=== PATIENT | female | born 1965 | race Caucasian/White ===

== ENCOUNTER 2024-08-22 07:39 | Outpatient (CLI) | payer MEDICAID, SELFPAY ==
--- OUTSIDE RECORDS SUMMARY | 2024-08-01 03:29 | XMS_ITS | Continuity of Care Document ---
Author Organization [facility] Phone Care Team Providers Care Smooth Stucco Resurfacer Name Role Phone JENNIFER SANDERSON Primary Attending JENNIFER SANDERSON Primary Care [phone] JENNIFER SANDERSON Admitting [phone] JENNIFER SANDERSON Unavailable [phone] ALLERGIES AND ADVERSE REACTIONS ALLERGIES AND ADVERSE REACTIONS Code System Allergy Substance Adverse Reaction Date Reaction (Severity) Comment Status Reported By Updated By TRAMADOL Rash (Moderate) active [id number] on November 14, 2023 2:10:33 PM UTC [address] RXNorm Gabapentin Adverse reaction to substance Not Specified active [id number] on November 14, 2023 2:10:34 PM UTC IODINE; IODINE CONTAINING (Free Text Allergy) Adverse reaction to substance Not Specified active [id number] on November 14, 2023 2:10:34 PM UTC FAMILY HISTORY RELATION: Father Status: LIVING SNOMED-CT Diagnosis Age At Onset Information not available RELATION: Mother Status: LIVING SNOMED-CT Diagnosis Age At Onset Information not available RESULTS Patient: TAURUS VAZQUEZ Date of : 1965 LABORATORY RESULTS Information is not available LABORATORY NARRATIVE RESULTS Information is not available RADIOLOGY RESULTS ORDER 100: OSMAR DIAG BILAT 2D AND 3D (LOINC: 73442-2) ORDER DATE: July 30, 2024 5:47:00 PM [place] PERFORMING LAB: [address] [id number] Final Result Date: July 30 10:40:[address] [address] Name: TAYLOR CONDON Exam Date: 07/30/2024 : 1965 Age 58 years Gender: F Physician: JENNIFER SANDERSON Facility: [facility] HSV: Outpatient Exam: OSMAR APONTE BILAT 2D & 3D EXAM DESCRIPTION: [facility] DIAG BILAT 2D & 3D (accession [id number]), US BREAST LIMITED RT (accession [id number]) CLINICAL HISTORY: 58 years Female. Patient's clinician felt a palpable abnormality in the right breast inferiorly near the inframammary fold. COMPARISON: Screening mammogram from June 15, 2017. Technique: Low dose full field digital breast mammogram with tomosynthesis was performed with 2D/3D tomosynthesis acquisitions in the CC and MLO projections. 90 degree ML view for the right side and spot compression views were obtained. Computer-aided detection was utilized for final interpretation of images. Targeted sonographic evaluation of the right breast was performed utilizing a linear high-frequency transducer. MAMMOGRAM FINDINGS: BREAST DENSITY: There are scattered areas of fibroglandular density. Evaluation is difficult as the patient was unable to tolerate optimal positioning due to physical limitations. No discrete finding on either side by mammography. BREAST ULTRASOUND FINDINGS: 7:00, 8 cm from the nipple, in the area of palpable concern, there is a partially marginated lesion measuring 4 x 1.8 x 2.6 cm. No definite mammographic correlate for this finding. However, despite multiple attempts to obtain imaging of the inferior right breast were unsuccessful due to limitations. This is an indeterminate finding and ultrasound-guided core biopsy is recommended. The results of this report will be communicated to the patient in layman's terms. IMPRESSION: 1. Indeterminate finding in the area of palpable concern. 2. Ultrasound-guided right breast core biopsy is recommended. BI-RADS CATEGORY: CATEGORY 4, SUSPICIOUS ABNORMALITY RECOMMENDATION: BIOPSY FOLLOW-UP SUGG Electronically signed by: Eden Anderson MD 07/30/2024 06:46 PM EDT [facility] FOLLOW-UP CODE Legally authenticated by MONICA Fuchs 2024-07-30 18:40:38 Dictated By: EDEN ANDERSON Transcribed By: Transcribed On: 07/30/2024 6:40 PM Electronically signed by: EDEN ANDERSON 07/30/2024 Thank you for referring TAYLOR CONDON to [facility]. Legally authenticated by MONICA Fuchs 2024-07-30 18:40:38 ORDER 200: US BREAST LIMITED RT (LOINC: 81541-6) ORDER DATE: July 30, 2024 6:36:00 PM [facility] PERFORMING LAB: [address] [place] [id number] Final Result Date: July 30 10:40:[address] [place] [address] Name: TAYLOR CONDON Exam Date: 07/30/2024 : 1965 Age 58 years Gender: F Physician: JENNIFER SANDERSON Facility: [facility] HSV: Outpatient Exam: US BREAST LIMITED RT EXAM DESCRIPTION: OSMAR DIAG BILAT 2D & 3D (accession [id number]), US BREAST LIMITED RT (accession [id number]) CLINICAL HISTORY: 58 years Female. Patient's clinician felt a palpable abnormality in the right breast inferiorly near the inframammary fold. COMPARISON: Screening mammogram from June 15, 2017. Technique: Low dose full field digital breast mammogram with tomosynthesis was performed with 2D/3D tomosynthesis acquisitions in the CC and MLO projections. 90 degree ML view for the right side and spot compression views were obtained. Computer-aided detection was utilized for final interpretation of images. Targeted sonographic evaluation of the right breast was performed utilizing a linear high-frequency transducer. MAMMOGRAM FINDINGS: BREAST DENSITY: There are scattered areas of fibroglandular density. Evaluation is difficult as the patient was unable to tolerate optimal positioning due to physical limitations. No discrete finding on either side by mammography. BREAST ULTRASOUND FINDINGS: 7:00, 8 cm from the nipple, in the area of palpable concern, there is a partially marginated lesion measuring 4 x 1.8 x 2.6 cm. No definite mammographic correlate for this finding. However, despite multiple attempts to obtain imaging of the inferior right breast were unsuccessful due to limitations. This is an indeterminate finding and ultrasound-guided core biopsy is recommended. The results of this report will be communicated to the patient in layman's terms. IMPRESSION: 1. Indeterminate finding in the area of palpable concern. 2. Ultrasound-guided right breast core biopsy is recommended. BI-RADS CATEGORY: CATEGORY 4, SUSPICIOUS ABNORMALITY RECOMMENDATION: BIOPSY FOLLOW-UP SUGG Electronically signed by: Eden Anderson MD 07/30/2024 06:46 PM EDT RP [facility] FOLLOW-UP CODE Legally authenticated by MONICA Fuchs 2024-07-30 18:40:38 Dictated By: EDEN ANDERSON Transcribed By: Transcribed On: 07/30/2024 6:40 PM Electronically signed by: EDEN ANDERSON 07/30/2024 Thank you for referring TAYLOR CONDON to [facility]. Legally authenticated by MONICA Fuchs 2024-07-30 18:40:38 PATHOLOGY NARRATIVE RESULTS Information is not available MICROBIOLOGY RESULTS No Micro Labs/Results Exist for Patient BLOOD ADMIN RESULTS Information is not available MEDICATIONS HOME MEDICATIONS Status RXNORM NDC Medication Dose Route Frequency Dates Comments Reported By Updated By Drug Treatment Unknown DISCHARGE MEDICATIONS Status RXNORM NDC Medication Dose Route Frequency Dates Comments Physician Updated By No Discharge Medication Info rmation Available INPATIENT MEDICATIONS Status RXNORM NDC Medication Dose Route Frequency Rat e Quantity Dates Comments Physician Updated By No Inpatient Medication Info rmation Available SOCIAL HISTORY SOCIAL HISTORY SNOMED-CT Social History Element Description Effective Dates Offered Cessation Comment UpdatedBy [id number] Historical Tobacco smoking status Current Every Day Smoker [id number] on July 04, 2018 7:59:30 PM [facility] SOCIAL HISTORY - Gender Sex: Female SOCIAL HISTORY - Status : status i nformation is not available Intention in Next Year: intention information is not available SOCIAL HISTORY - Sexual Behavior Sexual Orientation Gender Identity SNOMED-CT Description SNO MED -CT Description Activity Level No of Partners Partner Type UpdatedBy Information is not available HEALTH CONCERNS Problems Concern Status Health Concern problem infor mation not available. Smoking Status Status Years Used Consumed packs p er day Health Concern smoking histo ry information not available. Family History Concern Status Health Concern family histor y information not available. ENCOUNTERS ENCOUNTER INFORMATION Reason for Visit LUMP IN LOWER OUTER QUAD Admission July 30, 2024 5:34:[address] [address] Discharge July 30, 2024 5:34:00 PM UTC DISC HARGED TO HOME OR SELF CARE ENCOUNTER DIAGNOSES Notes information is not jet ilable. Code System Diagnosis Onset Date Diagnosis information is not available. ABSTRACT DIAGNOSES Code System Diagnosis Updated By N63.13 ICD10 UNSPECIFIED LUMP IN THE RIGHT BREAST, LOWER OUTER QUADRANT [id number] on July 26, 2024 1:49:04 PM [place] N63.13 ICD10 UNSPECIFIED LUMP IN THE RIGHT BREAST, LOWER OUTER QUADRANT [id number] on August 01, 2024 7:28:23 AM [place] CARE TEAM Care Smooth Stucco Resurfacer Role JENNIFER SANDERSON Primary Attending JENNIFER SANDERSON Primary Care JENNIFER SANDERSON Admitting JENNIFER SANDERSON Referring CARE TEAM CARE mental health practitioner Role on Team Status Start Date End Date Update d By MARIA E Fuchs PCP normal July 26 1:49:05 PM [place] July 30, 2024 5:34:00 PM UTC [id number] on July 26, 2024 1:49:05 PM [place] MARIA E Fuchs Referring normal July 26 1:49:05 PM [place] July 30, 2024 5:34:00 PM UTC [id number] on July 26, 2024 1:49:05 PM [place] MARIA E Fuchs Attending normal July 26 1:49:05 PM [place] July 30, 2024 5:34:00 PM UTC [id number] on July 26, 2024 1:49:05 PM [place] MARIA E Fuchs Admitting normal July 26 1:49:05 PM [place] July 30, 2024 5:34:00 PM UTC [id number] on July 26, 2024 1:49:05 PM UTC
--- NOTE | 2024-08-22 | US_ITS ---
FINAL REPORT CLINICAL HISTORY: LUMP RT BREAST-INNER QUADRANT // bx not performed FINDINGS: ULTRASOUND RIGHT BREAST CLINICAL INDICATION: Right breast abnormality. Planned biopsy. TECHNIQUE: Directed sonographic evaluation right breast COMPARISON: Outside exam 07/30/2024 FINDINGS: The lesion described and shown on outside imaging could not be reproduced on current exam. The abnormality is favored to be related to fat lobule. No definite cystic or soft tissue mass is seen. IMPRESSION: Abnormality described on outside ultrasound not reproducible on current exam. Therefore biopsy cannot be performed. BI-RADS CATEGORY: 3 , PROBABLY BENIGN FINDING(S). RECOMMENDED FOLLOW-UP: Short-term sonographic follow-up right breast in 6 months Authenticated and ERN
== END 2024-08-22 23:59 | disposition home or self-care (01) ==
LOC: RAD 07:40
PROVIDERS: PCP Nurse Practitioner Family; Visit Provider Nurse Practitioner Family
DX: R92.331 Mammographic heterogeneous density, right breast (principal); N63.10 Unspecified lump in the right breast, unspecified quadrant
CPT/HCPCS: 76642

== ENCOUNTER 2024-10-15 15:18 | Emergency (ER) | payer MEDICAID, SELFPAY ==
--- OUTSIDE RECORDS SUMMARY | 2024-08-23 14:00 | XMS_ITS | Encounter Summary ---
Author Organization Healthcare Address [address] [place] [address] Care Team Providers Care Landscape Specialist Name Role Phone Deya Reed APRN Primary Care Provider + Encounter Details Date Type Department Care Team ([facility] Contact Info) Description 08/23/2024 2:00 PM EDT Pre-Admission Testing [facility]est[facility] [address] [place] [address] Anesthesia Record Procedure Summary Procedure Name Responsible Anesthesiologist Anesthesia Start Time Anesthesia Stop Time left carpal tunnel release; left index finger trigger release (Left: Wrist) Dima Carty, 08/27/24 1006 08/27/24 1107 Events Date Time Event Comment 08/27/2024 0851 1006 An Start The patient was reevaluated immediately before sedation and remains eligible for anesthesia plan. 1011 In Room 1011 An Start Data 1013 An Induction The patient was reevaluated immediately before moderate or deep sedation use and before anesthesia induction. 1015 Anesthesia Ready 1019 An Intubation Patient obstru cting with desaturation into 80s, decision made to place LMA 1025 Proc Start 1059 Proc Fin 1101 An Extubation 1102 an stop data 1103 Out of Room 1107 Handoff to Receiving I compl eted my handoff to the receiving clinician during which we: 1. Identified the patient 2. Identified the responsible provider 3. Reviewed the pertinent medical history 4. Discussed the surgical course 5. Reviewed intra-op anesthesia management and issues during anesthesia 6. Set expectations for post-procedure period 7. Allowed opportunity for questions and acknowledgement of understanding. 1107 An Stop Meds * Agents No agents on file. * Blood No blood administrations on file. Lines, Drains, and Airways Type Details Placement Removal Wound 08/27/24; 1022; Yes; Surgical; Closed Surgi; Wrist; Anterior, Left 08/27/24 1022 by Beatrice Walker RN Wound 08/27/24; 1022; Othe r (injection); Finger (Comment which one); Anterior, Right (ring finger) 08/27/24 1022 by Beatrice Walker RN Peripheral IV Placement Date: 12/13; Placement Time: 901; Catheter Size: 18 G; Orientation: Anterior, Right; Location: Forearm; Site Prep: Chlorhexidine ; Technique: Ultrasound guidance; Inserted by: Dr. Fam; Insertion Attempts: 2; Patient Tolerance: Tolerated well; Removal Date: 08/27/24; Removal Time: 1205 08/27/24 0902 by Liliana Callejas RN 08/27/24 1205 by Magda Ojeda RN Supraglottic Airway Placement Date: 12/13; Placement Time: 101 (created via procedure documentation); Mask Ventilation: 0; Removal Date: 08/27/24; Removal Time: 1101 08/27/24 1019 by Saige Damon CRNA 08/27/24 1101 by Saige Damon CRNA documented in this encounter Social History Tobacco Use Types Packs/Day Years Used Date Smoking Tobacco: Every Day Cigarettes 0.3 10 Passive Smoke Exposure: Current Smokeless Tobacco: Never Tobacco Cessation:Ready to Q uit: Not Asked; Counseling Given: Not Answered Alcohol Use Standard Drinks/Week Comments No 0 (1 standard drink = 0.6 oz pur e alcohol) PHQ-2 Answer Date Recorded Patient Health Questionnaire-2 Score 0 05/15/2024 PHQ-9 Answer Date Recorded Patient Health Questionnaire-9 Score 0 05/15/2024 PHQ-2A Answer Date Recorded Depression Risk 0 04/26/2022 Comments No Sex and Gender Information Value Date Recorded Sex Assigned at Not on file Legal Sex Female 7:01 PM EDT Gender Identity Not on file Sexual Orientation Not on file documented as of this encounter Last Filed Vital Signs Vital Sign Reading Time Taken Comments Blood Pressure - - Pulse - - Temperature - - Respiratory Rate - - Oxygen Saturation - - Inhaled Oxygen Concentration - - Weight 120 kg (265 lb) 08/23/2024 1:51 PM EDT Height - - Body Mass Index 51.75 06/07/2024 1:25 PM EDT documented in this encounter Miscellaneous Notes * PAT Evaluation Note - Roselia Barnett PA - 08/23/2024 2:00 PM EDT Images from the original note were not included. HPI Kami Khan is a 58 y.o. female who presents with Pre-op Diagnosis of Carpal tunnel syndrome, left now scheduled for left carpal tunnel release; left index finger trigger release (Left), RELEASE, Index finger TRIGGER FINGER (Left)with Shaniqua Tinajero MD on 08/27/2024 at [facility] OR Past Medical History[1] Family History[2] Social History[3] SURGICAL HISTORY: Surgical History[4] Allergies[5] MEDICATIONS: Current Medications[6] ROS Anesthesia: Date of last anesthetic: Most recent anesthesia ~ 07/21/2023 [facility] EGD/Colonoscopy Difficult Airway: No Final Airway Type: endotracheal airway Mask Difficulty Assessment: 3 - difficult mask (inadequate, unstable or two providers) +/- NMBA Final Endotracheal Airway: ETT Cuffed: Yes Cormack-Lehane Classification: grade IIa - partial view of glottis Technique Used For Successful Placement: video laryngoscopy Devices/Methods Used in Placement: intubating stylet, cricoid pressure Insertion Site: oral Blade Type: Brenda Blade Size: 4 ETT Size (mm): 7.0 Number of Attempts at Approach: 1 history of previous anesthesia and obstructive sleep apnea. Does not have a history of anesthetic complications, a history awareness of surgery under anesthesia, a history of delayed emergence, malignant hyperthermia, PONV and a history of prolonged emergence. Cardiovascular: atrial fibrillation (not on blood thinners). Does not have angina, CAD, CHF (NYHA class III), dysrhythmias, peripheral edema, hyperlipidemia, peripheral edema, pacemaker or past VA. hypertension: is well controlled. Does not have chest pain. Cardio additional comments: Denies any active current cardiac complaints. + pt in wheelchair most of the time; poor balance because of back issues + sleeps in a recliner because of back and neck issues + saw Dr Sánchez at [facility] in 2020. She was told she had some mild CAD and is on ASA and plavix for this and CVA history. Hasn't seen cardiology since 2020.. Respiratory: home oxygen (Has oxygen to use with cpap if needed). asthma: well controlled.COPD: breathing at baseline.Has not had an upper respiratory infection in last 30 days. Has not had bronchitis in the last30 days, pneumonia in the last 30 days or COVID in the last 30 days. Respiratory ROS additional comments: + Pulmonary nodules HEENT: Does not have difficulty swallowing, chipped teeth or loose teeth.Does not have temporomandibular joint syndrome. hearing loss. HEENT additional comments: + occasionally she gets choked up + pt reports she has a small mouth. Neurological: headaches (migraine). no seizures: a cerebrovascular accident (2019; right hemiparesis) with residual symptoms.Does not have TIA. Neuro additional comments: + ADHD Musculoskeletal: arthritis. cervical spine limited mobility. Musc/Skel/Integ additional comments: + Chronic low back pain and chronic weakness- unable to walk; uses wheelchair + neck issues and needs a roll under neck Gastrointestinal: GERD: well controlled.PUD. Does not have cirrhosis or hepatitis. morbid obesity. GI/ additional comments: + IBS- C and D + YUEN + kidney nodules Genitourinary: Does not have chronic renal disease.Does not have recurrent UTIs, renal calculi or renal disease. Hematological/Lymphatic: History of no DVT. History of no pulmonary embolism. Not in a hypercoagulable state. no history of chemotherapy no history of radiation Does not have MRSA or tuberculosis. Endocrine/Metabolic: diabetes mellitus type 2.well controlled. 06/07/2024 8.9% Does not have thyroid disorder. 02/23/2021 02/23/2021 ZIO PATCH MONITOR 11/06/2019 Cardiac Cath: 10/15/2019 CT Coronaries: IMPRESSION: 1. Mode rate coronary calcification with an Agatston score = 172 using the AJ-130 method, which represents 98 percentile when matched for age, gender and ethnicity. Vascular age is 77 years. 2. There is moderate atherosclerotic coronary artery disease . There is a plaque in the proximal and mid LAD causing moderate stenosis. There is a plaque at the LCx ostium causing mild stenosis. There is a plaque at the mid RCA causing mild stenosis. Study images will be sent for further analysis using CT FFR. 3. CAD-RADS 3: Management recommendations: Consider cardiology consultation, functional testing and/or invasive coronary angiography for evaluation and management. Recommendation for anti-ischemic and preventative management should be considered as well as risk factor modification. 4. 5 mm pulmonary nodule in the right lower lobe. If there is any prior history of smoking, recommend further evaluation with a noncontrast chest CT in 12 months. 05/18/2024 Lab Results Component Value Date WBC 11.19 (H) 09/16/2021 HGB 17.7 (H) 09/16/2021 HCT 56.6 (H) 09/16/2021 MCV 93 09/16/2021 PLT 223 09/16/2021 Lab Results Component Value Date GLUCOSE 108 (H) 10/18/2022 BUN 15 10/18/2022 CREATININE 1.05 10/18/2022 BCR 14 10/18/2022 NA 140 10/18/2022 K 3.8 10/18/2022 CL 97 10/18/2022 CO2 31 (H) 10/18/2022 CA 9.6 12/18/2018 ALBUMIN 4.3 10/18/2022 ALKPHOS 79 10/18/2022 BILITOT 0.5 10/18/2022 Lab Results Component Value Date HGBA1C 8.6 (H) 06/07/2024 Lab Results Component Value Date INR 1.0 10/18/2022 INR 0.9 12/18/2018 INR 1.0 07/21/2018 Visit Vitals Wt 120 kg (265 lb) BMI 51.75 kg/m?? OB Status Hysterectomy Smoking Status Every Day BSA 2.25 m?? Physical Exam Airway Cardiovascular (-) peripheral edema Dental Pulmonary Neurological Skin Musculoskeletal Extremities Anesthesia Plan ASA 3 Anesthesia technique(s) discussed with the patient/family: general and MAC Comment: PING phone screen. Discussed with Dr. Rivas who called Dr Tinajero, Shaniqua Velazquez MD. OK to continue plavix per surgeon. ROSE Gastelum [1] Past Medical History: Diagnosis Date A-fib ([facility]) ADHD (attention deficit hyperactivity disorder) Adverse effect of anesthesia Pateint has been told that she is hard to wake up and her trachea is small and her oxygen drops easily. Allergic Arthritis Asthma Back pain Carpal tunnel syndrome, bilateral CHF (congestive heart failure) (CMS/HCC) Cirrhosis (CMS/HCC) Colitis Complaints of total body pain Decreased mobility in hands Diverticulosis DM2 (diabetes mellitus, type 2) (CMS/HCC) Eczema Enlarged liver GERD (gastroesophageal reflux disease) HL (hearing loss) HTN (hypertension) IBS (irritable bowel syndrome) Mastoiditis Meniere disease Migraines Neuropathy Numbness and tingling of both legs Obesity Otitis media Peptic ulceration Personal history of transient ischemic attack (TIA), and cerebral infarction without residual deficits History of cerebrovascular accident Polycythemia Psoriasis Spleen enlarged Stroke (CMS/HCC) 2019; R side weakness arm/leg Urinary tract infection Weakness [2] Family History Problem Relation Name Age of Onset Hypertension Mother davi rich Asthma Mother davi rich Arthritis Mother davi rich Hypertension Father rosemarie rich Diabetes Father rosemarie rich Arthritis Father rosemarie rich Anesthesia problems Neg Hx Malig Hyperthermia Neg Hx [3] Social History Tobacco Use Smoking status: Every Day Current packs/day: 0.25 Average packs/day: 0.3 packs/day for 10.0 years (2.5 ttl pk-yrs) Types: Cigarettes Passive exposure: Current Smokeless tobacco: Never Vaping Use Vaping status: Former Substances: Flavoring Substance Use Topics Alcohol use: No Drug use: Never [4] Past Surgical History: Procedure Laterality Date CHOLECYSTECTOMY N/A Cholecystectomy from [facility] COLONOSCOPY EAR SURGERY ESOPHAGOGASTRODUODENOSCOPY HAND SURGERY Right HYSTERECTOMY N/A Hysterectomy from [facility] NOSE SURGERY cartilage surgery TONSILLECTOMY N/A Tonsillectomy from [facility] TUBAL LIGATION N/A Tubal Ligation from [facility] [5] Allergies Allergen Reactions Gabapentin Other - please document in the comment field and Dizziness Nausea and vomiting Iodine Itching and Unknown - Patient states they do not know rxn details Per patient she has itching to Iodine and Iodinated Contrast. Denies pre- medictions previously. Tramadol Itching, Other - please document in the comment field, Rash and Unknown - Patient states they do not know rxn details Iv Contrast Itching Patient states she has itching to Iodinated Contrast. Molds & Smuts Other - please document in the comment field and Unknown - Patient states they donot know rxn details Atorvastatin Other - please document in the comment field Dulaglutide Other - please document in the comment field Metformin Other - please document in the comment field [6] Current Outpatient Medications: acetaminophen, Take 2 tablets by mouth every 6 hours as needed. clobetasol, Apply a thin film using a Qtip to bilateral ear canals twice daily prn itching clopidogrel, Take 1 tablet by mouth daily. diclofenac, Apply 2 g topically 4 times a day. divalproex, TAKE (1) TABLET BY MOUTH TWICE A DAY. DULoxetine, TAKE ONE CAPSULE BY MOUTH DAILY and TAKE ONE TABLET BY MOUTH EVERY EVENING escitalopram, Take 2 tablets by mouth daily. furosemide, Take 1 tablet by mouth daily. HumaLOG KWIKPEN, Inject up to 10 units three times daily before meals, MDD 30 units Jardiance, Take 1 tablet (25 mg) by mouth daily. lidocaine, APPLY 1 PATCH BY TOPICAL ROUTE ONCE DAILY (MAY WEAR UP TO 12 HOURS.) Linzess, TAKE (1) CAPSULE BY MOUTH ONCE A DAY. lisinopril, TAKE ONE TABLET BY MOUTH DAILY and TAKE ONE TABLET BY MOUTH EVERY EVENING loratadine, Take 1 tablet by mouth nightly. meclizine, TAKE (1) TABLET BY MOUTH TWICE A DAY NEEDED. nystatin, APPLY TO THE AFFECTED AREA(S) BY TOPICAL ROUTE 2 TIMES PER DAY ondansetron ODT, DISSOLVE 1 TABLET BY MOUTH TWICE DAILY NEEDED pantoprazole, TAKE 1 TABLET BY MOUTH ONCE A DAY BEFORE BREAKFAST DO NOT CRUSH,CHEW OR SPLIT pregabalin, Take 1 capsule by mouth 3 times a day. propranolol, 1 tablet 2 times a day. rOPINIRole, Take 1 tablet by mouth nightly. rosuvastatin, Take 1 tablet by mouth daily. Trelegy Ellipta, INHALE 1 PUFF ONCE DAILY triamterene-hydroCHLOROthiazide, Take 1 capsule by mouth daily. Ventolin HFA, Inhale 2 puffs every 4 hours as needed. acetic acid-hydrocortisone, bisacodyl, TAKE ALL 4 TABLETS BY MOUTH AT 9 AM 2 DAYS BEFORE COLONOSCOPY. Calcipotriene, APPLY TO THE SCALP DAILY. (Patient not taking: Reported on 08/23/2024) ciprofloxacin-dexamethasone, Dexcom G7 Sensor, CHANGE EVERY 10 DAYS DIRECTED. dicyclomine, 2 (two) times a day if needed. (Patient not taking: Reported on 08/23/2024) Trulicity, INJECT 0.75 MG UNDER THE SKIN ONCE WEEKLY. (Patient taking differently: Takes on tuesday) ergocalciferol, Take 1 capsule by mouth 1 time per week. Takes on Mondays GNP PAIN RELIEF EX-STRENGTH, TAKE (2) TABLETS EVERY SIX HOURS NEEDED. (Patient not taking: Reported on 08/23/2024) Depend Undergarments, Use as needed for incontinence of stool Moist Wipes Flushable, Use as directed after each bowel movement ketoconazole, LATHER AND MASSAGE INTO SCALP 2-3 TIMES WEEKLY WHEN FLARED,LET SIT 3-5 MINUTES BEFORERINSING. (Patient not taking: Reported on 08/23/2024) naproxen, Take 1 tablet twice a day by oral route as directed for 7 days. (Patient not taking: Reported on 08/23/2024) gzbziuwb-yjyppqrlx-oqsyfdutipuhai, instill FOUR drops into affected ear(s) THREE TIMES DAILY (Patient not taking: Reported on 08/23/2024) B-D UF III MINI PEN NEEDLES, Inject 1-4x daily predniSONE, Take 1 tablet (5 mg) by mouth daily. (Patient not taking: Reported on 06/07/2024) scopolamine, APPLY ONE PATCH TO SKIN EVERY 72 HOURS FOR 10 DAYS. (Patient not taking: Reported on 08/23/2024) Symbicort, Inhale 2 puffs 2 (two) times a day. (Patient not taking: Reported on 08/23/2024) triamcinolone, Apply a thin film on a qtip to the opening of both ear canals twice daily for 3-5 days at a time prn itching. urea, APPLY TO AFFECTED AREA EVERY 12 HOURS. (Patient not taking: Reported on 08/23/2024) * Preprocedure Instructions - Roselia Barnett PA - 08/23/2024 2:00 PM EDT Home Medication Instructions Current Medications Medication Instructions acetaminophen (Tylenol) 500 MG tablet Take as needed clobetasol (Temovate) 0.05 % ointment Take as needed clopidogrel (Plavix) 75 MG tablet Take morning of surgery- per surgeon diclofenac (Voltaren) 1 % topical gel Take as needed divalproex (Depakote) [address] tablet Take morning of surgery DULoxetine (Cymbalta) [address] capsule Take night before surgery escitalopram (Lexapro) 5 MG tablet Hold day of surgery furosemide (Lasix) 40 MG tablet Hold day of surgery HumaLOG KWIKPEN 100 UNIT/ML injection pen Hold day of surgery Jardiance 25 MG Hold 3 days before surgery lidocaine (Lidoderm) 5 % patch Take as needed Linzess 145 MCG capsule Take as needed lisinopril 20 MG tablet Hold day of surgery loratadine (Claritin) 10 MG tablet Take as needed meclizine (Antivert) 12.5 MG tablet Take as needed nystatin (Nystop) 303775 UNIT/GM powder Take as needed ondansetron ODT (Zofran-ODT) 8 MG disintegrating tablet Take as needed pantoprazole (Protonix) 40 MG EC tablet Take night before surgery pregabalin (Lyrica) 25 MG capsule Take as needed propranolol (Inderal) 40 MG tablet Take morning of surgery rOPINIRole (Requip) 0.5 MG tablet Take night before surgery rosuvastatin (Crestor) 5 MG tablet Take night before surgery Trelegy Ellipta 200-62.5-25 MCG/ACT aerosol powder Take as needed triamterene-hydroCHLOROthiazide (Dyazide) 37.5-25 MG capsule Hold day of surgery Ventolin HFA 108 (90 Base) MCG/ACT inhaler Take as needed General Preoperative Instructions You will be called the business day before surgery with your arrival time No food after midnight the night before surgery. You can drink clear liquids up to 2 hours prior to arrival unless instructed by your surgeon otherwise. Please do not try to get all your hydration in 2 hours prior to arrival. Start the day before surgery drinking more than you usually would. After midnight, you can have clear liquids only (water,apple juice, Gatorade) up to 2 hours prior to arrival. No coffee or tea. No alcohol or smoking prior to surgery Arrive on time to avoid delays Parking/Registration procedure explained You MUST have a responsible adult available for transport to and from hospital Visitation policy for the day of surgery reviewed Bring insurance card, photo ID, along with power of special effects person, guardianship or advanced directives if applicable Do not bring money, jewelry or other valuables Hibiclens bathing instructions reviewed if applicable Notify surgeon of fever, illness, any changes or if you decide not to have surgery Diabetes Instructions (If applicable) Take diabetes medication as instructed You may have up to 4 ounces of apple juice 2 hours prior to arrival for surgery for low glucose documented in this encounter Plan of Treatment Upcoming Encounters Date Type Department Care Team (Late st Contact Info) Description 10/26/2024 10:10 AM EDT Office Visit [facility] [address] [place] [address] Kathia Torres PA [address] [place] [address] 10/30/2024 11:40 AM EDT Office Visit [facility] [address] [place] [address] Reji Vera MD [address] [place] [address] 10/30/2024 1:15 PM EDT Office Visit [facility] [address] [place] [address] Lauren Montalvo APRN, DNP [address] [facility] [address] [place] [address] 12/14/2024 10:45 AM EDT Appointment [facility] [address] [place] [address] 12/17/2024 12:20 PM EDT Office Visit [facility] [address] [place] [address] Iram Mckay PA [address] [place] [address] documented as of this encounter Visit Diagnoses Not on filedocumented in this encounter Additional Health Concerns Assessment Noted Time PHQ-9 Depression Total Score: 0 05/15/19 8:16 AM EST A fall risk assessment has been complete d for the patient 05/15/2024 8:16 AM EST A Body Mass Index follow-up plan has been documented for the patient 06/07/2024 3:12 PM EDT documented as of this encounter Care Teams Landscape Specialist Relationship Specialty Start Date End Date Deya Reed APRN [address] [place] [address] PCP - General 06/15/22 documented as of this encounter
--- OUTSIDE RECORDS SUMMARY | 2024-08-27 07:37 | XMS_ITS | Encounter Summary ---
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 Service Worker Name Role Phone Deya Reed KERLINE Primary Care Provider + Encounter Details Date Type Department Care Team (Late st Contact Info) Description 08/27/2024 7:37 AM EDT - 08/27/2024 7:44 AM EDT Emergency [facility] [address] [place] [address] Discharge Disposition: ED Reg Error Social History Tobacco Use Types Packs/Day Years Used Date Smoking Tobacco: Every Day Cigarettes 0.3 10 Passive Smoke Exposure: Current Smokeless Tobacco: Never Alcohol Use Standard Drinks/Week Comments No 0 [...] on file documented as of this encounter Medications at Time of Discharge acetaminophen (Tylenol) 500 MG tablet Take 2 tablets by mouth every 6 hours as needed. acetic acid-hydrocortisone (Vosol-HC) otic solution bisacodyl (Dulcolax) 5 MG EC tablet TAKE ALL 4 TABLETS BY MOUTH AT 9 AM 2 DAYS BEFORE COLONOSCOPY. Calcipotriene 0.005 % ointment APPLY TO THE SCALP DAILY. ciprofloxacin-dexam ethasone (CiproDEX) otic suspension 4 clobetasol (Temovate) 0.05 % ointment Apply a thin film using a Qtip to bilateral ear canals twice daily prn itching 15 g 3 4 clopidogrel (Plavix) 75 MG tablet Take 1 tablet by mouth daily. 2 diclofenac (Voltaren) 1 % topical gel Apply 2 g topically 4 times a day. 5 dicyclomine (Bentyl) 20 MG tablet 2 (two) times a day if needed. 3 divalproex (Depakote) [address] tablet TAKE (1) TABLET BY MOUTH TWICE A DAY. 4 DULoxetine (Cymbalta) [address] capsule TAKE ONE CAPSULE BY MOUTH DAILY and TAKE ONE TABLET BY MOUTH EVERY EVENING 2 ergocalciferol 1.25 MG (13753 UT) capsule Take 1 capsule by mouth 1 time per week. Takes on Mondays 3 escitalopram (Lexapro) 5 MG tablet Take 2 tablets by mouth daily. 3 furosemide (Lasix) 40 MG tablet Take 1 tablet by mouth daily. 3 GNP PAIN RELIEF EX-STRENGTH 500 MG tablet TAKE (2) TABLETS EVERY SIX HOURS NEEDED. 4 HYDROcodone-acetami nophen ([place]) 5-325 MG tablet Take 1 tablet by mouth every 8 hours as needed for severe pain. 10 tablet 5 Incontinence Supply Disposable (Depend Undergarments) misc Use as needed for incontinence of stool 30 each 3 Incontinence Supply Disposable (Moist Wipes Flushable) misc Use as directed after each bowel movement 42 each 3 Jardiance 25 MGIndications:Type 2 diabetes mellitus with hyperglycemia, without long-term current use of insulin ([facility]) Take 1 tablet (25 mg) by mouth daily. 30 tablet 5 5 12/05/19 25 ketoconazole (NIZOral) 2 % shampoo LATHER AND MASSAGE INTO SCALP 2-3 TIMES WEEKLY WHEN FLARED,LET SIT 3-5 MINUTES BEFORE RINSING. 4 lidocaine (Lidoderm) 5 % patch APPLY 1 PATCH BY TOPICAL ROUTE ONCE DAILY (MAY WEAR UP TO 12 HOURS.) Linzess 145 MCG capsule TAKE (1) CAPSULE BY MOUTH ONCE A DAY. 4 lisinopril 20 MG tablet TAKE ONE TABLET BY MOUTH DAILY and TAKE ONE TABLET BY MOUTH EVERY EVENING 2 loratadine (Claritin) 10 MG tablet Take 1 tablet by mouth nightly. 4 meclizine (Antivert) 12.5 MG tablet TAKE (1) TABLET BY MOUTH TWICE A DAY NEEDED. naproxen (Naprosyn) 500 MG tablet Take 1 tablet twice a day by oral route as directed for 7 days. neomycin-polymyxin- hydrocortisone (Cortisporin) 3.5-51016-4 otic suspension instill FOUR drops into affected ear(s) THREE TIMES DAILY nystatin (Nystop) 982243 UNIT/GM powder APPLY TO THE AFFECTED AREA(S) BY TOPICAL ROUTE 2 TIMES PER DAY ondansetron ODT (Zofran-ODT) 8 MG disintegrating tablet DISSOLVE 1 TABLET BY MOUTH TWICE DAILY NEEDED 5 pantoprazole (Protonix) 40 MG EC tablet TAKE 1 TABLET BY MOUTH ONCE A DAY BEFORE BREAKFAST DO NOT CRUSH,CHEW OR SPLIT 90 tablet 5 predniSONE (Deltasone) 5 MG tablet Take 1 tablet (5 mg) by mouth daily. 5 pregabalin (Lyrica) 25 MG capsule Take 1 capsule by mouth 3 times a day. 5 propranolol (Inderal) 40 MG tablet 1 tablet 2 times a day. 2 rOPINIRole (Requip) 0.5 MG tablet Take 1 tablet by mouth nightly. 5 rosuvastatin (Crestor) 5 MG tablet Take 1 tablet by mouth daily. 3 scopolamine (Transderm-Scop) 1 MG/3DAYS patch 72 hour APPLY ONE PATCH TO SKIN EVERY 72 HOURS FOR 10 DAYS. Symbicort 160-4.5 MCG/ACT inhaler Inhale 2 puffs 2 (two) times a day. 4 Trelegy Ellipta 200-62.5-25 MCG/ACT aerosol powder INHALE 1 PUFF ONCE DAILY 5 triamcinolone (Kenalog) 0.1 % ointment Apply a thin film on a qtip to the opening of both ear canals twice daily for 3-5 days at a time prn itching. 1.5 g 3 4 triamterene-hydroCH LOROthiazide (Dyazide) 37.5-25 MG capsule Take 1 capsule by mouth daily. 2 urea (Carmol) 40 % cream APPLY TO AFFECTED AREA EVERY 12 HOURS. Ventolin HFA 108 (90 Base) MCG/ACT inhaler Inhale 2 puffs every 4 hours as needed. 4 Continuous Glucose Sensor (Dexcom G7 Sensor) misc CHANGE EVERY 10 DAYS DIRECTED. 4 09/08/19 25 dulaglutide (Trulicity) 0.75 MG/0.5ML solution auto-injector INJECT 0.75 MG UNDER THE SKIN ONCE WEEKLY. 2 mL 5 09/08/19 25 HumaLOG KWIKPEN 100 UNIT/ML injection penIndications:Type 2 diabetes mellitus with hyperglycemia, without long-term current use of insulin (CMS/HCC) Inject up to 10 units three times daily before meals, MDD 30 units 15 mL 5 5 09/08/19 25 pen needle, diabetic (B-D UF III MINI PEN NEEDLES) 31G X 5 MM miscIndications:Typ e 2 diabetes mellitus with hyperglycemia, without long-term current use of insulin (CMS/HCC) Inject 1-4x daily 200 each 11 5 09/08/19 25 documented as of this encounter Plan of Treatment Upcoming Encounters Date Type Department Care Team (Late st Contact Info) Description 10/26/2024 10:10 AM EDT Office Visit Nery Lambert [address] [place] [phone] Kathia Torres PA [address] [place] [phone] 10/30/2024 11:40 AM EDT [facility] [address] [place] [address] Reji Vera MD [address] [place] [phone] 10/30/2024 1:15 PM EDT Office Visit [facility] [address] [place] [address] Lauren Montalvo APRN, VINNY [address] [facility] [address] [place] [address] 12/14/2024 10:45 AM EDT Appointment [facility] Rad[facility] [address] [place] [address] 12/17/2024 12:20 PM EDT Office Visit Nery Simmons [facility] Endocrinology [address] [place] [phone] Iram Mckay PA [address] [facility] [address] [place] [phone] documented as of this encounter Visit Diagnoses [...] documented as of this encounter Care Teams Lawn Service Worker Relationship Specialty Start Date End Date Deya Reed APRN [address] [place] [address] PCP - General 06/15/22 documented as of this encounter
--- OUTSIDE RECORDS SUMMARY | 2024-08-27 07:52 | XMS_ITS | Encounter Summary ---
Author Organization Healthcare Address [address] [place] [address] Care Team Providers Care Harness Maker Name Role Phone Deya Reed APRN Primary Care Provider + Reason for Visit * Auth/Cert (Routine) Specialty Diagnoses / Procedures Referred By Christophe t Referred To Contact Diagnoses Carpal tunnel syndrome, left Carpal tunnel syndrome, left [G56.02] Procedures OK REVISE MEDIAN N/CARPAL TUNNEL SURG OK INCISE FINGER TENDON SHEATH OK INCISE FINGER TENDON SHEATH left carpal tunnel release; left index finger trigger release left carpal tunnel release; left index finger trigger release RELEASE, Index finger TRIGGER FINGER Shaniqua Tinajero MD [address] [place] [id number] Phone: tel: fax: [facility] S Operating Room [address] [place] [address] Phone: tel: Referral ID Status Reason Start Date Expiration Date Visits Re quested Visits Authorized [id number] 1 1 Encounter Details Date Type Department Care Team (Late st Contact Info) Description 08/27/2024 7:52 AM EDT - 08/27/2024 12:14 PM EDT Hospital Encounter [facility] Operating [address] [place] [address] Shaniqua Tinajero MD [address] [place] [address] Discharge Disposition: Home or Self Care Social History Tobacco Use Types Packs/Day Years [...] Sign Reading Time Taken Comments Blood Pressure 143/96 08/27/2024 11:45 AM EDT Pulse 77 08/27/2024 11:45 AM EDT Temperature 36.3 C (97.3 F) 08/27/2024 11:05 AM EDT Respiratory Rate 13 08/27/2024 11:45 AM EDT Oxygen Saturation 92% 08/27/2024 11:45 AM EDT Inhaled Oxygen Concentration - - Weight 124 kg (273 lb 2.4 oz) 08/27/2024 8:36 AM EDT Height 152.4 cm (5') 08/27/2024 8:36 AM EDT Body Mass Index 53.35 08/27/2024 8:36 AM EDT documented in this encounter Functional Status * Calculated C-SSRS Risk Score (Lifetime/Recent) Answer Date of Assessment Author No Risk Indicated 08/27/2024 8:20 AM EDT Liliana Callejas RN * Question Answer Date of Assessment Author 1. Wish to be (Past 1 Month) No 025 8:20 AM EDT Liliana Callejas RN 2. Non-Specific Active Suici angus Thoughts (Past 1 Month) No 08/27/2024 8:20 AM EDT Liliana Callejas RN 6. Suicidal Behavior (Lifetime) No 8:20 AM EDT Liliana Callejas RN documented as of this encounter Discharge Instructions * Discharge Instructions* Xavier Samaniego MD - 08/27/2024 8:08 AM EDT Post-Operative Instructions: You will maintain operative dressing in place for 5 days. On day 6, you may remove these and begin showering and washing hands for hygiene, but otherwise should keep wounds clean dry and covered at all times. Should be 2 lb weight lifting restriction for 2 weeks. We will see back in clinic for wound check and likely suture removal in 2 weeks. At that time can discuss hand therapy referral vs release to activity as tolerates. We have provided [place] for pain control. Do not drive while on opioids medications. Regarding work/school, you may return next week with the following restrictions: no lifting or use of operative extremity apart from desk work. If there are any issues, please call our office. Reasons to call: Feels warm or hot to the touch Is red or dark pink Is tight or swollen and looks shiny Becomes more tender or sore to the touch Wound smells bad Wound is draining pus, bleeding or coming open Temperature is above 101.5 F Pain is not relieved by medications documented in this encounter Medications at Time of Discharge [...] MOUTH EVERY EVENING 2 ergocalciferol 1.25 MG (93113 UT) capsule Take 1 capsule by mouth 1 time per week. Takes on Mondays 3 escitalopram (Lexapro) 5 MG tablet Take 2 tablets by mouth daily. 3 furosemide (Lasix) 40 MG tablet Take 1 tablet by mouth daily. 3 GNP PAIN RELIEF EX-STRENGTH 500 MG tablet TAKE (2) TABLETS EVERY SIX HOURS NEEDED. 4 HYDROcodone-acetami nophen ([place]) 5-325 MG tablet Take 1 tablet by [...] hyperglycemia, without long-term current use of insulin ([facility]) Take 1 tablet (25 mg) by mouth [...] directed for 7 days. neomycin-polymyxin- hydrocortisone (Cortisporin) 3.5-44511-9 otic suspension instill FOUR drops into affected ear(s) THREE TIMES DAILY nystatin (Nystop) 211298 UNIT/GM powder APPLY TO THE AFFECTED AREA(S) [...] hours as needed. 4 Continuous Glucose Sensor (Assured Labor G7 Sensor) misc CHANGE EVERY 10 DAYS DIRECTED. 09/08/19 dulaglutide (Trulicity) 0.75 MG/0.5ML solution auto-injector INJECT 0.75 MG UNDER THE SKIN ONCE WEEKLY. 2 mL 09/08/19 HumaLOG KWIKPEN 100 UNIT/ML injection penIndications:Type 2 diabetes mellitus with hyperglycemia, without long-term current use of insulin (CMS/HCC) Inject up to 10 units three times daily before meals, MDD 30 units 15 mL 09/08/19 pen needle, diabetic (B-D UF III MINI PEN NEEDLES) 31G X 5 MM miscIndications:Typ e 2 diabetes mellitus with hyperglycemia, without long-term current use of insulin (CMS/HCC) Inject 1-4x daily 200 each 09/08/19 documented as of this encounter Miscellaneous Notes * Anesthesia PACU Signout - Denys Fam MD - 08/27/2024 11:38 AM EDT Patient: Kami Khan Anesthesia Type: general Vitals Value Taken Time BP 155/64 08/27/24 11:31 Temp 36.3 ??C (97.3 ??F) 08/27/24 11:05 Pulse 79 08/27/24 11:37 Resp 15 08/27/24 11:37 SpO2 86 % 08/27/24 11:37 Vitals shown include unfiled device data. Anesthesia PACU Signout Patient location during evaluation: PACU Patient participation: complete - patient participated Level of consciousness: baseline and awake Pain management: adequate (pain score 0-3) Airway patency: natural airway Hydration status: acceptable PONV: none Cardiovascular status: acceptable and hemodynamically stable Respiratory status: acceptable, spontaneous ventilation, unassisted, nonlabored ventilation and room air Discharge Disposition: home Cosigned by Damien Bro MD at 08/27/2024 11:55 AM EDT Associated attestation - Damien Bro MD - 08/27/2024 11:55 AM EDT I saw and evaluated the patient with the resident/fellow. I discussed the case with the resident/fellow and agree with the findings and plan as documented. * Austen Hayes - Anton, Magda Melissa RN - 08/27/2024 11:24 AM EDT Images from the original note were not included. [address]39 Preventing a Surgical Site Infection A risk of any surgery is an infection at the surgical site. The surgical site is a cut the surgeon makes in the skin to do the surgery. Surgical site infections can range in type. It may be a minor skin infection. Or it may be severe and include tissue under the skin or other organs. In some cases,a severe infection can cause . The information below tells you: ? About surgical site infections. ? What hospitals do to prevent them. ? How they?re treated if they do occur. ? What you can do to prevent an infection. Hand washing reduces the risk of infection. What causes a surgical site infection? Germs are everywhere. They?re on your skin, in the air, and on things you touch. Many germs are good. Some are harmful. Surgical site infections occur when harmful germs enter your body through the incision in your skin. Some infections are caused by germs that are in the air or on objects. But most are caused by germs found on and in your own body. Who is at risk for a surgical site infection? Anyone can have a surgical site infection. Your risk is higher if you: ? Are an older adult. ? Have a weak immune system. ? Have other health conditions such as diabetes. ? Take certain medicines, such as steroids. ? Are a smoker. ? Have certain types of surgery, such as abdominal surgery. ? Have poor nutrition. ? Are very overweight. ? Have a surgery that lasts longer than 2 hours. What are the symptoms of a surgical site infection? An infection often shows up as skin redness, pain, and swelling around the incision that gets worse. Later, a cloudy or greenish-yellow fluid may come from the incision. The fluid may smell bad. The incision may pull apart or open up. You are likely to have a fever and may feel very ill. Symptoms can appear at any time. They may happen from hours to weeks after surgery. Implants such as an artificial knee or hip can become infected at any time after the surgery. How is a surgical site infection treated? ? A surgical site infection is treated with antibiotics. The type of medicine you get will depend on what may be causing the infection. Most serious wound infections need wound care. In some cases, surgery may be needed on the infected wound. ? An infected skin wound may be reopened and cleaned. A deep wound may need to be packed with gauze. The gauze is changed often until the wound starts to heal from the inside out. Your health care provider will decide the best way to treat your infection. ? If an infection occurs where an implant is placed, the implant may be removed. ? If you have an infection deeper in your body, you may need surgery to treat it. What hospitals do to prevent surgical site infections Many hospitals take these steps to help prevent surgical site infections: ? Handwashing. Before the surgery, your surgeon and all surgery staff scrub their hands and arms with an antiseptic soap. ? Clean skin. The site where your incision is made is carefully cleaned with an antiseptic solution. ? Sterile clothing and drapes. The surgical team wears medical uniforms. These are known as scrub suits. They wear long-sleeved surgical gowns, masks, caps, shoe covers, and sterile gloves. Your bodyis fully covered with a large sterile sheet (sterile drape). There is an opening in the sheet wherethe incision is made. ? Clean air. Operating rooms have special air filters. They use positive pressure airflow to prevent unfiltered air from entering the room. ? Careful use of antibiotics. Antibiotics are given no more than 60 minutes before the incision is made. They are generally stopped within 24 hours after surgery. This depends on the type of surgery.This helps kill germs but prevents problems that can occur when antibiotics are taken longer. ? Controlled blood sugar levels. Your blood sugar level may rise. This can be because of the stressof the surgery. Your blood sugar level is watched closely to make sure it stays within a normal range. High blood sugar delays wound healing. This increases the risk of infection. ? Controlled body temperature. A lkxdl-lpmx-wfdoty temperature during or after surgery prevents oxygen from reaching the wound. This makes it harder for your body to fight infection. Hospitals may warm I.V. fluids, and provide warm-air blankets. Your temperature is watched throughout the surgery. ? Safe hair removal. Any hair that must be removed is clipped right before the incision, not shavedwith a razor. This prevents tiny nicks and cuts where germs can enter. ? Wound care. After surgery, a closed wound is covered with a sterile dressing for 1 to 2 days. Open wounds are packed with sterile gauze and covered with a sterile dressing. What you can do to prevent a surgical site infection ? Ask questions. Learn what your hospital is doing to prevent infection. ? If instructed, shower or bathe with plain soap the night before and the day of your surgery. Follow all instructions you're given. You may be asked to use a special cleanser that you don?t rinse off. ? If you smoke, stop as long as possible before and after the surgery. Ask your provider about waysto quit. ? Take antibiotics only when your provider tells you to. Using antibiotics when they?re not needed can create germs that are harder to kill. Finish the entire prescription of your antibiotics even ifyou feel better. ? Ask health care workers to clean their hands with plain soap and water or with an alcohol-based hand airfield defence guard before and after caring for you. Don?t be afraid to remind them. ? After surgery, eat healthy foods. Care for your incision as directed by your health care team. When to contact your doctor Contact your provider or seek medical care right away if: ? The pain at the surgical site gets worse. ? A red streak, worse redness, or puffiness appears near the incision. ? Yellowish, cloudy, or bad-smelling fluid leaks from the incision. ? Your stitches dissolve before the wound heals. ? You have a fever of 100.4?? F ( 38??C ) or higher, or as advised by your provider. ? You have a tired feeling that doesn?t go away. Last Reviewed Date: 2024 00:00:00 ?? 5637-2456 [employer]. All rights reserved. This information is not intended as a substitute for professional medical care. Always follow your healthcare professional's instructions. * Austen OnFHIR - Anton, Magda Melissa RN - 08/27/2024 11:24 AM EDT Images from the original note were not included. 113 Post-Anesthesia and Postoperative Instructions () In order to have a fast and comfortable recovery at home, please follow these instructions. ? A responsible adult must be present for you to be discharged. ? Do not drive, drink alcohol or make important decisions for 24 hours after surgery. ? You may feel like resting more than normal after surgery. Start slowly and be more active each day. ? Start slowly with liquids like 7-up, tea, apple juice or broth. Eat more as your stomach allows. If you feel sick to your stomach, go back to drinking liquids. ? You may feel some discomfort after surgery. Take the medicine as directed by your caregiver. If your medicine makes you drowsy, do not drink alcohol, drive or operate heavy equipment for at least 24 hours after use. ? If you are taking antibiotics, take them until they are all gone even if you feel well. ? Cover your wound or bandage when showering, unless your doctor tells you differently. ? A small amount of drainage on your bandage is normal. Do not remove your bandage unless your doctor tells you to. Please keep track of information about the medicines you take. Follow these tips to manage your medicines. ? Keep a list of all your medicines. Update the list when you start or stop taking a medicine. Write down changes in how you should take them. ? Carry your medicine list with you at all times. It will be needed if you have a health emergency . ? Give the list to your family doctor. Take the list to all your doctor visits. Call your doctor if you have any of the following ? Temperature higher than 101.5??F ? Chest pain or difficulty breathing ? Stomach sickness or throwing up that does not go away ? You cannot urinate by bedtime ? Pain is not helped by your medicine. ? Bandage becomes soaked with blood - Don't remove the bandage, reinforce only ? Swelling, redness, pain or pus from incision ? Questions or concerns about your surgery. In the event of an emergency, please go to the closest Emergency Room or call the Emergency Department at [phone]. Smoking and its health risks ? Smoking is the most preventable cause of illness and in the [place]. Cigarettes are filled with poison that goes into the lungs as you inhale. About 440,000 people every year from illnesses caused by smoking. People who smoke earlier than those who do not smoke. ? Heart and blood vessel disease, lung disease and ulcers are just some of the health problems thatmay be caused by smoking. Smoking also slows bone and wound healing and may slow your recovery fromsurgery. ? For help quitting smoking, call the [employer] [facility]'s Quitline toll free at or ask your doctor for help. Weight Management ? Weighing too much is not good for your health. Being overweight increases your risk of health conditions such as heart problems, high blood pressure, type 2 diabetes, and certain types of cancer. Being overweight can also increase your risk for osteoarthritis (xq-mzt-jn-asc-LAZW-hap) (joint disease), sleep apnea (abnormal breathing at night) or other respiratory (breathing) problems. Being overweight may also cause a person to feel sad or be treated differently by others. ? The best way to lose weight is to eat fewer calories and get regular exercise. Eating more calories than you need will cause you to gain weight. Try to cut down your calories by 500 calories per day. For example, cut down on one soda (about 150 calories), a small bag of regular potato chips (about 150 calories) and one chocolate bar (about 250 calories). For most people, this change will resultin a slow weight loss of about one pound a week. Exercise (for example, walk, swim, or bicycle) forat least 30 minutes on most days of the week. You will be more likely to keep weight off if you make lifelong lifestyle changes. ? Aim for a slow, steady weight loss. Losing even a small amount of weight can lower your risk of health problems. Ask your dietitian, group art supervisor or doctor about a weight loss goal that is right for you. 03/01 * Op Note - Lorie De Guzman MD - 08/27/2024 10:25 AM EDT Operative Note Date: 08/27/24 Location: [facility] OR Name: Kami Khan, : 1965, Diagnoses: Pre-op Diagnosis Carpal tunnel syndrome, left Left index finger trigger finger Right ring finger trigger finger Post-op Diagnosis Carpal tunnel syndrome, left Same Procedure(s): Left open carpal tunnel release Left index finger trigger release Right ring finger A1 caterina corticosteroid injection Attending Surgeon(s): * Shaniqua Tinajero - Primary Saw Setter(s): * Xavier Samaniego MD - Resident - Assisting * Lorie De Guzman MD - Fellow Anesthesia: Choice ASA: III Blood Administration: Blood Product Administration History None Estimated Blood Loss: Minimal Drains: * None in log * Indications: Kami Khan is an 58 y.o. female who is having surgery for Carpal tunnel syndrome, left and index finger trigger finger. She also noted to have right ring finger triggering in preop. After discussion of risks benefits and alternatives decision was made to proceed to the operating room for left carpal tunnel release, index trigger finger release and right ring trigger finger injection. Narrative: The patient was met in the pre-operative holding area where appropriate site and patient were againconfirmed. Consent was obtained. Patient was then brought back to the operating room and placed supine. Monitored anesthesia was then induced. A tourniquet was then applied to the left extremity. Thepatient was then prepped and draped in the usual sterile fashion. A brief time out was performed again confirming correct patient and operative site. The tourniquet was then inflated. We 1st began with the trigger finger release. A oblique incision was designed over the A1 caterina of the index finger with a marking pen. Incisionwas then made with a 15 blade scalpel and then dissection was done with tenotomy scissors over the A1 caterina and then Ragnell is were used to dissect perpendicular to the neurovascular bundles and the caterina until the A1 caterina was exposed. A Wood blade was then used to incise longitudinally in the middle and then this was extended distally for complete release. Retractors were used to visualize the proximal aspect of the caterina and the release was completed. The finger was then ranged and there was no further triggering noted. We then proceeded with separate incision for separate surgery, carpal tunnel release. A longitudinal incision was made over the carpal tunnel just distal to the wrist crease along the fourth ray using a 15 blade. The incision was carried down to the transverse retinaculum. Upon visualization of thetransverse retinaculum we transitioned to push cut technique with a turtle mountain blade. The median nerve was identified and protected throughout our dissection of the transverse retinaculum. We confirmed our release upon visualization of fat in the palm. We then turned our attention to the proximal aspect of the transverse retinaculum. Tenotomy scissors were used to complete our release. An elevator was used to palpate proximally to confirm our release of all remaining bands. Both incisions were copiously irrigated. They were then closed using a 4-0 Nylon in an interrupted fashion. The sites was then dressed with Xeroform and a soft bulky dressing. The tourniquet was deflated andthe hand was pink and well perfused. The the right hand ring finger A1 caterina was injected with: 1.5 cc dexamethasone 40 mg/5 ml under sterile conditions. A dressing was applied. Patient tolerated this well without apparent complication. The patient was then awoken from anesthesia uneventfully and transported to PACU in stable condition. At the conclusion of the case all counts were correct. The attending was present for all criticalportions of the case. Postoperatively: The operative dressing will remain in place for 5 days.We will see back in clinic for wound check and likely suture removal in 2 weeks. At that time can discuss hand therapy referral vs release to activity as tolerates. There were NO signs of surgical site infection (SSI) present at the time of surgery (PATOS). Complications: None; patient tolerated the procedure well. Submitted by: Lorie De Guzman MD - 08/27/2024 Cosigned by Shaniqua Tinajero MD at 08/27/2024 5:20 PM EDT Associated attestation - Shaniqua Tinajero MD - 08/27/2024 5:20 PM EDT I was present for the entirety of the procedure(s). * H&P - Xavier Samaniego MD - 08/27/2024 6:15 AM EDT Chief Complaint: left carpal tunnel syndrome, recurrent triggering of left index finger, triggeringright ring finger History of Present Illness: Kami Khan is a 58 y.o. female presenting with above complaint and was evaluated and deemed a candidate for surgery based on history and physical exam previously. Past Medical History: has a past medical history of A-fib (CMS/HCC), ADHD (attention deficit hyperactivity disorder), Adverse effect of anesthesia, Allergic, Arthritis, Asthma, Back pain, Carpal tunnel syndrome, bilateral, CHF (congestive heart failure) (CMS/HCC), Cirrhosis (CMS/HCC), Colitis, Complaints of total body pain, Decreased mobility, Diverticulosis, DM2 (diabetes mellitus, type 2) (CMS/HCC), Eczema, Enlargedliver, GERD (gastroesophageal reflux disease), HL (hearing loss), HTN (hypertension), IBS (irritable bowel syndrome), Mastoiditis, Meniere disease, Migraines, Neuropathy, Numbness and tingling of both legs, Obesity, Otitis media, Peptic ulceration, Personal history of transient ischemic attack (TIA), and cerebral infarction without residual deficits, Polycythemia, Psoriasis, Spleen enlarged, Stroke (CMS/HCC), Urinary tract infection, and Weakness. She has no past medical history of Awareness under anesthesia, Delayed emergence from general anesthesia, Hard to intubate, Malignant hyperthermia, PONV (postoperative nausea and vomiting), or Pseudocholinesterase deficiency. Surgical History: has a past surgical history that includes Tonsillectomy (N/A); Cholecystectomy (N/A); Tubal ligation (N/A); Hysterectomy (N/A); Ear Surgery; Colonoscopy; Esophagogastroduodenoscopy; Nose surgery; andHand surgery (Right). Family History: Family History[1] Social History: reports that she has been smoking cigarettes. She has a 2.5 pack-year smoking history. She has beenexposed to tobacco smoke. She has never used smokeless tobacco. She reports that she does not drinkalcohol and does not use drugs. Allergies: Gabapentin, Iodine, Tramadol, Iv contrast, Molds & smuts, Atorvastatin, Dulaglutide, and Metformin Medications: Current Medications[2] Review of systems: negative other than above Physical exam: Last recorded vitals: There were no vitals taken for this visit. refer to nursing notes General: no apparent distress HEENT: speaks clearly, eyes open CV: perfused Respiratory: moves air well Ext: paraesthesias in left radial three digits without thenar wasting. Motor intact. Capillary refill less than 2 seconds. Tenderness at right ring finger and left index finger MC head regions. Skin: intact Refer to anesthesiology H and P for other pertinent physical findings related to surgical preparedness. Assessment/Plan: Procedure(s) (LRB): left carpal tunnel release; left index finger trigger release (Left) RELEASE, Index finger TRIGGER FINGER (Left) To OR today for left carpal tunnel release and left index finger trigger finger release and right ring finger corticosteroid injection NPO since midnight SANA NIETO marked and informed consent obtained Javon Samaniego MD PGY-2, Orthopaedic Surgery [facility] Orthopaedic Trauma Service Pager: [phone] Orthopaedic Recon/Spine/Foot and Ankle Service Pager: [phone] [1] Family History Problem Relation Name Age of Onset Hypertension Mother davi rich Asthma Mother davi rich Arthritis Mother davi rich Hypertension Father rosemarie rich Diabetes Father rosemarie rich Arthritis Father rosemarie rich Anesthesia problems Neg Hx Malig Hyperthermia Neg Hx [2] No current facility-administered medications for this encounter. Current Outpatient Medications Medication Sig Dispense Refill acetaminophen (Tylenol) 500 MG tablet Take 2 tablets by mouth every 6 hours as needed. acetic acid-hydrocortisone (Vosol-HC) otic solution (Patient not taking: Reported on 08/23/2024) bisacodyl (Dulcolax) 5 MG EC tablet TAKE ALL 4 TABLETS BY MOUTH AT 9 AM 2 DAYS BEFORE COLONOSCOPY. Calcipotriene 0.005 % ointment APPLY TO THE SCALP DAILY. (Patient not taking: Reported on 08/23/2024) ciprofloxacin-dexamethasone (CiproDEX) otic suspension (Patient not taking: Reported on 08/23/2024) clobetasol (Temovate) 0.05 % ointment Apply a thin film using a Qtip to bilateral ear canals twice daily prn itching 15 g 3 clopidogrel (Plavix) 75 MG tablet Take 1 tablet by mouth daily. Continuous Glucose Sensor (Syndevrxcom G7 Sensor) misc CHANGE EVERY 10 DAYS DIRECTED. diclofenac (Voltaren) 1 % topical gel Apply 2 g topically 4 times a day. dicyclomine (Bentyl) 20 MG tablet 2 (two) times a day if needed. (Patient not taking: Reported on 08/23/2024) divalproex (Depakote) [address] tablet TAKE (1) TABLET BY MOUTH TWICE A DAY. dulaglutide (Trulicity) 0.75 MG/0.5ML solution auto-injector INJECT 0.75 MG UNDER THE SKIN ONCE WEEKLY. (Patient taking differently: Takes on tuesday) 2 mL 0 DULoxetine (Cymbalta) [address] capsule TAKE ONE CAPSULE BY MOUTH DAILY and TAKE ONE TABLET BY MOUTHEVERY EVENING ergocalciferol 1.25 MG (75500 UT) capsule Take 1 capsule by mouth 1 time per week. Takes on Mondays escitalopram (Lexapro) 5 MG tablet Take 2 tablets by mouth daily. furosemide (Lasix) 40 MG tablet Take 1 tablet by mouth daily. GNP PAIN RELIEF EX-STRENGTH 500 MG tablet TAKE (2) TABLETS EVERY SIX HOURS NEEDED. (Patient not taking: Reported on 08/23/2024) HumaLOG KWIKPEN 100 UNIT/ML injection pen Inject up to 10 units three times daily before meals, MDD30 units 15 mL 5 Incontinence Supply Disposable (Depend Undergarments) misc Use as needed for incontinence of stool 30 each 11 Incontinence Supply Disposable (Moist Wipes Flushable) misc Use as directed after each bowel movement 42 each 11 Jardiance 25 MG Take 1 tablet (25 mg) by mouth daily. 30 tablet 5 ketoconazole (NIZOral) 2 % shampoo LATHER AND MASSAGE INTO SCALP 2-3 TIMES WEEKLY WHEN FLARED,LET SIT 3-5 MINUTES BEFORE RINSING. (Patient not taking: Reported on 08/23/2024) lidocaine (Lidoderm) 5 % patch APPLY 1 PATCH BY TOPICAL ROUTE ONCE DAILY (MAY WEAR UP TO 12 HOURS.) Linzess 145 MCG capsule TAKE (1) CAPSULE BY MOUTH ONCE A DAY. lisinopril 20 MG tablet TAKE ONE TABLET BY MOUTH DAILY and TAKE ONE TABLET BY MOUTH EVERY EVENING loratadine (Claritin) 10 MG tablet Take 1 tablet by mouth nightly. meclizine (Antivert) 12.5 MG tablet TAKE (1) TABLET BY MOUTH TWICE A DAY NEEDED. naproxen (Naprosyn) 500 MG tablet Take 1 tablet twice a day by oral route as directed for 7 days. (Patient not taking: Reported on 08/23/2024) mjsgetdu-tbdkhlzuy-vledrzprprepvp (Cortisporin) 3.5-94770-3 otic suspension instill FOUR drops intoaffected ear(s) THREE TIMES DAILY (Patient not taking: Reported on 08/23/2024) nystatin (Nystop) 433401 UNIT/GM powder APPLY TO THE AFFECTED AREA(S) BY TOPICAL ROUTE 2 TIMES PER DAY ondansetron ODT (Zofran-ODT) 8 MG disintegrating tablet DISSOLVE 1 TABLET BY MOUTH TWICE DAILY NEEDED pantoprazole (Protonix) 40 MG EC tablet TAKE 1 TABLET BY MOUTH ONCE A DAY BEFORE BREAKFAST DO NOTCRUSH,CHEW OR SPLIT 90 tablet 0 pen needle, diabetic (B-D UF III MINI PEN NEEDLES) 31G X 5 MM misc Inject 1-4x daily 200 each 11 predniSONE (Deltasone) 5 MG tablet Take 1 tablet (5 mg) by mouth daily. (Patient not taking: Reported on 06/07/2024) pregabalin (Lyrica) 25 MG capsule Take 1 capsule by mouth 3 times a day. propranolol (Inderal) 40 MG tablet 1 tablet 2 times a day. rOPINIRole (Requip) 0.5 MG tablet Take 1 tablet by mouth nightly. rosuvastatin (Crestor) 5 MG tablet Take 1 tablet by mouth daily. scopolamine (Transderm-Scop) 1 MG/3DAYS patch 72 hour APPLY ONE PATCH TO SKIN EVERY 72 HOURS FOR 10DAYS. (Patient not taking: Reported on 08/23/2024) Symbicort 160-4.5 MCG/ACT inhaler Inhale 2 puffs 2 (two) times a day. (Patient not taking: Reportedon 08/23/2024) Trelegy Ellipta 200-62.5-25 MCG/ACT aerosol powder INHALE 1 PUFF ONCE DAILY triamcinolone (Kenalog) 0.1 % ointment Apply a thin film on a qtip to the opening of both ear canals twice daily for 3-5 days at a time prn itching. 1.5 g 3 triamterene-hydroCHLOROthiazide (Dyazide) 37.5-25 MG capsule Take 1 capsule by mouth daily. urea (Carmol) 40 % cream APPLY TO AFFECTED AREA EVERY 12 HOURS. (Patient not taking: Reported on 08/23/2024) Ventolin HFA 108 (90 Base) MCG/ACT inhaler Inhale 2 puffs every 4 hours as needed. Cosigned by Shaniqua Tinajero MD at 08/27/2024 5:37 PM EDT documented in this encounter Plan of Treatment Upcoming Encounters Date Type Department Care Team (Late st Contact Info) Description 10/26/2024 10:10 AM EDT Office Visit Nery Lambert [address] [place] [address] Kathia Torres PA [address] [address] 10/30/2024 11:40 AM EDT Office Visit [facility] Medicine Specialties [address] [place] [address] Reji Vera MD [address] [place] [address] 10/30/2024 1:15 PM EDT Office Visit [facility] Medicine Specialties [address], [address] [place] [address] Lauren Montalvo APRN, VINNY [address] [facility] [address] [place] [address] 12/14/2024 10:45 AM EDT Appointment [facility] Radiology [address] [place] [address] 12/17/2024 12:20 PM EDT Office Visit Nery Simmons [facility] Endocrinology [address] [place] [address] Iram Mckay PA [address] [place] [address] documented as of this encounter Procedures Procedure Name Priority Date/Time Associated Diagnosis Comments POCT GLUCOSE METER UNSOLICITED RESULTS Routine 08/27/2024 11:07 AM EDT OK INCISE FINGER TENDON SHEATH 08/27/2024 9:56 AM EDT Carpal tunnel syndrome, left OK INCISE FINGER TENDON SHEATH 08/27/2024 9:56 AM EDT Carpal tunnel syndrome, left OK REVISE MEDIAN N/CARPAL TUNNEL SURG 08/27/2024 9:56 AM EDT Carpal tunnel syndrome, left POCT GLUCOSE METER UNSOLICITED RESULTS Routine 08/27/2024 8:26 AM EDT documented in this encounter Results * (ABNORMAL) POCT glucose meter (08/27/2024 11:07 AM EDT) POCT Glucose 141(H) 74 - 99 mg/dL 08/27/2024 11:09 AM EDT [facility] Comment:Accuracy of a glucos e result obtained from a capillary whole blood specimen relies upon adequate, non-compromised capillary blood flow. If the capillary glucose result is not consistent with the patient's clinical signs and symptoms, glucose testing should be repeated with either an arterial or venous sample on the glucometer or sent to the main labortory for testing. Comment 08/27/2024 11:09 AM EDT [facility] Manager Treasury ID Magda Ojeda [id number] 11:09 AM EDT HEALTHCARE [facility] Device ID [id number] 08/27/2024 11:09 AM EDT [facility] Specimen Type POC Capillary 08/27/2024 11:09 AM EDT [facility] Blood Capillary blood specimen / Unknown 08/27/2024 11:07 AM EDT 08/27/2024 11:09 AM EDT Shaniqua Tinajero MD LAB POINT OF CARE TEST DOCKED DEVICE UNSOLICITED RESULTS Final Result Performing Organization Address [facility] de Phone Number HEALTHCARE LAB [address] [place] [address] * (ABNORMAL) POCT glucose meter (08/27/2024 8:26 AM EDT) POCT Glucose 152(H) 74 - 99 mg/dL 08/27/2024 8:28 AM EDT [facility] Comment:Accuracy of a glucos e result obtained from a capillary whole blood specimen relies upon adequate, non-compromised capillary blood flow. If the capillary glucose result is not consistent with the patient's clinical signs and symptoms, glucose testing should be repeated with either an arterial or venous sample on the glucometer or sent to the main labortory for testing. Comment 08/27/2024 8:28 AM EDT HEALTHCARE LAB Manager Treasury ID Ruth Kee 8:28 AM EDT [facility] [facility] Device ID [id number] 08/27/2024 8:28 AM EDT [facility] Specimen Type POC Capillary 08/27/2024 8:28 AM EDT [facility] Blood Capillary blood specimen / Unknown 08/27/2024 8:26 AM EDT 08/27/2024 8:28 AM EDT us Shaniqua Tinajero MD LAB POINT OF CARE TEST DOCKED DEVICE UNSOLICITED RESULTS Final Result Performing Organization Address [facility] de Phone Number [facility] [address] [place] [address] documented in this encounter Visit Diagnoses Not on filedocumented in this encounter Administered Medications Inactive Administered Medications - up to 3 most recent administrations Medication Order MAR Action Action Date Dose Rate Site acetaminophen (Tylenol) tablet 1,000 mg 1,000 mg, Oral, Once, 1 dose, On Tue08/27/24 at 0900, Routine, Holding - Preprocedure Given 08/27/2024 8:50 AM EDT 1,000 mg acetaminophen (Tylenol) tablet 1,000 mg 1,000 mg, Oral, Once as needed, 1 dose, Starting on Tue08/27/24 at 1059, Until Tue08/27/24 at 1414, Routine, Recovery (Phase I only), pain score of >1 out of 10 fentaNYL (Sublimaze) injection 25 mcg 25 mcg, Intravenous, Every 5 min PRN, 2 doses, Starting on Tue08/27/24 at 1059, Until Tue08/27/24 at 1414, Routine, Recovery (Phase I only), pain score of 3-4 out of 10 HYDROmorphone (Dilaudid) injection 0.5 mg 0.5 mg, Intravenous, Every 10 min PRN, 2 doses, Starting on Tue08/27/24 at 1059, Until Tue08/27/24 at 1414, Routine, Recovery (Phase I only), pain score of 9-10 out of 10 ipratropium-albuterol (Duo-Neb) 0.5-2.5 mg/3 mL nebulizer solution 3 mL 3 mL, Nebulization, Once as needed, 1 dose, Starting on Tue08/27/24 at 1059, Until Tue08/27/24 at 1414, Routine, Recovery (Phase I only), shortness of breath lactated Ringer's infusion 75 mL/hr, Intravenous, Once, 1 dose, On Tue08/27/24 at 0900, Routine New Bag 08/27/2024 9:03 AM EDT 75 mL/hr 75 mL/hr ondansetron (Zofran) injection 4 mg 4 mg, Intravenous, Once as needed, 1 dose, Starting on Tue08/27/24 at 1059, Until Tue08/27/24 at 1414, Routine, Recovery (Phase I only), nausea, vomiting oxyCODONE (Roxicodone) immediate release tablet 10 mg 10 mg, Oral, Once as needed, 2 doses, Starting on Tue08/27/24 at 1059, Until Tue08/27/24 at 1414, Routine, Recovery (Phase I only), pain score of 6-8 out of 10 oxyCODONE (Roxicodone) immediate release tablet 5 mg 5 mg, Oral, Once as needed, 2 doses, Starting on Tue08/27/24 at 1059, Until Tue08/27/24 at 1414, Routine, Recovery (Phase I only), pain score of 3-5 out of 10 Given 08/27/2024 11:36 AM EDT 5 mg sodium chloride 0.9 % flush 10 mL 10 mL, Intravenous, Every 12 hours, First dose on Tue08/27/24 at 0900, Until Discontinued, Routine, Holding - Preprocedure sodium chloride 0.9 % flush 10 mL 10 mL, Intravenous, As needed, Starting on Tue08/27/24 at 0809, Until Tue08/27/24 at 1414, Routine, Holding - Preprocedure, line care documented in this encounter Active and Recently Administered Medications Times are shown in EDT. Scheduled Medication Order 08/25/2024 08/26/2024 08/27/2024 acetaminophen (Tylenol) tablet 1,000 mg (COMPLETED) 1,000 mg, Oral, Once, 1 dose, On Tue08/27/24 at 0900, Routine, Holding - Preprocedure 0850 (Given - Provid er: Liliana Callejas RN) dexamethasone (Decadron) injection 4 mg (COMPLETED) 4 mg, Intravenous, Once, 1 dose, On Tue08/27/24 at 1130, Routine, Holding - Preprocedure 1036 (Given - Provid er: Lorie De Guzman MD - Comment: mixed with 1ml of 1% lidocaine for steroid injection of right ring finger3; *NOT GIVEN INTRAVENOUS*)1130 (Due) lactated Ringer's infusion (COMPLETED) 75 mL/hr, Intravenous, Once, 1 dose, On Tue08/27/24 at 0900, Routine 0903 (New Bag - Prov ider: Liliana Callejas RN) sodium chloride 0.9 % flush 10 mL(Linked Group 1) 10 mL, Intravenous, Every 12 hours, First dose on Tue08/27/24 at 0900, Until Discontinued, Routine, Holding - Preprocedure 0900 (Canceled Entry - Provider: Automatic Discharge Provider - Comment: Automatically canceled at discontinue of medication order) PRN Medication Order 08/25/2024 08/26/2024 08/27/2024 acetaminophen (Tylenol) tablet 1,000 mg 1,000 mg, Oral, Once as needed, 1 dose, Starting on Tue08/27/24 at 1059, Until Tue08/27/24 at 1414, Routine, Recovery (Phase I only), pain score of >1 out of 10 bupivacaine PF (Marcaine) 0.25 % injection (CANCELED) As needed, Starting on Tue08/27/24 at 1032, Until Tue08/27/24 at 1103, Routine, Intraprocedure 1032 (Given - Provid er: Lorie De Guzman MD) fentaNYL (Sublimaze) injection 25 mcg 25 mcg, Intravenous, Every 5 min PRN, 2 doses, Starting on Tue08/27/24 at 1059, Until Tue08/27/24 at 1414, Routine, Recovery (Phase I only), pain score of 3-4 out of 10 HYDROmorphone (Dilaudid) injection 0.5 mg 0.5 mg, Intravenous, Every 10 min PRN, 2 doses, Starting on Tue08/27/24 at 1059, Until Tue08/27/24 at 1414, Routine, Recovery (Phase I only), pain score of 9-10 out of 10 ipratropium-albuterol (Duo-Neb) 0.5-2.5 mg/3 mL nebulizer solution 3 mL 3 mL, Nebulization, Once as needed, 1 dose, Starting on Tue08/27/24 at 1059, Until Tue08/27/24 at 1414, Routine, Recovery (Phase I only), shortness of breath lidocaine (Xylocaine) 1 % injection (CANCELED) As needed, Starting on Tue08/27/24 at 1032, Until 08/27/24 at 1103, Routine, Intraprocedure 1032 (Given - Provid er: Lorie De Guzman MD)1033 (Given - Provider: Lorie De Guzman MD - Comment: mixed with 1ml of dexamethasone for steroid injection) ondansetron (Zofran) injection 4 mg 4 mg, Intravenous, Once as needed, 1 dose, Starting on Tue08/27/24 at 1059, Until Tue08/27/24 at 1414, Routine, Recovery (Phase I only), nausea, vomiting oxyCODONE (Roxicodone) immediate release tablet 10 mg(Linked Group 2) 10 mg, Oral, Once as needed, 2 doses, Starting on Tue08/27/24 at 1059, Until Tue08/27/24 at 1414, Routine, Recovery (Phase I only), pain score of 6-8 out of 10 1136 (See Alternativ e - Provider: Magda Ojeda RN) oxyCODONE (Roxicodone) immediate release tablet 5 mg(Linked Group 2) 5 mg, Oral, Once as needed, 2 doses, Starting on Tue08/27/24 at 1059, Until Tue08/27/24 at 1414, Routine, Recovery (Phase I only), pain score of 3-5 out of 10 1136 (Given - Provid er: Magda Ojeda RN) sodium chloride 0.9 % flush 10 mL(Linked Group 1) 10 mL, Intravenous, As needed, Starting on Tue08/27/24 at 0809, Until Tue08/27/24 at 1414, Routine, Holding - Preprocedure, line care Linked Groups Order Group 1: Insert peripheral IV (CANCELED) Once, On Tue08/27/24 at 0810, For 1 occurrence, Holding - Preprocedure And Saline lock IV (CANCELED) Once, On Tue08/27/24 at 0810, For 1 occurrence, Holding - Preprocedure And sodium chloride 0.9 % flush 10 mLJump to med 10 mL, Intravenous, Every 12 hours, First dose on Tue08/27/24 at 0900, Until Discontinued, Routine, Holding - Preprocedure And sodium chloride 0.9 % flush 10 mLJump to med 10 mL, Intravenous, As needed, Starting on Tue08/27/24 at 0809, Until Tue08/27/24 at 1414, Routine, Holding - Preprocedure, line care Group 2: oxyCODONE (Roxicodone) immediate release tablet 5 mgJump to med 5 mg, Oral, Once as needed, 2 doses, Starting on Tue08/27/24 at 1059, Until Tue08/27/24 at 1414, Routine, Recovery (Phase I only), pain score of 3-5 out of 10 Or oxyCODONE (Roxicodone) immediate release tablet 10 mgJump to med 10 mg, Oral, Once as needed, 2 doses, Starting on Tue08/27/24 at 1059, Until Tue08/27/24 at 1414, Routine, Recovery (Phase I only), pain score of 6-8 out of 10 documented in this encounter Additional Health Concerns Assessment Noted Time PHQ-9 Depression Total Score: 0 05/15/19 8:16 AM EST A fall risk assessment has been complete d for the patient 05/15/2024 8:16 AM EST A Body Mass Index follow-up plan has been documented for the patient 06/07/2024 3:12 PM EDT documented as of this encounter Care Teams Harness Maker Relationship Specialty Start Date End Date Deya Reed, KERLINE [address] [place] [address] PCP - General 06/15/22 documented as of this encounter
--- OUTSIDE RECORDS SUMMARY | 2024-08-27 10:06 | XMS_ITS | Encounter Summary ---
Author Organization Healthcare Address [address] [place] [address] Care Team Providers Care Yarn Skeins Examiner Name Role Phone Deya Reed APRN Primary Care Provider + Reason for Visit * Auth/Cert (Routine) Specialty Diagnoses / Procedures Referred By Christophe t Referred To Contact Diagnoses Carpal tunnel syndrome, left Carpal tunnel syndrome, left [G56.02] Procedures RI REVISE MEDIAN N/CARPAL TUNNEL SURG RI INCISE FINGER TENDON SHEATH RI INCISE FINGER TENDON SHEATH left carpal tunnel release; left index finger trigger release left carpal tunnel release; left index finger trigger release RELEASE, Index finger TRIGGER FINGER Shaniqua Tinajero MD [address] [facility] [address] [place] [address] Phone: tel: fax: [facility] [address] [place] [address] Phone: tel: Referral ID Status Reason Start Date Expiration Date Visits Re quested Visits Authorized [id number] 1 1 Encounter Details Date Type Department Care Team (Late st Contact Info) Description 08/27/2024 10:06 AM EDT Anesthesia Event [facility] [address] [place] [address] Dima Carty DO [address] [place] [address] Anesthesia Record Procedure Summary Procedure Name Responsible Anesthesiologist Anesthesia Start Time Anesthesia Stop Time left carpal tunnel release; left index finger trigger release (Left: Wrist) Dima Carty DO 08/27/24 1006 08/27/24 1107 Events Date Time [...] acknowledgement of understanding. 1107 An Stop Meds Name Total midazolam (Versed) injection 1 mg/mL 2 m g fentaNYL (Sublimaze) injection 50 mcg/mL 100 mcg propofol (Diprivan) injection 10 mg/mL 1 50 mg dexamethasone (Decadron) injection 4 mg/ mL 4 mg ondansetron (Zofran) injection 2 mg/mL 4 mg propofol (Diprivan) infusion 10 mg/mL 14 8.68 mg ceFAZolin (Ancef) vial 1 g 3 g ketorolac (Toradol) injection 30 mg/mL 3 0 mg lactated Ringer's infusion 500 mL * Agents Name O2 Sevoflurane Inspired Sevoflurane * Blood No blood administrations on file. Lines, Drains, and Airways Type Details Placement Removal Wound 08/27/24; 1022; Yes; Surgical; Closed Surgi; Wrist; Anterior, Left 08/27/24 1022 by Beatrice Walker RN Wound 08/27/24; 1022; Othe r (injection); Finger (Comment which one); Anterior, Right (ring finger) 08/27/24 102 by Beatrice Walker RN Peripheral IV Placement [...] Supraglottic Airway Placement Date: 12/13; Placement Time: 1019 (created via procedure documentation); Mask Ventilation: 0; Removal Date: 08/27/24; Removal Time: 11008/27/24 1019 by Saige Damon CRNA 08/27/24 1101 [...] on file documented as of this encounter Functional Status * Calculated C-SSRS [...] Callejas RN documented as of this encounter Miscellaneous Notes * Anesthesia Postprocedure Evaluation - Saige Damon CRNA - 08/27/2024 11:07 AM EDT Patient: Kami Khan Anesthesia Type: general Vitals Value Taken Time BP 149/88 08/27/24 11:07 Temp 97.7 08/27/24 11:07 Pulse 80 08/27/24 11:06 Resp 24 08/27/24 11:06 SpO2 94 % 08/27/24 11:06 Vitals shown include unfiled device data. Anesthesia Post Evaluation Patient location during evaluation: PACU Patient participation: complete - patient participated Level of consciousness: awake Pain management: adequate (pain score 0-3) Airway patency: natural airway Cardiovascular status: acceptable and hemodynamically stable Respiratory status: acceptable, blow-by oxygen, face mask and oral airway Hydration status: acceptable Nausea/Vomiting: No No notable events documented. * Anesthesia Procedure Notes - Saige Damon CRNA - 08/27/2024 10:20 AM EDTAssociated Order(s): Airway Airway Date/Time: 08/27/2024 10:19 AM Reason: elective Airway not difficult General Information and Staff Patient location during procedure: OR RESIDENTIAL CONCIERGE: Saige Damon CRNA Performed: MORA Patient Condition Indications for airway management: anesthesia Patient position: sniffing Planned trial extubation Final Airway Details Final airway type: LMALMA Size: 4 LMA Type: normal * Anesthesia Preprocedure Evaluation - Denys Fam MD - 08/27/2024 8:23 AM EDT Images from the original note were not included. Patient: Kami Khan Procedure Information Date/Time: 08/27/24 1030 Procedures: left carpal tunnel release; left index finger trigger release (Left: Wrist) - carpal tunnel RELEASE, Index finger TRIGGER FINGER (Left: Index Finger) Location: 2SOR 03 / [facility] OR Surgeons: Shaniqua Tinajero MD Anesthesiologist: Dima Carty DO RESIDENTIAL CONCIERGE: Saige Damon CRNA HPI Kami Khan is a 58 year old female who presents for left carpal tunnel release; left index finger trigger release (Left: Wrist) - carpal tunnel RELEASE, Index finger TRIGGER FINGER (Left: Index Finger). PMH otherwise significant for h/o CVA in 2019, anxiety/depression, HTN, HLD, h/o CHF, afib/SVT , MONIKA, GERD, T2DM (A1c-8.6) on GLP-1, and morbid obesity (BMI 53). Prior anesthesia records reviewed-no apparent complications. Airway note-grade 2a w/ VL. ALLERGIES Allergies[1] NPO STATUS Date of Last Liquid: 08/27/24 Time of Last Liquid: 0500 (water) Date of Last Solid: 08/26/24 Time of Last Solid: 1900 Time of Last Void: 817 AIRWAY HISTORY Past Medical History[2] MEDICATIONS Outpatient Prescriptions Prior to Admission[3] Current Outpatient Medications Medication Instructions acetaminophen (TYLENOL) 1,000 mg, Every 6 hours PRN acetic acid-hydrocortisone (Vosol-HC) otic solution bisacodyl (Dulcolax) 5 MG EC tablet TAKE ALL 4 TABLETS BY MOUTH AT 9 AM 2 DAYS BEFORE COLONOSCOPY. Calcipotriene 0.005 % ointment APPLY TO THE SCALP DAILY. ciprofloxacin-dexamethasone (CiproDEX) otic suspension clobetasol (Temovate) 0.05 % ointment Apply a thin film using a Qtip to bilateral ear canals twice daily prn itching clopidogrel (PLAVIX) 75 mg, Daily Continuous Glucose Sensor (Dexcom G7 Sensor) misc CHANGE EVERY 10 DAYS DIRECTED. diclofenac (VOLTAREN) 2 g, 4 times daily dicyclomine (Bentyl) 20 MG tablet 2 times daily PRN divalproex (Depakote) [address] tablet TAKE (1) TABLET BY MOUTH TWICE A DAY. dulaglutide (Trulicity) 0.75 MG/0.5ML solution auto-injector INJECT 0.75 MG UNDER THE SKIN ONCE WEEKLY. DULoxetine (Cymbalta) [address] capsule TAKE ONE CAPSULE BY MOUTH DAILY and TAKE ONE TABLET BY MOUTHEVERY EVENING ergocalciferol 1.25 MG (33559 UT) capsule 1 capsule, Oral, Weekly, Takes on Mondays escitalopram (LEXAPRO) 10 mg, Daily furosemide (LASIX) 40 mg, Daily GNP PAIN RELIEF EX-STRENGTH 500 MG tablet TAKE (2) TABLETS EVERY SIX HOURS NEEDED. HumaLOG KWIKPEN 100 UNIT/ML injection pen Inject up to 10 units three times daily before meals, MDD30 units Incontinence Supply Disposable (Depend Undergarments) misc Use as needed for incontinence of stool Incontinence Supply Disposable (Moist Wipes Flushable) misc Use as directed after each bowel movement Jardiance 25 mg, Oral, Daily ketoconazole (NIZOral) 2 % shampoo LATHER AND MASSAGE INTO SCALP 2-3 TIMES WEEKLY WHEN FLARED,LET SIT 3-5 MINUTES BEFORE RINSING. lidocaine (Lidoderm) 5 % patch APPLY 1 PATCH BY TOPICAL ROUTE ONCE DAILY (MAY WEAR UP TO 12 HOURS.) Linzess 145 MCG capsule TAKE (1) CAPSULE BY MOUTH ONCE A DAY. lisinopril 20 MG tablet TAKE ONE TABLET BY MOUTH DAILY and TAKE ONE TABLET BY MOUTH EVERY EVENING loratadine (CLARITIN) 10 mg, Nightly meclizine (Antivert) 12.5 MG tablet TAKE (1) TABLET BY MOUTH TWICE A DAY NEEDED. naproxen (Naprosyn) 500 MG tablet Take 1 tablet twice a day by oral route as directed for 7 days. yamikuyb-wroyilwsg-haherkgkikbvrh (Cortisporin) 3.5-95555-2 otic suspension instill FOUR drops intoaffected ear(s) THREE TIMES DAILY nystatin (Nystop) 700849 UNIT/GM powder APPLY TO THE AFFECTED AREA(S) BY TOPICAL ROUTE 2 TIMES PER DAY ondansetron ODT (Zofran-ODT) 8 MG disintegrating tablet DISSOLVE 1 TABLET BY MOUTH TWICE DAILY NEEDED pantoprazole (Protonix) 40 MG EC tablet TAKE 1 TABLET BY MOUTH ONCE A DAY BEFORE BREAKFAST DO NOTCRUSH,CHEW OR SPLIT pen needle, diabetic (B-D UF III MINI PEN NEEDLES) 31G X 5 MM misc Inject 1-4x daily predniSONE (DELTASONE) 5 mg, Daily pregabalin (LYRICA) 25 mg, 3 times daily propranolol (Inderal) 40 MG tablet 1 tablet 2 times a day. rOPINIRole (REQUIP) 0.5 mg, Nightly rosuvastatin (CRESTOR) 5 mg, Daily scopolamine (Transderm-Scop) 1 MG/3DAYS patch 72 hour APPLY ONE PATCH TO SKIN EVERY 72 HOURS FOR 10DAYS. Symbicort 160-4.5 MCG/ACT inhaler 2 puffs, 2 times daily Trelegy Ellipta 200-62.5-25 MCG/ACT aerosol powder INHALE 1 PUFF ONCE DAILY triamcinolone (Kenalog) 0.1 % ointment Apply a thin film on a qtip to the opening of both ear canals twice daily for 3-5 days at a time prn itching. triamterene-hydroCHLOROthiazide (Dyazide) 37.5-25 MG capsule 1 capsule, Daily urea (Carmol) 40 % cream APPLY TO AFFECTED AREA EVERY 12 HOURS. Ventolin HFA 108 (90 Base) MCG/ACT inhaler 2 puffs, Every 4 hours PRN Scheduled Current Scheduled Medications[4] PRNs Current PRN Medications[5] SURGICAL HX: Surgical History[6] FUNCTIONAL CAPACITY SOCIAL HX: Social History[7] OBJECTIVE DATA LABS Type and Screen No results found for: ABO COVID No results found for: SARSCOV2 Lab Results Component Value Date WBC 11.19 (H) 09/16/2021 HGB 17.7 (H) 09/16/2021 HCT 56.6 (H) 09/16/2021 MCV 93 09/16/2021 PLT 223 09/16/2021 Lab Results Component Value Date GLUCOSE 108 (H) 10/18/2022 CALCIUM 9.6 10/18/2022 NA 140 10/18/2022 K 3.8 10/18/2022 CO2 31 (H) 10/18/2022 CL 97 10/18/2022 BUN 15 10/18/2022 CREATININE 1.05 10/18/2022 Diabetic Labs Lab Results Component Value Date HGBA1C 8.6 (H) 06/07/2024 Lab Results Component Value Date HGBA1C 8.6 (H) 06/07/2024 PGLU 109 (H) 07/21/2023 ABG No results found for: PHART , YSJ8FYC , PO2ART , SO2ART , BEART , BZN8YWB , HCTART , SODIUMART , POTASSIUMART , POCTCL , POCGLU , IONCALART , LACTATE Lab Results Component Value Date NA 140 10/18/2022 EKG No results found for this or any previous visit (from the past 4464 hours). ECHO No echocardiogram results found for the past 12 months PFTs No results found for: PVT5DLI , TWB5ASVK , BNV5KBK , FVCPRED ROS Anesthesia: history of anesthetic complications. Cardiovascular: CHF. hypertension: Respiratory: asthma: COPD: Neurological: headaches. a cerebrovascular accident. Gastrointestinal: GERD:PUD. Genitourinary: chronic renal disease: Endocrine/Metabolic: diabetes mellitus. Physical Exam Airway Mallampati: III Mouth opening: normal TM distance: >3 FB Neck ROM: full Cardiovascular Rhythm: irregular Rate: normal Dental Pulmonary Breath sounds clear to auscultation (-) wheezes Neurological Oriented: normal to time, normal to place and normal to person Skin Musculoskeletal Extremities Anesthesia Plan ASA 3 Plan was reviewed with: attending Anesthesia technique(s) discussed with the patient/family: general and MAC Anesthesia plan agreed upon was: general Anesthetic plan and risks discussed with patient. Use of blood products discussed with patient who consented to blood products. Additional Equipment Requests [1] Allergies Allergen Reactions Gabapentin Other - please [...] - please document in the comment field [2] Past Medical History: Diagnosis Date A-fib ([facility]/HCC) ADHD (attention deficit hyperactivity disorder) Adverse effect [...] side weakness arm/leg Urinary tract infection Weakness [3] Medications Prior to Admission Medication Sig Dispense Refill Last Dose/Taking acetaminophen (Tylenol) 500 MG tablet Take 2 [...] tablet by mouth daily. Continuous Glucose Sensor ([employer] G7 Sensor) misc CHANGE EVERY 10 DAYS [...] TABLET BY MOUTHEVERY EVENING ergocalciferol 1.25 MG (71059 UT) capsule Take 1 capsule by mouth [...] days. (Patient not taking: Reported on 08/23/2024) dzrrtdra-sqpztvdxb-pxnbjpjxkldbin (Cortisporin) 3.5-93551-0 otic suspension instill FOUR drops intoaffected ear(s) THREE TIMES DAILY (Patient not taking: Reported on 08/23/2024) nystatin (Nystop) 470580 UNIT/GM powder APPLY TO THE AFFECTED AREA(S) [...] 2 puffs every 4 hours as needed. [4] acetaminophen, 1,000 mg, Oral, Once lactated Ringer's, 75 mL/hr, Intravenous, Once Insert peripheral IV, , , Once AND Saline lock IV, , , Once AND sodium chloride, 10 mL, Intravenous, q12h AND sodium chloride, 10 mL, Intravenous, PRN [5] PRN medications: lidocaine, Insert peripheral IV AND Saline lock IV AND sodium chlorideAND sodium chloride [6] Past Surgical History: Procedure Laterality Date CHOLECYSTECTOMY N/A Cholecystectomy from [facility] COLONOSCOPY EAR SURGERY ESOPHAGOGASTRODUODENOSCOPY HAND SURGERY Right HYSTERECTOMY N/A Hysterectomy from [facility] NOSE SURGERY cartilage surgery TONSILLECTOMY N/A Tonsillectomy from [facility] TUBAL LIGATION N/A Tubal Ligation from [facility] [7] Social History Tobacco Use Smoking status: Every Day Current packs/day: 0.25 Average packs/day: 0.3 packs/day for 10.0 years (2.5 ttl pk-yrs) Types: Cigarettes Passive exposure: Current Smokeless tobacco: Never Vaping Use Vaping status: Former Substances: Flavoring Substance Use Topics Alcohol use: No Drug use: Never Cosigned by Dima Carty DO at 08/27/2024 9:14 AM EDT Associated attestation - Dima Carty DO - 08/27/2024 9:14 AM EDT I agree with the findings and care plan documented in the preprocedure evaluation note. documented in this encounter Plan of Treatment Upcoming Encounters Date Type Department Care Team (Late st Contact Info) Description 10/26/2024 10:10 AM EDT Office Visit Nery Lambert [address] [place] [address] Kathia Torres PA [address] [facility] [address] [place] [address] 10/30/2024 11:40 AM EDT Office Visit [facility] [address] [place] [address] Reji Vera MD [address] [place] [address] 10/30/2024 1:15 PM EDT Office Visit [facility] [address] [place] [address] Lauren Montalvo, KERLINE, DNP [address] [place] [address] 12/14/2024 10:45 AM EDT Appointment [facility] [address] [place] [address] 12/17/2024 12:20 PM EDT Office Visit [facility] [address] [place] [address] Iram Mckay PA [address] [place] [address] documented as of this encounter Procedures Procedure Name Priority Date/Time Associated Diagnosis Comments PB ANESTHESIA PLACEHOLDER Routine 08/27/2024 10:19 AM EDT RI AN ELECTIVE SUPRAGLOTTIC AIRWAY Routine 08/27/2024 10:19 AM EDT documented in this encounter Results * RI AN ELECTIVE SUPRAGLOTTIC AIRWAY, PB ANESTHESIA PLACEHOLDER (08/27/2024 10:19 AM EDT) Narrative Saige Damon CRNA - 08/27/2024 10:19 AM EDT Saige Damon CRNA 08/27/2024 10:20 AM Airway Date/Time: 08/27/2024 10:19 AM Reason: elective Airway not difficult General Information and Staff Patient location during procedure: OR RESIDENTIAL CONCIERGE: Saige Damon CRNA Performed: RESIDENTIAL CONCIERGE Patient Condition Indications for airway management: anesthesia Patient position: sniffing Planned trial extubation Final Airway Details Final airway type: LMALMA Size: 4 LMA Type: normal Dima Carty DO ANESTHESIA ORDERABLES Final Result documented in this encounter Visit Diagnoses Not on filedocumented in this encounter Administered Medications Inactive Administered Medications - up to 3 most recent administrations Medication Order MAR Action Action Date Dose Rate Site ceFAZolin (Ancef) injection Intravenous, As needed, Starting on Tue08/27/24 at 1016, Until Tue08/27/24 at 1107, Routine, Anesthesia Intraprocedure Given 08/27/2024 10:16 AM EDT 3 g dexamethasone (Decadron) injection Intravenous, As needed, Starting on Tue08/27/24 at 1023, Until Tue08/27/24 at 1107, Routine, Anesthesia Intraprocedure Given 08/27/2024 10:23 AM EDT 4 mg fentaNYL (Sublimaze) injection Intravenous, As needed, Starting on Tue08/27/24 at 1023, Until Tue08/27/24 at 1107, Routine, Anesthesia Intraprocedure Given 08/27/2024 10:31 AM EDT 50 mcg Given 08/27/2024 10:23 AM EDT 50 mcg ketorolac (Toradol) injection Intravenous, As needed, Starting on Tue08/27/24 at 1023, Until Tue08/27/24 at 1107, Routine, Anesthesia Intraprocedure Given 08/27/2024 10:23 AM EDT 30 mg lactated Ringer's infusion Intravenous, Continuous PRN, Starting on Tue08/27/24 at 1008, Until Tue08/27/24 at 1107, Routine New Bag 08/27/2024 10:08 AM EDT midazolam (Versed) injection Intravenous, As needed, Starting on Tue08/27/24 at 1011, Until Tue08/27/24 at 1107, Routine, Anesthesia Intraprocedure Given 08/27/2024 10:11 AM EDT 2 mg ondansetron (Zofran) injection Intravenous, As needed, Starting on Tue08/27/24 at 1023, Until Tue08/27/24 at 1107, Routine, Anesthesia Intraprocedure Given 08/27/2024 10:23 AM EDT 4 mg propofol (Diprivan) infusion 10 mg/mL Intravenous, Continuous PRN, Starting on Tue08/27/24 at 1013, Until Tue08/27/24 at 1025, Routine New Bag 08/27/2024 10:13 AM EDT 150 mcg/kg/min 111.51 mL/hr propofol (Diprivan) injection Intravenous, As needed, Starting on Tue08/27/24 at 1013, Until Tue08/27/24 at 1107, Routine, Anesthesia Intraprocedure Given 08/27/2024 10:18 AM EDT 100 mg Given 08/27/2024 10:13 AM EDT 50 mg documented in this encounter Additional Health Concerns Assessment Noted Time PHQ-9 Depression Total Score: 0 05/15/19 8:16 AM EST A fall risk assessment has been complete d for the patient 05/15/2024 8:16 AM EST A Body Mass Index follow-up plan has been documented for the patient 06/07/2024 3:12 PM EDT documented as of this encounter Care Teams Yarn Skeins Examiner Relationship Specialty Start Date End Date Deya Reed APRN [address] [place] [address] PCP - General 06/15/22 documented as of this encounter
--- OUTSIDE RECORDS SUMMARY | 2024-08-27 10:30 | XMS_ITS | Encounter Summary ---
Author Organization Healthcare Address [address] [place] [address] Care Team Providers Care Oil Seal Assembler Name Role Phone OrlinAida cedeñoerwin Fuchs KERLINE Primary Care Provider + Reason for Visit * Auth/Cert (Routine) Specialty Diagnoses / Procedures Referred By Christophe t Referred To Contact Diagnoses Carpal tunnel syndrome, left Carpal tunnel syndrome, left [G56.02] Procedures NE REVISE MEDIAN N/CARPAL TUNNEL SURG NE INCISE FINGER TENDON SHEATH NE INCISE FINGER TENDON SHEATH left carpal tunnel release; left index finger trigger release left carpal tunnel release; left index finger trigger release RELEASE, Index finger TRIGGER FINGER Shaniqua Tinajero MD [address] [place] [address] Phone: tel: fax: [facility] S Operating Room [address] [place] [address] Phone: tel: Referral ID Status Reason Start Date Expiration Date Visits Re quested Visits Authorized [id number] 1 1 Encounter Details Date Type Department Care Team (Late st Contact Info) Description 08/27/2024 10:30 AM EDT - 08/27/2024 12:00 PM EDT Surgery [facility] S Operating Room [address] [place] [address] Shaniqua Tinajero MD [address] [place] [address] left carpal tunnel release; left index finger trigger release [42929 (CPT ) +1 more] Surgery Details Date/Time Status Location OR Service Patient Class Case Class Case Type Trauma Case? 08/27/2024 10:30 AM Posted TIFFANIE STEWART OR 2SOR 03 Orthopedic Surgery [facility] Outpatient Surgery E-Electi ve Panel 1 Procedure LRB Anes Op Region Wound Class Comments left carpal tunnel release; left index finger trigger release Left Choice Wrist Class I/ Clean carpal tunnel steroid injection of right ring finger Right Choice Ring Finger Class I/ Clean Surgeon Surgeon Role Service Panel Shaniqua Tinajero MD Primary Orthopedic S urgery 1 Lorie De Guzman MD Fellow Plastic Surgery 1 Xavier Samaniego MD Resident - Assisting 1 documented in this encounter Social History Tobacco [...] Month) No 025 8:20 AM EDT Liliana Callejas, TANI 2. Non-Specific Active Suici angus Thoughts (Past 1 Month) No 08/27/2024 8:20 AM EDT Liliana Callejas, TANI 6. Suicidal Behavior (Lifetime) No 8:20 AM [...] to activity as tolerates. We have provided [place] for pain control. Do not drive while [...] MOUTH EVERY EVENING 2 ergocalciferol 1.25 MG (71833 UT) capsule Take 1 capsule by mouth 1 time per week. Takes on Mondays 3 escitalopram (Lexapro) 5 MG tablet Take 2 tablets by mouth daily. 3 furosemide (Lasix) 40 MG tablet Take 1 tablet by mouth daily. 3 GNP PAIN RELIEF EX-STRENGTH 500 MG tablet TAKE (2) TABLETS EVERY SIX HOURS NEEDED. 4 HYDROcodone-acetami nophen ([place]) 5-325 MG tablet Take 1 tablet by [...] hyperglycemia, without long-term current use of insulin ([facility]) Take 1 tablet (25 mg) by [...] directed for 7 days. neomycin-polymyxin- hydrocortisone (Cortisporin) 3.5-94779-3 otic suspension instill FOUR drops into affected ear(s) THREE TIMES DAILY nystatin (Nystop) 316490 UNIT/GM powder APPLY TO THE AFFECTED AREA(S) [...] hours as needed. 4 Continuous Glucose Sensor ([employer] G7 Sensor) misc CHANGE EVERY 10 DAYS [...] 09/08/19 25 documented as of this encounter Miscellaneous Notes [...] plan as documented. * Austen Hayes - Magda Ojeda RN - 08/27/2024 11:24 AM EDT Images from the original note were not included. [id number] Preventing a Surgical Site Infection A risk [...] of infection. ? Controlled body temperature. A ikqmx-mitz-xwoljv temperature during or after surgery prevents oxygen [...] and water or with an alcohol-based hand automatic stacker before and after caring for you. Don?t [...] away. Last Reviewed Date: 2024 00:00:00 ?? [id number] [employer]. All rights reserved. This information is not intended as a substitute for professional medical care. Always follow your healthcare professional's instructions. * Austen Hayes - Magda Ojeda RN - 08/27/2024 11:24 AM EDT Images from the original note were not included. 113 Post-Anesthesia and Postoperative Instructions ([place]) In order to have a fast and [...] Room or call the Emergency Department at [phone]. Smoking and its health risks ? Smoking [...] help quitting smoking, call the National [employer] [place]'s Quitline toll free at or ask your doctor for help. Weight Management ? Weighing too much is not good for your health. Being overweight increases your risk of health conditions such as heart problems, high blood pressure, type 2 diabetes, and certain types of cancer. Being overweight can also increase your risk for osteoarthritis (fb-tkh-pm-ool-TMTO-rqx) (joint disease), sleep apnea (abnormal breathing at [...] risk of health problems. Ask your dietitian, crystal flat grinder or doctor about a weight loss goal that is right for you. 03/01 * Op Note - Lorie De Guzman MD - 08/27/2024 10:25 AM EDT Operative Note Date: 08/27/24 Location: [facility] OR Name: Kami Khan, : 1965, Diagnoses: Pre-op Diagnosis Carpal tunnel syndrome, left Left index finger trigger finger Right ring finger trigger finger Post-op Diagnosis Carpal tunnel syndrome, left Same Procedure(s): Left open carpal tunnel release Left index finger trigger release Right ring finger A1 caterina corticosteroid injection Attending Surgeon(s): * Shaniqua Tinajero - Primary Derrick Hand(s): * Xavier Samaniego MD - Resident - [...] until the A1 caterina was exposed. A Pickett blade was then used to incise longitudinally [...] transitioned to push cut technique with a big sandy blade. The median nerve was identified and [...] obtained Javon Samaniego MD PGY-2, Orthopaedic Surgery [facility] Orthopaedic Trauma Service Pager: [phone] Orthopaedic Recon/Spine/Foot and Ankle Service Pager: [phone] [1] Family History Problem Relation Name Age [...] tablet by mouth daily. Continuous Glucose Sensor ([employer] G7 Sensor) misc CHANGE EVERY 10 DAYS [...] TABLET BY MOUTHEVERY EVENING ergocalciferol 1.25 MG (79588 UT) capsule Take 1 capsule by mouth [...] days. (Patient not taking: Reported on 08/23/2024) yzqyftwn-koyyfdjia-snyywdehspzpxp (Cortisporin) 3.5-29421-7 otic suspension instill FOUR drops intoaffected ear(s) THREE TIMES DAILY (Patient not taking: Reported on 08/23/2024) nystatin (Nystop) 647073 UNIT/GM powder APPLY TO THE AFFECTED AREA(S) [...] Office Visit Nery Lambert [address] [place] [address] Kathia Torres PA [address] [phone] 10/30/2024 11:40 AM EDT Office Visit [facility] Medicine Specialties [address] [place] [address] Reji Vera MD [address] [place] [address] 10/30/2024 1:15 PM EDT Office Visit [facility] [address] [place] [address] Lauren Montalvo APRN, DNP [address] [place] [address] 12/14/2024 10:45 AM EDT Appointment [facility] [address] [place] [address] 12/17/2024 12:20 PM EDT Office Visit [facility] [address] [place] [phone] Iram Mckay, PA [address] [facility] [address] [place] [address] documented as of this encounter Procedures Procedure Name Priority Date/Time Associated Diagnosis Comments POCT GLUCOSE METER UNSOLICITED RESULTS Routine 08/27/2024 11:07 AM EDT NE INCISE FINGER TENDON SHEATH 08/27/2024 9:56 AM EDT Carpal tunnel syndrome, left NE INCISE FINGER TENDON SHEATH 08/27/2024 9:56 AM EDT Carpal tunnel syndrome, left NE REVISE MEDIAN N/CARPAL TUNNEL SURG 08/27/2024 9:56 AM EDT Carpal tunnel syndrome, left POCT GLUCOSE METER UNSOLICITED RESULTS Routine 08/27/2024 8:26 AM EDT documented in this encounter Results * (ABNORMAL) POCT glucose meter (08/27/2024 11:07 AM EDT) POCT Glucose 141(H) 74 - 99 mg/dL 08/27/2024 11:09 AM EDT [facility] Comment:Accuracy of a glucos e result [...] for testing. Comment 08/27/2024 11:09 AM EDT [facility] Call Center Representative ID Magda Ojeda 025 11:09 AM EDT [facility]ARE [facility] Device ID [id number] 08/27/2024 11:09 AM EDT [facility] Specimen Type POC Capillary 08/27/2024 11:09 AM EDT [facility] Blood Capillary blood specimen / Unknown 08/27/2024 11:07 AM EDT 08/27/2024 11:09 AM EDT us Shaniqua Tinajero MD LAB POINT OF CARE TEST DOCKED DEVICE UNSOLICITED RESULTS Final Result Performing Organization Address City/State/[facility] Co de Phone Number [facility] [address] [place] [address] * (ABNORMAL) POCT glucose meter (08/27/2024 8:26 AM EDT) POCT Glucose 152(H) 74 - 99 mg/dL 08/27/2024 8:28 AM EDT [facility] Comment:Accuracy of a glucos e [...] Comment 08/27/2024 8:28 AM EDT [facility] Call Center Representative ID Ruth Kee 8:28 AM EDT [facility]ARE LAB Device ID [id number] 08/27/2024 8:28 AM EDT [facility] Specimen Type POC Capillary 08/27/2024 8:28 AM EDT [facility] Blood Capillary blood specimen / Unknown 08/27/2024 8:26 AM EDT 08/27/2024 8:28 AM EDT us Shaniqua Tinajero MD LAB POINT OF CARE TEST DOCKED DEVICE UNSOLICITED RESULTS Final Result [facility] [address] [place] [address] documented in this encounter Visit Diagnoses Diagnosis Carpal tunnel syndrome, left Carpal tunnel syndrome documented in this encounter Administered Medications Inactive Administered [...] 10 bupivacaine PF (Marcaine) 0.25 % injection As needed, Starting on Tue08/27/24 at 1032, Until Tue08/27/24 at 1103, Routine, Intraprocedure Given 08/27/2024 10:32 AM EDT 5 mL Left Hand dexamethasone (Decadron) injection 4 mg 4 mg, Intravenous, Once, 1 dose, On Tue08/27/24 at 1130, Routine, Holding - Preprocedure Given 08/27/2024 10:36 AM EDT 4 mg Right Hand fentaNYL (Sublimaze) injection 25 mcg 25 mcg, [...] 9:03 AM EDT 75 mL/hr 75 mL/hr lidocaine (Xylocaine) 1 % injection As needed, Starting on Tue08/27/24 at 1032, Until Tue08/27/24 at 1103, Routine, Intraprocedure Given 08/27/2024 10:33 AM EDT 1 mL Right Hand Given 08/27/2024 10:32 AM EDT 5 mL L eft Hand ondansetron (Zofran) injection 4 mg 4 mg, [...] documented as of this encounter Care Teams Oil Seal Assembler Relationship Specialty Start Date End Date Deya Reed APRN [address] [place] [address] PCP - General 06/15/22 documented as of this encounter
--- OUTSIDE RECORDS SUMMARY | 2024-09-12 11:10 | XMS_ITS | Encounter Summary ---
Author Organization Healthcare Address [address] [place] [address] Care Team Providers Care Livestock Exhibitor Name Role Phone Deya Reed Jef KERLINE Primary Care Provider + Reason for Referral * Consultation (Routine) - Authorized Specialty Diagnoses / Procedures Referred By Christophe esteban Referred To Contact Occupational Therapy Diagnoses Carpal tunnel syndrome, bilateral Trigger finger, left middle finger Ja Hastings PA [address] [facility] [address] [place] [address] Phone: tel: fax: Provider, External Referral ID Status Reason Start Date Expiration Date Visits Requested Visits Authorized [id number] Authorized Specialty Services Required 09/12/2024 03/14/2026 1 1 Reason for Visit * Reason Comments Follow-up Follow-up Encounter Details Date Type Department Care Team (Late st Contact Info) Description 09/12/2024 11:10 AM EDT Office Visit [facility] [address] [place] [phone] Ja Hastings PA [address] [place] [address] Carpal tunnel syndrome, bilateral (Primary [...] Ja Hastings PA Consent: Consent obtained: Verbal [place] protocol: Patient identity confirmed: Verbally with patient [...] her back in 1-2 weeks for a lndax-rc-uypsky and wound check. No x-rays needed at that time The patient had the opportunity to ask questions, all of which were answered to their satisfaction. Kind Regards, Ja Hastings PA-C, [facility] Department of Orthopedic Surgery [facility] documented in this encounter Plan of Treatment Upcoming Encounters Date Type Department Care Team (Late st Contact Info) Description 10/26/2024 10:10 AM EDT Office Visit [facility] [address] [place] [address] Kathia Torres PA [address] [place] [address] 10/30/2024 11:40 AM EDT Office Visit [facility] Medicine Specialties [address] [place] [address] Reji Vera MD [address] [place] [address] 10/30/2024 1:15 PM EDT Office Visit [facility] Medicine [facility]ties [address] [place] [address] Lauren Montalvo APRN, DNP [address] [place] [address] 12/14/2024 10:45 AM EDT Appointment [facility] [address] [place] [address] 12/17/2024 12:20 PM EDT Office Visit [facility] Endocrinology [address] [place] [address] Iram Mckay PA [address] [facility] [address] [place] [address] Scheduled Referrals Name Type Priority Associated Diagnoses [...] Ja Hastings PA Consent: Consent obtained: Verbal [place] protocol: Patient identity confirmed: Verbally with patient [...] documented as of this encounter Care Teams Livestock Exhibitor Relationship Specialty Start Date End Date Deya Reed APRN [address] [place] [address] PCP - General 06/15/22 documented as of this encounter
--- OUTSIDE RECORDS SUMMARY | 2024-09-27 11:20 | XMS_ITS | Encounter Summary ---
Author Organization Healthcare Address [address] [place] [address] Care Team Providers Care Administration Assistant Name Role Phone Deya Reed APRN Primary Care Provider + Reason for Visit * Reason Comments Follow-up Follow-up Encounter Details Date Type Department Care Team (Late st Contact Info) Description 09/27/2024 11:20 AM EDT Office Visit [facility] [address] [place] [phone] Shaniqua Tinajero MD [address] [phone] Carpal tunnel syndrome, bilateral (Primary Dx) Social History Tobacco Use Types Packs/Day Years [...] Sign Reading Time Taken Comments Blood Pressure 119/72 09/27/2024 10:56 AM EDT Pulse 76 09/27/2024 10:56 AM EDT Temperature - - Respiratory Rate - - Oxygen Saturation 92% 09/27/2024 10:56 AM EDT Inhaled Oxygen Concentration - - Weight 121 kg (267 lb) 09/27/2024 10:56 AM EDT Height 152.4 cm (5') 09/27/2024 10:56 AM EDT Body Mass Index 52.14 09/27/2024 10:56 AM EDT documented in this encounter Miscellaneous Notes * Progress Notes - Shaniqua Tinajero MD - 09/27/2024 11:20 AM EDT Procedure performed: Left carpal tunnel release Left index finger trigger release Right ring finger A1 caterina corticosteroid injection DOS: 08/27/2024 History of Present Illness: Kami Khan is a 58 y.o. female who is over status post the above procedures. At last visit, wound opened superficially after suture removal. Has been doing wound care. Today, carpal tunnel wound is fully healed. Has hypertrophic tissue. Index incision well healed. Hasn't done pt in [place] yet - full until October but reports she will call to get in H/[facility]/SH:I have reviewed the patient's medical history, surgical history, social history, and family history. This is located in the patient's note and/or in their intake form that has been scannedinto their medical record at today's visit. Physical Exam: Vitals: as documented in the chart for [...] incision over the index finger A1 caterina carpal tunnel release incision fully healed, hypertrophic granulation No erythema or drainage soft compartments, no pain with passive stretch, Tenderness to palpation over the A1 caterina release incision and carpal tunnel release incision Motor: 07/23 Bic, 07/23 Tri, 07/23 WF, 07/23 WE, 07/23 FF, 5/5 FE, 5/5 Fabd, 5/5 EPL, [...] Right ring finger A1 caterina corticosteroid injection DOS: 08/27/2024 Recommend aggressive hand therapy F/u in 4 weeks via telehealth to check doing well documented in this encounter Plan of Treatment Upcoming Encounters Date Type Department Care Team (Late st Contact Info) Description 10/26/2024 10:10 AM EDT Office Visit [facility] [address] [place] [address] Kathia Torres PA [address] [address] 10/30/2024 11:40 AM EDT Office Visit [facility] Medicine Specialties [address] [place] [address] Reji Vera MD [address] [place] [address] 10/30/2024 1:15 PM EDT Office Visit [facility]ties [address] [place] [address] Lauren Montalvo APRN, VINNY [address] [place] [address] 12/14/2024 10:45 AM EDT Appointment [facility] [address] [place] [address] 12/17/2024 12:20 PM EDT [facility] [address] [place] [phone] Iram Mckay PA [address] [place] [address] documented as of this encounter Visit Diagnoses Diagnosis Carpal tunnel syndrome, bilateral- Primary Carpal tunnel syndrome documented in this encounter Additional Health Concerns Assessment Noted Time PHQ-9 Depression Total Score: 0 05/15/19 25 8:16 AM EST A fall risk assessment has been complete d for the patient 09/27/2024 10:56 AM EDT A Body Mass Index follow-up plan has been documented for the patient 09/27/2024 12:07 PM EDT documented as of this encounter Care Teams Administration Assistant Relationship Specialty Start Date End Date Deya Reed APRN [address] [place] [address] PCP - General 06/15/22 documented as of this encounter
--- NOTE | 2024-10-15 15:27 | ED_ITS ---
Discharge Plan Disposition Patient Disposition: Home, Self-Care Condition: Good Referrals Follow up/Referrals: Provider,Referral, [Referring, Medical] - See instructions Activity Restrictions/Add. Instructions Additional Instructions/Restrictions: As we discussed please keep your appointment with Dr. Reddy next week. If your PCP can order an MRI before your visit would be helpful however not necessary. If you have any persistent new or worsening signs or symptoms follow-up with your PCP return to the ER as needed. Clinical Impressions Clinical Impression: Dizziness Print Language Print Language: Maltese Discharge ED Provider: Benedicto Brandon General Adult HPI <ROSE Leigh - Last Filed: 10/15/24 18:39> General Chief complaint: Dizziness Stated complaint: Dizziness sent from 's Office Time Seen by Provider: 10/15/24 15:25 History of Present Illness HPI narrative: Patient presents for dizziness. Patient has had dizziness since May of this year. She has been given meclizine and referred to neurology however appointments not until November. Patient reports the dizziness is every day its in every position. She denies any known provocation. Patient does have a history of previous stroke 6 years ago with no residual deficits and has multiple comorbidities including morbid obesity. She denies any chest pain shortness of breath fever chills focal neurologic deficit chest pain shortness of breath hemoptysis hematochezia melena she reports nausea but no vomiting or diarrhea. She has tried meclizine without relief. Related Data Allergies Allergy/AdvReac Type Severity Reaction Status Date / Time gabapentin AdvReac Nausea Verified 10/15/24 15:41 iodine AdvReac Rash Verified 10/15/24 15:41 tramadol AdvReac Nausea Verified 10/15/24 15:41 PFSH <ROSE Leigh - Last Filed: 10/15/24 18:39> [facility] Disclaimer: The information contained in this section may have been updated after the patient was seen, as this information can be updated by other users. Social History (Updated 10/15/24 @ 18:39 by ROSE Leigh) Smoking Status: Current every day smoker alcohol intake: never current occupational status: disabled Travel in the last 8 weeks?: None Have you lived/traveled outside US in past 30 days?: No Contact w/someone who lives/traveled outside US past 30 days?: No Exposure to someone with infectious disease in past 14 days?: No Do you have a fever (greater than 100.4 F or 38 C)?: No Have you tested positive for COVID-19?: No Exposed to someone with COVID-19 in past 14 days?: No Do you have a sore throat?: No Do you have a cough?: No Do you have any weakness?: No Do you have any diarrhea?: No Are you experiencing any unusual bleeding?: No Do you have any muscle aches/pain?: No Do you have any abdominal pain?: No Are you experiencing loss of taste or smell?: No <ROSE Leigh - Last Filed: 10/15/24 18:39> ROS Obtained: Yes Systems reviewed as appropriate & no additional complaints except as documented Physical Exam <ROSE Leigh - Last Filed: 10/15/24 18:39> General General appearance: alert and in no apparent distress Respiratory Respiratory exam: Present normal lung sounds bilaterally Cardiovascular Cardiovascular exam: Present regular rate Neurological Exam Neurological exam: Present alert and oriented X3 Medical Decision Making <ROSE Leigh - Last Filed: 10/15/24 18:39> Medical Records Medical records reviewed: Yes I reviewed the patient's medical records. Screening: Per USPSTF and CDC recommendations, given the prevalence of disease in our region, it is our hospital?s policy to screen for HIV and viral Hepatitis for all patients aged 18 and over and those with ongoing risk factors. Raphael Inquiry Pt receiving controlled substance: No Vital Signs: 10/15/24 15:34 10/15/24 15:35 10/15/24 17:30 Temperature 98.4 F Temperature Source Oral Pulse Rate 70 67 Pulse Rate [Left] 73 Respiratory Rate 16 Blood Pressure 104/76 L Blood Pressure [Right Arm] 104/76 L Blood Pressure Mean [Right Arm] 85 Blood Pressure Source Blood Pressure Source [Right Arm] Automatic Cuff Blood Pressure Position 02 Sat by Pulse Oximetry 92 L 91 L 88 L Oxygen Delivery Method Room Air 10/15/24 18:00 10/15/24 19:04 Temperature 98.4 F Temperature Source Oral Pulse Rate 67 70 Pulse Rate [Left] Respiratory Rate 20 Blood Pressure 104/76 L Blood Pressure [Right Arm] Blood Pressure Mean [Right Arm] Blood Pressure Source Automatic Cuff Blood Pressure Source [Right Arm] Blood Pressure Position Supine 02 Sat by Pulse Oximetry 92 L Oxygen Delivery Method Room Air Lab Data Lab results reviewed: Yes I reviewed the patient's lab results. Lab Results 10/15/24 16:06: WBC 10.8, RBC 5.75 H, Hgb 17.1 H, Hct 51.5 H, MCV 89.6, MCH 29.7, MCHC 33.2, RDW 15.2, Plt Count 164, MPV 10.3, Neut % (Auto) 65.3, Lymph % (Auto) 19.5, [place] % (Auto) 13.0 H, Eos % (Auto) 0.7, Baso % (Auto) 0.7, Neut # (Auto) 7.0, Lymph # (Auto) 2.1, [place] # (Auto) 1.4 H, Eos # (Auto) 0.1, Baso # (Auto) 0.1, ESR 5, PT 11.5, INR 1.04, Sodium 133 L, Potassium 3.8, Chloride 96 L , Carbon Dioxide 30, Anion Gap 10.8, BUN 15, Creatinine 1.00, Estimated Creat Clear 45, Estimated GFR 57 L, Est GFR ( Amer) 69, Glucose 131 H, Calcium 9.8, Magnesium 2.2, Total Bilirubin 1.0, AST 57 H, ALT 45, Alkaline Phosphatase 86, C-Reactive Protein 162.9 H, NT-Pro-B Natriuret Pep 138 H, Total Protein 7.7, Albumin 4.5, Globulin 3.2, Albumin/Globulin Ratio 1.4, Procalcitonin 0.144, Urine Color Yellow, Urine Appearance Clear, Urine pH 6.0, Ur Specific [place] <= 1.005, Urine Protein Negative, Urine Glucose (UA) 3+, Urine Ketones Trace, Urine Blood Trace-l, Urine Nitrate Negative, Urine Bilirubin Negative, Urine Urobilinogen 0.2, Ur Leukocyte Esterase Negative, Urine RBC Occasional, Urine WBC Occasional, Ur Squamous Epith Cells 3-5, Urine Bacteria Trace, Urine Yeast Occasional 10/15/24 16:06 10/15/24 16:06 Orders (Tests/Meds): ED MEDICATIONS Discontinued Medications Generic Name Dose Route Start Last Admin Trade Name Freq PRN Reason Stop Dose Admin Acetaminophen 1,000 mg 10/15/24 15:33 10/15/24 16:13 Acetaminophen 500mg Tab PO 10/15/24 15:34 1,000 mg ONCE ONE Administration Diazepam 2.5 mg 10/15/24 15:33 10/15/24 16:18 Diazepam 10mg/2ml Syringe IV 10/15/24 15:34 2.5 mg ONCE ONE Administration Sodium Chloride 1,000 mls @ 999 mls/hr 10/15/24 15:33 10/15/24 16:13 Sod Chlor 0.9% 1000ml Bag IV 10/15/24 16:33 999 mls/hr .Q1H1M ONE Administration Iopamidol 80 ml 10/15/24 17:02 10/15/24 17:03 Iopamidol-370 (76%);100ml Bottle IV 10/15/24 17:03 80 ml ONCE ONE Administration Sodium Chloride 10 ml 10/15/24 17:02 10/15/24 17:03 Sodium Chloride 0.9% 10ml Syr (Rad Only) IV 11/14/24 17:01 10 ml NEEDED PRN Administration Maintain IV Site Sodium Chloride 50 ml 10/15/24 17:02 10/15/24 17:03 0.9 % Sodium Chloride 50 Ml Vial IV 10/15/24 17:03 50 ml ONCE ONE Administration ORDERS Category Date Time Status CT angio head Stat Cat Scan 10/15/24 15:[address] angio neck Stat Cat Scan 10/15/24 15:[address] head/brain wo con Stat Cat Scan 10/15/24 15:35 Completed BNP [NT Pro Brain Natriuretic Pep.] Stat Lab 10/15/24 16:06 Completed CBC w/Auto Diff [Complete Blood Count Auto Diff] Stat Lab 10/15/24 16:06 Completed CMP [Comprehensive Metabolic Panel] Stat Lab 10/15/24 16:06 Completed CRP [C-Reactive Protein] Stat Lab 10/15/24 16:06 Completed ESR [Erythrocyte Sedimentation Rate] Stat Lab 10/15/24 16:06 Completed INR [Prothrombin Time INR] Stat Lab 10/15/24 16:06 Completed Magnesium Stat Lab 10/15/24 16:06 Completed Procalcitonin Stat Lab 10/15/24 16:06 Completed UA [Urinalysis and Microscopic] Stat Lab 10/15/24 16:06 Completed Medical Decision Narrative: In summary patient is a 58-year-old female who presents to the emergency department for evaluation of dizziness for 5 months. Patient is hemodynamically stable upon arrival, afebrile. Discal exam reveals a well-nourished well- developed morbidly obese much older than stated age appearing 58-year-old female who otherwise no acute distress. Cranial nerves II through XII intact grossly to exam pupils equal round reactive to light patient has no focal neurologic deficits and moves all 4 extremities. She is amatory in the ER.. Differential diagnosis includes vestibular disorder versus central stroke although given the timeframe less likely, versus electrolyte abnormality versus hypotension versus sequela of previous stroke etc. etc. Initial workup will be conducted with hematologic labs CT scan of the head without contrast CTA of the head and neck. Initial interventions include crystalloid bolus and Valium. Initial workup reviewed by me and her hematologic labs are nonactionable however she has markedly elevated inflammatory markers including a CRP of 162.9 and NT proBNP of 138. Urinalysis is bland and my informal interpretation of her CT imaging shows no acute intracranial process or stenosis prior to radiology read. Placed a final read form interpretation. Upon repeat evaluation patient reports that her dizziness is slightly better after initial intervention. Given this while there remains diagnostic uncertainty as the cause of her dizziness we have ruled out any serious or life-threatening condition today. Given that patient is appropriate for discharge with follow-up with with neurology as scheduled. I have recommended that she ask her PCP to obtain an outpatient MRI given the limitations of CAT scan imaging for soft tissue issues of the brain. Patient vies follow-up PCP for any persistent new or worsening signs or symptoms or return to the ER as needed. <Benedicto Brandon MD - Last Filed: 10/15/24 19:39> Vital Signs: 10/15/24 15:34 10/15/24 15:35 10/15/24 17:30 Temperature 98.4 F Temperature Source Oral Pulse Rate 70 67 Pulse Rate [Left] 73 Respiratory Rate 16 Blood Pressure 104/76 L Blood Pressure [Right Arm] 104/76 L Blood Pressure Mean [Right Arm] 85 Blood Pressure Source Blood Pressure Source [Right Arm] Automatic Cuff Blood Pressure Position 02 Sat by Pulse Oximetry 92 L 91 L 88 L Oxygen Delivery Method Room Air 10/15/24 18:00 10/15/24 19:04 Temperature 98.4 F Temperature Source Oral Pulse Rate 67 70 Pulse Rate [Left] Respiratory Rate 20 Blood Pressure 104/76 L Blood Pressure [Right Arm] Blood Pressure Mean [Right Arm] Blood Pressure Source Automatic Cuff Blood Pressure Source [Right Arm] Blood Pressure Position Supine 02 Sat by Pulse Oximetry 92 L Oxygen Delivery Method Room Air Lab Data Lab Results 10/15/24 16:06: WBC 10.8, RBC 5.75 H, Hgb 17.1 H, Hct 51.5 H, MCV 89.6, MCH 29.7, MCHC 33.2, RDW 15.2, Plt Count 164, MPV 10.3, Neut % (Auto) 65.3, Lymph % (Auto) 19.5, [place] % (Auto) 13.0 H, Eos % (Auto) 0.7, Baso % (Auto) 0.7, Neut # (Auto) 7.0, Lymph # (Auto) 2.1, [place] # (Auto) 1.4 H, Eos # (Auto) 0.1, Baso # (Auto) 0.1, ESR 5, PT 11.5, INR 1.04, Sodium 133 L, Potassium 3.8, Chloride 96 L , Carbon Dioxide 30, Anion Gap 10.8, BUN 15, Creatinine 1.00, Estimated Creat Clear 45, Estimated GFR 57 L, Est GFR ( Amer) 69, Glucose 131 H, Calcium 9.8, Magnesium 2.2, Total Bilirubin 1.0, AST 57 H, ALT 45, Alkaline Phosphatase 86, C-Reactive Protein 162.9 H, NT-Pro-B Natriuret Pep 138 H, Total Protein 7.7, Albumin 4.5, Globulin 3.2, Albumin/Globulin Ratio 1.4, Procalcitonin 0.144, Urine Color Yellow, Urine Appearance Clear, Urine pH 6.0, Ur Specific [place] <= 1.005, Urine Protein Negative, Urine Glucose (UA) 3+, Urine Ketones Trace, Urine Blood Trace-l, Urine Nitrate Negative, Urine Bilirubin Negative, Urine Urobilinogen 0.2, Ur Leukocyte Esterase Negative, Urine RBC Occasional, Urine WBC Occasional, Ur Squamous Epith Cells 3-5, Urine Bacteria Trace, Urine Yeast Occasional Orders (Tests/Meds): ED MEDICATIONS Discontinued Medications Generic Name Dose Route Start Last Admin Trade Name Freq PRN Reason Stop Dose Admin Acetaminophen 1,000 mg 10/15/24 15:33 10/15/24 16:13 Acetaminophen 500mg Tab PO 10/15/24 15:34 1,000 mg ONCE ONE Administration Diazepam 2.5 mg 10/15/24 15:33 10/15/24 16:18 Diazepam 10mg/2ml Syringe IV 10/15/24 15:34 2.5 mg ONCE ONE Administration Sodium Chloride 1,000 mls @ 999 mls/hr 10/15/24 15:33 10/15/24 16:13 Sod Chlor 0.9% 1000ml Bag IV 10/15/24 16:33 999 mls/hr .Q1H1M ONE Administration Iopamidol 80 ml 10/15/24 17:02 10/15/24 17:03 Iopamidol-370 (76%);100ml Bottle IV 10/15/24 17:03 80 ml ONCE ONE Administration Sodium Chloride 10 ml 10/15/24 17:02 10/15/24 17:03 Sodium Chloride 0.9% 10ml Syr (Rad Only) IV 11/14/24 17:01 10 ml NEEDED PRN Administration Maintain IV Site Sodium Chloride 50 ml 10/15/24 17:02 10/15/24 17:03 0.9 % Sodium Chloride 50 Ml Vial IV 10/15/24 17:03 50 ml ONCE ONE Administration ORDERS Category Date Time Status CT angio head Stat Cat Scan 10/15/24 15:[address] angio neck Stat Cat Scan 10/15/24 15:[address] head/brain wo con Stat Cat Scan 10/15/24 15:35 Completed BNP [NT Pro Brain Natriuretic Pep.] Stat Lab 10/15/24 16:06 Completed CBC w/Auto Diff [Complete Blood Count Auto Diff] Stat Lab 10/15/24 16:06 Completed CMP [Comprehensive Metabolic Panel] Stat Lab 10/15/24 16:06 Completed CRP [C-Reactive Protein] Stat Lab 10/15/24 16:06 Completed ESR [Erythrocyte Sedimentation Rate] Stat Lab 10/15/24 16:06 Completed INR [Prothrombin Time INR] Stat Lab 10/15/24 16:06 Completed Magnesium Stat Lab 10/15/24 16:06 Completed Procalcitonin Stat Lab 10/15/24 16:06 Completed UA [Urinalysis and Microscopic] Stat Lab 10/15/24 16:06 Completed Medical Decision Narrative: In summary patient is a 58-year-old female who presents to the emergency department for evaluation of dizziness for 5 months. Patient is hemodynamically stable upon arrival, afebrile. Discal exam reveals a well-nourished well- developed morbidly obese much older than stated age appearing 58-year-old female who otherwise no acute distress. Cranial nerves II through XII intact grossly to exam pupils equal round reactive to light patient has no focal neurologic deficits and moves all 4 extremities. She is amatory in the ER.. Differential diagnosis includes vestibular disorder versus central stroke although given the timeframe less likely, versus electrolyte abnormality versus hypotension versus sequela of previous stroke etc. etc. Initial workup will be conducted with hematologic labs CT scan of the head without contrast CTA of the head and neck. Initial interventions include crystalloid bolus and Valium. Initial workup reviewed by me and her hematologic labs are nonactionable however she has markedly elevated inflammatory markers including a CRP of 162.9 and NT proBNP of 138. Urinalysis is bland and my informal interpretation of her CT imaging shows no acute intracranial process or stenosis prior to radiology read. Placed a final read form interpretation. Upon repeat evaluation patient reports that her dizziness is slightly better after initial intervention. Given this while there remains diagnostic uncertainty as the cause of her dizziness we have ruled out any serious or life-threatening condition today. Given that patient is appropriate for discharge with follow-up with with neurology as scheduled. I have recommended that she ask her PCP to obtain an outpatient MRI given the limitations of CAT scan imaging for soft tissue issues of the brain. Patient vies follow-up PCP for any persistent new or worsening signs or symptoms or return to the ER as needed. I was consulted by the PING, and we discussed the complexity of the problems being addressed. I approved the treatment and management plan for this patient's care in the emergency department, thus performing a substantive portion of the medical decision making. Benedicto Brandon MD Critical Care <ROSE Leigh - Last Filed: 10/15/24 18:39> Critical Care Time Critical Care Time: No
--- OUTSIDE RECORDS SUMMARY | 2024-10-15 15:31 | XMS_ITS | Clinical Summary ---
Author Organization [employer] ([place], [place], [place], [place]) Address [address] [place] [address] Care Team Providers Care Site Acquisition Manager Name Role Phone Deya Reed RADIO DISPATCHER Primary Care Provider [phone] Social History Tobacco Use Types Packs/Day Years Used Date Smoking Tobacco: Never Assessed Comments Unknown Sex and Gender Information Value Date Recorded Sex Assigned at Not on file Legal Sex Female 8:39 AM CDT Gender Identity Not on file Sexual Orientation Not on file Plan of Treatment Upcoming Encounters Date Type Department Care Team (Late st Contact Info) Description 10/25/2024 11:00 AM EDT Evaluation [facility] Physical Therapy [address] [place] [address] Fiona Bass, PT Health Maintenance Due Date Last Done Comments CT Colonography 1966 Colonoscopy 1966 Colorectal Cancer Screening 1966 FOBT/FIT 1966 Fit-DNA (Cologuard) 1966 Sigmoidoscopy 1966 Depression Screening (12+) 1978 Tobacco Cessation Counseling and Screening (12+) 1978 HIV Screening 1981 Hepatitis C Screening 1984 DTAP/TDAP/TD VACCINES (1 - Tdap) 1985 Pap Smear 12/11/1987 Breast Cancer Screening 2006 Lipid Panel 12/11/2011 Pneumococcal 50+ years (1 of 1 - PCV) 2016 Shingles Vaccine (Zoster) (1 of 2) 2016 COVID-19 VACCINE ( season) 2023, 07/29/2020 Influenza Vaccine (#1) 2024 Care Teams Site Acquisition Manager Relationship Specialty Start Date End Date Deya Reed APRN [address] [place] [phone] PCP - General Nurse Practitioner 09/17/24
--- OUTSIDE RECORDS SUMMARY | 2024-10-15 15:32 | XMS_ITS | Encounter Summary ---
Author Organization Healthcare Address [address] [place] [address] Care Team Providers Care Drapery Counselor Name Role Phone Deya Reed APRN Primary Care Provider + Encounter Details Date Type Department Care Team (Late st Contact Info) Description 10/05/2024 [facility] [address] [place] [address] Iram Mckay PA [address] [address] Social History Tobacco Use Types Packs/Day Years [...] on file documented as of this encounter Miscellaneous Notes * Telephone Encounter - Gerri Mullins, FLIP, RD - 10/05/2024 3:02 PM EDT Called pt to discuss options for over patches. Inquired about over patch included inside the sensorbox. Pt admits gets those but was wanting the clear patches that completely cover the dexcom. Inquired if she was speaking over tegaderm patches, pt admits yes. Informed her I can send an rx in but I'm unsure if insurance will cover the cost of those. Patient voiced understanding, no other concerns. * Telephone Encounter - Catherine Callaway CPhT - 10/05/2024 1:26 PM EDT Good Afternoon, I am reaching out after speaking with this pt this afternoon regarding a few refills. While she is not due for a refill on her Dexcom sensors at this time, she was requesting a rx be sent over for the clear flim/patches that can be used with the sensors to help keep them in place. I am unsure which product is preferred but if appropriate, please send a new rx to [facility] so that we may get them outto the pt. Thank You! documented in this encounter Plan of Treatment Upcoming Encounters Date Type Department Care Team (Late st Contact Info) Description 10/26/2024 10:10 AM EDT Office Visit [facility] [address] [place] [address] Kathia Torres, PA [address] [place] [address] 10/30/2024 11:40 AM EDT Office Visit [facility] Medicine Specialties [address] [place] [phone] Reji Vera MD [address] [place] [address] 10/30/2024 1:15 PM EDT Office Visit [facility] Medicine [facility]ties [address] [place] [address] Lauren Montalvo APRN, DNP [address] [place] [phone] 12/14/2024 10:45 AM EDT Appointment [facility] [address] [place] [address] 12/17/2024 12:20 PM EDT Office Visit [facility] Endocrinology [address] [place] [address] Iram Mckay PA [address] [facility] [address] [place] [address] documented as of this encounter Visit Diagnoses Diagnosis Type 2 diabetes mellitus with hyperglycemia, without long-term current use of insulin ([facility])- Primary documented in this encounter Additional Health Concerns Assessment Noted Time PHQ-9 Depression Total Score: 0 05/15/19 25 8:16 AM EST A fall risk assessment has been complete d for the patient 09/27/2024 10:56 AM EDT A Body Mass Index follow-up plan has been documented for the patient 09/27/2024 12:07 PM EDT documented as of this encounter Care Teams Drapery Counselor Relationship Specialty Start Date End Date Deya Reed APRN [address] [place] [address] PCP - General 06/15/22 documented as of this encounter
--- OUTSIDE RECORDS SUMMARY | 2024-10-15 15:32 | XMS_ITS | Encounter Summary ---
Author Organization Healthcare Address [address] [place] [address] Care Team Providers Care Hat Marker Name Role Phone Sadi Glassia Nena CHURCHILL Primary Care Provider [phone] Chio Coombs APRN Primary Care Provider + Deya Reed POLE CUTTER Primary Care Provider + Encounter Details Date Type Department Care Team (Late Contact Info) Description 02/20/2021 Orders Only External Location [address] [place] [address] Provider, External Social History Tobacco Use Types Packs/Day Years Used Date Smoking Tobacco: Some Days Alcohol Use Standard Drinks/Week Comments No 0 (1 standard drink = 0.6 oz pur e alcohol) Comments Unknown Sex and Gender Information Value Date Recorded Sex Assigned at Not on file Legal Sex Female 7:01 PM EDT Gender Identity Not on file Sexual Orientation Not on file documented as of this encounter Plan of Treatment Upcoming Encounters Date Type Department Care Team (Late Contact Info) Description 10/26/2024 10:10 AM EDT Office Visit [facility] Hand [address] [place] [phone] Kathia Torres, ROSE [address] [phone] 10/30/2024 11:40 AM EDT Office Visit [facility] [address] [place] [phone] Reji Vera MD [address] [place] [address] 10/30/2024 1:15 PM EDT Office Visit [facility] [address] [place] [address] Lauren Montalvo APRN, DNP [address] [place] [address] 12/14/2024 10:45 AM EDT Appointment [facility] [address] [place] [address] 12/17/2024 12:20 PM EDT Office Visit [facility] Endocrinology [address] [place] [phone] Iram Mckay PA [address] [facility] [address] [place] [phone] documented as of this encounter Procedures Procedure Name Priority Date/Time Associated Diagnosis Comments MR OUTSIDE IMAGES 02/20/2021 2:34 PM EST documented in this encounter Results * MR transfer of outside films (02/20/2021 2:34 PM EST) Anatomical Region Laterality Modality Magnetic Resonan ce 02/20/2021 2:34 PM EST us External Provider IMG MRI PROCEDURES Final Resul t documented in this encounter Visit Diagnoses Not on filedocumented in this encounter Additional Health Concerns Infection Onset Date Last Indicated Resolved Time C. difficile Comment:This test from one year prior. No diarrhea issues at this time. 09/18/2021 09/18/2021 09/13/2022 12:49 PM EDT C. difficile Rule-Out 07/27/2023 07/27/20232023 4:05 PM EDT Gastrointestinal Rule-Out 07/27/2023 07/27/2023 4:05 PM EDT documented as of this encounter Care Teams Hat Marker Relationship Specialty Start Date End Date Dina Glass APRN [address] [place] [address] PCP - General 08/01/20 06/09/21 Chio Coombs APRN [address] [place] [address] [place] [address] PCP - General Family Medicine 06/10/21 06/14/22 Deya Reed APRN [address] [place] [address] PCP - General 06/15/22 documented as of this encounter
--- OUTSIDE RECORDS SUMMARY | 2024-10-15 15:32 | XMS_ITS | Data Portability ---
Author Organization [facility] [facility] Address [address] [place] [id number] Care Team Providers Care Hand Sander Name Role Phone JENNIFER SANDERSON Primary Care Provider JENNIFER SANDERSON Referring Provider [phone] Assessment No assessment recorded. Plan of Treatment Reminders Order Date Submit Date Provider Last Modified By Organization Details Last Modified Time Details Appointments None recorded. Lab CBC w/ auto diff 2023 024 [facility] (Registration ), [address], [place], [address], 4 17:47:51 CBC w/ auto diff 2023 024 [facility] (Registration ), [address], [place], [address], 4 11:29:58 CMP, serum or plasma 2023 024 [facility] (Registration ), [address], [place], [address], 4 11:35:33 jak2 (V617F) mutation, blood/tissu e 2023 024 [facility] (Registration ), [address], [place], [address], 4 15:08:45 carboxyhemo globin (co), blood 2023 024 [facility] (Registration ), [address] [facility] [address], [place], [address], 4 15:57:[address] referral 2023 024 [email or web address] 65 Not available 4 08:12:01 neurologist referral 2023 024 [email or web address] 1 Neurology Updated, [address] [facility], [address] [facility], [facility], [place], [address], 4 13:16:54 Procedures None recorded. Surgeries None recorded. Imaging tympanogram 2023 024 [email or web address] 440 [facility], [address], [place], [address], 4 18:06:34 MRI, brain, w/wo contrast 2023 024 [facility] (Centralized Scheduling), [address], [place], [address], 4 13:28:12 Medication Orders Ciprodex 0.3 %-0.1 % ear drops,suspe nsion 2023 024 [facility], [address] [place], [address], 4 14:10:42 Augmentin 875 mg-125 mg tablet 2023 024 [email or web address] 65 [facility], [address] [place], [address], 4 14:10:33 Patient TargetsNo targets recorded. Patient InstructionsNo instructions recorded. Reason for Referral Neurologist Referral for Shad cain Referring Physician: Samaria Pete, Otolaryngology, Encounter Date: 05/18/2023 Switching Operator Referral for O bstructive sleep apnea syndrome Referring Physician: Theresa Kelly, Hematology/Oncology, Encounter Date: 07/26/2023 Results Created Date Observation Date Name Description Value Unit Range Abnormal Flag Note LastModifiedBy Organization Detail LastModifiedTime 05/27/19 24 05/27/2023 CREAT ININE W/GFR note See Note Order ing Provi romie: Oliviafide namrata Willi ams LEAF [employer] PICKER Not Available [address] , [place], [address], 05/27/2023 09:43:55 05/27/1905/27/2023 CREAT ININE W/GFR creatinine 1.08 mg/dL 0.55-1 .02 high Not Available [address] , [place], [address], 05/27/2023 09:43:55 05/27/1905/27/2023 CREAT ININE W/GFR GFR (estimated) 60 mL/mi n >60 normal [IM VERONICA NT]: The 2020 CKD-E PI equat ion is now the recom alessandra d stand jose. This versi on does not inclu de race, as do the 2008 and 2011 CKD-E PI creat inine and creat inine -cyst atin C equat ions. Pleas e note that the eGFR now repor med is gener ated by the new 2020 CKD-E PI equat ion, which decre ases the eGFR for black s by up to 10% and incre ases the eGFR for non-b lacks by up to 10% in ayo rison to the old equat ion. To ayo re a legac y eGFR to a curre nt value , a 2008 CKD-E PI calcu lator is easil y searc hable on the inter net. Calcu lated GFR: This calcu lated GFR is advoc ated by the Natio nal Kidne y Found ation to be used as an indic ator of Chron ic Kidne y Disea se (CKD) . 5 Stage s of Chron ic Kidne y Disea se. Stage 1 90 mL/mi n or more Healt hy kidne ys or Kidne y damag e with jonn l or high GFR detai ls Stage 2 60 to 89 mL/mi n Kidne y damag e and mild decre ase in GFR detai ls Stage 3 30 to 59 mL/mi n Moder ate decre ase in GFR detai ls Stage 4 15 to 29 mL/mi n Sever e decre ase in GFR detai ls Stage 5 Less than 15 mL/mi n On dialy sis or Kidne y failu re Patie nt's clini radames statu s must be consi dered for the care of your patie nt. Not Available [address] , [place], [address], 05/27/2023 09:43:55 05/27/19 24 05/27/2023 CREAT ININE W/GFR performing lab see note ML - [facility] [address] [facility] [address] Not Available [address] [place], [address], 05/27/2023 09:43:55 07/12/19 24 07/12/2023 CBC WITH AUTO DIFF WBC 7.8 10 4.5-11 .5 Not Available [facility] (Lab) [address] [facility] [place], [address], 07/12/2023 11:29:58 07/12/19 24 07/12/2023 CBC WITH AUTO DIFF RBC 6.22 10 4.00-5 .40 high Not Available [facility] (Lab) [address] [facility] [place], [address], 07/12/2023 11:29:58 07/12/19 24 07/12/2023 CBC WITH AUTO DIFF hemoglobin 18.7 g/dL 12.0-1 5.0 high Not Available [facility] (Lab) [address] [facility] [place], [address], 07/12/2023 11:29:58 07/12/19 24 07/12/2023 CBC WITH AUTO DIFF hematocrit 56.7 % 35.0-4 9.0 high Not Available [facility] (Lab) [address] [facility] [place], [address], 07/12/2023 11:29:58 07/12/19 24 07/12/2023 CBC WITH AUTO DIFF MCV 91.2 fL 80-100 Not Available [facility] (Lab) [address] [facility] [place], [address], 07/12/2023 11:29:58 07/12/19 24 07/12/2023 CBC WITH AUTO DIFF MCH 30.1 pg 26-32 Not Available [facility] (Lab) [address] [facility] [place], [address], 07/12/2023 11:29:58 07/12/19 24 07/12/2023 CBC WITH AUTO DIFF MCHC 33.0 g/dL 32-36 Not Available [facility] (Lab) [address] [facility] [place], [address], 07/12/2023 11:29:58 07/12/19 24 07/12/2023 CBC WITH AUTO DIFF RDW 14.0 % 11.5-1 4.5 Not Available [facility] (Lab) [address] [facility] [place], [address], 07/12/2023 11:29:58 07/12/19 24 07/12/2023 CBC WITH AUTO DIFF platelet count 231 10 150-45 0 Not Available [facility] (Lab) [address] [facility] [place], [address], 07/12/2023 11:29:58 07/12/19 24 07/12/2023 CBC WITH AUTO DIFF mean platelet volume 9.7 fL 6.8-10 .2 Not Available [facility] (Lab) [address] [facility] [place], [address], 07/12/2023 11:29:58 07/12/19 24 07/12/2023 CBC WITH AUTO DIFF manual differential NOT INDICA MED Not Available [facility] (Lab) [address] [facility] [place], [address], 07/12/2023 11:29:58 07/12/19 24 07/12/2023 CBC WITH AUTO DIFF ne% 55.7 % 50-70 Not Available [facility] (Lab) [address] [facility] [place], [address], 07/12/2023 11:29:58 07/12/19 24 07/12/2023 CBC WITH AUTO DIFF lymphs 34.4 % 18-42 Not Available [facility] (Lab) [address] [facility] [place], [address], 07/12/2023 11:29:58 07/12/19 24 07/12/2023 CBC WITH AUTO DIFF MO% 6.7 % 2-11 Not Available [facility] (Lab) [address] [facility] [place], [address], 07/12/2023 11:29:58 07/12/19 24 07/12/2023 CBC WITH AUTO DIFF eo% 2.1 % 1-3 Not Available [facility] (Lab) [address] [facility] [place], [address], 07/12/2023 11:29:58 07/12/19 24 07/12/2023 CBC WITH AUTO DIFF ba% 0.6 % 0.0-2. 0 Not Available [facility] (Lab) [address] [facility] [place], [address], 07/12/2023 11:29:58 07/12/19 24 07/12/2023 CBC WITH AUTO DIFF neutrophils (absolute) 4.3 K/uL 2.0-6. 9 Not Available [facility] (Lab) [address] [facility] [place], [address], 07/12/2023 11:29:58 07/12/19 24 07/12/2023 CBC WITH AUTO DIFF lymphocytes (absolute) 2.7 K/uL 0.6-3. 4 Not Available [facility] (Lab) [address] [facility] [place], [address], 07/12/2023 11:29:58 07/12/19 24 07/12/2023 CBC WITH AUTO DIFF monocytes (absolute) 0.5 K/uL 0.0-0. 9 Not Available [facility] (Lab) [address] [facility] [place], [address], 07/12/2023 11:29:58 07/12/19 24 07/12/2023 CBC WITH AUTO DIFF eosinophils (absolute) 0.2 K/uL 0.0-0. 7 Not Available [facility] (Lab) [address] [facility] [place], [address], 07/12/2023 11:29:58 07/12/19 24 07/12/2023 CBC WITH AUTO DIFF basophils (absolute) 0.1 K/uL 0.0-0. 2 Not Available [facility] (Lab) [address] [facility] [place], [address], 07/12/2023 11:29:58 07/12/19 24 07/12/2023 COMPR EHENS STEF METAB OLIC PANEL sodium 137 mmol/ L 136-14 5 Not Available [facility] (Lab) [address] [place] [address] [place], [address], 07/12/2023 11:35:33 07/12/19 24 07/12/2023 COMPR EHENS STEF METAB OLIC PANEL potassium 4.2 mmol/ L 3.5-5. 1 Not Available [facility] (Lab) [address] [place] [address] [place], [address], 07/12/2023 11:35:33 07/12/19 24 07/12/2023 COMPR EHENS STEF METAB OLIC PANEL chloride 96 mmol/ L 98.0-1 07.0 low Not Available [facility] (Lab) [address] [facility] [place], [address], 07/12/2023 11:35:33 07/12/19 24 07/12/2023 COMPR EHENS STEF METAB OLIC PANEL total CO2 30 mmol/ L 21-32 Not Available [facility] (Lab) [address] [facility] [place], [address], 07/12/2023 11:35:33 07/12/19 24 07/12/2023 COMPR EHENS STEF METAB OLIC PANEL anion gap 15.2 mmol/ L 5.0-15 .0 high Not Available [facility] (Lab) [address] [facility] [place], [address], 07/12/2023 11:35:33 07/12/19 24 07/12/2023 COMPR EHENS STEF METAB OLIC PANEL glucose 224 mg/dL 70-120 high Not Available [facility] (Lab) [address] [facility] [place], [address], 07/12/2023 11:35:33 07/12/19 24 07/12/2023 COMPR EHENS STEF METAB OLIC PANEL BUN 19 mg/dL 7-18 high Not Available [facility] (Lab) [address] [facility] [place], [address], 07/12/2023 11:35:33 07/12/19 24 07/12/2023 COMPR EHENS STEF METAB OLIC PANEL creatinine 1.3 mg/dL 0.6-1. 0 high Not Available [facility] (Lab) [address] [facility] [place], [address], 07/12/2023 11:35:33 07/12/19 24 07/12/2023 COMPR EHENS STEF METAB OLIC PANEL BUN/creatini ne ratio 14.6 ratio 9-21 Not Available [facility] (Lab) [address] [facility] [place], [address], 07/12/2023 11:35:33 07/12/19 24 07/12/2023 COMPR EHENS STEF METAB OLIC PANEL estimated glom filtration rate 42 mL/mi n 60.0- low Not Available [facility] (Lab) [address] [facility] [place], [address], 07/12/2023 11:35:33 07/12/19 24 07/12/2023 COMPR EHENS STEF METAB OLIC PANEL calcium 10.0 mg/dL 8.6-9. 8 high Not Available [facility] (Lab) [address] [facility] [place], [address], 07/12/2023 11:35:33 07/12/19 24 07/12/2023 COMPR EHENS STEF METAB OLIC PANEL bilirubin, total 0.4 mg/dL 0.2-1. 0 USE OF THIS ASSAY IS NOT RECOM ALESSANDRA D FOR PATIE NTS UNDER GOING TREAT MENT WITH ELTRO MBOPA G DUE TO THE POTEN TIAL FOR FALSE LY ELEVA MED RESUL TS. Not Available [facility] (Lab) [address] [facility] [place], [address], 07/12/2023 11:35:33 07/12/19 24 07/12/2023 COMPR EHENS STEF METAB OLIC PANEL AST (SGOT) 27 IU/L 15-37 Not Available [facility] (Lab) [address] [facility] [place], [address], 07/12/2023 11:35:33 07/12/19 24 07/12/2023 COMPR EHENS STEF METAB OLIC PANEL ALT (SGPT) 48 IU/L 12-78 Not Available [facility] (Lab) [address] [facility] [place], [address], 07/12/2023 11:35:33 07/12/19 24 07/12/2023 COMPR EHENS STEF METAB OLIC PANEL alk phos 103 IU/L 54-369 Not Available [facility] (Lab) [address] [facility] [place], [address], 07/12/2023 11:35:33 07/12/19 24 07/12/2023 COMPR EHENS STEF METAB OLIC PANEL total protein 7.4 g/dL 6.4-8. 2 Not Available [facility] (Lab) [address] [facility] [place], [address], 07/12/2023 11:35:33 07/12/19 24 07/12/2023 COMPR EHENS STEF METAB OLIC PANEL albumin 3.7 g/dL 3.4-5. 0 Not Available [facility] (Lab) [address] [facility] [place], [address], 07/12/2023 11:35:33 07/12/19 24 07/12/2023 COMPR EHENS STEF METAB OLIC PANEL globulin 3.7 g/dL 1.3-3. 5 high Not Available [facility] (Lab) [address] [facility] [place], [address], 07/12/2023 11:35:33 07/12/19 24 07/12/2023 COMPR EHENS STEF METAB OLIC PANEL alb/glob ratio 1.0 ratio 1.0-3. 9 Not Available [facility] (Lab) [address] [facility] [place], [address], 07/12/2023 11:35:33 07/12/19 24 07/12/2023 COMPR EHENS STEF METAB OLIC PANEL osmolality, calculated 283 mOsm/ kg 272-29 5 Not Available [facility] (Lab) [address] [facility] [place], [address], 07/12/2023 11:35:33 07/12/19 24 07/12/2023 [facility] ORDER misc see ginna young report Not Available [facility] (Lab) [address] [facility] [place], [address], 07/19/2023 06:30:36 07/12/19 24 07/12/2023 MISC LAB ORDER misc see ginna young report Not Available [facility] (Lab) [address] [facility] [place], [address], 07/19/2023 06:30:37 12/05/1912/05/2023 CBC W/AUT O DIFFE RENTI AL note SEE NOTE Order ing Provi romie: Joseph namrata franklin APRN Not Available [address] , [place], [address], 12/05/2023 17:47:51 12/05/1912/05/2023 CBC W/AUT O DIFFE RENTI AL white blood cell 8.2 10e3/ uL 4.5-13 .0 normal Not Available [address] [place], [place], [address], 12/05/2023 17:47:51 12/05/19 24 12/05/2023 CBC W/AUT O DIFFE RENTI AL red blood cell 5.77 10e6/ uL 3.80-5 .10 high Not Available [address] [place], [place], [address], 12/05/2023 17:47:51 12/05/19 24 12/05/2023 CBC W/AUT O DIFFE RENTI AL hemoglobin 17.8 g/dL 11.5-1 5.3 high Not Available [facility] [place] [address] [place], [address], 12/05/2023 17:47:51 12/05/1912/05/2023 CBC W/AUT O DIFFE RENTI AL hematocrit 53.7 % 34.0-4 6.0 high Not Available [address] [place], [address], 12/05/2023 17:47:51 12/05/1912/05/2023 CBC W/AUT O DIFFE RENTI AL mean cell volume 93 fL 78.0-9 8.0 normal Not Available [address] [place], [address], 12/05/2023 17:47:51 12/05/19 24 12/05/2023 CBC W/AUT O DIFFE RENTI AL mean cell HGB 30.8 pg 25.0-3 5.0 normal Not Available [address] [place], [place], [address], 12/05/2023 17:47:51 12/05/19 24 12/05/2023 CBC W/AUT O DIFFE RENTI AL mean cell HGB concentratio n 33.1 g/dL 31.0-3 6.0 normal Not Available [address] [place], [place], [address], 12/05/2023 17:47:51 12/05/19 24 12/05/2023 CBC W/AUT O DIFFE RENTI AL red cell distribution width 14.7 % 11.0-1 5.0 normal Not Available [address] [place], [place], [address], 12/05/2023 17:47:51 12/05/19 24 12/05/2023 CBC W/AUT O DIFFE RENTI AL platelet count 214 10e3/ uL 150-40 0 normal Not Available [address] [place], [place], [address], 12/05/2023 17:47:51 12/05/19 24 12/05/2023 CBC W/AUT O DIFFE RENTI AL immature granulocyte % 1 0-1 normal Not Available [address] [place], [place], [address], 12/05/2023 17:47:51 12/05/19 24 12/05/2023 CBC W/AUT O DIFFE RENTI AL neutrophil % 55 % 35-75 normal Not Available [address] [place], [place], [address], 12/05/2023 17:47:51 12/05/19 24 12/05/2023 CBC W/AUT O DIFFE RENTI AL lymphocyte % 35 % 10-50 normal Not Available [address] , [place], [address], 12/05/2023 17:47:51 12/05/19 24 12/05/2023 CBC W/AUT O DIFFE RENTI AL monocyte % 7 % 0-15 normal Not Available [address] , [place], [address], 12/05/2023 17:47:51 12/05/19 24 12/05/2023 CBC W/AUT O DIFFE RENTI AL eosinophil % 2 % 0-5 normal Not Available [address] , [place], [address], 12/05/2023 17:47:51 12/05/19 24 12/05/2023 CBC W/AUT O DIFFE RENTI AL basophil % 1 % 0-5 normal Not Available [address] [place], [place], [address], 12/05/2023 17:47:51 12/05/19 24 12/05/2023 CBC W/AUT O DIFFE RENTI AL immature granulocyte # 0.07 x1000 /uL 0-0.05 high Not Available [address] [place], [place], [address], 12/05/2023 17:47:51 12/05/19 24 12/05/2023 CBC W/AUT O DIFFE RENTI AL neutrophil # 4.50 x1000 /uL 1.50-8 .00 normal Not Available [address] , [place], [address], 12/05/2023 17:47:51 12/05/19 24 12/05/2023 CBC W/AUT O DIFFE RENTI AL lymphocyte # 2.82 x1000 /uL 1.20-5 .20 normal Not Available [address] [place], [place], [address], 12/05/2023 17:47:51 12/05/19 24 12/05/2023 CBC W/AUT O DIFFE RENTI AL monocyte # 0.56 x1000 /uL 0.40-0 .90 normal Not Available [address] [place], [place], [address], 12/05/2023 17:47:51 12/05/19 24 12/05/2023 CBC W/AUT O DIFFE RENTI AL eosinophil # 0.19 x1000 /uL 0.00-0 .50 normal Not Available [address] [place], [place], [address], 12/05/2023 17:47:51 12/05/19 24 12/05/2023 CBC W/AUT O DIFFE RENTI AL basophil # 0.04 x1000 /uL 0.00-0 .30 normal Not Available [address] [place], [place], [address], 12/05/2023 17:47:51 12/05/19 24 12/05/2023 CBC W/AUT O DIFFE RENTI AL NRBC automated TEST NOT PERFOR MED /100_ WBC Not Available [address] [place], [place], [address], 12/05/2023 17:47:51 12/05/19 24 12/05/2023 CBC W/AUT O DIFFE RENTI AL performing lab SEE NOTE - [facility] R [address] [place] [address] DRIVE [facility] [address] Not Available [address] [place], [place], [address], 12/05/2023 17:47:51 05/09/19 24 05/09/2023 US, carot id arter y No observ ation record ed. zakia [facility] ([facility]) [address] [facility] , [place], [address], 05/16/2023 08:52:09 05/18/19 CT, angio gram, head, w/wo contr ast No observ ation record ed. [email or web address] Not Available 2023 10:05:25 05/18/19 24 tympa arsenio m No observ ation record ed. [email or web address] Not Available 2023 13:46:48 05/19/19 24 05/19/2023 tymfabrizio cesar m No observ ation record ed. LISSETTE Dee [address] [place], [place], [address], 05/19/2023 18:06:34 05/27/19 24 05/27/2023 MRI, brain , w/wo contr ast [facility] Name: KAMI CONDON [facility] [place] Phys: Debora ms LEAF SIZE PICKER,[place] [address] : 1965 Age: 57 Sex: F Acct: [id number] Loc: G.MRI PHONE #: [phone] Exam Date: 2023 Status : REG CLI FAX #: Rad# [id number] Unit# [id number] Admit Date: 2023 EXAMS: CPT CODE: [id number] MRI BRAIN W/[place] [address] CLINIC AL INFORM ATION: Severe fatigu e and heavin ess in the head for 6 weeks. No known trauma . COMPAR SALEEM: 03/25/19 21 TECHNI QUE: Sequen carlyle: Axial T2 and T1; axial diffus ion weight ed imagin g and ADC; sagitt al T1; sweeney l T2 FLAIR. Postga dolini um T1-quan ghted axial and sweeney l imagin g FINDIN GS: No eviden ce of restri cted diffus ion. Chroni c left pariet al infarc t as before . Scatte red high T2/IR signal foci in the cerebr al white matter , as before . No pathol ogic gadoli nium enhanc ement. No eviden ce of bleed, or infarc t. Interv al develo pment of dense right mastoi ditis and probab ly otitis as well. Left mastoi d air cells and parana alberto sinuse s are clear. Orbits unrema rkable . Pituit jim gland the tectal plate have a normal appear ance. 7th and 8th nerve comple xes within normal limits . IMPRES YESSICA: 1. No acute intrac ranial abnorm ality. 2. Small chroni c left pariet al cortic al infarc t. 3. Interv al develo pment dense right mastoi ditis and otitis . 4. Scatte red high T2/IR signal defect s of the cerebr al white matter most compat ible with microa ngiopa thic white matter degene ration . This report is genera med using voice recogn ition comput er softwa re. Inadve rtent errors may have occurr ed while dictat ing report . Common sense approa ch is apprec iated and do not hesita te to call for clarif icatio n when necess jim. PAGE 1 Signed Report (IRA NUED) [facility] Name: KAMI CONDON [facility] [place] Phys: Debora manzo [employer] PICKER,[facility] [place] [address] : 1965 Age: 57 Sex: F Acct: [id number] Loc: G.MRI PHONE #: Exam Date: 2023 Status : REG CLI FAX #: [phone] Rad# [id number] Unit# [id number] Admit Date: 2023 EXAMS: CPT CODE: [id number] MRI BRAIN W/WO [place] [address] Electr onical ly Signed by Lam Collazo on 2023 at 1320 Report ed and signed by: ANDREA Collazo M.D. CC: Jennifer Truesd ell (Allis on)APR N; Betpatti y Debora ms LEAF [employer] PICKER Dictat ed Date/T ness: 2023 (1320) Techno logist : TONY POLANCO Transc ribed Date/T ness: 2023 (1320) Transc riptio nist: DR.HAR LINDA swain Signat ure Date/T ness: 2023 (1320) Printe d Date/T ness: 2023 (1325) BATCH NO: N/A PAGE 2 Signed Report CC'ed Logic: Orderi ng Provid er: DEBORA LENTZ Y Attend ing Provid er: DEBORA LENTZ Y Referr ing Provid er: DEBORA LENTZ Y Consul ting Provid er: ALLISO Zay RODRIGUEZ [email or web address] [place] [address], [address], 06/01/2023 13:36:32 Result Notes Documentation Provider Name and Address Organization Details Recorded Time Mri, Brain, W/wo Contrast : [facility] Ce Name: KAMI CONDON [address] [place] [address] Phys: [place] [address] : 1965 Age: 57 Sex: F Acct: [id number] Loc: G.MRI PHONE #: Exam Date: 05/27/2023 Status: REG CLI FAX #: Rad# [id number] Unit# [id number] Admit Date: 05/27/2023 EXAMS: CPT CODE: [id number] MRI BRAIN W/WO CONTRAST [address] CLINICAL INFORMATION: Severe fatigue and heaviness in the head for 6 weeks. No known trauma. COMPARISON: 03/25/2020 TECHNIQUE: Sequences: Axial T2 and T1; axial diffusion weighted imaging and ADC; sagittal T1; coronal T2 FLAIR. Postgadolinium T1-weighted axial and coronal imaging FINDINGS: No evidence of restricted diffusion. Chronic left parietal infarct as before. Scattered high T2/IR signal foci in the cerebral white matter, as before. No pathologic gadolinium enhancement. No evidence of bleed, or infarct. Interval development of dense right mastoiditis and probably otitis as well. Left mastoid air cells and paranasal sinuses are clear. Orbits unremarkable. Pituitary gland the tectal plate have a normal appearance. 7th and 8th nerve complexes within normal limits. IMPRESSION: 1. No acute intracranial abnormality. 2. Small chronic left parietal cortical infarct. 3. Interval development dense right mastoiditis and otitis. 4. 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 This report is generated using voice recognition computer software. Inadvertent errors may have occurred while dictating report. Common sense approach is appreciated and do not hesitate to call for clarification when necessary. PAGE 1 Signed Report (CONTINUED) [facility] Ce Name: KAMI CONDON [employer] Phys: [facility] [place] [address] : 1965 Age: 57 Sex: F Acct: [id number] Loc: G.MRI PHONE #: Exam Date: 05/27/2023 Status: REG CLI FAX #: Rad# [id number] Unit# [id number] Admit Date: 05/27/2023 EXAMS: CPT CODE: [id number] MRI BRAIN W/WO CONTRAST [address] at 1320 Reported and signed by: JAMES ALMARAZ M.D. CC: Jennifer Sanderson APRN (Allison); Samaria Pete APRN Dictated Date/Time: 05/27/2023 (1320) Technologist: TONY POLANCO Transcribed Date/Time: 05/27/2023 (1320) Telephone Solicitor Supervisor: Electronic Signature Date/Time: 05/27/2023 (1320) Printed Date/Time: 05/27/2023 (1325) BATCH NO: N/A PAGE 2 Signed Report CC'ed Logic: Ordering Provider: KARO SCHWAB Attending Provider: KARO SCHWAB Referring Provider: KARO SCHWAB Consulting Provider: DONNA Mohr [facility] & [place] 06/01/2023 13:36:32 Problems Name Problem SNOMED Code Status Onset Date Resolution Date Notes Provider Name and Address Organization Details Recorded Time Chronic back pain 892420731 Active Ruth Mahers null, [place] [facility] - & [place] 4 14:08:26 Hypercholes terolemia 08488204 Active Ruth [place] [facility] [place] 4 14:08:26 Hypertensiv e disorder 81035897 Active Ruth [place] [facility] [place] 4 14:08:26 Disorder of vitamin B12 080781064 Active Ruth [place] [facility] [place] 4 14:08:26 Gastric ulcer 341862705 Active Ruth [place] [facility] [place] 4 14:08:26 Congestive heart failure 27964207 Active [place] [facility] 4 14:08:26 Vitamin D deficiency 42815045 Active 2019 Ruth Mahers [place] [facility] [place] 4 14:08:26 Obstructive sleep apnea syndrome 63181512 Active 2020 Ruth [place]hers [place] [facility] [place] 4 14:08:27 M ni re's disease 44319729 Active 2020 uRth Mahers [place] [facility] [place] 4 14:08:26 Peripheral neuropathy due to type 2 diabetes mellitus 7401571855165 Active 2020 Ruth Mahers [place] [facility] [place] & [place] 4 14:08:26 Gastroesoph ageal reflux disease without esophagitis 336509081 Active 2020 Ruth [place] [facility] [place] 4 14:08:26 Mixed hyperlipide belinda 230971080 Active 2020 Ruth [place] [facility] [place] & [place] 4 14:08:26 History of cerebrovasc ular accident 432574164 Active 2020 Ruth [place] [facility] [place] & [place] 4 14:08:26 Hyperglycem ia due to type 2 diabetes mellitus 9833015500467 09 Active 2020 Ruth [place] [facility] [place] & [place] 4 14:08:26 Anxiety 45406364 Active 2020 Ruth [place] [facility] [place] & [place] 4 14:08:27 Insomnia 855539720 Active 2020 Ruth [place] [facility] & [place] 4 14:08:26 Abnormal gait due to muscle weakness 163396813 Active 2020 Ruthchristen Ramosmons [place] [facility] [place] & [place] 4 14:08:27 Essential tremor 828131514 Active 2020 Ruth [place] [facility] [place] & [place] 4 14:08:27 Irritable bowel syndrome with diarrhea 801155986 Active 2021 Ruth [place] [facility] [place] & [place] 4 14:08:26 Steatotic liver disease 208596306 Active 2021 Ruth Jane [place] [facility] [place] & [place] 4 14:08:26 Hepatosplen omegaly 25624642 Active 2021 Ruth Ramosmons [place] [facility] [place] & [place] 4 14:08:26 Edema of lower extremity 356103067 Active 2021 Ruth [place] [facility] & [place] 4 14:08:26 Acute fungal otitis externa 143622324 Active 2022 BILL Payne [address] [place] [address],[address], [place], [address], [place] [facility] - [place] & [place] 3 14:45:09 Otorrhea of left ear 6400566004007 108 Active 2022 Samaria Pete [address], [place], [address], [place] [facility] - [place] & [place] 3 14:45:34 Abnormal auditory perception 75099160 Active 2022 Samaria Pete [address], [place], [address], [place] [facility] [place] & [place] 3 14:00:08 Impacted cerumen of bilateral ears 2400140659006 108 Active 2022 Samaria Pete [address], [place], [address], [place] [facility] [place] & [place] 3 14:04:07 Otorrhea of bilateral ears 8748994592617 105 Active 2022 Samaria Pete [address], [place], [address], [place] [facility] [place] & [place] 3 11:59:28 Snoring 36290357 Active 2022 BILL Payne [address] [place] [address],[address], [place], [address], [place] [facility] [place] & [place] 3 15:50:06 Allergic rhinitis 70238802 Active 2022 Samaria Pete [address], [place], [address], [place] [facility] [place] & [place] 3 15:51:06 Chronic eczema of external auditory canal 799276371 Active 2022 BILL Payne [address] [place] [address],[address], [place], [address], [place] [facility] [place] & [place] 3 15:53:09 Impacted cerumen in left ear 5322061711015 101 Active 2022 Samaria Pete [address], [place], [address], [place] [facility] & [place] 3 21:48:21 Obstructive sleep apnea of adult 1892303902546 Active 2022 Samaria Pete, [address], [place], [address], [place] [facility] & [place] 3 14:58:34 Dizziness 400902107 Active 2022 Samaria Pete [address], [place], [address], [place] [facility] [place] & [place] 3 15:54:57 Ear pressure sensation 618323721 Active 2023 Samaria Pete, [address], [place], [address], [place] [facility] & [place] 4 11:44:49 Chronic right mastoiditis 0492381312916 103 Active 2023 Samaria Pete [address], [place], [address], [place] [facility] [place] [facility] & [place] 4 10:58:35 Migraine 20919088 Active 2023 Samaria Pete, [address], [place], [address], [place] [facility] & [place] 4 14:33:29 Erythrocyto sis 701737491 Active 2023 THERESA KELLY, [address], [place], [address], [place] [facility] [place] & [place] 4 15:32:23 Problem Notes None recorded. Procedures Surgical History Date Name Laterality Status Provider Name and Address Organization Details Recorded Time 3 Cerumen removal with microscope completed BILL Payne [address] [place] [address],[address], [place], [address], [facility] & [place] 11/19/2022 21:47:42 3 Cerumen removal with microscope completed BILL Payne [address] [place] [address],[address], [place], [address], [facility] & [place] 10/27/2022 15:53:37 3 Cerumen removal with microscope completed BILL Payne [address] [facility],[address], [place], [address], [facility] & [place] 09/09/2022 13:51:19 3 Colonoscopy completed Ruth Ramosmons [facility] & [place] 07/04/2023 14:10:19 Imaging Results None recorded. Procedure Notes None recorded. Medical Equipment None Reported. Allergies Allergen ID Allergen Name Allergen Category Reaction Reaction Severity Criticality Documentation Date Start Date Code Code System Note Provider Name and Address Organization Details Recorded Time [id number] cat dander environme nt cough eye redness eye swelling itching moderate moderate moderate severe Not available 07/26/2023 70901 UNK [facility] corral[facility] & [place] 4 14:26:51 999168 mold extract environme nt other moderate Not available 07/26/2023 21625 8 RxNorm Ruth Jane null, [place] - [facility] & [place] 4 14:26:51 76128 tramadol medicatio n Not available Not available Not available 09/08/2022 26144 RxNorm Michelle Zev null, [place] - [facility] & [place] 3 07:50:58 83198 gabapenti n medicatio n vomiting Not available Not available 09/08/2022 49934 RxNorm [place] & [place] 3 07:51:03 15383 atorvasta tin medicatio n Not available Not available Not available 09/08/2022 14191 RxNorm LU[facility] [place] & [place] 3 07:51:11 77386 metformin medicatio n diarrhea Not available Not available 09/08/2022 6809 RxNorm LUIS [facility] & [place] 3 07:51:19 02153 Trulicity medicatio n nausea severe Not available 09/08/2022 00820 96 RxNorm [place] & [place] 3 07:51:27 Medications Name Sig Start Date Stop Date Status Note LastModified by Organization Details LastModified Time freestyle lite test strips CHECK GLUCOSE 3 TIMES DAILY 07/03 completed Not Available Not Available Not Available freestyle lancets USE 3 TIMES DAILY 07/03 completed Not Available Not Available Not Available cyclobenzap rine 10 mg tablet TAKE (1) TABLET BY MOUTH THREE TIMES DAILY. 07/03 completed Not Available Not Available Not Available furosemide 40 mg tablet TAKE 1 TABLET BY MOUTH EACH MORNING active Not Available Not Available No t Available atorvastati n 40 mg tablet Take 1 tablet PO QD 07/06 completed Not Available Not Available Not Available metformin 500 mg tablet Take 1 tablet twice a day by oral route. 01/14 completed Not Available Not Available Not Available Pain Reliever Extra Strength (acetaminop hen) 500 mg tablet TAKE (2) TABLETS EVERY SIX HOURS NEEDED. active Not Available Not Available No t Available Lopressor 50 mg tablet 2 am 2 pm 09/24 completed Not Available Not Available Not Available promethazin e-DM 6.25 mg-15 mg/5 mL oral syrup Take 5 mL every 4 hours by oral route for 5 days. 10/24 completed Not Available Not Available Not Available acetic acid 2 % ear solution INSTILL 3 DROPS TO THE RIGHT EAR BY OTIC ROUTE EVERY 8 HOURS FOR 10 DAYS 07/03 completed Not Available Not Available Not Available prednisone 10 mg tablet 10/26 /2020 completed Not Available Not Available Not Available naproxen 375 mg tablet Take 1 tablet twice a day by oral route. 01/14 completed Not Available Not Available Not Available ipratropium 0.5 mg-albutero l 3 mg (2.5 mg base)/3 mL nebulizatio n soln tid active Not Available Not Available Not Available ketoconazol e 2 % shampoo LATHER AND MASSAGE INTO SCALP 2-3 TIMES WEEKLY WHEN FLARED,LE T SIT 3-5 MINUTES BEFORE RINSING. active Not Available Not Available No t Available loratadine 5 mg/5 mL oral solution TAKE 5 MILLILITE RS BY MOUTH ONCE DAILY active Not Available Not Available No t Available Norvasc 10 mg tablet take 1 tablet (10 mg) by oral route once daily 05/01 completed Not Available Not Available Not Available clindamycin HCl 300 mg capsule TAKE (1) CAPSULE BY MOUTH THREE TIMES DAILY. 09/08 completed Not Available Not Available Not Available loperamide 2 mg capsule TAKE ONE CAPSULE BY MOUTH AFTER first loose stool AND ONE capsule AFTER each subsequen t BOWEL MOVEMENT; DO not exceed EIGHT CAPSULES in 24 HOURS active Not Available Not Available No t Available aspirin 325 mg tablet 1 po qD 12/26 completed Not Available Not Available Not Available fluconazole 150 mg tablet TAKE 1 TABLET BY MOUTH ONCE FOR YEAST. MAY REPEAT IN 72 HOURS IF NEEDED. active Not Available Not Available No t Available hydrocodone 5 mg-acetamin ophen 325 mg tablet TAKE 1 TABLET BY MOUTH EVERY 6 HOURS NEEDED FOR PAIN. active Not Available Not Available No t Available Nystop 100,000 unit/gram topical powder APPLY TO THE AFFECTED AREA(S) BY TOPICAL ROUTE 2 TIMES PER DAY active Not Available Not Available No t Available fluconazole 200 mg tablet TAKE 2 TABLETS BY MOUTH NOW AND THEN TAKE ONE TAB ONCE WEEKLY FOR 3 WEEKS. active Not Available Not Available No t Available FreeStyle Lancets 28 gauge USE THREE TIMES DAILY 07/03 completed Not Available Not Available Not Available lisinopril 20 mg tablet TAKE 1 TABLET BY MOUTH ONCE A DAY. active Not Available Not Available No t Available prednisone 5 mg tablet TAKE 1 TABLET BY MOUTH ONCE A DAY. active Not Available Not Available No t Available Provera 5 mg tablet take 1/2 - 1 tablet by oral route QD prn if improves ROGERS 11/25 completed Not Available Not Available Not Available topiramate 25 mg tablet take TWO tablets by MOUTH TWICE DAILY UNTIL 07/04, (THE remainder tabets will be in THE packs with start date of 07/05 with dosage increase 07/09 completed Not Available Not Available Not Available meclizine 12.5 mg tablet TAKE (1) TABLET BY MOUTH TWICE A DAY NEEDED FOR 10 DAYS. active Not Available Not Available No t Available Antacid Anti-Gas 400 mg-400 mg-40 mg/5 mL oral suspension take 10 ML BY MOUTH THREE TIMES DAILY FOR FOURTEEN DAYS 02/27 completed Not Available Not Available Not Available potassium chloride ER 10 mEq tablet,exte nded release TAKE 1 TABLET BY MOUTH ONCE A DAY. active Not Available Not Available No t Available metronidazo le 500 mg tablet TAKE (1) TABLET BY MOUTH EVERY EIGHT HOURS. active Not Available Not Available No t Available clopidogrel 75 mg tablet TAKE 1 TABLET BY MOUTH ONCE A DAY. active Not Available Not Available No t Available ciprofloxac in 250 mg tablet just finished today per PCP for UTI 12/09 completed Not Available Not Available Not Available divalproex 500 mg tablet,sherrill yed release TAKE (1) TABLET BY MOUTH TWICE A DAY. active Not Available Not Available No t Available ciprofloxac in 500 mg tablet TAKE 1 TABLET BY MOUTH EVERY 12 HOURS 07/03 completed Not Available Not Available Not Available aspirin 81 mg tablet,sherrill yed release TAKE 1 TABLET BY MOUTH ONCE A DAY. active Not Available Not Available No t Available triamterene 37.5 mg-hydrochl orothiazide 25 mg capsule TAKE ONE CAPSULE BY MOUTH DAILY 01/15 completed Not Available Not Available Not Available vancomycin 125 mg capsule TAKE ONE CAPSULE BY MOUTH FOUR TIMES DAILY FOR 10 DAYS 10/13 completed Not Available Not Available Not Available ondansetron 8 mg disintegrat ing tablet Place 1 tablet twice a day by transling ual route as needed for 30 days. 02/26 completed Not Available Not Available Not Available pantoprazol e 20 mg tablet,sherrill yed release TAKE 1 TABLET BY MOUTH ONCE A DAY. active Not Available Not Available No t Available meloxicam 7.5 mg tablet TAKE 1 TABLET BY MOUTH ONCE A DAY. active Not Available Not Available No t Available oxycodone-a cetaminophe n 5 mg-325 mg tablet TAKE (1) TABLET BY MOUTH EVERY FOUR HOURS. active Not Available Not Available No t Available potassium 99 mg tablet 05/01 completed Not Available Not Available Not Available propranolol 40 mg tablet TAKE 1 TABLET BY MOUTH EVERY 12 HOURS active Not Available Not Available No t Available amoxicillin 875 mg tablet TAKE 1 TABLET BY MOUTH EVERY 12 HOURS 09/08 completed Not Available Not Available Not Available methocarbam ol 750 mg tablet TAKE ONE TABLET BY MOUTH DAILY and TAKE ONE TABLET BY MOUTH EVERY EVENING 07/06 completed Not Available Not Available Not Available estradiol 1 mg tablet take 1 tablet (1 mg) by oral route once daily 12/09 completed Not Available Not Available Not Available hydrocortis one-acetic acid 1 %-2 % ear drops 07/03 completed Not Available Not Available Not Available dicyclomine 20 mg tablet TAKE (1/2) TABLET BY MOUTH TWICE DAILY. active Not Available Not Available No t Available REPUCOM Ultra Test strips CHECK GLUCOSE 3 TIMES DAILY active Not Available Not Available No t Available meclizine 25 mg tablet TAKE (1) TABLET BY MOUTH TWICE A DAY NEEDED. active Not Available Not Available No t Available cephalexin 500 mg capsule TAKE (1) CAPSULE BY MOUTH EVERY SIX HOURS. 12/02 completed Not Available Not Available Not Available pantoprazol e 40 mg tablet,sherrill yed release TAKE 1 TABLET BY MOUTH ONCE A DAY BEFORE BREAKFAST DO NOT CRUSH,KAMRAN W OR SPLIT active Not Available Not Available No t Available triamcinolo ne acetonide 0.1 % topical ointment APPLY A THIN FILM ON A Q-TIP TO THE OPENING OF BOTH EAR CANALS TWICE DAILY FOR 3-5 DAYS AT A TIME NEEDED FOR ITCHING. active Not Available Not Available No t Available ropinirole 0.5 mg tablet TAKE 1 TABLET BY MOUTH AT BEDTIME. active Not Available Not Available No t Available ranitidine 150 mg tablet Take 1 tablet PO BID 01/13 completed Not Available Not Available Not Available buspirone 10 mg tablet Take 1 tablet 3 times a day by oral route for 30 days. 02/27 completed Not Available Not Available Not Available clotrimazol e-betametha sone 1 %-0.05 % topical cream APPLY cream TWICE DAILY externall y FOR FOURTEEN DAYS 07/06 completed Not Available Not Available Not Available Gentle Laxative (bisacodyl) 5 mg tablet,sherrill yed release TAKE ALL 4 TABLETS BY MOUTH AT 9 AM 2 DAYS BEFORE COLONOSCO PY. active Not Available Not Available No t Available Bupap 50 mg-650 mg tablet take 1 tablet by oral route every 4 hours as needed not to exceed 4 tablets per 24hrs for 10 days 04/24 completed Not Available Not Available Not Available diphenhydra mine 12.5 mg/5 mL oral elixir Take 10 mL every day by oral route at bedtime for 30 days. 2021 active Not Available Not Available Not Avai lable fluorometho lone 0.1 % eye drops,suspe nsion iNSTILL ONE DROP INTO AFFECTED EYE FOUR TIMES A DAY FOR TWO WEEKS THEN TWICE DAILY FOR TWO WEEKS 07/06 completed Not Available Not Available Not Available divalproex ER 500 mg tablet,exte nded release 24 hr TAKE (1) TABLET BY MOUTH TWICE A DAY. active Not Available Not Available No t Available lidocaine 5 % topical patch APPLY 1 PATCH BY TOPICAL ROUTE ONCE DAILY (MAY WEAR UP TO 12 HOURS.) active Not Available Not Available No t Available promethazin e 25 mg tablet TAKE ONE TABLET EVERY 6 HOURS NEEDED. active Not Available Not Available No t Available nicotine 21 mg/24 hr daily transdermal patch 01/13 completed Not Available Not Available Not Available mometasone 50 mcg/actuati on nasal spray 07/28 completed Not Available Not Available Not Available buspirone 7.5 mg tablet TAKE ONE TABLET BY MOUTH TWICE DAILY 11/21 completed Not Available Not Available Not Available triamterene 37.5 mg-hydrochl orothiazide 25 mg tablet TAKE 1 TABLET BY MOUTH ONCE A DAY. active Not Available Not Available No t Available lisinopril 20 mg-hydrochl orothiazide 25 mg tablet 2 po qD 12/26 completed Not Available Not Available Not Available diclofenac sodium 75 mg tablet,sherrill yed release TAKE (1) TABLET BY MOUTH TWICE A DAY. active Not Available Not Available No t Available Provera 10 mg tablet take 1 tablet by oral route QD for 10 days 09/24 completed Not Available Not Available Not Available hydroxyzine HCl 25 mg tablet TAKE 1 TO 2 TABLETS BY MOUTH EACH NIGHT AT BEDTIME 01/15 completed Not Available Not Available Not Available mometasone 0.1 % topical ointment APPLY A THIN LAYER TO THE AFFECTED AREA(S) BY TOPICAL ROUTE ONCE DAILY 01/15 completed Not Available Not Available Not Available mupirocin 2 % topical ointment APPLY A SMALL AMOUNT TO AFFECTED AREA 3 TIMES DAILY 01/15 completed Not Available Not Available Not Available furosemide 20 mg tablet TAKE ONE TABLET BY MOUTH DAILY 01/15 completed Not Available Not Available Not Available metoprolol succinate ER 25 mg tablet,exte nded release 24 hr TAKE ONE TABLET BY MOUTH DAILY 07/06 completed Not Available Not Available Not Available ergocalcife rol (vitamin D2) 1,250 mcg (50,000 unit) capsule TAKE 1 CAPSULE BY MOUTH ONCE A WEEK ON Tuesday active Not Available Not Available No t Available clobetasol 0.05 % topical ointment APPLY A THIN LAYER WITH A QTIP TO BILATERAL EAR CANALS 2 TIMES DAILY NEEDED FOR ITCHING. active Not Available Not Available No t Available Tylenol-Cod eine #3 300 mg-30 mg tablet take 1 tablet by oral route every 6 hours as needed 11/25 completed Not Available Not Available Not Available calcipotrie ne 0.005 % scalp solution APPLY TO THE SCALP DAILY. active Not Available Not Available No t Available polyethylen e glycol 3350 17 gram/dose oral powder AT 6 PM 2 DAYS PRIOR TO COLONOSCO PY, MIX 1/2 BOTTLE WITH 32 OZ OF GATORADE & DRINK. AT 9 AM ON DAY OF COLONOSCO PY, MIX 1/2 & 32 OZ GATORADE & DRINK 07/25 completed Not Available Not Available Not Available scopolamine 1 mg over 3 days transdermal patch APPLY ONE PATCH TO SKIN EVERY 72 HOURS FOR 10 DAYS. active Not Available Not Available No t Available methylpredn isolone 4 mg tablets in a dose pack Take as directed in dose pack 10/24 completed Not Available Not Available Not Available propranolol 20 mg tablet TAKE ONE TABLET BY MOUTH DAILY and TAKE ONE TABLET BY MOUTH EVERY EVENING 05/18 completed Not Available Not Available Not Available clobetasol 0.05 % scalp solution APPLY TO THE SCALP AT BEDTIME FOR UP TO THREE WEEKS. STOP FOR ONE WEEK, MAY REPEAT NEEDED WHEN FLARED. active Not Available Not Available No t Available ondansetron 4 mg disintegrat ing tablet DISSOLVE ONE tablet ON top of TONGUE EVERY 4 HOURS NEEDED FOR nausea 07/06 completed Not Available Not Available Not Available cefdinir 300 mg capsule TAKE 1 CAPSULE BY MOUTH EVERY 12 HOURS 09/20 completed Not Available Not Available Not Available Imitrex 25 mg tablet take 1 tablet (25 mg) by oral route once with fluids as early as possible after the onset of a migraine attack;ma y repeat after 2 hours if headache returns, not to exceed 200mg in 24hrs 09/26 completed Not Available Not Available Not Available topiramate 100 mg tablet TAKE ONE TABLET BY MOUTH DAILY and TAKE ONE TABLET BY MOUTH EVERY EVENING 07/14 completed Not Available Not Available Not Available fluticasone propionate 50 mcg/actuati on nasal spray,suspe nsion USE 1 SPRAY IN EACH NOSTRIL ONCE DAILY active Not Available Not Available No t Available metformin ER 500 mg tablet,exte nded release 24 hr TAKE ONE TABLET BY MOUTH DAILY 04/15 completed Not Available Not Available Not Available colestipol 1 gram tablet TAKE 1 TABLET (1 G TOTAL) BY MOUTH 2 (TWO) TIMES A DAY AFTER MEALS. TAKE AT LEAST 1 HOUR AFTER OR 4 HOURS BEFORE OTHER MEDICATIO NS. active Not Available Not Available No t Available dicyclomine 10 mg capsule TAKE (1) CAPSULE BY MOUTH TWICE DAILY. 07/03 completed Not Available Not Available Not Available Yvonne (28) 3 mg-0.03 mg tablet take 1 tablet (3-0.03 mg) by oral route daily 09/24 completed Not Available Not Available Not Available loratadine 10 mg tablet TAKE 1 TABLET BY MOUTH AT BEDTIME. active Not Available Not Available No t Available naproxen 500 mg tablet TAKE (1) TABLET BY MOUTH TWICE A DAY FOR 7 DAYS. active Not Available Not Available No t Available mometasone 0.1 % topical cream APPLY A THIN LAYER TO BOTH EARS ONCE NIGHTLY FOR 14 DAYS THEN NEEDED FOR FLARE UPS 07/03 completed Not Available Not Available Not Available amoxicillin 875 mg-potassiu m clavulanate 125 mg tablet TAKE 1 TABLET BY MOUTH EVERY 12 HOURS 07/03 completed Not Available Not Available Not Available Vitamin B-12 1,000 mcg tablet Take 1 tablet every day by oral route as directed for 30 days. 02/26 completed Not Available Not Available Not Available Ventolin HFA 90 mcg/actuati on aerosol inhaler INHALE 2 PUFFS BY MOUTH EVERY 4 HOURS NEEDED. active Not Available Not Available No t Available neomycin-po lymyxin-hyd rocort 3.5 mg-10,000 unit/mL-1 % ear drops,susp instill FOUR drops into affected ear(s) THREE TIMES DAILY 01/15 completed Not Available Not Available Not Available Depo-[facility]n [facility] a 150 mg/mL intramuscul ar syringe inject 1 millilite r (150 mg) by intramusc ular route every 3 months 11/25 completed Not Available Not Available Not Available Asprin Ec Low Dose 81 mg tablet,sherrill yed release Take 1 tablet every day by oral route. 09/08 completed Not Available Not Available Not Available ezetimibe 10 mg tablet Take 1 tablet every day by oral route as directed for 30 days. 02/27 completed Not Available Not Available Not Available Ciprodex 0.3 %-0.1 % ear drops,suspe nsion Instill 4 drops twice a day by otic route for 10 days. 07/03 completed Not Available Not Available Not Available rosuvastati n 5 mg tablet TAKE 1 TABLET BY MOUTH EACH NIGHT AT BEDTIME active Not Available Not Available No t Available escitalopra m 5 mg tablet TAKE 1 TABLET BY MOUTH ONCE DAILY. active Not Available Not Available No t Available Antacid Liquid 200 mg-200 mg-20 mg/5 mL oral suspension Take 15 mL 4 times a day by oral route as needed. 02/27 completed Not Available Not Available Not Available duloxetine 30 mg capsule,del ayed release Take 1 tablet PO QD 01/13 completed Not Available Not Available Not Available duloxetine 60 mg capsule,del ayed release TAKE 1 CAPSULE BY MOUTH AT BEDTIME active Not Available Not Available No t Available [facility] (diphenhydr amine) 12.5 mg/5 mL oral liquid take 10ml BY MOUTH EVERY DAY AT BEDTIME 08/24 completed Not Available Not Available Not Available pregabalin 25 mg capsule TAKE 1 CAPSULE BY MOUTH THREE TIMES DAILY. active Not Available Not Available No t Available potassium 07/03 completed Not Available Not Available Not Available BD Ultra-Fine Short Pen Needle 31 gauge x 5/16 USE WITH INSULIN PEN DIRECTED. active Not Available Not Available No t Available Symbicort 160 mcg-4.5 mcg/actuati on HFA aerosol inhaler INHALE 2 PUFFS BY MOUTH TWICE DAILY. active Not Available Not Available No t Available peg 3350-electr olytes 236 gram-22.74 gram-6.74 gram-5.86 gram solution AT 5 PM ON DAY PRIOR TO COLONOSCO PY, MIX AND DRINK 3/4 OF JUG. DRINK REMAINING 1/4 6 HOURS BEFORE YOU LEAVE HOME ON DAY OF COLONOSCO PY. 07/25 completed Not Available Not Available Not Available FreeStyle Lite Meter kit USE DIRECTED 07/03 completed Not Available Not Available Not Available cholecalcif nida (vitamin D3) 1,250 mcg (50,000 unit) capsule TAKE ONE CAPSULE BY MOUTH ONCE A WEEK 2021 active Not Available Not Available Not Avai lable Lantus Solostar U-100 Insulin 100 unit/mL (3 mL) subcutaneou s pen INJECT 37 UNITS UNDER SKIN AT DINNER active Not Available Not Available No t Available levocetiriz ine 5 mg tablet Take 1 tablet every day by oral route for 90 days. 02/26 completed Not Available Not Available Not Available Humalog KwikPen (U-100) Insulin 100 unit/mL subcutaneou s INJECT 7 UNITS UNDER SKIN AT BREAKFAST AND LUNCH, AND 9 UNITS AT SUPPER. active Not Available Not Available No t Available Amitiza 8 mcg capsule TAKE (1) CAPSULE BY MOUTH TWICE DAILY WITH MEALS active Not Available Not Available No t Available Mucus Relief ER 600 mg tablet, extended release 1 q day 02/26 completed Not Available Not Available Not Available Dexilant 60 mg capsule, delayed release Take 1 capsule every day by oral route for 90 days. 06/25 completed Not Available Not Available Not Available Vitamin D3 125 mcg (5,000 unit) tablet Take 1 tablet every day by oral route as directed for 30 days. 02/26 completed Not Available Not Available Not Available Xifaxan 550 mg tablet TAKE (1) TABLET BY MOUTH TWICE A DAY. 07/25 completed Not Available Not Available Not Available Tradjenta 5 mg tablet TAKE 1 TABLET BY MOUTH ONCE A DAY. 01/15 completed Not Available Not Available Not Available Linzess 145 mcg capsule TAKE (1) CAPSULE BY MOUTH ONCE A DAY. active Not Available Not Available No t Available Eliquis 5 mg tablet Take 1 tablet PO QD 02/26 completed Not Available Not Available Not Available Aerochamber Plus Flow-Vu,Lar ge Mask as directed 07/06 completed Not Available Not Available Not Available Jardiance 25 mg tablet TAKE 1 TABLET BY MOUTH ONCE A DAY. active Not Available Not Available No t Available Trulicity 1.5 mg/0.5 mL subcutaneou s pen injector INJECT 1.5 MG SUBCUTANE OUSLY EVERY WEEK 04/15 completed Not Available Not Available Not Available Trulicity 0.75 mg/0.5 mL subcutaneou s pen injector 0.75 mg injection weekly 03/26 completed Not Available Not Available Not Available Arnuity Ellipta 100 mcg/actuati on powder for inhalation 1 q day active Not Available Not Available N ot Available duloxetine 40 mg capsule,del ayed release Take 1 capsule every day by oral route. 07/03 completed Not Available Not Available Not Available Ozempic 0.25 mg or 0.5 mg (2 mg/1.5 mL) subcutaneou s pen injector INJECT 0.25 MG SUBCUTANE OUSLY EVERY WEEK 01/14 completed Not Available Not Available Not Available OneTouch Ultra2 Meter USE 3 TIMES DAILY active Not Available Not Available No t Available OneTouch Delica Plus Lancet 33 gauge USE 3 TIMES DAILY active Not Available Not Available No t Available Rybelsus 7 mg tablet 01/20 completed Not Available Not Available Not Available Rybelsus 3 mg tablet Take 1 tablet every day by oral route in the morning for 30 days. 01/20 completed Not Available Not Available Not Available Nexlizet 180 mg-10 mg tablet Take 1 tablet every day by oral route for 30 days. 01/15 completed Not Available Not Available Not Available Trulicity 3 mg/0.5 mL subcutaneou s pen injector 07/06 completed Not Available Not Available Not Available Trulicity 4.5 mg/0.5 mL subcutaneou s pen injector INJECT 4.5 MG SUBCUTANE OUSLY EVERY WEEK 07/08 completed Not Available Not Available Not Available Mounjaro 5 mg/0.5 mL subcutaneou s pen injector INJECT 5 MG UNDER SKIN ONCE WEEKLY 07/03 completed Not Available Not Available Not Available Mounjaro 2.5 mg/0.5 mL subcutaneou s pen injector INJECT WEEKLY 01/15 completed Not Available Not Available Not Available Dexcom G7 Sensor device CHANGE EVERY 10 DAYS DIRECTED. active Not Available Not Available No t Available Ozempic 0.25 mg or 0.5 mg (2 mg/3 mL) subcutaneou s pen injector INJECT 0.5 MG UNDER SKIN ONCE WEEKLY 07/03 completed Not Available Not Available Not Available Unicotripe 3 [place] USE DIRECTED. active Not Available Not Available No t Available Vitals Date Recorded Body height Oxygen saturation Oxygen saturation in Arterial blood by Pulse oximetry Heart rate Systolic And Diastolic Provider Name and Address Organization Details Last Updated DateTime 4 152.4 cm 96 % 96 % 98 /min 130/88 mm[Hg] Michellefracisco Brothers [facility] & [place] 4 10:03:05 Date Recorded Body height Body mass index (BMI) Body weight Body temperature Oxygen saturation Oxygen saturation in Arterial blood by Pulse oximetry Heart rate Respiratory rate Systolic And Diastolic Provider Name and Address Organization Details Last Updated DateTime 4 152.4 cm 51.8 kg/m2 226420. 98 g 98.3 [degF] 94 % 94 % 94 /min 16 /min 142/68 mm[Hg] Ruth Jane [facility] & [place] 4 14:07:43 Date Recorded Body height Body mass index (BMI) Body weight Body temperature Oxygen saturation Oxygen saturation in Arterial blood by Pulse oximetry Heart rate Respiratory rate Systolic And Diastolic Provider Name and Address Organization Details Last Updated DateTime 4 152.4 cm 51.3 kg/m2 963350. 07 g 97.3 [degF] 95 % 95 % 85 /min 16 /min 114/76 mm[Hg] Ruth Ramosmons [facility] & [place] 4 14:32:48 Date Recorded Body height Body mass index (BMI) Body weight Body temperature Oxygen saturation Oxygen saturation in Arterial blood by Pulse oximetry Heart rate Respiratory rate Systolic And Diastolic Provider Name and Address Organization Details Last Updated DateTime 4 152.4 cm 53.7 kg/m2 909417. 9 g 97.5 [degF] 96 % 96 % 75 /min 16 /min 148/76 mm[Hg] Ruth Lucinda [facility] & [place] 4 10:47:04 Date Recorded Body height Body temperature Oxygen saturation Oxygen saturation in Arterial blood by Pulse oximetry Heart rate Respiratory rate Systolic And Diastolic Provider Name and Address Organization Details Last Updated DateTime 4 152.4 cm 97.6 [degF] 93 % 93 % 76 /min 16 /min 116/82 mm[Hg] Ruth Gtz [facility] & [place] 4 11:30:51 Social History Question Answer Notes LastModified by Organizat ion Details LastModified Time Tobacco Smoking Status Former Smoker Quit 5 wks ago Ruth Lucinda [facility] & [place] 07/04/2023 14:15:27 Do You Have An Advance Directive? No [email or web address] Information not available 07/04/2023 Are You Blind Or Do You Have Difficulty Seeing? No Information not available 07/04/2023 What Was The Date Of Your Most Recent Tobacco Screening? 07/04/2023 Information not available 07/04/2023 What Is Your Current Pack Years? 10-19packye holly [email or web address] Information not available 07/04/2023 Are You Passively Exposed To Smoke? No Information not available 07/04/2023 How Much Tobacco Do You Smoke? 1 PPD [email or web address] Information not available 07/04/2023 How Many Years Have You Smoked Tobacco? 18 [email or web address] Information not available 07/04/2023 Sex: Female Functional Status Question Answer Note LastModified by Organizat ion Details LastModified Time Do you use any illicit or recreational drugs? No [email or web address] Information not available 07/04/2023 Do you or have you ever used any other forms of tobacco or nicotine? Yes [email or web address] Information not available 07/04/2023 What is your level of alcohol consumption? None [email or web address] Information not available 07/04/2023 Do you or have you ever used smokeless tobacco? Never used smokeless tobacco [email or web address] Information not available 07/04/2023 Do you or have you ever used e-cigarettes or vape? Current user of electronic cigarettes [email or web address] Information not available 07/04/2023 What is your exercise level? Occasional [email or web address] Information not available 07/04/2023 Mental Status Question Answer Note LastModified by Organization D etails LastModified Time Do you feel stressed (tense, restless, nervous, or anxious, or unable to sleep at night)? [id number] [email or web address] Information not available 07/04/2023 Family History Relationship Description Onset Age of this Age Resolved Age Notes LastModified by Organization Details LastModified Time Paternal Grandfather Malignant tumor of pancreas [email or web address] Not available 06/19 14:14:08 Medical History Condition Response Other Y GI Problems Y COPD Y Clotting Disorder Y Spine Problems Y Obstructive Sleep Apnea Y Neurological Problems Y Diabetes Y Obesity Y Arthritis Y Acid Reflux (GERD) Y Back Problems Y Stroke Y Reflux/GERD Y Liver Disease Y Headaches Y Hypertension Y Gynecological HistoryNo gynecological history recorded. Obstetrics History GPAL:G 0 P 0 0 0 0 Immunizations Vaccine Type Date Status Note Provider Nam e and Address Organization Details Recorded Time COVID-19 vaccine, vector-nr, rS-Ad26, PF, 0.5 mL 07/29/2020 completed Ruth corral, LUIS - [facility] - [place] & [place] 07/04/2023 14:08:36 COVID-19, mRNA, LNP-S, PF, 30 mcg/0.3 mL dose, zurdo-sucrose 05/05/2021 completed LUIS Gaitan - [facility] - [place] & [place] 07/04/2023 14:08:36 Past Encounters Encounter ID Performer Location Encounter Start Date Encounter Closed Date Diagnosis/Indication Diagnosis SNOMED-CT Code Diagnosis ICD10 Code Diagnosis Note [id number] BILL Payne [address] [place] [address] 09/08/2022 10:06:08 09/08/2022 11:06:34 Acute fungal otitis externa 025568745 B36.9 Fungal spores removed at today's visit under otomicrosc opy. Advised patient to use drops as prescribed . We will follow up in 2 weeks. Patient has a history of recurrent fungal otitis. Discussed importance of dry ear precaution s. Otorrhea of left ear 927 5007401 909079 H92.12 Otorrhea removed at today's visit. Advised patient to take medication as prescribed . Follow up in 2 weeks. Abnormal a uditory perception 68850129 H93.299 Audiogram and tympanogra m were ordered by Samaria Pete APRN and will be performed by Marjorie Wade in the future - results will a discussed at that time with the patient/maryana dickerson.Jane estevez has been treated for meniere's in the past. Her pcp is currently managing her dyazide and lab work. She has not had an audio since 2019. Plan for audio following resolution of otitis externa. Impacted c erumen of bilateral ears 8058787159 716854 H61.23 Cerumen of bilateral eacs removed at today's visit. [id number] BILL Payne [address] [place] [address] 10/27/2022 11:19:27 10/27/2022 16:16:08 Otorrhea of bilateral ears 4492915584 314707 H92.13 Advised patient to use drops as prescribed . We will follow up in two weeks. Dry ear precaution s. Snoring 16858502 R06.83 Patient has had a previous sleep study which revealed obstructiv e sleep apnea with recommenda tion of CPAP. She reports she was unable to tolerate this and they were hoping to trial an INSPIRE device. We will repeat home sleep study and if needed, plan for trial of this device.Adv ised patient to take blood pressure every morning until follow up to ensure headaches are not blood pressure related. Discussed possible causes. Allergic rhinitis 942450 J30.9 Advised patient to continue allergy regimen. Advised patient to use daily nasal saline rinses. Discussed proper technique. Impacted c erumen of bilateral ears 1221665972 715241 H61.23 Cerumen of bilateral eacs removed at today's visit. Chronic ec zema of external auditory canal 217032185 H60.8X3 [id number] BILL Payne [address] [place] [address] 11/10/2022 10:51:26 11/10/2022 11:12:54 Otorrhea of bilateral ears 8590907980 710042 H92.13 Boric acid powder applied today. We will followup in one week. If no improvemen t, would consider gentian frannie treatment. Snoring 65832851 R06.83 Patient has had a previous sleep study which revealed obstructiv e sleep apnea with recommenda tion of CPAP. She reports she was unable to tolerate this and they were hoping to trial an INSPIRE device. We will repeat home sleep study and if needed, plan for trial of this device.Adv ised patient to take blood pressure every morning until follow up to ensure headaches are not blood pressure related. Discussed possible causes. Allergic rhinitis 123347 J30.9 Advised patient to continue allergy regimen. Advised patient to use daily nasal saline rinses. Discussed proper technique. Chronic ec zema of external auditory canal 447521455 H60.8X3 [id number] BILL Payne [address] [place] [address] 11/19/2022 09:54:26 11/19/2022 10:51:23 Chronic eczema of external auditory canal 800315644 H60.8X3 Advised patient to use cream as prescribed . We will follow up in 2 weeks. Obstructiv e sleep apnea syndrome 76549485 G47.33 Patient has had her sleep study completed. We will get results of this study. Patient is interested in the inspire device as she has trialed and failed CPAP multiple times. We will discuss case with Dr Zamora to finalize plan of care. Impacted c erumen in left ear 1362429624 818610 H61.22 Cerumen of left eac removed at today's visit. Otorrhea o f bilateral ears 3526221348 887075 H92.13 Improved. [id number] BILL Payne [address] BARR [address] [place] [address] 12/02/2022 13:33:15 12/02/2022 14:18:40 Obstructive sleep apnea of adult 2635448435 103 G47.33 Discussed results of sleep study with patient at today's visit. Discussed inspire device with patient and BMI requiremen ts. Discussed healthy weight management at today's visit. Plan to start CPAP auto titrating 4-20cm H2O as recommende d. If patient does not tolerate, we will plan for overnight in lab study for further evaluation . Patient will benefit from nightly cpap use. Chronic ec zema of external auditory canal 185945483 H60.8X3 Advised patient to use cream as prescribed . We will follow up in 2 weeks. Dizziness 578893490 R42 [place] hallpike was positive laterally today. A handout of the [place] maneuver was given to the patient if they would like to repeat this maneuver at home but this is not suggested for at least 2 days after the reposition ing. Until that time they should keep her head upright with minimal head movement from side to side and sleep no farther back than 30 degrees from horizontal before laying down flat on the third night to test the maneuver. They will call if they need the maneuver repeated in the office. Would like patient to see cardiologi st as well. She describes her symptoms as not room spinning in nature. She reports she has pressure on her head in the mornings when she wakes up. She does not take her blood pressure at home, recommende d patient start taking blood pressure. She also reports a more lightheade d dizziness when she stands up quickly. [id number] BILL Payne [address] BARR [address] [place] [address] 12/17/2022 11:03:58 12/17/2022 11:24:24 Obstructive sleep apnea of adult 0548097729 103 G47.33 Discussed results of sleep study with patient at today's visit. Discussed inspire device with patient and BMI requiremen ts. Discussed healthy weight management at today's visit. Plan to start CPAP auto titrating 4-20cm H2O as recommende d. If patient does not tolerate, we will plan for overnight in lab study for further evaluation . Patient will benefit from nightly cpap use. Follow up in 3 weeks. Patient will benefit from nightly cpap use. Chronic ec zema of external auditory canal 739089670 H60.8X3 Advised patient to use cream as prescribed for flare ups. Dizziness 372882461 R42 Improved per patient report. Advised patient to call the office if symptoms recur. [id number] BILL Payne [address] B[place] [address] [place] [id number] 03/24/2023 10:30:39 03/24/2023 10:53:35 Obstructive sleep apnea of adult 2777226608 103 G47.33 Discussed results of sleep study with patient at today's visit. Discussed inspire device with patient and BMI requiremen ts. Discussed healthy weight management at today's visit. Patient reports she did not tolerate CPAP. She does not want to pursue overnight hospital sleep study at this time. Advised patient to call the office when she is ready to pursue this. Chronic ec zema of external auditory canal 954891574 H60.8X3 Advised patient to use cream as prescribed for flare ups. Dizziness 521331382 R42 Improved per patient report. Advised patient to call the office if symptoms recur. Ear pressu re sensation 709702425 H93.8X9 Discussed ears are clear on exam today and type A tymps. Discussed symptoms that should prompt patient to call the office prior to follow up. [id number] IBLL Payne[address] [place] [address] 05/18/2023 09:57:27 05/18/2023 10:57:17 Chronic right mastoiditis 4520732188 286848 H70.11 Advised patient to take medication as prescribed . Follow up in 3 weeks. Chronic ec zema of external auditory canal 779075243 H60.8X3 Advised patient to use cream as prescribed for flare ups. Dizziness 148224667 R42 Patient has been having episodes of dizziness. She does have a history of BPPV. [place] hallpike was negative on exam today. We will plan for VNG for further evalutatio n of dizziness. Discussed with Kami, her symptoms do not appear solely from inner ear etiology. She is to contact her cardiologi st for evaluation as well. Discussed with Kami signs/symp toms that should prompt her to go to the ER with concern for stroke/car diac etiology. She voiced understand ing. Kami does not wish to be evaluated in ER today for current symptoms.V ideonystag mography (VNG) ordered by Samaria Pete APRN and performed later by Marjorie Wade. Handouts and instructio ns were given to the patient to prepare for this test. Migraine 54309356 G43.90 9 Plan for neurology referral for further migraine and headache management . She would like to see neurology. Impacted c erumen of bilateral ears 4007934639 699642 H61.23 Patient to use drops as prescribed and follow up in 2 weeks for complete cerumen removal. Ear pressu re sensation 305774958 H93.8X9 [id number] [facility] [address] [place] [address] [place] [address] 07/04/2023 13:37:45 07/04/2023 14:45:40 Erythrocytosis 302813953 D75.1 Patient presents July 04, 2023 for evaluation of erythrocyt osis. Suspect this is likely secondary to history of smoking and sleep apnea. However, differenti al diagnosis cannot exclude myeloproli ferative disease, kidney disease, or vitamin deficiency . Laboratory evaluation today. Labs pending at this time. Patient to return to clinic in 2 weeks to review results. Should you have any further questions or concerns, please feel free to give me a call at .I personally spent 45 minutes in patient care on this date reviewing records, obtaining interim history, performing a physical exam, counseling the patient, ordering and reviewing today's labs, and documentin g informatio n in the electronic health record. [id number] [facility] [address] [place] [address] [place] [address] 07/26/2023 14:17:29 07/26/2023 15:18:18 Obstructive sleep apnea syndrome 22066318 G47.33 Erythrocytosis 718608142 D75.1 Patient presents July 26, 2023 for follow-up regarding erythrocyt osis. Laboratory evaluation from 07/12/2023 reviewed. CBC showed hemoglobin 18.7, hematocrit 56.7, wtih MCV 91.2. WBC, platelets, and differenti al were otherwise unremarkab le. Carboxyhem oglobin was 2.6. CMP noted elevated creatinine of 1.3, elevated BUN of 19, and decreased GFR to 42. JAK2 was negative. Suspect this is likely secondary to history of smoking and sleep apnea. Discussed with patient regarding smoking cessation. Patient reports she will continue to work this. Patient reports she has a CPAP and is unable to tolerate this. She reports her PCP is working to try and get her oxygen for nighttime use. Recommend patient see pulmonolog y. We will send referral. Patient to return to clinic in 1 month. Should you have any further questions or concerns, please feel free to give me a call at .I personally spent 25 minutes in patient care on this date reviewing records, obtaining interim history, performing a physical exam, counseling the patient, ordering and reviewing today's labs, and documentin g informatio n in the electronic health record. [id number] [facility] [address] [place] [address] [place] [address] 09/19/2023 10:12:38 09/19/2023 11:07:28 Erythrocytosis 251350453 D75.1 Patient presents September 19, 2023 for follow-up regarding erythrocyt osis. Suspect this is likely secondary to history of smoking and sleep apnea. Educated patient regarding smoking cessation. Patient reports she will continue to work on this. Patient reports she has a CPAP and is unable to tolerate using it. Recommend patient have sleep study, this has been ordered but awaiting insurance approval. Patient is due for laboratory evaluation and reports she had this done recently with her PCP. Will obtain copies of these results. Patient to return to clinic in 2 months. Should you have any further questions or concerns, please feel free to give me a call at .I personally spent 25 minutes in patient care on this date reviewing records, obtaining interim history, performing a physical exam, counseling the patient, ordering and reviewing today's labs, and documentin g informatio n in the electronic health record. [id number] [facility] [address] [place] [address] [place] [address] 12/05/2023 10:56:44 12/05/2023 12:08:58 Erythrocytosis 132947339 D75.1 Patient presents December 05, 2023 for follow-up regarding erythrocyt osis. Suspect this is likely secondary to history of smoking and sleep apnea. Educated patient regarding smoking cessation. Patient reports she will continue to work on this. Patient reports she has a CPAP and is unable to tolerate using it. Recommend patient have sleep study, this has been ordered but awaiting insurance approval. Laboratory evaluation today. Laboratory evaluation performed in the office. Labs pending at this time. Patient to return to clinic in 3 months. Should you have any further questions or concerns, please feel free to give me a call at .I personally spent 25 minutes in patient care on this date reviewing records, obtaining interim history, performing a physical exam, counseling the patient, ordering and reviewing today's labs, and documentin g informatio n in the electronic health record. Health Concerns Section Related Observation LastModified by Organization Detai ls LastModified Time None Recorded Concern Status LastModified by Organization Details LastModified Time None Recorded Advance Directives Directive N: Payers Insurance Date Sequence Insurance Name Policy Number Policy Gates Covered Member ID Gates Member ID Guarantor Name 09/08/2022 1 [employer] [place]MEDICAID REPLACEMENT - HMO) CSKY Kami Dillon Corns [id number] Kami Dillon Corns 05/03/2021 1 UNSPECIFIED REMIT PAYOR Kami Dillon Corns 09/08/2022 1 [employer] [id number] Kami Dillon Corns [id number] Kami Dillon Corns 04/03/2024 1 [place] FFS/TRADITIONA L Kami Dillon Corns [id number] Kami Dillon Corns 09/10/2022 1 [employer] [place]AC[place] - [place]MO) Kami Wilma Corns [id number] Kami Dillon Corns OBGyn Episode No OBEpisode recorded.
--- OUTSIDE RECORDS SUMMARY | 2024-10-15 15:32 | XMS_ITS | Encounter Summary ---
Author Organization Healthcare Address [address] [place] [address] Care Team Providers Care Sand Conditioner Name Role Phone Deya Reed APRN Primary Care Provider + Encounter Details Date Type Department Care Team (Late Contact Info) Description 05/27/2023 Orders Only External Location [address] [place] [address] Provider, External Social History Tobacco Use Types Packs/Day Years Used Date Smoking Tobacco: Some Days Cigarettes Passive Smoke Exposure: Current Smokeless Tobacco: Never Alcohol Use Standard Drinks/Week Comments No 0 (1 standard drink = 0.6 oz pur e alcohol) PHQ-2 Answer Date Recorded Patient Health Questionnaire-2 Score 0 04/27/2023 PHQ-2A Answer Date Recorded Depression Risk 0 [...] Description 10/26/2024 10:10 AM EDT Office Visit [facility] [address] [place] [phone] Kathia Torres PA [address] [phone] 10/30/2024 11:40 AM EDT [facility] [address] [place] [phone] Reji Vera MD [address] [place] [address] 10/30/2024 1:15 PM EDT [facility] [address] [place] [address] Lauren Montalvo APRN, DNP [address] [place] [phone] 12/14/2024 10:45 AM EDT Appointment [facility] [address] [place] [address] 12/17/2024 12:20 PM EDT Office Visit [facility] Endocrinology [address] [place] [phone] Iram Mckay PA [address] [facility] [address] [place] [address] documented as of this encounter Procedures Procedure Name Priority Date/Time Associated Diagnosis Comments MR OUTSIDE IMAGES 05/27/2023 10:47 AM EST documented in this encounter Results * MR transfer of outside films (05/27/2023 10:47 AM EST) Anatomical Region Laterality Modality Magnetic Resonan ce 05/27/2023 10:4 7 AM EST us External Provider IMG MRI PROCEDURES Final Resul t documented in this encounter Visit Diagnoses Not on filedocumented in this encounter Additional Health Concerns Infection Onset Date Last Indicated Resolved Time C. difficile Rule-Out 07/27/2023 07/27/20232023 4:05 PM EDT Gastrointestinal Rule-Out 07/27/2023 07/27/2023 4:05 PM EDT Assessment Noted Time A fall risk assessment has been complete d for the patient 04/27/2023 2:45 PM EST A Body Mass Index follow-up plan has been documented for the patient 05/10/2023 1:46 PM EST documented as of this encounter Care Teams Sand Conditioner Relationship Specialty Start Date End Date Deya Reed APRN [address] [place] [address] PCP - General 06/15/22 documented as of this encounter
--- OUTSIDE RECORDS SUMMARY | 2024-10-15 15:32 | XMS_ITS | Encounter Summary ---
Author Organization Healthcare Address [address] [place] [address] Care Team Providers Care Pillowcase Turner Name Role Phone Dina Glass APRN Primary Care Provider [phone] Chio Coombs APRN Primary Care Provider + Deya Reed APRN Primary Care Provider + Reason for Referral * Consultation (Routine) - Closed Specialty Diagnoses / Procedures Referred By Christophe esteban Referred To Contact Neurosurgery Diagnoses Chronic back pain, unspecified back location, unspecified back pain laterality Chio Coombs, HOSPITAL PHARMACIST [address] [place] [address] Phone: tel: fax: Referral ID Status Reason Start Date Expiration Date V isits Requested Visits Authorized [id number] Closed Specialty Services Required 11/19/2020 05/18/2021 1 1 Encounter Details Date Type Department Care Team (Late st Contact Info) Description 11/19/2020 [facility] [address] [place] [address] Chio Coombs, HOSPITAL PHARMACIST [address] [place] [address] Chronic back pain, unspecified back location, unspecified back pain laterality (Primary Dx) Social History Tobacco Use Types [...] Description 10/26/2024 10:10 AM EDT Office Visit [facility] [address] [place] [phone] Kathia Torres PA [address] [place] [address] 10/30/2024 11:40 AM EDT Office Visit [facility] Medicine Specialties [address] [place] [address] Reji Vera MD [address] [place] [address] 10/30/2024 1:15 PM EDT Office Visit [facility] Medicine Specialties [address] [place] [phone] Lauren Montalvo APRN, DNP [address] [facility] [address] [place] [phone] 12/14/2024 10:45 AM EDT Appointment [facility] [address] [place] [address] 12/17/2024 12:20 PM EDT Office Visit [facility] Endocrinology [address] [place] [phone] Iram Mckay PA [address] [place] [phone] Scheduled Referrals Name Type Priority Associated Diagnoses Orde r Schedule Ambulatory Referral to Neurosurgery Outpatient Referral Routine Chronic back pain, unspecified back location, unspecified back pain laterality Expected: 11/19/2020 (Approximate), Expires: 05/19/2021 documented as of this encounter Visit Diagnoses Diagnosis Chronic back pain, unspecified back location, unspecified back pain laterality- Primary documented in this encounter Additional Health Concerns Infection Onset Date Last Indicated Resolved Time C. difficile Comment:This test from one year prior. No diarrhea issues at this time. 09/18/2021 09/18/2021 09/13/2022 12:49 PM EDT C. difficile Rule-Out 07/27/2023 07/27/20232023 4:05 PM EDT Gastrointestinal Rule-Out 07/27/2023 07/27/2023 4:05 PM EDT documented as of this encounter Care Teams Pillowcase Turner Relationship Specialty Start Date End Date Dina Glass APRN [address] [place] [address] PCP - General 08/01/20 06/09/21 Chio Coombs APRN [address] [place] [address] PCP - General Family Medicine 06/10/21 06/14/22 Deya Reed APRN [address] [place] [address] PCP - General 06/15/22 documented as of this encounter
--- OUTSIDE RECORDS SUMMARY | 2024-10-15 15:32 | XMS_ITS | Encounter Summary ---
Author Organization Healthcare Address [address] [place] [address] Care Team Providers Care Sidehand Name Role Phone Deya Reed KERLINE Primary Care Provider + Reason for Visit * Reason Onset Date Comments HCN - Patient Message 10/11/2024 Encounter Details Date Type Department Care Team (Late st Contact Info) Description 10/11/2024 Telephone [facility] [address] [place] [address] Shaniqua Tinajero MD [address] [address] HCN - Patient Message Social History Tobacco Use Types Packs/Day Years [...] encounter Miscellaneous Notes * Telephone Encounter - Nikki Person RN - 10/11/2024 3:10 PM EDT Pt called back. She is having pain in her hand all the way to the elbow, wanted to know if Dr. Appiah wanted to see her again or if she needed XR. No new falls/trauma. Informed pt that we had recommended aggressive hand therapy, and she has not yet started hand therapy now almost 7 weeks post-op. Offered her a sooner in-person appointment than the currently scheduled 10/26 appointment, pt declined. Instructed her to wear her braces at night, continue with the pain cream, and start hand therapy. Pt will call back with any further issues. * Telephone Encounter - Nikki Person RN - 10/11/2024 2:05 PM EDT LVM for call back. * Telephone Encounter - Lesly Martinez - 10/11/2024 10:52 AM EDT Clinical Concern/Question Reason for Call: Td'Divya -Patient is calling stating that her hand is still having pain and she is using topical pain reliever and OTC medication and they are still hurting. She is asking for acall back to see if this is something normal or if she needs to be seen. Please call to advise. Best contact number: [phone] Optimal time of day to reach caller: ANYTIME Additional comments/information from caller: None Note: Please do not reply to this message. Follow-up communication and further actions as a result of this message need to be communicated with the patient directly, if the patient is not active onMyChart. If the patient is active on MyChart, they will receive notification of the communication/outcome via [facility]. documented in this encounter Plan of Treatment Upcoming Encounters Date Type Department Care Team (Late st Contact Info) Description 10/26/2024 10:10 AM EDT Office Visit [facility] [address] [place], [place] [address] [address] Kathia Torres PA [address] [place] [phone] 10/30/2024 11:40 AM EDT Office Visit [facility] Medicine Specialties [address] [place] [address] Reji Vera MD [address] [place] [address] 10/30/2024 1:15 PM EDT Office Visit [facility] Medicine Specialties [address] [place] [address] Lauren Montalvo APRN, VINNY [address] [place] [address] 12/14/2024 10:45 AM EDT Appointment [facility] [address] [place] [address] 12/17/2024 12:20 PM EDT Office Visit [facility]ocr[facility] [address] [place] [phone] Iram Mckay PA [address] [facility] [address] [place] [address] documented as of this encounter Visit Diagnoses [...] documented as of this encounter Care Teams Sidehand Relationship Specialty Start Date End Date Deya Reed APRN [address] [place], [place] [phone] PCP - General 06/15/22 documented as of this encounter
--- OUTSIDE RECORDS SUMMARY | 2024-10-15 15:32 | XMS_ITS | Encounter Summary ---
Author Organization Healthcare Address [address] [place] [address] Care Team Providers Care Care Rep Name Role Phone Maria LuisaDina KERLINE Primary Care Provider Chio Coombs APRN Primary Care Provider + Deya Reed TRANSPORTATION SALES CONSULTANT Primary Care Provider + Encounter Details Date Type Department Care Team (Late Contact Info) Description 03/25/2020 Orders Only External Location [address] [place] [address] Provider, External Social History Tobacco Use Types [...] EDT Office Visit [facility] [address] [place] [address] Kathia Torres PA [address] [place] [phone] 10/30/2024 11:40 AM EDT Office Visit [facility] [address] [place] [address] Reji Vera MD [address] [place] [address] 10/30/2024 1:15 PM EDT Office Visit [facility] [address] [place] [address] Lauren Montalvo, TRANSPORTATION SALES CONSULTANT, DNP [address] [place] [address] 12/14/2024 10:45 AM EDT Appointment [facility] [address] [place] [address] 12/17/2024 12:20 PM EDT Office Visit [facility] Endocrinology [address] [place] [phone] Iram Mckay PA [address] [place] [address] documented as of this encounter Procedures Procedure Name Priority Date/Time Associated Diagnosis Comments MR OUTSIDE IMAGES 03/25/2020 3:15 PM EST documented in this encounter Results * MR transfer of outside films (03/25/2020 3:15 PM EST) Anatomical Region Laterality Modality Magnetic Resonan ce 03/25/2020 3:15 PM EST us External Provider IMG MRI [...] documented as of this encounter Care Teams Care Rep Relationship Specialty Start Date End Date Dina Glass APRN [address] [place], [place] [phone] PCP - General 08/01/20 06/09/21 Chio Coombs APRN [address] [place] [address] [place] [address] PCP - General Family Medicine 06/10/21 06/14/22 Deya Reed APRN [address] [place] [address] PCP - General 06/15/22 documented as of this encounter
--- OUTSIDE RECORDS SUMMARY | 2024-10-15 15:32 | XMS_ITS | Clinical Summary ---
Author Organization [facility] Address [address] [place] [address] Care Team Providers Care Systems Software Developer Name Role Phone Deya Reed KERLINE Primary Care Provider + Allergies Active Allergy Reactions Criticality Noted Date Comments Atorvastatin Other - please document in the comment field Low 12/20/2022 Dulaglutide Other - please document in the comment field Low 06/15/2023 Gabapentin Other - please document in the comment field,Dizziness High 11/02/2019 Nausea and vomiting Iodinated Contrast Media Itching Medium 09/18/2024 Iodine Itching,Unknown - Patient states they do not know rxn details High 06/15/2019 Per patient she has itching to Iodine and Iodinated Contrast. Denies pre-medictions previously. Iv Contrast Itching Medium 10/08/2019 Patient states she has itching to Iodinated Contrast. Metformin Other - please document in the comment field Low 06/15/2023 Molds & Smuts Other - please document in the comment field,Unknown - Patient states they do not know rxn details Medium 11/02/2023 Tramadol Itching,Other - please document in the comment field,Rash,Unknown - Patient states they do not know rxn details High 05/06/2011 Medications clopidogrel (Plavix) 75 MG tablet Take 1 tablet by mouth daily. 04/22/19 22 Active DULoxetine (Cymbalta) [address] capsule TAKE ONE CAPSULE BY MOUTH DAILY and TAKE ONE TABLET BY MOUTH EVERY EVENING 04/22/19 22 Active lisinopril 20 MG tablet TAKE ONE TABLET BY MOUTH DAILY and TAKE ONE TABLET BY MOUTH EVERY EVENING 04/22/19 22 Active propranolol (Inderal) 40 MG tablet 1 tablet 2 times a day. 04/22/19 Active triamterene-hydro CHLOROthiazide (Dyazide) 37.5-25 MG capsule Take 1 capsule by mouth daily. 05/21/19 22 Active rosuvastatin (Crestor) 5 MG tablet Take 1 tablet by mouth daily. 04/23/19 23 Active furosemide (Lasix) 40 MG tablet Take 1 tablet by mouth daily. 04/23/19 23 Active ergocalciferol 1.25 MG (65162 UT) capsule Take 1 capsule by mouth 1 time per week. Takes on Mondays04/23/19 23 Active Incontinence Supply Disposable (Depend Undergarments) misc Use as needed for incontinence of stool 30 each 05/20/19 23 Active Incontinence Supply Disposable (Moist Wipes Flushable) misc Use as directed after each bowel movement 42 each 05/20/19 23 Active dicyclomine (Bentyl) 20 MG tablet 2 (two) times a day if needed. 05/21/19 23 Active escitalopram (Lexapro) 5 MG tablet Take 2 tablets by mouth daily. 05/21/19 23 Active ciprofloxacin-dex amethasone (CiproDEX) otic suspension 05/18/19 24 Active acetic acid-hydrocortiso ne (Vosol-HC) otic solution Active loratadine (Claritin) 10 MG tablet Take 1 tablet by mouth nightly. 06/13/19 24 Active neomycin-polymyxi n-hydrocortisone (Cortisporin) 3.5-15466-4 otic suspension instill FOUR drops into affected ear(s) THREE TIMES DAILY Active triamcinolone (Kenalog) 0.1 % ointment Apply a thin film on a qtip to the opening of both ear canals twice daily for 3-5 days at a time prn itching. 1.5 g 3 09/01/19 24 Active GNP PAIN RELIEF EX-STRENGTH 500 MG tablet TAKE (2) TABLETS EVERY SIX HOURS NEEDED. 09/02/19 24 Active bisacodyl (Dulcolax) 5 MG EC tablet TAKE ALL 4 TABLETS BY MOUTH AT 9 AM 2 DAYS BEFORE COLONOSCOPY. Active Ventolin HFA 108 (90 Base) MCG/ACT inhaler Inhale 2 puffs every 4 hours as needed. 10/11/19 24 Active Symbicort 160-4.5 MCG/ACT inhaler Inhale 2 puffs 2 (two) times a day. 10/11/19 24 Active lidocaine (Lidoderm) 5 % patch APPLY 1 PATCH BY TOPICAL ROUTE ONCE DAILY (MAY WEAR UP TO 12 HOURS.) Active divalproex (Depakote) [address] tablet TAKE (1) TABLET BY MOUTH TWICE A DAY. 09/29/19 24 Active meclizine (Antivert) 12.5 MG tablet TAKE (1) TABLET BY MOUTH TWICE A DAY NEEDED. Active clobetasol (Temovate) 0.05 % ointment Apply a thin film using a Qtip to bilateral ear canals twice daily prn itching 15 g 3 11/02/19 24 Active Trelegy Ellipta 200-62.5-25 MCG/ACT aerosol powder INHALE 1 PUFF ONCE DAILY 04/27/19 25 Active ketoconazole (NIZOral) 2 % shampoo LATHER AND MASSAGE INTO SCALP 2-3 TIMES WEEKLY WHEN FLARED,LET SIT 3-5 MINUTES BEFORE RINSING. 12/06/19 24 Active Linzess 145 MCG capsule TAKE (1) CAPSULE BY MOUTH ONCE A DAY. 12/26/19 24 Active predniSONE (Deltasone) 5 MG tablet Take 1 tablet (5 mg) by mouth daily. 03/23/19 25 Active pregabalin (Lyrica) 25 MG capsule Take 1 capsule by mouth 3 times a day. 04/23/19 25 Active rOPINIRole (Requip) 0.5 MG tablet Take 1 tablet by mouth nightly. 04/23/19 25 Active Calcipotriene 0.005 % ointment APPLY TO THE SCALP DAILY. Active diclofenac (Voltaren) 1 % topical gel Apply 2 g topically 4 times a day. 04/09/19 25 Active naproxen (Naprosyn) 500 MG tablet Take 1 tablet twice a day by oral route as directed for 7 days. Active nystatin (Nystop) 791991 UNIT/GM powder APPLY TO THE AFFECTED AREA(S) BY TOPICAL ROUTE 2 TIMES PER DAY Active ondansetron ODT (Zofran-ODT) 8 MG disintegrating tablet DISSOLVE 1 TABLET BY MOUTH TWICE DAILY NEEDED 06/05/19 25 Active scopolamine (Transderm-Scop) 1 MG/3DAYS patch 72 hour APPLY ONE PATCH TO SKIN EVERY 72 HOURS FOR 10 DAYS. Active urea (Carmol) 40 % cream APPLY TO AFFECTED AREA EVERY 12 HOURS. Active Jardiance 25 MGIndications:Typ e 2 diabetes mellitus with hyperglycemia, without long-term current use of insulin (CMS/HCC) Take 1 tablet (25 mg) by mouth daily. 30 tablet 5 06/08/19 25 025 Active pantoprazole (Protonix) 40 MG EC tablet TAKE 1 TABLET BY MOUTH ONCE A DAY BEFORE BREAKFAST DO NOT CRUSH,CHEW OR SPLIT 90 tablet 08/03/19 25 Active acetaminophen (Tylenol) 500 MG tablet Take 2 tablets by mouth every 6 hours as needed. Active HYDROcodone-aceta minophen (Walnut) 5-325 MG tablet Take 1 tablet by mouth every 8 hours as needed for severe pain. 10 tablet 08/28/19 25 Active HumaLOG KWIKPEN 100 UNIT/ML injection penIndications:Ty pe 2 diabetes mellitus with hyperglycemia, without long-term current use of insulin (CMS/HCC) Inject up to 10 units three times daily before meals, MDD 30 units 15 mL 5 09/08/19 25 Active pen needle, diabetic (B-D UF III MINI PEN NEEDLES) 31G X 5 MM miscIndications:T ype 2 diabetes mellitus with hyperglycemia, without long-term current use of insulin (CMS/HCC) Inject 1-4x daily 200 each 11 09/08/19 25 Active insulin glargine (Lantus SoloStar) 100 UNIT/ML injection pen INJECT 37 UNITS UNDER SKIN AT DINNER Active dulaglutide (Trulicity) 0.75 MG/0.5ML solution auto-injector Inject 0.75 mg under the skin 1 time per week. Takes on tuesday 2 mL 10/05/19 25 Active Continuous Glucose Sensor (Dexcom G7 Sensor) misc CHANGE SENSOR EVERY 10 DAYS 9 each 10/05/19 25 Active Transparent Dressings (Tegaderm Film 2-3 x2-3/4 ) miscIndications:T ype 2 diabetes mellitus with hyperglycemia, without long-term current use of insulin (CMS/HCC) Use one every 10 days with dexcom sensors 20 each 5 10/06/19 25 Active Continuous Glucose Sensor (Dexcom G7 Sensor) misc CHANGE SENSOR EVERY 10 DAYS 9 each 09/08/19 25 025 Discontinu ed(Reorder ) dulaglutide (Trulicity) 0.75 MG/0.5ML solution auto-injector Inject 0.75 mg under the skin 1 time per week. Takes on tuesday 2 mL 09/08/19 25 025 Discontinu ed(Reorder ) cefadroxil (Duricef) 500 MG capsuleIndication s:Carpal tunnel syndrome, bilateral Take 1 capsule by mouth 2 times a day for 10 days. 20 capsule 09/13/19 25 025 Active Problems Problem Noted Date Diagnosed Date Carpal tunnel syndrome, left 06/07/2024 Class 3 severe obesity with serious comorbidity and body mass index (BMI) of 50.0 to 59.9 in adult 06/07/2024 Hepatic fibrosis 06/07/2024 Bilateral hand pain 06/15/2023 Trigger finger, left middle finger 09/29/2022 Carpal tunnel syndrome, bilateral 07/15/2022 Overview (07/15/2022): Added automatically from request for surgery [id number] Atrial fibrillation 06/15/2022 Personal history of other medical treatment 05/19 Overview (05/28/2022): Congestive heart failure 05/28/2022 Disorder of vitamin B12 05/28/2022 Gastric ulcer 05/28/2022 Chronic back pain 05/28/2022 Hypercholesterolemia 05/28/2022 Edema of lower extremity 09/07/2021 Hepatosplenomegaly 07/10/2021 Steatosis of liver 07/10/2021 Irritable bowel syndrome with diarrhea 2 Essential tremor 02/27/2021 Abnormal gait due to muscle weakness 01/14/2021 Insomnia 11/21/2020 Diabetic peripheral neuropat hy associated with type 2 diabetes mellitus 06/04/2020 Gastroesophageal reflux disease without esophagi tis 06/04/2020 Hyperglycemia due to type 2 diabetes mellitus M ni re's disease 04/02/2020 Obstructive sleep apnea syndrome 04/02/2020 Vitamin D deficiency 01/15/2020 CTS (carpal tunnel syndrome) 07/25/2018 CHF NYHA class III 05/26/2018 Hypoesthesia 05/26/2018 Mixed hyperlipidemia 05/26/2018 Morbid obesity 05/26/2018 Right hemiparesis 05/26/2018 Type 2 diabetes mellitus 05/26/2018 Acute ischemic stroke 05/23/2018 Numbness and tingling in both hands 03/01/2018 DDD (degenerative disc disease), thoracic 2017 Neck pain 02/24/2018 Anxiety 08/27/2015 Arthritis 08/27/2015 Depression 08/27/2015 Hypertension 08/27/2015 Low back pain 08/27/2015 Spinal stenosis 08/27/2015 Adrenal adenoma 09/12/2012 Other malaise and fatigue 09/12/2012 Abdominal pain, generalized 04/13/2012 OM (otitis media) 12/09/2011 Otalgia 12/09/2011 Urinary tract infection 11/29/2008 Essential hypertension 11/28/2008 Encounters Date Type Department Care Team Description 10/11/2024 Telephone [employer] [address] [place] [address] Shaniqua Tinajero MD HCN - Patient Message 10/05/2024 [facility] [address] [place] [address] Iram Mckay PA 10/04/20[facility] [address] [place] [address] Iram Mckay PA 09/27/2024 11:20 AM EDT Office Visit [facility] [address] [place] [address] Shaniqua Tinajero MD Carpal tunnel syndrome, bilateral (Primary Dx) 09/27/2024 Travel 09/13/2024 Telephone [facility] [address] [place] [address] Shaniqua Tinajero MD HCN Clinical Concern/Question 09/12/2024 11:10 AM EDT Office Visit [facility] [address] [place] [address] Ja Hastings PA Carpal tunnel syndrome, bilateral (Primary Dx); Trigger finger, left middle finger 09/12/2024 Travel 09/07/2024 Refill [facility] Endocrinology [address] [place] [address] Iram Mckay PA 09/07/2024 Telephone [facility] Endocrinology [address] [place] [address] Iram Mckay PA 09/05/2024 [facility] [address] [place] [address] Shaniqua Tinajero MD HCN - Patient Message 08/31/2024 Telephone [facility] [address] [place] [address] Shaniqua Tinajero MD Med Refill 08/28/2024 Telephone [facility] Endocrinology [address] [place] [address] Iram Mckay PA 08/27/2024 10:30 AM EDT - 08/27/2024 12:00 PM EDT Surgery [facility] Operating Room [address] [place] [address] Shaniqua Tinajero MD left carpal tunnel release; left index finger trigger release [78144 (CPT ) +1 more] 08/27/2024 10:06 AM EDT Anesthesia Event [facility] Operating Room [address] [place] [address] Dima Carty DO Harward, Amy E, PA 08/27/2024 7:52 AM EDT - 08/27/2024 12:14 PM EDT Hospital Encounter [facility] Operating Room [address] [place] [address] Shaniqua Tinajero MD Discharge Disposition: Home or Self Care 08/27/2024 7:37 AM EDT - 08/27/2024 7:44 AM EDT Emergency [facility] [address] [place] [address] Discharge Disposition: ED Reg Error 08/27/2024 Travel 08/24/2024 Telephone [facility] [address] [place] [address] Shaniqua Tinajero MD 08/23/2024 2:00 PM EDT Pre-Admission Testing [facility] [address] [place] [address] 08/23/2024 Travel 08/21/2024 Refill [facility] Endocrinology [address] [place] [address] Iram Mckay PA 08/02/2024 Refill [facility] Endocrinology [address] [place] [address] Iram Mckay PA 08/02/2024 Refill [facility] Medicine Specialties [address] [place] [address] Yumiko Rogers, KERLINE from Last 3 Months Immunizations Immunization Administration Dates Next Due Aldo COVID-19 Vaccine (Blue Cap) 18+ 07/30/19 21 [employer] COVID-19 Vac cine (Pickett Cap) 12+ years (zurdo-sucrose) 05/05/2021 Family History Medical History Relation Name Comments Arthritis Father rosemarie rich Diabetes Father rosemarie rich Hypertension Father rosemarie rich Arthritis Mother davi rich Asthma Mother davi rich Hypertension Mother davi rich Anesthesia problems Neg Hx Malig Hyperthermia Neg Hx Relation Name Status Comments Father rosemarie rich Mother davi rich Social History Tobacco Use Types Packs/Day Years [...] on file Sexual Orientation Not on file Last Filed Vital Signs Vital Sign Reading Time Taken Comments Blood Pressure 119/72 09/27/2024 10:56 AM EDT Pulse 76 09/27/2024 10:56 AM EDT Temperature 36.3 C (97.3 F) 08/27/2024 11:05 AM EDT Respiratory Rate 13 08/27/2024 11:45 AM EDT Oxygen Saturation 92% 09/27/2024 10:56 AM EDT Inhaled Oxygen Concentration - - Weight 121 kg (267 lb) 09/27/2024 10:56 AM EDT Height 152.4 cm (5') 09/27/2024 10:56 AM EDT Body Mass Index 52.14 09/27/2024 10:56 AM EDT Plan of Treatment Upcoming Encounters Date Type Department Care Team (Late st Contact Info) Description 10/26/2024 10:10 AM EDT Office Visit [facility] [address] [place] [address] Kathia Torres, PA [address] [place] [address] 10/30/2024 11:40 AM EDT Office Visit [facility] Medicine Specialties [address] [place] [address] Reji Vera MD [address] [place] [address] 10/30/2024 1:15 PM EDT Office Visit [facility] Medicine Specialties [address] [place] [address] Lauren Montalvo, RESTAURANT LEAD, DNP [address] [place] [address] 12/14/2024 10:45 AM EDT Appointment [facility] [address] [place] [address] 12/17/2024 12:20 PM EDT Office Visit [facility] Endocrinology [address] [place] [address] Iram Mckay PA [address] [place] [address] Health Maintenance Due Date Last Done Comments [facility]-HIV Screening 1966 [facility]-Infant/Child/Adol SDOH Screenings 1966 Diabetes: Dental Exam 1976 [facility]- SDOH Screenings 1984 [facility]-Adult SDOH Screenings 1984 [facility]-DTaP,Tdap,and Td Vaccines (1 - Tdap) 1985 [facility]-Hepatitis A Vaccines (1 of 2 - Risk 2-dose series) 1985 [facility]-Hepatitis B Vaccines (1 of 3 - 19+ 3-dose series) 1985 [facility]-Pneumococcal Vaccine: 50+ Years (1 of 2 - PCV) 1985 [facility]-Zoster Vaccines (1 of 2) 1985 CT Colonography 12/11/2011 FIT-DNA 12/11/2011 FIT 12/11/2011 FOBT 12/11/2011 Sigmoidoscopy 12/11/2011 [facility]-Breast Cancer Screening 2016 [facility]-ABHWY-59 Vaccine ( - season) 2023 05/05/2021, 07/29/2020 [facility]-Diabetes: Hemoglobin A1C 09/06/2024, 04/15/2020, 05/16/2018, Additional history exists [facility]-Influenza Vaccine (#1) 2024 [facility]-Depression Screening 05/15/2025 025, 05/15/2024, 04/26/2022 Colonoscopy 07/18/2033 07/21/2023, 06/15/2022 [facility]-Colorectal Cancer Screening 07/18/2033 [facility]-Hepatitis C Screening Completed 10/18/2022, 05/2018 [facility]-Obesity Intervention Completed 025, 09/27/2024, 09/12/2024, Additional history exists HPV Vaccines Aged Out No longer eligi ble based on patient's age to complete this topic [facility]-HIB Vaccines Aged Out No longer e ligible based on patient's age to complete this topic [facility]-IPV Vaccines Aged Out No longer e ligible based on patient's age to complete this topic [facility]-Rotavirus Vaccines Aged Out No lo nger eligible based on patient's age to complete this topic Procedures Procedure Name Priority Date/Time Associated Diagnosis Comments SUTURE REMOVAL Routine 09/12/2024 11:10 AM EDT Carpal tunnel syndrome, bilateral Trigger finger, left middle finger POCT GLUCOSE METER UNSOLICITED RESULTS Routine 08/27/2024 11:07 AM EDT PB ANESTHESIA PLACEHOLDER Routine 08/27/2024 10:19 AM EDT CO AN ELECTIVE SUPRAGLOTTIC AIRWAY Routine 08/27/2024 10:19 AM EDT CO INCISE FINGER TENDON SHEATH 08/27/2024 9:56 AM EDT Carpal tunnel syndrome, left CO INCISE FINGER TENDON SHEATH 08/27/2024 9:56 AM EDT Carpal tunnel syndrome, left CO REVISE MEDIAN N/CARPAL TUNNEL SURG 08/27/2024 9:56 AM EDT Carpal tunnel syndrome, left POCT GLUCOSE METER UNSOLICITED RESULTS Routine 08/27/2024 8:26 AM EDT HEMOGLOBIN A1C Routine 06/07/2024 12:11 PM EDT Carpal tunnel syndrome, left COLONOSCOPY Routine 07/21/2023 11:58 AM EDT Colon cancer screening History of diverticulitis HEPATITIS C ANTIBODY W/REFLEX TO HCV QUANT PCR Routine 10/18/2022 3:02 PM EDT Transaminitis from Last 3 Months or Most Recently Relevant to Health Maintenance Results * SUTURE REMOVAL (09/12/2024 11:10 AM EDT) Narrative Theresa Mercado - 09/12/2024 11:10 AM EDT Theresa Mercado 09/12/2024 11:42 AM Suture Removal Performed by: Theresa Mercado Authorized by: Ja Hastings PA Consent: Consent obtained: Verbal [place] protocol: Patient identity confirmed: Verbally with patient Location: Location: Upper extremity Upper extremity location: Wrist Wrist location: L wrist Procedure details: Wound appearance: No signs of infection Post-procedure details: Post-removal: Steri-Strips applied Procedure completion: Tolerated well, no immediate complications us Ja ROSE IN CLINIC/BEDSIDE ORDERABLES F inal Result * (ABNORMAL) POCT glucose meter (08/27/2024 11:07 AM EDT) Only the most recent of2 resultswithin the time period is included. POCT Glucose 141(H) 74 - 99 mg/dL [...] Comment 08/27/2024 11:09 AM EDT [facility] Special Events Assistant ID Magda Ojeda [id number] 11:09 AM EDT HEALTHCARE LAB Device ID [id number] 08/27/2024 11:09 AM EDT HEALTH[facility]ARE LAB Specimen Type POC Capillary 08/27/2024 11:09 AM EDT [facility] Blood Capillary blood specimen / Unknown 08/27/2024 11:07 AM EDT 08/27/2024 11:09 AM EDT us Shaniqua Tinajero MD LAB POINT OF CARE TEST DOCKED DEVICE UNSOLICITED RESULTS Final Result [facility] [address] [place] [id number] * CO AN ELECTIVE SUPRAGLOTTIC AIRWAY, PB ANESTHESIA PLACEHOLDER (08/27/2024 10:19 AM EDT) Narrative Saige Damon CRNA - 08/27/2024 10:19 AM EDT Saige Damon CRNA 08/27/2024 10:20 AM Airway Date/Time: 08/27/2024 10:19 AM Reason: elective Airway not difficult General Information and Staff Patient location during procedure: OR MANAGER SYSTEMS: Saige Damon CRNA Performed: MORA Patient Condition Indications for airway management: anesthesia Patient position: sniffing Planned trial extubation Final Airway Details Final airway type: LMALMA Size: 4 LMA Type: normal us Dima Carty DO ANESTHESIA ORDERABLES Final Result * (ABNORMAL) Hemoglobin A1c (06/07/2024 12:11 PM EDT) Hemoglobin A1c 8.6(H) <5.7 % 06/07/2024 2:41 PM EDT [facility] Blood Venous blood specimen / Unknown Venipuncture / Unknown 06/07/2024 12:11 PM EDT 06/07/2024 12:12 PM EDT Narrative [facility] - 06/07/2024 2:41 PM EDT HA1C Interpretive Data: Diagnosis of Diabetes: Diabetic > or = 6.5% Pre-diabetic 5.7 to 6.4% Non-diabetic < or = 5.6% Glycemic Targets for Type I and Type II Diabetics: Non- Adults <7.0% Adults <6.0% Children and Adolescents <7.5% Source: [place] [employer]. Standards of medical care in diabetes,2017. Diabetes Care.2017:40 (suppl 1):S1-S135. HbA1c assay performed by an ion-exchange chromatography method that is certified traceable to the DCCT. us Shaniqua Stricklandy MD LAB BLOOD ORDERABLES Final Result [facility] [address] [place] [address] * Colonoscopy (07/21/2023 11:58 AM EDT) Anatomical Region Laterality Modality Endoscopy Narrative 07/22/2023 8:54 AM EDT Table formatting from the original result was not included. Impression: Subcentimeter polyp in the sigmoid colon was removed with cold forceps biopsy Localized diverticulosis of moderate severity in the sigmoid colon Recommendations Follow up with GI Clinic Repeat screening colonoscopy in 10 years The patient will be observed post-procedure, until all discharge criteria met. Resume previous diet. Follow up with referring provider. Findings and recommendations discussed with the patient Findings and recommendations to be conveyed to referring provider. Indication Average risk CRC screening Medications See anesthesia record for anesthesia administered medications. Staff Staff Role Sabrina Martin, TANI Student Nurse Robotics Software Engineer Sally Madera CRNA, Mirta Bautista CRNA, RN Endo Nurse oJhn Adam Endo Truss Designer Chase Smith MD Proceduralist Ramon Hunter MBBS Proceduralist Ja Black MD Anesthesiologist Preprocedure A history and physical has been performed, and patient medication allergies have been reviewed. The patient's tolerance of previous anesthesia has been reviewed. The risks and benefits of the procedure and the sedation options and risks were discussed with the patient. All questions were answered and informed consent obtained. Details of the Procedure The patient underwent monitored anesthesia care, which was administered by an anesthesia professional. The patient's blood pressure, heart rate, level of consciousness, respirations and oxygen were monitored throughout the procedure. A digital rectal exam was performed. A perianal exam was performed. The scope was introduced through the anus and advanced to the cecum. Retroflexion was performed in the rectum. The quality of bowel preparation was evaluated using the Newell Bowel Preparation Scale with scores of: right colon = 2, transverse colon = 2, left colon = 2. The total BBPS score was 6. Bowel prep was adequate. The patient experienced no blood loss. The procedure was moderately difficult due to loops in the digestive tract. In response to procedure difficulty, counter pressure was applied. The patient tolerated the procedure well. There were no apparent adverse events. Attestation I personally performed the entire procedure Events Procedure Events Event Event Time ENDO SCOPE IN TIME 07/21/2023 11:04 AM ENDO SCOPE OUT TIME 07/21/2023 11:24 AM ENDO SCOPE IN TIME 07/21/2023 11:28 AM ENDO CECUM REACHED 07/21/2023 11:36 AM ENDO SCOPE OUT TIME 07/21/2023 11:52 AM Specimens ID Type Source Tests Collected by Time A : bx Tissue Stomach SURGICAL PATHOLOGY EXAM Chase Smith MD 07/21/2023 [id number] B : bx Tissue Esophagus SURGICAL PATHOLOGY EXAM Chase Smith MD 07/21/2023 1123 C : colon polyp bx Tissue Sigmoid Colon SURGICAL PATHOLOGY EXAM Chase Smith MD 07/21/2023 1147 Findings One 2 mm polyp in the sigmoid colon; no bleeding was identified; performed cold forceps biopsy with complete en bloc removal Few small localized diverticula of moderate severity with no inflammation containing no content in the sigmoid colon; no bleeding was identified Yumiko Rogers APRN GI PROCEDURE ORDERABLES Final Result * Hepatitis C antibody (10/18/2022 3:02 PM EDT) Hepatitis C Antibody Negative Negative 10/18/2022 4:59 PM EDT [facility] Blood Venous blood specimen / Unknown Venipuncture / Unknown 10/18/2022 3:02 PM EDT 10/18/2022 3:03 PM EDT Valente Mcdowell MD LAB BLOOD ORDERABLES Megan hernandez Result [facility] [address] [place] [address] from Last 3 Months or Most Recently Relevant to Health Maintenance Insurance [place] Care Teams Systems Software Developer Relationship Specialty Start Date End Date Deya Reed APRN [address] [place], [place] [phone] PCP - General 06/15/22
--- OUTSIDE RECORDS SUMMARY | 2024-10-15 15:32 | XMS_ITS | Encounter Summary ---
Author Organization Healthcare Address [address] [place] [address] Care Team Providers Care Investigations Chief Name Role Phone Sadi Glassia Nena CHURCHILL Primary Care Provider [phone] Chio Coombs APRN Primary Care Provider + Deya Reed INTELLIGENCE ENGINEER Primary Care Provider + Encounter Details Date Type Department Care Team (Late Contact Info) Description 02/20/2021 Orders Only External Location [address] [place] [address] Provider, External Social History Tobacco Use Types [...] EDT Office Visit [facility] [address] [place] [phone] Kathia Torres, ROSE [address] [phone] 10/30/2024 11:40 AM EDT [facility] [address] [place] [phone] Reji Vera MD [address] [place] [address] 10/30/2024 1:15 PM EDT [facility] Visit [facility] [address] [place] [address] Lauren Montalvo APRN, DNP [address] [place] [address] 12/14/2024 10:45 AM EDT Appointment [facility] [address] [place] [address] 12/17/2024 12:20 PM EDT Office Visit [facility] Endocrinology [address] [place] [phone] Iram Mckay PA [address] [place] [phone] documented as of this encounter Procedures Procedure [...] documented as of this encounter Care Teams Investigations Chief Relationship Specialty Start Date End Date Dina Glass APRN [address] [place] [address] PCP - General 08/01/20 06/09/21 Chio Coombs APRN [address] [place] [address] [place] [address] PCP - General Family Medicine 06/10/21 06/14/22 Deya Reed APRN [address] [place] [address] PCP - General 06/15/22 documented as of this encounter
--- OUTSIDE RECORDS SUMMARY | 2024-10-15 15:32 | XMS_ITS | Data Portability ---
Author Organization [facility] Address [address] [place] [address] Care Team Providers Care Tool And Equipment Rental Clerk Name Role Phone BALDEV GARRIDO Primary Care Provider ROSEMARIE DIANA Aids Nurse Assessment No assessment recorded. Plan of Treatment Reminders Order Date Submit Date Provider Last Modified By Organization Details Last Modified Time Details Appointments SAME Day 2024 01:20P M Deya Reed , NEWS PHOTOGRAPHER Not available Not available Not available Establish ed Patient 20 2024 11:00A M Deya Reed APRN Not available Not available Not available Lab stachybot wei chartarum IgE ab, serum 2024 025 [facility], [address], [address], [place], [address], 05/25/2024 10:14:38 lipid panel, serum 2024 025 [facility], [address], [address], [place], [address], 05/25/2024 10:14:34 CBC w/ auto diff 2024 025 [facility], [address], [address], [place], [address], 05/25/2024 10:14:32 TSH, ultra-sen sitive, serum 2024 025 [facility], [address], [place], [place], [address], 05/25/2024 10:14:36 HbA1c (hemoglob in A1c), blood 2024 025 [facility], [address], [address], [place], [address], 05/25/2024 10:14:35 CMP, serum or plasma 2024 025 [facility], [address], [address], [place], [address], 05/25/2024 10:14:33 HIV 1 + 2, meaningfu l use set 2024 025 [facility], [address], [address], [place], [address], 05/25/2024 10:14:37 Referral community health worker referral [email or web address], [address] [place] [address], [place], [address], 06/13/2024 15:02:36 Procedures None recorded. Surgeries None recorded. Imaging MAMMO, screening , bilateral [email or web address] [place] [address] - Centralized Scheduling, [address] [place] [address], [place], [address], 06/01/2024 12:03:14 Medication Orders ondansetr on 8 mg disintegr ating tablet 2024 025 [facility], [address] [place], [address], 06/04/2024 09:52:27 escitalop angelia 10 mg tablet 2024 025 [facility], [address] [place], [address], 09/07/2024 16:31:06 Patient TargetsNo targets recorded. Patient Instructions Encounter Date Encounter Id Patient Instructions Last Modified By Organization Details Last Modified Time 05/14/2024 [id number] high cholesterol : care instructions [email or web address] Not available 05/14/2024 15:16:30 glucose sensor download and interpretation* [email or web address] Not available 05/14/2024 15:50:56 HIV testing: car e instructions [email or web address] Not available 05/14/2024 15:16:29 heart failure: care instructions [email or web address] Not available 05/14/2024 15:16:30 learning about heart failure [email or web address] Not available 05/14/2024 15:16:30 will call with labs fu in 3 months adjusted insulin doses [email or web address] Not available 05/14/2024 15:52:16 05/18/2024 [id number] increase depression med fu in 3 months Not available 05/18/2024 12:23:09 06/04/2024 [id number] sleep apnea: car e instructions Not available 06/04/2024 11:15:14 nausea and vomiting: care instructions Not available 06/04/2024 09:52:25 As her symptoms have improved, will provide her with zofran prn. Follow up as needed. The patient will report any new or worsening symptoms. The patient will return to clinic if new or worsening symptoms are noted, or if if the symptoms do not resolve. If marked worsening of the symptoms is noted the patient will go to the emergency department of their choice. Not available 06/04/2024 11:15:04 08/24/2024 [id number] sleep apnea: car e instructions [email or web address] Not available 08/24/2024 16:55:07 body mass index: care instructions [email or web address] Not available 08/24/2024 16:55:07 learning about healthy weight [email or web address] Not available 08/24/2024 16:55:07 fu as needed or prn [email or web address] Not available 08/24/2024 17:09:03 Reason for Referral Community Health Worker Refe rral for Inadequate community resources to encourage healthy living Referring Physician: Deya Reed, Family Medicine, Encounter Date: 05/18/2024 Results Created Date Observation Date Name Description Value Unit Range Abnormal Flag Note LastModifiedBy Organization Detail LastModifiedTime 05/18/19 25 05/19/2024 CBC WITH DIFFE RENTI AL/PL ATELE T WBC 6.8 x10e3 /uL 3.4-10 .8 normal Not Available [facility] ([facility]) [address] [place], [address], 05/25/2024 10:14:32 05/18/19 25 05/19/2024 CBC WITH DIFFE RENTI AL/PL ATELE T RBC 5.84 x10e6 /uL 3.77-5 .28 above high normal Not Available [facility] ([facility]) [address] [place], [address], 05/25/2024 10:14:32 05/18/19 25 05/19/2024 CBC WITH DIFFE RENTI AL/PL ATELE T hemoglobin 17.5 g/dL 11.1-1 5.9 above high normal Not Available [facility] ([facility]) [address] [place], [address], 05/25/2024 10:14:32 05/18/19 25 05/19/2024 CBC WITH DIFFE RENTI AL/PL ATELE T hematocrit 52.3 % 34.0-4 6.6 above high normal Not Available [facility] ([facility]) [address] [place], [address], 05/25/2024 10:14:32 05/18/19 25 05/19/2024 CBC WITH DIFFE RENTI AL/PL ATELE T MCV 90 fL 79-97 normal Not Available [facility] ([facility]) [address] [place], [address], 05/25/2024 10:14:32 05/18/19 25 05/19/2024 CBC WITH DIFFE RENTI AL/PL ATELE T MCH 30.0 pg 26.6-3 3.0 normal Not Available [facility] ([facility]) [address] [place], [address], 05/25/2024 10:14:32 05/18/19 25 05/19/2024 CBC WITH DIFFE RENTI AL/PL ATELE T MCHC 33.5 g/dL 31.5-3 5.7 normal Not Available [facility] ([facility]) [address] [facility], [place], [address], 05/25/2024 10:14:32 05/18/19 25 05/19/2024 CBC WITH DIFFE RENTI AL/PL ATELE T RDW 14.4 % 11.7-1 5.4 Not Available [facility] ([facility]) [address] [facility], [place], [address], 05/25/2024 10:14:32 05/18/19 25 05/19/2024 CBC WITH DIFFE RENTI AL/PL ATELE T platelets 187 x10e3 /uL 150-45 0 normal Not Available [facility] ([facility]) [address] [facility], [place], [address], 05/25/2024 10:14:32 05/18/19 25 05/19/2024 CBC WITH DIFFE RENTI AL/PL ATELE T neutrophils 58 % not estab. normal Not Available [facility] ([facility]) [address] [facility], [place], [address], 05/25/2024 10:14:32 05/18/19 25 05/19/2024 CBC WITH DIFFE RENTI AL/PL ATELE T lymphs 30 % not estab. normal Not Available [facility] ([facility]) [address] [facility], [place], [address], 05/25/2024 10:14:32 05/18/19 25 05/19/2024 CBC WITH DIFFE RENTI AL/PL ATELE T monocytes 8 % not estab. normal Not Available [facility] ([facility]) [address] [facility], [place], [address], 05/25/2024 10:14:32 05/18/19 25 05/19/2024 CBC WITH DIFFE RENTI AL/PL ATELE T eos 3 % not estab. normal Not Available [facility] ([facility]) [address] [facility], [place], [address], 05/25/2024 10:14:32 05/18/19 25 05/19/2024 CBC WITH DIFFE RENTI AL/PL ATELE T basos 1 % not estab. normal Not Available [facility] ([facility]) [address] [facility], [place], [address], 05/25/2024 10:14:32 05/18/19 25 05/19/2024 CBC WITH DIFFE RENTI AL/PL ATELE T immature cells EYEGLASS LENS CUTTER Not Available [facility] ([facility]) [address] [place], [address], 05/25/2024 10:14:32 05/18/19 25 05/19/2024 CBC WITH DIFFE RENTI AL/PL ATELE T neutrophils (absolute) 4.0 x10e3 /uL 1.4-7. 0 normal Not Available [facility] ([facility]) [address] [place], [address], 05/25/2024 10:14:32 05/18/19 25 05/19/2024 CBC WITH DIFFE RENTI AL/PL ATELE T lymphs (absolute) 2.0 x10e3 /uL 0.7-3. 1 normal Not Available [facility] ([facility]) [address] [place], [address], 05/25/2024 10:14:32 05/18/19 25 05/19/2024 CBC WITH DIFFE RENTI AL/PL ATELE T monocytes(ab solute) 0.6 x10e3 /uL 0.1-0. 9 normal Not Available [facility] ([facility]) [address] [place], [address], 05/25/2024 10:14:32 05/18/19 25 05/19/2024 CBC WITH DIFFE RENTI AL/PL ATELE T eos (absolute) 0.2 x10e3 /uL 0.0-0. 4 normal Not Available [facility] ([facility]) [address] [facility], [place], [address], 05/25/2024 10:14:32 05/18/19 25 05/19/2024 CBC WITH DIFFE RENTI AL/PL ATELE T baso (absolute) 0.0 x10e3 /uL 0.0-0. 2 normal Not Available [facility] ([facility]) [address] [facility], [place], [address], 05/25/2024 10:14:32 05/18/19 25 05/19/2024 CBC WITH DIFFE RENTI AL/PL ATELE T immature granulocytes 0 % not estab. Not Available [facility] ([facility]) [address] [facility], [place], [address], 05/25/2024 10:14:32 05/18/19 25 05/19/2024 CBC WITH DIFFE RENTI AL/PL ATELE T immature grans (abs) 0.0 x10e3 /uL 0.0-0. 1 Not Available [facility] ([facility]) [address] [facility], [place], [address], 05/25/2024 10:14:32 05/18/19 25 05/19/2024 CBC WITH DIFFE RENTI AL/PL ATELE T NRBC EYEGLASS LENS CUTTER Not Available [facility] ([facility]) [address] [facility], [place], [address], 05/25/2024 10:14:32 05/18/19 25 05/19/2024 CBC WITH DIFFE RENTI AL/PL ATELE T hematology comments: EYEGLASS LENS CUTTER Not Available [facility] ([facility]) [address] [facility], [place], [address], 05/25/2024 10:14:32 05/18/19 25 05/19/2024 COMP. METAB OLIC PANEL (14) glucose 166 mg/dL 70-99 above high normal Not Available [facility] ([facility]) [address] [place], [address], 05/25/2024 10:14:33 05/18/19 25 05/19/2024 COMP. METAB OLIC PANEL (14) BUN 14 mg/dL 6-24 normal Not Available [facility] ([facility]) [address] [place], [address], 05/25/2024 10:14:33 05/18/19 25 05/19/2024 COMP. METAB OLIC PANEL (14) creatinine 1.05 mg/dL 0.57-1 .00 above high normal Not Available [facility] ([facility]) [address] [place], [address], 05/25/2024 10:14:33 05/18/19 25 05/19/2024 COMP. METAB OLIC PANEL (14) eGFR 62 mL/mi n/1.7 3 >59 normal Not Available [facility] ([facility]) [address] [place], [address], 05/25/2024 10:14:33 05/18/19 25 05/19/2024 COMP. METAB OLIC PANEL (14) BUN/creatini ne ratio 13 9-23 normal Not Available [facility] ([facility]) [address] [place], [address], 05/25/2024 10:14:33 05/18/19 25 05/19/2024 COMP. METAB OLIC PANEL (14) sodium 139 mmol/ L 134-14 4 normal Not Available [facility] ([facility]) [address] [place], [address], 05/25/2024 10:14:33 05/18/19 25 05/19/2024 COMP. METAB OLIC PANEL (14) potassium 4.7 mmol/ L 3.5-5. 2 normal Not Available [facility] ([facility]) [address] [place], [address], 05/25/2024 10:14:33 05/18/19 25 05/19/2024 COMP. METAB OLIC PANEL (14) chloride 95 mmol/ L 96-106 below low normal Not Available [facility] ([facility]) [address] [place], [address], 05/25/2024 10:14:33 05/18/19 25 05/19/2024 COMP. METAB OLIC PANEL (14) carbon dioxide, total 25 mmol/ L 20-29 normal Not Available [facility] ([facility]) [address] [place], [address], 05/25/2024 10:14:33 05/18/19 25 05/19/2024 COMP. METAB OLIC PANEL (14) calcium 9.6 mg/dL 8.7-10 .2 normal Not Available [facility] ([facility]) [address] [place], [address], 05/25/2024 10:14:33 05/18/19 25 05/19/2024 COMP. METAB OLIC PANEL (14) protein, total 6.5 g/dL 6.0-8. 5 normal Not Available [facility] ([facility]) [address] [place], [address], 05/25/2024 10:14:33 05/18/19 25 05/19/2024 COMP. METAB OLIC PANEL (14) albumin 4.2 g/dL 3.8-4. 9 normal Not Available [facility] ([facility]) [address] [place], [address], 05/25/2024 10:14:33 05/18/19 25 05/19/2024 COMP. METAB OLIC PANEL (14) globulin, total 2.3 g/dL 1.5-4. 5 Not Available [facility] ([facility]) [address] [place], [address], 05/25/2024 10:14:33 05/18/19 25 05/19/2024 COMP. METAB OLIC PANEL (14) bilirubin, total 0.5 mg/dL 0.0-1. 2 normal Not Available [facility] ([facility]) [address] [place], [address], 05/25/2024 10:14:33 05/18/19 25 05/19/2024 COMP. METAB OLIC PANEL (14) alkaline phosphatase 91 IU/L 44-121 normal Not Available [facility] ([facility]) [address] [place], [address], 05/25/2024 10:14:33 05/18/19 25 05/19/2024 COMP. METAB OLIC PANEL (14) AST (SGOT) 94 IU/L 0-40 above high normal Not Available [facility] ([facility]) [address] [place], [address], 05/25/2024 10:14:33 05/18/19 25 05/19/2024 COMP. METAB OLIC PANEL (14) ALT (SGPT) 79 IU/L 0-32 above high normal Not Available [facility] ([facility]) [address] [place], [address], 05/25/2024 10:14:33 05/18/19 25 05/19/2024 LIPID PANEL cholesterol, total 172 mg/dL 100-19 9 normal Not Available [facility] ([facility]) [address] [place], [address], 05/25/2024 10:14:34 05/18/19 25 05/19/2024 LIPID PANEL triglyceride s 362 mg/dL 0-149 above high normal Not Available [facility] ([facility]) [address] [place], [address], 05/25/2024 10:14:34 05/18/19 25 05/19/2024 LIPID PANEL HDL cholesterol 41 mg/dL >39 normal Not Available [facility] ([facility]) [address] [place], [address], 05/25/2024 10:14:34 05/18/19 25 05/19/2024 LIPID PANEL VLDL cholesterol radames 58 mg/dL 5-40 above high normal Not Available [facility] ([facility]) [address] [place], [address], 05/25/2024 10:14:34 05/18/19 25 05/19/2024 LIPID PANEL LDL chol calc ([facility]) 73 mg/dL 0-99 Not Available [facility] ([facility]) [address] [place], [address], 05/25/2024 10:14:34 05/18/19 25 05/19/2024 LIPID PANEL LDL calc comment: EYEGLASS LENS CUTTER Not Available [facility] ([facility]) [address] [facility], [place], [address], 05/25/2024 10:14:34 05/18/19 25 05/19/2024 HEMOG LOBIN A1C hemoglobin A1C 9.3 % 4.8-5. 6 above high normal Predi abete s: 5.7 - 6.4 Diabe dorys: >6.4 Glyce josue contr ol for adult s with diabe dorys: <7.0 Not Available [facility] ([facility]) [address] [place], [address], 05/25/2024 10:14:35 05/18/19 25 05/19/2024 TSH TSH 1.950 uIU/m L 0.450- 4.500 normal Not Available [facility] ([facility]) [address] [place], [address], 05/25/2024 10:14:36 05/18/19 25 05/19/2024 HIV AB/P2 4 AG WITH REFLE X HIV Ab/P24 Ag screen NON REACTI VE non reacti ve HIV-1 /HIV- 2 antib odies and HIV-1 p24 antig en were NOT detec med. There is no labor atory evide nce of HIV infec tion. HIV Negat kyle Not Available [facility] ([facility]) [address] [facility], [place], [address], 05/25/2024 10:14:37 05/18/1905/25/2024 M024- IGE STACH YBOTR YS ATRA [id number] stachybotrys atra <0.10 kU/L class 0 Level s of Speci fic IgE Class Descr iptio n of Class ----- ----- ----- ----- ----- -- ----- ----- ----- ----- ----- < 0.10 0 Negat kyle 0.10 - 0.31 0/I Equiv ocal/ Low 0.32 - 0.55 I Low 0.56 - 1.40 II Moder ate 1.41 - 3.90 III High 3.91 - 19.00 IV Very High 19.01 - 100.0 0 V Very High >100. 00 Very High Not Available [facility] ([facility]) [address] [facility], [place], [address], 05/25/2024 10:14:38 07/31/19 25 07/30/2024 MAMMO , scree philomena, bilat eral No observ ation record ed. [email or web address] [facility] - Centralized Scheduling [address] [place], [address], 08/01/2024 14:14:32 07/31/19 25 07/30/2024 MAMMO , diagn ostic , digit al, bilat eral No observ ation record ed. [email or web address] [facility] (Central Scheduling) [address] [place], [address], 08/01/2024 14:24:43 09/06/19 25 08/22/2024 matt RAMOS No observ ation record ed. [address], [place], [address], 09/06/2024 14:42:17 09/28/19 25 08/22/2024 matt RAMOS No observ ation record ed. [address] (Med Record) [address], [place], [address], 10/01/2024 08:10:17 Result Notes None recorded. Problems Name Problem SNOMED Code Status Onset Date Resolution Date Notes Provider Name and Address Organization Details Recorded Time Congestive heart failure 86110335 Active Not Available [facility] 0 21:13:07 Hypertensi ve disorder 06371099 Active Not Available [facility] 0 21:13:07 Hyperchole sterolemia 40469846 Active Not Available [facility] 0 21:13:07 Gastric ulcer 697616580 Active Not Available [facility] 0 21:13:07 Chronic back pain 368322481 Active Not Available [facility] 0 21:13:07 Disorder of vitamin B12 278261076 Active Not Available [facility] 0 21:13:07 Vitamin D deficiency 24280544 Active 2019 Not Available [facility] 0 21:13:07 Obstructiv e sleep apnea syndrome 35427047 Active 2020 Diana Cordova MD [address], [place], [address] , [place] - [facility] 1 19:04:00 M ni re's disease 40466380 Active 2020 Diana Cordova MD [address], [place], [address] , [place] - [facility] 1 19:04:29 Mixed hyperlipid emia 019833178 Active 2020 Mariah Ellis APRN [address], [place], [address] , [place] - [facility] 1 08:13:48 Hyperglyce belinda due to type 2 diabetes mellitus 0279077119979 09 Active 2020 Mariah Bookerloi Ellis, NEWS PHOTOGRAPHER [address], [place], [address] , [place] [facility] 1 08:13:49 History of cerebrovas cular accident 921620080 Active 2020 Mariahvincent Ellis, NEWS PHOTOGRAPHER [address], [place], [address] , [place] [facility] 1 08:13:53 Gastroesop hageal reflux disease without esophagiti s 764514079 Active 2020 Mariahvincent Ellis, NEWS PHOTOGRAPHER [address], [place], [address] , [place] [facility] 1 08:14:00 Peripheral neuropathy due to type 2 diabetes mellitus 4560085866807 Active 2020 Mariahvincent Ellis, NEWS PHOTOGRAPHER [address], [place], [address] , [place] [facility] 1 08:14:01 Anxiety 27407866 Active 2020 Choiblaire Coombs APRN [address], [place], [address] , [place] [facility] 1 11:28:07 Insomnia 486875986 Active 2020 Chio MalvinKERLINE sen [address], [place], [address] , [place] [facility] 1 12:05:36 Abnormal gait due to muscle weakness 554381899 Active 2020 Chio Coombs APRN [address], [place], [address] , [place] [facility] 1 15:28:24 Essential tremor 712881528 Active 2020 Chioblaire Coombs APRN [address], [place], [address] , [place] [facility] 1 15:41:08 Irritable bowel syndrome with diarrhea 370061158 Active 2021 Chio Coombs APRN [address], [place], [address] , [place] - [facility] 2 18:42:23 Steatotic liver disease 876720901 Active 2021 Chio Coombs NEWS PHOTOGRAPHER [address], [place], [address] , [place] - [facility] 2 12:54:04 Hepatosple nomegaly 92157537 Active 2021 Chio Coombs NEWS PHOTOGRAPHER [address], [place], [address] , [place] - [facility] 2 12:54:06 Edema of lower extremity 910289451 Active 2021 Chio Coombs NEWS PHOTOGRAPHER [address], [place], [address] , [place] - [facility] 2 10:37:10 Pain of right temporoman dibular joint 5895309546663 9107 Active 2023 Paris Iris, NEWS PHOTOGRAPHER [address], [place], [address] , [place] - [facility] 4 11:23:14 Nausea 615349077 Active 2024 Sindi Sprague, NEWS PHOTOGRAPHER [address], [place], [address] , [place] - [facility] 5 09:49:56 Notes:Some problems listed i n Document: #[id number] could not be added to this patient's chart. Please review this document and add these problems to the patient's chart manually as needed. Problem Notes None recorded. Procedures Surgical History Date Name Laterality Status Provider Name and Address Organization Details Recorded Time 11/14/19 24 Medication Reconcilliation completed Marcelino Pelletier [place] - [facility] 11/14/2023 13:23:39 07/21/19 24 Date of Last Colonoscopy completed Marcelino Pelletier [place] - [facility] 08/03/2023 15:24:06 06/02/19 24 A1C level 8.0 to 9.0 completed Deya Reed APRN [address], [place], [address], [place] - [facility] 06/02/2023 11:28:18 02/09/20 23 Medication Reconcilliation completed Shara [place]rera [place] - [facility] 02/08/2023 11:10:48 09/14/19 23 Carpal tunnel surgery completed Marcelino Pelletier [place] - [facility] 10/14/2022 10:57:43 07/07/19 22 Medication Reconcilliation completed Chio Malvin, NEWS PHOTOGRAPHER [address], [place], [address], [place] - [facility] 07/06/2021 18:37:24 06/05/19 21 Systolic B/P less than 130 mm Hg completed Kal Claude [place] - [facility] 06/04/2020 14:30:16 06/05/19 21 Diastolic B/P less than 80 mm Hg completed Kal Claude [place] [facility] 06/04/2020 14:30:13 04/15/19 21 Systolic B/P less than 130 mm Hg completed Kal Claude [place] [facility] 04/15/2020 15:11:33 04/15/19 21 Diastolic B/P less than 80 mm Hg completed Kal Claude [place] [facility] 04/15/2020 15:11:29 04/15/19 21 A1C level 6.9 and below completed Kal Claude [place] - [facility] 04/15/2020 15:14:36 02/27/20 20 Systolic B/P less than 130 mm Hg completed Kal Claude [place] - [facility] 02/27/2020 15:09:21 02/27/20 20 Diastolic B/P less than 80 mm Hg completed Kal Claude [place] [facility] 02/27/2020 15:09:15 01/14/20 20 Diastolic B/P 80-89 mm Hg completed Kal Claude [place] [facility] 01/14/2020 11:51:59 01/14/20 20 Systolic B/P 130-139 mm Hg completed Kal Claude [place] [facility] 01/14/2020 11:51:54 01/14/20 20 Positive Microalbumin completed Kal Claude [place] - [facility] 01/14/2020 11:52:06 01/14/20 20 A1C level 7.0 to 7.9 completed Kal Claude [place] - [facility] 01/14/2020 11:55:59 10/14/19 10 Hysterectomy, Total laparoscopic completed Lety Martinez [place] - [facility] 05/01/2019 13:51:56 12/20/19 08 Breast Surgery completed Lety Martinez - [facility] 05/01/2019 13:51:03 03/21/18 99 Cholecystectomy, laparoscopic completed Lety SMITH - [facility] 05/01/2019 13:51:20 03/21/18 99 tonsilectomy/adenoi ds completed Lety Martinez - [facility] 05/01/2019 13:51:31 03/21/18 97 Unlisted px dentalvlr strux completed Lety Martinez - [facility] 05/01/2019 13:52:57 12/27/18 92 Tubal Ligation completed Lety Martinez - [facility] 05/01/2019 13:52:36 Colonoscopy completed Marcelino Pelletier - [facility] 08/03/2023 15:23:29 Imaging Results None recorded. Procedure Notes None recorded. Medical Equipment None Reported. Allergies Allergen ID Allergen Name Allergen Category Reaction Reaction Severity Criticality Documentation Date Start Date Code Code System Note Provider Name and Address Organization Details Recorded Time 773626 tramadol medicatio n Not available Not available Not available 05/01/2019 50471 RxNorm rash Kal Claude null, - [facility] 0 11:37:20 842789 gabapenti n medicatio n vomiting Not available Not available 05/01/2019 97930 RxNorm Lety Martinez null, - [facility] 0 13:39:24 850003 atorvasta tin medicatio n Not available Not available Not available 01/15/2020 02311 RxNorm muscl e cramp s Kal Claude null, - [facility] 0 14:45:14 696886 metformin medicatio n diarrhea Not available Not available 04/15/2020 6809 RxNorm Kal Claude null, - [facility] 1 16:01:29 201315 Trulicity medicatio n nausea severe Not available 07/09/2020 41658 96 RxNorm 4.5 mg stren [facility] Sindi Manzanares null, [place] - [facility] 1 09:40:35 Medications Name Sig Start Date Stop Date Status Note LastModified by Organization Details LastModified Time Prescript ion - Prior Authoriza tion Request active Not Available Not Available Not Available freestyle lancets USE 3 TIMES DAILY 08/02 completed Not Available Not Available Not Available cyclobenz aprine 10 mg tablet TAKE (1) TABLET BY MOUTH THREE TIMES DAILY. 08/02 completed Not Available Not Available Not Available furosemid e 40 mg tablet TAKE 1 TABLET BY MOUTH EVERY MORNING. active Not Available Not Available No t Available atorvasta tin 40 mg tablet Take 1 tablet PO QD 07/06 completed Not Available Not Available Not Available metformin 500 mg tablet Take 1 tablet twice a day by oral route. 01/14 completed Not Available Not Available Not Available Lopressor 50 mg tablet 2 am 2 pm 09/24 completed Lopresso r Oral Tablet 50 mg;Recor ded Status: Recorded on: 12/23/19 08 10:03PM; Disconti nued Status: Disconti nued on: 09/25/19 10 11:51AM; User: [email or web address] p Not Available Not Available Not Available promethaz ine-DM 6.25 mg-15 mg/5 mL oral syrup Take 5 mL every 4 hours by oral route for 5 days. 10/24 completed Not Available Not Available Not Available acetic acid 2 % ear solution INSTILL 3 DROPS TO THE RIGHT EAR BY OTIC ROUTE EVERY 8 HOURS FOR 10 DAYS 08/02 completed Not Available Not Available Not Available prednison e 10 mg tablet 01/13 completed Not Available Not Available Not Available naproxen 375 mg tablet Take 1 tablet twice a day by oral route. 01/14 completed Not Available Not Available Not Available ipratropi um 0.5 mg-albute rol 3 mg (2.5 mg base)/3 mL nebulizat ion soln tid 08/02 completed Not Available Not Available Not Available ketoconaz ole 2 % shampoo LATHER AND MASSAGE INTO SCALP 2-3 TIMES WEEKLY WHEN FLARED,L ET SIT 3-5 MINUTES BEFORE RINSING. active Not Available Not Available No t Available loratadin e 5 mg/5 mL oral solution TAKE 5 MILLILIT ERS BY MOUTH ONCE DAILY active Not Available Not Available No t Available Norvasc 10 mg tablet take 1 tablet (10 mg) by oral route once daily 05/01 completed Norvasc Oral Tablet 10 mg;Recor ded Status: Recorded on: 09/25/19 10 11:52AM; User: kenya Jacobti on: Hyperten miranda - ([phone]) Not Available Not Available Not Available clindamyc in HCl 300 mg capsule TAKE (1) CAPSULE BY MOUTH THREE TIMES DAILY. 10/14 completed Not Available Not Available Not Available loperamid e 2 mg capsule TAKE (1) CAPSULE TWICE DAILY NEEDED. 08/02 completed Not Available Not Available Not Available aspirin 325 mg tablet 1 po qD 12/26 completed Aspirin 325 mg;Recor ded Status: Recorded on: 12/23/19 08 10:03PM; Disconti nued Status: Disconti nued on: 12/27/19 09 11:29AM; User: [email or web address] p Not Available Not Available Not Available fluconazo le 150 mg tablet take 1 tablet (150 mg) by oral route once as needed for yeast; may repeat in 72 hours if needed active Not Available Not Available No t Available hydrocodo ne 5 mg-acetam inophen 325 mg tablet TAKE 1 TABLET BY MOUTH EVERY 6 HOURS NEEDED FOR PAIN. 08/02 completed Not Available Not Available Not Available Nystop 100,000 unit/gram topical powder APPLY TO THE AFFECTED AREA(S) BY TOPICAL ROUTE 2 TIMES PER DAY active Not Available Not Available No t Available urea 40 % topical cream APPLY A THIN LAYER TO THE LOWER LEGS ONCE DAILY AFTER SHOWERIN G. active Not Available Not Available No t Available fluconazo le 200 mg tablet TAKE 2 TABLETS BY MOUTH NOW AND THEN TAKE ONE TAB ONCE WEEKLY FOR 3 WEEKS. 03/05 completed Not Available Not Available Not Available FreeStyle Lancets 28 gauge USE THREE TIMES DAILY 08/02 completed Not Available Not Available Not Available lisinopri l 20 mg tablet TAKE 1 TABLET BY MOUTH ONCE A DAY. active Not Available Not Available No t Available prednison e 5 mg tablet Take 1 tablet every day by oral route for 5 days. 05/14 completed Not Available Not Available Not Available loperamid e 2 mg tablet Take 1 tablet twice a day by oral route as needed. 08/02 completed Not Available Not Available Not Available Provera 5 mg tablet take 1/2 - 1 tablet by oral route QD prn if improves ROGERS 11/25 completed Provera Oral Tablet 5 mg;Recor ded Status: Recorded on: 09/25/19 10 1:14PM;D iscontin ued Status: Disconti nued on: 11/26/19 10 11:30AM; User: showerl; Printed: 09/25/19 10 Not Available Not Available Not Available topiramat e 25 mg tablet take TWO tablets by MOUTH TWICE DAILY UNTIL 07/04, (THE remainde r tabets will be in THE packs with start date of 07/05 with dosage increase 07/09 completed Not Available Not Available Not Available meclizine 12.5 mg tablet TAKE (1) TABLET BY MOUTH TWICE A DAY NEEDED FOR 10 DAYS. active Not Available Not Available No t Available Antacid Anti-Gas 400 mg-400 mg-40 mg/5 mL oral suspensio n take 10 ML BY MOUTH THREE TIMES DAILY FOR FOURTEEN DAYS 02/27 completed Not Available Not Available Not Available potassium chloride ER 10 mEq tablet,ex tended release TAKE 1 TABLET BY MOUTH ONCE A DAY. 08/02 completed Not Available Not Available Not Available metronida zole 500 mg tablet TAKE (1) TABLET BY MOUTH EVERY EIGHT HOURS. 08/02 completed Not Available Not Available Not Available clopidogr el 75 mg tablet TAKE 1 TABLET BY MOUTH ONCE A DAY. active Not Available Not Available No t Available ciproflox acin 250 mg tablet just finished today per PCP for UTI 12/09 completed Ciproflo xacin Oral Tablet 250 mg;Recor ded Status: Recorded on: 11/26/19 10 11:36AM; Disconti nued Status: Disconti nued on: 12/10/19 10 4:20PM;U ser: [email or web address] Not Available Not Available Not Available divalproe x 500 mg tablet,de layed release TAKE 1 TABLET BY MOUTH TWICE DAILY. active Not Available Not Available No t Available ciproflox acin 500 mg tablet TAKE 1 TABLET BY MOUTH EVERY 12 HOURS 06/01 completed Not Available Not Available Not Available aspirin 81 mg tablet,de layed release TAKE 1 TABLET BY MOUTH ONCE A DAY. 08/02 completed Not Available Not Available Not Available acetamino phen 500 mg tablet TAKE (2) TABLETS EVERY SIX HOURS NEEDED. active Not Available Not Available No t Available triamtere ne 37.5 mg-hydroc hlorothia zide 25 mg capsule TAKE ONE CAPSULE BY MOUTH DAILY 01/15 completed Not Available Not Available Not Available vancomyci n 125 mg capsule TAKE ONE CAPSULE BY MOUTH FOUR TIMES DAILY FOR 10 DAYS 10/13 completed Not Available Not Available Not Available ondansetr on 8 mg disintegr ating tablet DISSOLVE ONE TABLET BY MOUTH TWICE DAILY NEEDED active Not Available Not Available No t Available pantopraz ole 20 mg tablet,de layed release TAKE 1 TABLET BY MOUTH ONCE A DAY. 03/05 completed Not Available Not Available Not Available cefadroxi l 500 mg capsule TAKE (1) CAPSULE BY MOUTH TWICE DAILY FOR 10 DAYS active Not Available Not Available No t Available meloxicam 7.5 mg tablet TAKE 1 TABLET BY MOUTH ONCE A DAY. 03/24 completed Not Available Not Available Not Available oxycodone -acetamin ophen 5 mg-325 mg tablet TAKE (1) TABLET BY MOUTH EVERY FOUR HOURS. 08/02 completed Not Available Not Available Not Available potassium 99 mg tablet 05/01 completed Potassiu m Oral Tablet 99 mg;Recor ded Status: Recorded on: 06/26/19 10 1:24PM;U ser: sarah Not Available Not Available Not Available propranol ol 40 mg tablet TAKE 1 TABLET BY MOUTH EVERY 12 HOURS. active Not Available Not Available No t Available amoxicill in 875 mg tablet TAKE 1 TABLET BY MOUTH EVERY 12 HOURS 08/24 completed Not Available Not Available Not Available methocarb bhaskar 750 mg tablet TAKE ONE TABLET BY MOUTH DAILY and TAKE ONE TABLET BY MOUTH EVERY EVENING 07/06 completed Not Available Not Available Not Available estradiol 1 mg tablet take 1 tablet (1 mg) by oral route once daily 12/09 completed Estradio l Oral Tablet 1 mg;Recor ded Status: Recorded on: 11/26/19 10 11:31AM; User: grant Not Available Not Available Not Available dicyclomi ne 20 mg tablet TAKE (1/2) TABLET BY MOUTH TWICE DAILY. 08/02 completed Not Available Not Available Not Available OneTouch Ultra Test strips CHECK GLUCOSE 3 TIMES DAILY 08/02 completed Not Available Not Available Not Available meclizine 25 mg tablet TAKE (1) TABLET BY MOUTH TWICE A DAY NEEDED. active Not Available Not Available No t Available cephalexi n 500 mg capsule TAKE (1) CAPSULE BY MOUTH EVERY SIX HOURS. 08/02 completed Not Available Not Available Not Available pantopraz ole 40 mg tablet,de layed release TAKE 1 TABLET BY MOUTH ONCE DAILY BEFORE BREAKFAS T. DO NOT CRUSH, CHEW OR SPLIT. active Not Available Not Available No t Available triamcino lone acetonide 0.1 % topical ointment active Not Available Not Available Not Available ropinirol e 0.5 mg tablet TAKE 1 TABLET BY MOUTH AT BEDTIME. active Not Available Not Available No t Available ranitidin e 150 mg tablet Take 1 tablet PO BID 01/13 completed Not Available Not Available Not Available buspirone 10 mg tablet Take 1 tablet 3 times a day by oral route for 30 days. 02/27 completed Not Available Not Available Not Available clotrimaz ole-betam ethasone 1 %-0.05 % topical cream APPLY cream TWICE DAILY external ly FOR FOURTEEN DAYS 07/06 completed Not Available Not Available Not Available Gentle Laxative (bisacody l) 5 mg tablet,de layed release TAKE ALL 4 TABLETS BY MOUTH AT 9 AM 2 DAYS BEFORE COLONOSC OPY. 08/02 completed Not Available Not Available Not Available Bupap 50 mg-650 mg tablet take 1 tablet by oral route every 4 hours as needed not to exceed 4 tablets per 24hrs for 10 days 04/24 completed Bupap Oral Tablet 50-650 mg;Recor ded Status: Recorded on: 12/27/19 09 12:11PM; Disconti nued Status: Disconti nued on: 04/24/19 10 2:33PM;U ser: [email or web address];Es t. Completi on: 01/06/20 09;Indic ation: Tension- Type Headache - ([phone]) Not Available Not Available Not Available diphenhyd ramine 12.5 mg/5 mL oral elixir Take 10 mL every day by oral route at bedtime for 30 days. 08/02 completed Not Available Not Available Not Available fluoromet holone 0.1 % eye drops,cy[place]ney pension iNSTILL ONE DROP INTO AFFECTED EYE FOUR TIMES A DAY FOR TWO WEEKS THEN TWICE DAILY FOR TWO WEEKS 07/06 completed Not Available Not Available Not Available lidocaine 5 % topical patch APPLY 1 PATCH BY TOPICAL ROUTE ONCE DAILY (MAY WEAR UP TO 12 HOURS.) active Not Available Not Available No t Available promethaz ine 25 mg tablet TAKE ONE TABLET EVERY 6 HOURS NEEDED. 08/02 completed Not Available Not Available Not Available nicotine 21 mg/24 hr daily transderm al patch 01/13 completed Not Available Not Available Not Available mometason e 50 mcg/actua tion nasal spray 07/28 completed Not Available Not Available Not Available buspirone 7.5 mg tablet TAKE ONE TABLET BY MOUTH TWICE DAILY 11/21 completed Not Available Not Available Not Available triamtere ne 37.5 mg-hydroc hlorothia zide 25 mg tablet TAKE 1 TABLET BY MOUTH ONCE DAILY. active Not Available Not Available No t Available lisinopri l 20 mg-hydroc hlorothia zide 25 mg tablet 2 po qD 12/26 completed Lisinopr il/hydro chloroth iazide ;Re corded Status: Recorded on: 12/23/19 08 10:02PM; Disconti nued Status: Disconti nued on: 12/27/19 09 11:29AM; User: [email or web address] p Not Available Not Available Not Available diclofena c sodium 75 mg tablet,de layed release TAKE (1) TABLET BY MOUTH TWICE A DAY. 08/02 completed Not Available Not Available Not Available cephalexi n 500 mg tablet Take 1 tablet every 6 hours by oral route for 7 days. 08/02 completed Not Available Not Available Not Available Provera 10 mg tablet take 1 tablet by oral route QD for 10 days 09/24 completed Provera Oral Tablet 10 mg;Recor ded Status: Recorded on: 06/26/19 10 2:41PM;D iscontin ued Status: Disconti nued on: 09/25/19 10 11:51AM; User: showerl; Est. Completi on: 07/16/19 10;Print ed: 06/26/19 10 Not Available Not Available Not Available hydroxyzi ne HCl 25 mg tablet TAKE 1 TO 2 TABLETS BY MOUTH EACH NIGHT AT BEDTIME 01/15 completed Not Available Not Available Not Available mometason e 0.1 % topical ointment APPLY A THIN LAYER TO THE AFFECTED AREA(S) BY TOPICAL ROUTE ONCE DAILY 01/15 completed Not Available Not Available Not Available mupirocin 2 % topical ointment APPLY A SMALL AMOUNT TO AFFECTED AREA 3 TIMES DAILY 01/15 completed Not Available Not Available Not Available furosemid e 20 mg tablet TAKE ONE TABLET BY MOUTH DAILY 01/15 completed Not Available Not Available Not Available metoprolo l succinate ER 25 mg tablet,ex tended release 24 hr TAKE ONE TABLET BY MOUTH DAILY 07/06 completed Not Available Not Available Not Available ergocalci ferol (vitamin D2) 1,250 mcg (50,000 unit) capsule TAKE 1 CAPSULE A DAY EVERY MON {Q1W2} active Not Available Not Available No t Available clobetaso l 0.05 % topical ointment APPLY A THIN LAYER WITH A QTIP TO BILATERA L EAR CANALS 2 TIMES DAILY NEEDED FOR ITCHING. active Not Available Not Available No t Available dexametha sone sodium phosphate 4 mg/mL injection solution Inject 2 mL twice a day by intramus cular route as directed . 03/23 completed Not Available Not Available Not Available Tylenol-C odeine #3 300 mg-30 mg tablet take 1 tablet by oral route every 6 hours as needed 11/25 completed Tylenol- Codeine #3 Oral Tablet 300-30 mg;Recor ded Status: Recorded on: 09/25/19 10 1:14PM;D iscontin ued Status: Disconti nued on: 11/26/19 10 1:03PM;U ser: showerl; Indicati on: Pain - ([phone] 00) Not Available Not Available Not Available calcipotr iene 0.005 % scalp solution APPLY TO THE SCALP DAILY. active Not Available Not Available No t Available polyethyl erin glycol 3350 17 gram/dose oral powder AT 6 PM 2 DAYS PRIOR TO COLONOSC OPY, MIX 1/2 BOTTLE WITH 32 OZ OF GATORADE & DRINK. AT 9 AM ON DAY OF COLONOSC OPY, MIX 1/2 & 32 OZ GATORADE & DRINK 08/02 completed Not Available Not Available Not Available scopolami ne 1 mg over 3 days transderm al patch APPLY ONE PATCH TO SKIN EVERY 72 HOURS FOR 10 DAYS. active Not Available Not Available No t Available methylpre dnisolone 4 mg tablets in a dose pack TAKE 6 TABS ON DAY 1, TAKE 5 TABS ON DAY 2, TAKE 4 TABS ON DAY 3, TAKE 3 TABS ON DAY 4, TAKE 2 TABS ON DAY 5, TAKE 1 ON DAY 6. TAKE WITH FOOD. active Not Available Not Available No t Available propranol ol 20 mg tablet TAKE ONE TABLET BY MOUTH DAILY and TAKE ONE TABLET BY MOUTH EVERY EVENING 05/18 completed Not Available Not Available Not Available clobetaso l 0.05 % scalp solution APPLY TO THE SCALP AT BEDTIME FOR UP TO THREE WEEKS. STOP FOR ONE WEEK, MAY REPEAT NEEDED WHEN FLARED. active Not Available Not Available No t Available ondansetr on 4 mg disintegr ating tablet DISSOLVE ONE tablet ON top of TONGUE EVERY 4 HOURS NEEDED FOR nausea 07/06 completed Not Available Not Available Not Available cefdinir 300 mg capsule TAKE 1 CAPSULE BY MOUTH EVERY 12 HOURS 06/01 completed Not Available Not Available Not Available Imitrex 25 mg tablet take 1 tablet (25 mg) by oral route once with fluids as early as possible after the onset of a migraine attack;m ay repeat after 2 hours if headache returns, not to exceed 200mg in 24hrs 09/26 completed Imitrex Oral Tablet 25 mg;Recor ded Status: Recorded on: 09/25/19 10 1:14PM;U ser: showerl; Est. Completi on: 09/27/19 10;Indic ation: Migraine - (06.3469 00);Prin med: 09/25/19 10 Not Available Not Available Not Available topiramat e 100 mg tablet TAKE ONE TABLET BY MOUTH DAILY and TAKE ONE TABLET BY MOUTH EVERY EVENING 07/14 completed Not Available Not Available Not Available fluticaso ne propionat e 50 mcg/actua tion nasal spray,cydney pension USE 1 SPRAY IN EACH NOSTRIL ONCE DAILY 08/02 completed Not Available Not Available Not Available metformin ER 500 mg tablet,ex tended release 24 hr TAKE ONE TABLET BY MOUTH DAILY 04/15 completed caused diarrhea Not Available Not Available Not Available colestipo l 1 gram tablet TAKE 1 TABLET (1 G TOTAL) BY MOUTH 2 (TWO) TIMES A DAY AFTER MEALS. TAKE AT LEAST 1 HOUR AFTER OR 4 HOURS BEFORE OTHER MEDICATI ONS. 08/02 completed Not Available Not Available Not Available dicyclomi ne 10 mg capsule TAKE (1) CAPSULE BY MOUTH TWICE DAILY. 08/02 completed Not Available Not Available Not Available Yvonne (28) 3 mg-0.03 mg tablet take 1 tablet (3-0.03 mg) by oral route daily 09/24 completed Yvonne 28 Oral Tablet 3-0.03 mg;Recor ded Status: Recorded on: 08/16/19 10 5:42AM;D iscontin ued Status: Disconti nued on: 09/25/19 10 11:51AM; User: showerl Not Available Not Available Not Available loratadin e 10 mg tablet TAKE 1 TABLET BY MOUTH AT BEDTIME. active Not Available Not Available No t Available naproxen 500 mg tablet Take 1 tablet twice a day by oral route as directed for 7 days. active Not Available Not Available No t Available mometason e 0.1 % topical cream APPLY A THIN LAYER TO BOTH EARS ONCE NIGHTLY FOR 14 DAYS THEN NEEDED FOR FLARE UPS 08/02 completed Not Available Not Available Not Available amoxicill in 875 mg-potass ium clavulana te 125 mg tablet TAKE 1 TABLET BY MOUTH EVERY 12 HOURS 06/01 completed Not Available Not Available Not Available Vitamin B-12 1,000 mcg tablet Take 1 tablet every day by oral route as directed for 30 days. 02/26 completed Not Available Not Available Not Available Ventolin HFA 90 mcg/actua tion aerosol inhaler INHALE 2 PUFFS BY MOUTH EVERY 4 HOURS NEEDED. active Not Available Not Available No t Available neomycin- polymyxin -hydrocor t 3.5 mg-10,000 unit/mL-1 % ear drops,cydney p instill FOUR drops into affected ear(s) THREE TIMES DAILY 01/15 completed Not Available Not Available Not Available Depo-Prov era 150 mg/mL intramusc ular syringe inject 1 millilit er (150 mg) by intramus cular route every 3 months 11/25 completed Depo-Pro vera Intramus cular Syringe 150 mg/mL;Re corded Status: Recorded on: 08/07/19 10 1:42PM;D iscontin ued Status: Disconti nued on: 11/26/19 10 11:24AM; User: [email or web address]; Printed: 08/07/19 10 Not Available Not Available Not Available escitalop angelia 10 mg tablet TAKE 1 TABLET BY MOUTH ONCE A DAY. active Not Available Not Available No t Available ezetimibe 10 mg tablet Take 1 tablet every day by oral route as directed for 30 days. 02/27 completed Not Available Not Available Not Available ciproflox acin 0.3 %-dexamet hasone 0.1 % ear drops,cydney pension INSTILL 4 DROPS INTO AFFECTED EAR TWICE DAILY FOR 10 DAYS 08/02 completed Not Available Not Available Not Available rosuvasta tin 5 mg tablet TAKE 1 TABLET BY MOUTH EACH NIGHT AT BEDTIME active Not Available Not Available No t Available escitalop angelia 5 mg tablet TAKE 1 TABLET BY MOUTH ONCE DAILY. active Not Available Not Available No t Available Antacid Liquid 200 mg-200 mg-20 mg/5 mL oral suspensio n Take 15 mL 4 times a day by oral route as needed. 02/27 completed Not Available Not Available Not Available duloxetin e 30 mg capsule,d elayed release Take 1 tablet PO QD 01/13 completed Not Available Not Available Not Available duloxetin e 60 mg capsule,d elayed release TAKE 1 CAPSULE BY MOUTH AT BEDTIME. active Not Available Not Available No t Available BD Ultra-Fin e Mini Pen Needle 31 gauge x 3/16 USE TO INJECT 1-4 TIMES DAILY. active Not Available Not Available No t Available Children' s Allergy (diphenhy dramine) 12.5 mg/5 mL oral liquid take 10ml BY MOUTH EVERY DAY AT BEDTIME 08/24 completed Not Available Not Available Not Available pregabali n 25 mg capsule TAKE 1 CAPSULE BY MOUTH THREE TIMES DAILY. active Not Available Not Available No t Available Acetamin 07/06 completed Not Available Not Available Not Available BD Ultra-Fin e Short Pen Needle 31 gauge x 5/16 USE DIRECTED WITH INSULIN PEN. 04/22/ 2025 active Not Available Not Available Not Avai lable Januvia 100 mg tablet active Not Available Not Available Not Available Symbicort 160 mcg-4.5 mcg/actua tion HFA aerosol inhaler INHALE 2 PUFFS BY MOUTH TWICE DAILY. active Not Available Not Available No t Available peg 3350-elec trolytes 236 gram-22.7 4 gram-6.74 gram-5.86 gram solution AT 5 PM ON DAY PRIOR TO COLONOSC OPY, MIX AND DRINK 3/4 OF JUG. DRINK REMAININ G 1/4 6 HOURS BEFORE YOU LEAVE HOME ON DAY OF COLONOSC OPY. 08/02 completed Not Available Not Available Not Available FreeStyle Lite Meter kit USE DIRECTED 08/02 completed Not Available Not Available Not Available cholecalc iferol (vitamin D3) 1,250 mcg (50,000 unit) capsule TAKE ONE CAPSULE BY MOUTH ONCE A WEEK 08/02 completed Not Available Not Available Not Available Lantus Solostar U-100 Insulin 100 unit/mL (3 mL) subcutane ous pen Inject 37 units every day by subcutan eous route at dinner for 30 days. 05/14 completed Not Available Not Available Not Available levocetir izine 5 mg tablet Take 1 tablet every day by oral route for 90 days. 02/26 completed Not Available Not Available Not Available Humalog KwikPen (U-100) Insulin 100 unit/mL subcutane ous INJECT 7 UNITS UNDER SKIN AT BREAKFAS T AND LUNCH, AND 9 UNITS AT SUPPER. active Not Available Not Available No t Available Amitiza 8 mcg capsule TAKE (1) CAPSULE BY MOUTH TWICE DAILY WITH MEALS 08/02 completed Not Available Not Available Not Available Flovent Diskus 250 mcg/actua tion powder for inhalatio n Inhale 2 puffs twice a day by inhalati on route as directed for 30 days. 08/02 completed Not Available Not Available Not Available Mucus Relief ER 600 mg tablet, [...] (1) TABLET BY MOUTH TWICE A DAY. 08/02 completed Not Available Not Available Not Available [...] completed Not Available Not Available Not Available Aerochamb er Plus Flow-Vu,L arge Mask as directed 07/06 completed Not Available Not Available Not Available Jardiance 25 mg tablet TAKE 1 TABLET BY MOUTH ONCE DAILY. active Not Available Not Available No t Available Trulicity 1.5 mg/0.5 mL subcutane ous pen injector INJECT 1.5 MG SUBCUTAN EOUSLY EVERY WEEK 04/15 completed Not Available Not Available Not Available Trulicity 0.75 mg/0.5 mL subcutane ous pen injector INJECT 0.75 MG UNDER THE SKIN ONCE WEEKLY. active Not Available Not Available No t Available Arnuity Ellipta 100 mcg/actua tion powder for inhalatio n Inhale 1 puff every day by inhalati on route for 30 days. 08/02 completed Not Available Not Available Not Available Ozempic 0.25 mg or 0.5 mg (2 mg/1.5 mL) subcutane ous pen injector INJECT 0.25 MG SUBCUTAN EOUSLY EVERY WEEK 01/14 completed Not Available Not Available Not Available OneTouch Ultra2 Meter USE 3 TIMES DAILY 08/02 completed Not Available Not Available Not Available OneTouch Delica Plus Lancet 33 gauge USE 3 TIMES DAILY 08/02 completed Not Available Not Available Not Available Rybelsus 7 mg tablet 01/20 completed [...] Available Not Available Trulicity 3 mg/0.5 mL subcutane ous pen injector 07/06 completed Not Available Not Available Not Available Trulicity 4.5 mg/0.5 mL subcutane ous pen injector INJECT 4.5 MG SUBCUTAN EOUSLY EVERY WEEK 07/08 completed nausea Not Available Not Available Not Available Trelegy Ellipta 200 mcg-62.5 mcg-25 mcg powder for inhalatio n INHALE 1 PUFF ONCE DAILY active Not Available Not Available No t Available Ozempic 1 mg/dose (4 mg/3 mL) subcutane ous pen injector Inject 1 mg every week by subcutan eous route for 30 days. 12/30 completed Not Available Not Available Not Available Mounjaro 5 mg/0.5 mL subcutane ous pen injector INJECT 5 MG UNDER SKIN ONCE WEEKLY 03/02 completed Not Available Not Available Not Available Mounjaro 2.5 mg/0.5 mL subcutane ous pen injector INJECT WEEKLY 01/15 completed Not Available Not Available Not Available Aspercrem e Arthritis Pain 1 % topical gel APPLY 2 GRAMS TO THE AFFECTED AREA(S) BY TOPICAL ROUTE 4 TIMES PER DAY 2024 active Not Available Not Available Not Avai lable Dexcom G7 Sensor device USE DIRECTED . CHANGE EVERY 10 DAYS active Not Available Not Available No t Available Ozempic 0.25 mg or 0.5 mg (2 mg/3 mL) subcutane ous pen injector INJECT 0.5 MG UNDER SKIN ONCE WEEKLY 12/30 completed Not Available Not Available Not Available TUTORize Kath 3 [place] USE DIRECTED . active Not Available Not Available No t Available Vitals Date Recorded Body height Body mass index (BMI) Body weight Pain severity - 0-10 verbal numeric rating [Score] - Reported Body temperature Heart rate Oxygen saturation Oxygen saturation in Arterial blood by Pulse oximetry Respiratory rate Systolic And Diastolic Provider Name and Address Organization Details Last Updated DateTime 5 152.4 cm 54.9 kg/m2 838230. 46 g 6 98.6 [degF] 86 /min 96 % 96 % 19 /min 130/84 mm[Hg] Marcelino Pelletier [place] - [facility] 5 14:46:24 Date Recorded Body height Body temperature Heart rate Oxygen saturation Oxygen saturation in Arterial blood by Pulse oximetry Respiratory rate Pain severity - 0-10 verbal numeric rating [Score] - Reported Systolic And Diastolic Provider Name and Address Organization Details Last Updated DateTime 5 152.4 cm 98.6 [degF] 78 /min 97 % 97 % 19 /min 6 138/86 mm[Hg] Marcelino Pelletier [place] - [facility] 5 09:45:08 Date Recorded Body height Body mass index (BMI) Body weight Respiratory rate Pain severity - 0-10 verbal numeric rating [Score] - Reported Body temperature Heart rate Oxygen saturation Oxygen saturation in Arterial blood by Pulse oximetry Systolic And Diastolic Provider Name and Address Organization Details Last Updated DateTime 5 152.4 cm 54.8 kg/m2 573952. 96 g 18 /min 0 98.2 [degF] 82 /min 99 % 99 % 122/78 mm[Hg] Johnsonerwin Yaya [place] - [facility] 5 09:24:41 Date Recorded Body height Body mass index (BMI) Body weight Body temperature Provider Name and Address Organization Details Last Updated DateTime 08/24/2024 152.4 cm 52.7 kg/m2 886817.94 g 98 [degF] Marcelino Pelletier [place] - [facility] 08/24/2024 16:34:35 Date Recorded Body height Body temperature Heart rate Oxygen saturation Oxygen saturation in Arterial blood by Pulse oximetry Respiratory rate Pain severity - 0-10 verbal numeric rating [Score] - Reported Systolic And Diastolic Provider Name and Address Organization Details Last Updated DateTime 5 152.4 cm 98.6 [degF] 88 /min 92 % 92 % 19 /min 9 116/70 mm[Hg] Marcelino Pelletier [place] - [facility] 5 13:33:07 Social History Question Answer Notes LastModified by Organizat ion Details LastModified Time Tobacco Smoking Status Current Every Day Smoker Lety corral [place] - [facility] 05/01/2019 13:48:31 Are You Blind Or Do You Have Difficulty Seeing? No [email or web address] Information not available 05/01/2019 Is Blood Transfusion Acceptable In An Emergency? Yes [email or web address] Information not available 05/01/2019 What Is Your Level Of Caffeine Consumption? Moderate [email or web address] Information not available 05/01/2019 How Much Tobacco Do You Chew? None [email or web address] Information not available 05/01/2019 Are You Deaf Or Do You Have Serious Difficulty Hearing? No [email or web address] Information not available 05/01/2019 What Type Of Diet Are You Following? REGULAR [email or web address] Information not available 05/01/2019 Which Illicit Or Recreational Drugs Have You Used? None [email or web address] Information not available 05/01/2019 What Is The Highest Grade Or Level Of School You Have Completed Or The Highest Degree You Have Received? [id number] Information not available 05/01/2019 How Many Days Of Moderate To Strenuous Exercise, Like A Brisk Walk, Did You Do In The Last 7 Days? 1 Information not available 05/01/2019 On Those Days That You Engage In Moderate To Strenuous Exercise, How Many Minutes, On Average, Do You Exercise? 1 [email or web address] Information not available 05/01/2019 How Hard Is It For You To Pay For The Very Basics Like Food, Housing, Medical Care, And Heating? 1 [email or web address] Information not available 05/01/2019 What Was The Date Of Your Most Recent Tobacco Screening? 10/15/2024 [email or web address] Information not available 10/15/2024 How Many Children Do You Have? 2 [email or web address] Information not available 05/01/2019 Performs Monthly Self-breast Exam? Yes [email or web address] Information no t available 05/01/2019 What Is Your Relationship Status? [email or web address] Information not available 05/01/2019 Seat Belts Used Routinely Yes [email or web address] Information not available 05/01/2019 Are You Sexually Active? No [email or web address] Information not available 05/01/2019 How Much Tobacco Do You Smoke? 0.5 PPD [email or web address] Information not available 05/01/2019 Do You Use Sunscreen Routinely? Yes [email or web address] Information not available 05/01/2019 Has Tobacco Cessation Counseling Been Provided? No [email or web address] Information not available 08/26/2022 Do You Have Difficulty Walking Or Climbing Stairs? No [email or web address] Information not available 05/01/2019 Sex: Female Functional Status Question Answer Note LastModified by Organizat ion Details LastModified Time Do you or have you ever used any other forms of tobacco or nicotine? No [email or web address] Information not available 08/26/2022 What is your level of alcohol consumption? None Information not available 05/01/2019 Are you able to walk? YESWOREST [email or web address] Information not available 05/01/2019 Do you have difficulty doing errands alone? No [email or web address] Information not available 05/01/2019 Do you have difficulty dressing, bathing, grooming, or toileting? No [email or web address] Information not available 05/01/2019 Do you or have you ever used e-cigarettes or vape? Never used electronic cigarettes [email or web address] Information not available 02/27/2020 What is your exercise level? None Information not available 05/01/2019 Mental Status Question Answer Note LastModified by Organization D etails LastModified Time Do you feel stressed (tense, restless, nervous, or anxious, or unable to sleep at night)? 1 Information not available 05/01/2019 Do you have difficulty concentrating, remembering or making decisions? No Information no t available 05/01/2019 Family History Relationship Description Onset Age of this Age Resolved Age Notes LastModified by Organization Details LastModified Time Mother Hypertensive disorder Not available 2019 13:47:44 Mother Disorder of thyroid gland [email or web address] Not available 2019 13:47:48 Unspecified Relation Heart disease Patern al Not available 05/01/2019 13:47:57 Unspecified Relation Diabetes mellitus Matern al and patern al Not available 05/01/2019 13:48:18 Maternal Grandmother Pancreatitis [email or web address] Not available 07/14/2020 11:39:31 Medical History Condition Response Pancreatitis N Other N Atrial Fibrillation N congenital heart disease N Blood Diseases N Hyperthyroidism N Blood Transfusion N Rheumatoid arthritis N Erectile Dysfunction N amputation N Skin Lesions N Depression N Pneumonia N Incontinence N Murmur N Edema N Alzheimer's Disease N Migraine Headaches N Tobacco Abuse N Anxiety Disorder N Hemorrhoids N Obesity N Vision or Eye Problems N Arthritis N Restless Leg Syndrome N Polyps N Infertility N Carpal Tunnel N Acid Reflux (GERD) Y Cancer N Varicosities N Stroke N Tendonitis N Crohn's Disease N Hypercholesterolemia N Skin Cancer N Headaches N Fibromyalgia N Irritable Bowel Syndrome N Anal Fissure N Kidney Disease N Heart Problems N Hospitalizations N Gallstones N Kidney or Bladder Problems N Goiter N Acne N Eating Disorder N Barrow's Esophagus N Hypertriglyceridemia N Constipation N Embolism N Vitamin B12 Deficiency N Deviated Septum N AIDS/HIV N Myocardial Infarction N Asthma N Mitral Valve Disorders N Vertigo N Hepatitis N Thyroid Cancer N Neuropathy N History of DVT N Herniated Disc N Chicken Pox N Von Willebrands Disease N Thrombophilias N Breast Cancer N Hernia N Plantar Fasciitis N Hypothyroidism N Lung Disease N Defects or Inherited Disease N Breast Problem N Ovarian Cyst N Anesthesia Complications N Testosterone Deficiency N Interstitial Cystitis N Congenital Anomalies N Hypoglycemia N Blood clot N Vitamin D Deficiency N Cellulitis N Endometriosis N Bladder or Kidney Problems N Fracture N Panic Disorder N Schizophrenia N Concussion N Spina Bifida N Osteoarthritis N Parkinson's Disease N Disc Protrusion N STI N Esophagitis N Angina N Thyroid Problems N GI Problems N ADD/ADHD N Anemia N Multiple Sclerosis N Abnormal PAP N Lumbago N Mental Illness N Psychiatric Illness N Diabetes N Ovarian Cancer N Degenerative Disc Disease N Seizures/Epilepsy N Hyperlipidemia N Syncope N Insomnia N Eczema N Abuse/Domestic Violence N Attention Deficient Disorder N Dementia N Ulcerative colitis N Cerebrovascular Disease N Depression N Guillain-Latham N Sleep Apnea N Aneurysm N Bronchitis N Heart Disease N Hypertension Y Pre-Eclampsia N Suicidal Ideation N Osteoporosis N Gynecological History Statement/Question Response Date of Last Colonoscopy 07/21/2023 Date of Last Mammogram Sexually Active? N Menses Monthly N Date of Last Pap Smear Current Control Method Hysterectom y Hormone Replacement Therapy N Obstetrics History GPAL:G 2 P 2 0 0 2 Type Value Full Term 2 Living 2 Total 2 Immunizations Vaccine Type Date Status Note Provider Name and Address Organization Details Recorded Time zoster recombinant 05/14/19 25 cancelled patient objection Deya Reed, NEWS PHOTOGRAPHER [address], [place], [address], [place] - [facility] 05/14/2024 15:48:07 Tdap 05/14/19 25 cancelled patient objection Deya Reed, NEWS PHOTOGRAPHER [address], [place], [address], [facility] - [facility] 05/14/2024 15:48:07 Pneumococcal conjugate PCV20, polysaccharide RHA033 conjugate, adjuvant, PF 05/14/19 25 cancelled patient objection Deya Reed, NEWS PHOTOGRAPHER [address], [place], [address], [place] [facility] 05/14/2024 15:48:34 COVID-19 vaccine, vector-nr, rS-Ad26, PF, 0.5 mL 07/30/19 21 completed Marcelino [place] - [facility] 02/04/2022 14:16:33 COVID-19, mRNA, LNP-S, PF, 30 mcg/0.3 mL dose, zurdo-sucrose 05/05/19 22 completed Marcelino [place] [facility] 02/04/2022 14:16:33 Past Encounters Encounter ID Performer Location Encounter Start Date Encounter Closed Date Diagnosis/Indication Diagnosis SNOMED-CT Code Diagnosis ICD10 Code Diagnosis Note [id number] [facility] [address] [place] [address] 11/02/2000 00:00:00 [id number] [facility] [address] [place] [address] 12/21/2000 00:00:00 [id number] [facility] [address] [place] [address] 06/09/2001 00:00:00 [id number] [facility] [address] [place] [address] 06/26/2001 00:00:00 [id number] [facility] [address] [place] [address] 10/12/2001 00:00:00 [id number] [facility] [address] [place] [address] 10/20/2001 00:00:00 [id number] [facility] [address] [place] [address] 10/26/2001 00:00:00 [id number] [facility] [address] [place] [address] 10/26/2001 00:00:00 [id number] [facility] [address] [place] [address] 05/30/2002 00:00:00 [id number] [facility] [address] [place] [address] 12/20/2002 00:00:00 [id number] [facility] [address] [place] [address] 12/31/2002 00:00:00 [id number] [facility] [address] [place] [address] 12/21/2003 00:00:00 [id number] [facility] [address] [place] [address] 03/23/2004 00:00:00 [id number] [facility] [address] [place] [address] 03/24/2004 00:00:00 [id number] [facility] [address] [place] [address] 04/14/2004 00:00:00 [id number] [facility] [address] [place] [address] 04/20/2004 00:00:00 [id number] [facility] [address] [place] [address] 04/20/2004 00:00:00 [id number] [facility] [address] [place] [address] 05/18/2004 00:00:00 [id number] [facility] [address] [place] [address] 05/25/2004 00:00:00 [id number] [facility] [address] [place] [address] 06/04/2004 00:00:00 [id number] [facility] [address] [place] [address] 07/07/2004 00:00:00 [id number] [facility] [address] [place] [address] 08/28/2004 00:00:00 [id number] [facility] [address] [place] [address] 10/16/2004 00:00:00 [id number] [facility] [address] [place] [address] 12/08/2004 00:00:00 [id number] [facility] [address] [place] [address] 12/24/2004 00:00:00 [id number] [facility] [address] [place] [address] 03/11/2005 00:00:00 [id number] [facility] [address] [place] [address] 12/24/2004 00:00:00 [id number] Stephania Ledesma DO [employer] [address] [place] [address] [place] [address] 05/01/2019 13:05:45 05/01/2019 14:21:28 Lesion of vulva 775870433 N90.89 inclusion cysts - largest about 5mm - benign - follow up as needed [id number] Mariah Ellis APRN [address] [place] [address] 01/14/2020 11:22:44 01/14/2020 12:42:27 Mixed hyperlipidemia 995775919 E78.2 Hyperglyce belinda due to type 2 diabetes mellitus 1304295847 77225 E11.65 Congestive heart failure 55323630 I50.9 Hypertensive disorder 38 168846 I10 Screening for malignant neoplasm of cervix 806727583 Z12.4 Screening for malignant neoplasm of breast 319207284 Z12.39 Screening for malignant neoplasm of colon 319153323 Z12.11 Vaccine de clined by patient 8643427938 02 Z28.20 Unintentio nal weight gain 4550426342 44488 R63.5 History of cerebrovascular accident 511283302 Z86.73 Irritable bowel syndrome 02214866 K58.9 Vitamin B1 2 deficiency (non anemic) 19913994 E53.8 Vitamin D deficiency 347 20608 E55.9 Gastroesop hageal reflux disease without esophagitis 073738150 K21.9 Peripheral neuropathy due to type 2 diabetes mellitus 9648568661 107 E11.42 Hepatitis C screening 41 5633705 Z11.59 Nausea 335886806 R11.0 Candidiasis of vagina 72 264593 B37.3 Allergic rhinitis 407951 04 J30.9 [id number] Mariah Ellis APRN [address] [place] [address] 02/27/2020 14:51:59 02/27/2020 15:42:52 Mixed hyperlipidemia 425572411 E78.2 Hyperglyce belinda due to type 2 diabetes mellitus 5184986594 11528 E11.65 Congestive heart failure 73867061 I50.9 Hypertensive disorder 38 508827 I10 History of cerebrovascular accident 593627751 Z86.73 Irritable bowel syndrome 08631733 K58.9 Vitamin B1 2 deficiency (non anemic) 31110280 E53.8 Vitamin D deficiency 347 75653 E55.9 Gastroesop hageal reflux disease without esophagitis 818221722 K21.9 Peripheral neuropathy due to type 2 diabetes mellitus 4179917065 107 E11.42 Vertigo 823005528 R42 Transient cerebral ischemia 511593799 G45.9 [id number] Diana Cordova MD [address] [place] [address] 04/02/2020 15:25:58 04/02/2020 16:51:33 Obstructive sleep apnea syndrome 73508509 G47.33 M ni re's disease 96757868 H81.01 Headache 46180729 R51.9 [id number] Mariah Ellis APRN [address] [place] [address] 04/15/2020 14:53:52 04/15/2020 15:30:48 Mixed hyperlipidemia 451842605 E78.2 Hyperglyce belinda due to type 2 diabetes mellitus 5321655453 54482 E11.65 Congestive heart failure 50528041 I50.9 Hypertensive disorder 38 861444 I10 History of cerebrovascular accident 881080566 Z86.73 Irritable bowel syndrome 33350913 K58.9 Vitamin B1 2 deficiency (non anemic) 98886282 E53.8 Vitamin D deficiency 347 00866 E55.9 Gastroesop hageal reflux disease without esophagitis 740978822 K21.9 Peripheral neuropathy due to type 2 diabetes mellitus 5044480406 107 E11.42 Screening for malignant neoplasm of colon 146226761 Z12.11 Obstructiv e sleep apnea syndrome 71489701 G47.33 [id number] Mariah Ellis [address] [place] [address] 06/04/2020 14:16:06 06/04/2020 15:11:16 Mixed hyperlipidemia 221053576 E78.2 Hyperglyce belinda due to type 2 diabetes mellitus 6949057436 81692 E11.65 Congestive heart failure 10817429 I50.9 Hypertensive disorder 38 748309 I10 History of cerebrovascular accident 559908364 Z86.73 Irritable bowel syndrome 51834478 K58.9 Vitamin B1 2 deficiency (non anemic) 33924432 E53.8 Vitamin D deficiency 347 80323 E55.9 Gastroesop hageal reflux disease without esophagitis 804399279 K21.9 Peripheral neuropathy due to type 2 diabetes mellitus 7675266183 107 E11.42 Obstructiv e sleep apnea syndrome 31473852 G47.33 Trigger finger 639645786 1 59699 M65.30 Adrenal mass 063627091 R 19.09 Patient me dical record not available 730048421 Z76.89 [id number] Chio Coombs APRN [address] [place] [address] 07/09/2020 13:16:42 07/09/2020 13:53:53 Abscess of skin and/or subcutaneous tissue 21232709 L02.91 F/U PRN if no improvemen t [id number] Chio Coombs APRN [address] [place] [address] 07/14/2020 11:28:05 07/14/2020 12:23:23 Left upper quadrant pain 711728523 R10.12 Nausea 617146799 R11.0 Discussed that Trulicity could still be causing some of the nausea, but would do abdominal US and labs today to be sure nothing else causing the problems. Continue Zofran PRN. [id number] Chio Coombs APRN [address] [place] [address] 09/03/2020 09:38:00 09/03/2020 13:48:20 Acute bronchitis 29735427 J20.9 Follow-up if symptoms worsen or do not improve Cough 44567192 R05 Candidiasis of vagina 72 648914 B37.3 [id number] Chio Coombs APRN [address] [place] [address] 10/24/2020 10:58:40 10/24/2020 11:39:24 Body mass index 40+ - severely obese 686999037 Z68.43 Advised on diet/exerc ise as much as can tolerate. Anxiety 95045185 F41.9 Patient identified triggers for anxiety and impact of anxious thinking on functionin g. Discussed strategies to regulate symptoms and need for compliance with treatment. Start buspirone. F/U 1 month. Chronic back pain 244695 [address] Oseguera - last saw him in 2018 or 2019. Will send new referral to see him. Difficulty walking 14109 2002 R26.2 [id number] Chio Coombs APRN [address] [place] [address] 11/21/2020 11:48:31 11/21/2020 12:05:47 Anxiety 59750275 F41.9 Patient identified triggers for anxiety and impact of anxious thinking on functionin g. Discussed strategies to regulate symptoms and need for compliance with treatment. Increase buspirone to 10mg TID. F/U 1 month. Insomnia 245360271 G47.0 0 Start hydroxyzin e. F/U 1 month. Chronic back pain 581586 002 G89.29 Has referral submitted for Neurosurge ry at [id number] [place] [address] [place] [address] 12/12/2020 11:26:48 12/12/2020 12:08:35 Hyperglycemia due to type 2 diabetes mellitus 6116172302 63311 E11.65 Start Ozempic. F/U 1 month. At that time may increase to 0.5mg. Advised to keep log of blood sugar and bring to F/U visit. Chronic back pain 401807 002 G89.29 Has referral submitted for Neurosurge ry at - waiting on MRI before they will schedule her. Going to order MRI today. Advised to continue Meloxicam for now. Degenerati on of thoracolumbar intervertebral disc 64878306 M51.35 Abnormal g ait due to muscle weakness 565515141 M62.81 [id number] Chio Coombs APRN [address] [place] [address] 01/14/2021 14:43:33 01/14/2021 15:18:21 Chronic back pain 267175275 G89.29 Has referral submitted for Neurosurge ry at - waiting on MRI before they will schedule her. MRI has been approved thru insurance, she is just waiting to be scheduled thru [facility]. Abnormal g ait due to muscle weakness 075269474 M62.81 Hyperglyce belinda due to type 2 diabetes mellitus 0559616768 11198 E11.65 Stop Ozempic, add Tradjenta. F/U 3 months to re-check A1C. [id number] Chio Coombs APRN [address] [place] [address] 02/27/2021 13:45:02 02/27/2021 14:51:41 Chronic back pain 934990904 G89.29 Has referral submitted for Neurosurge ry at - advised her to call to scheduled now that MRI has been performed. F/U with me PRN. Body mass index 40+ - severely obese 266829126 Z68.43 Advised on diet/exerc ise as much as can tolerate. Abnormal g ait due to muscle weakness 772291469 M62.81 Referred to Neurosurge ry Essential tremor 6614551 09 G25.0 Try propranolo l to help with tremor. F/U 1 month. [id number] Chio Coombs APRN [address] [place] [address] 03/27/2021 14:48:58 03/27/2021 15:26:13 Chronic back pain 596909687 G89.29 Advised on importance of attending appt. with Neurosurge patti on Apr.21 - patient verbalized understand ing Essential tremor 3648154 09 G25.0 Increase propranolo l. F/U again in 1 month. Body mass index 40+ - severely obese 608805242 Z68.43 Advised on diet/exerc ise as much as can tolerate. Muscle weakness 46434459 M62.81 Will call once we receive results of labs. Pain of mu ltiple joints 07532195 M25.50 Acute righ t otitis media 373885520 H66.91 F/U PRN if symptoms worsen or no improvemen t Candidiasis of vagina 72 087283 B37.3 Sending Diflucan prophylact ically - patient reports yeast infection with every antibiotic [id number] Chio Coombs APRN [address] [place] [address] 07/06/2021 13:32:29 07/06/2021 15:01:38 Irritable bowel syndrome with diarrhea 811201316 K58.0 Will refer to GI due to family history of pancreatit is/pancrea tic cancer and due to current symptoms. Recommende d she will likely need Colonoscop y/EGD. Also has fatty liver/slig htly elevated LFT's so advised she should establish with GI for this issue also. Chronic back pain 158846 002 G89.29 Was told by Neurosurge patti that they cannot do any interventi ons/surger y for her. Was not given any other options. Will send Tylenol as requested by patient to use PRN for back pain. History of cerebrovascular accident 212322576 Z86.73 Insomnia 473996050 G47.0 0 Will send RX for Benadryl since she has been taking this at bedtime to help her sleep. Right uppe r quadrant pain 194918442 R10.11 Will call once we receive results of US and labs. [id number] Chio Coombs APRN [address] [place] [address] 09/07/2021 09:29:03 09/07/2021 10:35:29 History of cerebrovascular accident 562860786 Z86.73 Body mass index 40+ - severely obese 515801406 Z68.43 Advised on diet/exerc ise as much as can tolerate. Edema of l ower extremity 899345026 R60.0 Start Lasix. F/U 1 month. Insomnia 482285043 G47.0 0 Will send RX for Benadryl since she has been taking this at bedtime to help her sleep. Bilateral carpal tunnel syndrome 3579829468 6618550 G56.03 Was previously referred to Ortho - gave referral sheet today and was advised to call them to schedule her appt. - patient verbalized understand ing. Peripheral neuropathy due to type 2 diabetes mellitus 4608773567 107 E11.42 Patient to return for fasting labs at visit next month to check A1C. Discussed the cool feeling/nu mbness she is experienci ng could be related to worsening neuropathy and we need to re-check A1C. Patient verbalized understand ing. Irritable bowel syndrome with diarrhea 770914228 K58.0 See GI as scheduled on 09/16/21. Recommende d she will likely need Colonoscop y/EGD. Also has fatty liver/slig htly elevated LFT's so advised she should establish with GI for this issue also. [id number] Chio Coombs APRN [address] [place] [address] 10/13/2021 09:35:02 10/13/2021 10:29:49 Dysuria 45993013 R30.0 No need for culture today Candidiasis of vagina 72 785744 B37.3 Likely yeast infection due to recent antibiotic s - F/U PRN Screening mammography 24 867593 Z12.31 Acute bila teral otitis media 830016136 H66.93 F/U PRN if symptoms worsen or no improvemen t - no oral abx today due to just finishing vanc recently RX'd by GI. Mixed hyperlipidemia 267 711317 E78.2 Will call with results Hypertensive disorder 38 410234 I10 Peripheral neuropathy due to type 2 diabetes mellitus 1442148666 107 E11.42 Will call with A1C results Vitamin D deficiency 347 68347 E55.9 Disorder o f vitamin B12 173648009 E53.8 [id number] KERLINE [place] [address] [place] [address] 10/21/2021 13:53:17 10/21/2021 15:10:22 Body mass index 40+ - severely obese 190593783 Z68.43 Advised on diet/exerc ise as much as can tolerate. Hyperlipidemia 64572366 E78.5 Start rosuvastat in. Previously unable to tolerate atorvastat in. Repeat lipid panel in 3 months Edema of l ower extremity 248696400 R60.0 Increase to 40mg. Advised will need to keep an eye on kidney function. F/U 3 months to repeat. Acute righ t otitis media 254617511 H66.91 F/U PRN if symptoms worsen or no improvemen t Peripheral neuropathy due to type 2 diabetes mellitus 9174626242 107 E11.42 Start Mounjaro. F/U 1 month. Advised on possible side effects of medication , but discussed this could also help with weight loss Vitamin D deficiency 347 57741 E55.9 [id number] [facility]leg[facility] Health [address] [place] [address] 01/15/2022 14:29:18 01/15/2022 15:17:16 Hyperglycemia due to type 2 diabetes mellitus 2407480554 86657 E11.65 chronic Vitamin D deficiency 347 36341 E55.9 chronic Disorder o f vitamin B12 431313930 E53.8 chronic Hypertensive disorder 38 281155 I10 chronic Irritable bowel syndrome with diarrhea 151961033 K58.0 chronic Spasm of back muscles 20 6673720 M62.830 chronic Renewal of prescription 004282911 Z76.0 [id number] Deya Reed [facility]N [facility] [address] [place] [address] 02/04/2022 14:13:42 02/04/2022 14:58:50 Inadequate community resources 502102925 Z76.89 Depressive disorder 9571 9007 F32.A chronic, uncontroll ed Type 2 jace betes mellitus 59701021 E11.9 chronic stable [id number] KERLINE [facility] [address] [place] [address] 04/16/2022 08:55:55 04/16/2022 10:58:51 Hyperglycemia due to type 2 diabetes mellitus 0812110682 40847 E11.65 chronic stable Cobalamin deficiency 190 189036 E53.8 stable, chronic Vitamin D deficiency 347 41387 E55.9 chronic Diarrhea 68899580 R19.7 chronic needs new gi referral [id number] KERLINE [facility] [address] [place] [address] 07/30/2022 16:08:49 07/30/2022 16:53:58 Body mass index 40+ - severely obese 440678057 Z68.42 Morbid obesity 604047070 E66.01 Acute bila teral otitis media with effusion 4921391431 107 H65.193 At increas ed risk of medication side effect 026035512 Z91.89 [id number] KERLINE [facility] [place] [address] [address] [place] [address] 08/26/2022 14:54:17 08/26/2022 17:46:46 Disorder of vitamin B12 098006875 E53.8 chronic stable Hypercholesterolemia 136 88160 E78.00 chronic stable Hyperglyce belinda due to type 2 diabetes mellitus 6079612355 23151 E11.65 chronic Acute righ t otitis media 307650645 H66.91 M ni re's disease 41706124 H81.01 chronic Vitamin D deficiency 347 24694 E55.9 chronic stable Hypothyroidism 86191141 E03.9 chronic stable At increas ed risk of medication side effect 130351824 Z91.89 due to abx rx given today [id number] KERLINE [facility] [address] [place] [address] 10/14/2022 10:40:46 10/14/2022 11:51:23 Hyperglycemia due to type 2 diabetes mellitus 7161191316 53522 E11.65 chronic stable Body mass index 40+ - severely obese 405431613 Z68.43 Morbid obesity 883150249 E66.01 Allergic rhinitis 039862 04 J30.9 [id number] KERLINE [facility] [place] [address] [address] [place] [address] 11/12/2022 11:26:20 11/12/2022 11:47:45 Nicotine dependence 14883645 F17.200 Body mass index 40+ - severely obese 974328324 Z68.42 Morbid obesity 367611931 E66.01 Type 2 jace betes mellitus 72176256 E11.9 chronic stable Cellulitis of skin 72163 1002 L03.90 At [facility] risk of medication side effect 480865337 Z91.89 due to abx rx given today [id number] KERLINE [facility] [place] [address] [address] [place] [address] 12/16/2022 09:33:27 12/16/2022 09:50:33 Hyperglycemia due to type 2 diabetes mellitus 3329629804 92107 E11.65 chronic stable Asthma 733689261 J45.90 9 chronic [id number] KERLINE [facility] [place] [address] [address] Ramirez [place] [address] 02/08/2023 10:42:46 02/08/2023 11:35:30 Diverticulitis 606651213 K57.92 Diarrhea 16674441 R19.7 [id number] KERLINE [facility] [place] [address] [address] [place] [address] 03/02/2023 12:32:41 03/02/2023 13:32:46 Hyperglycemia due to type 2 diabetes mellitus 5130460068 78407 E11.65 chronic [id number] KERLINE [facility] [place] [address] [address] [place] [address] 04/29/2023 11:24:48 04/29/2023 11:59:46 New daily persistent headache 0855685374 54107 G44.52 Dizziness 751056328 R42 Fatigue 69165136 R53.83 Abnormal g ait due to muscle weakness 796229620 M62.81 chronic but due to history of stroke History of cerebrovascular accident 111784432 Z86.73 [id number] KERLINE [facility] [place] [address] [address] [place] [address] 06/02/2023 10:51:55 06/02/2023 11:17:01 Hyperglycemia due to type 2 diabetes mellitus 3115036151 68174 E11.65 chronic Chronic ri ght mastoiditis 1012497886 684487 H70.11 Erythrocytosis 960358692 D75.1 chronic per lab [id number] Deya Reed APRN [facility] [place] [address] [address] [place] [address] 07/07/2023 13:19:59 07/07/2023 14:14:39 Pain of left heel 0702348242 156201 M79.774 [id number] Deya Reed APRN [facility] [place] [address] [address] [place] [address] 08/03/2023 15:08:55 08/03/2023 15:39:16 Hypnic jerk 990422455 G25.3 wants to go back to neurology Restless legs 96495488 G 25.81 worsening [id number] Deya Reed APRN [facility] [place] [address] [address] AMRTINFR[place] [address] 09/02/2023 09:27:08 09/02/2023 10:12:34 Hyperglycemia due to type 2 diabetes mellitus 9049673852 30824 E11.65 chronic Chronic back pain 991409 002 G89.29 Hyperlipidemia 92025964 E78.5 chronic [id number] Deya Reed APRN [facility] [address] [address] [place] [address] 09/16/2023 10:22:42 09/16/2023 11:02:23 Type 2 diabetes mellitus 39353727 E11.9 chronic stable Lumbago-sc iatica due to displacement of lumbar intervertebral disc 71162644 M51.17 Retention of urine 42380 4002 R33.9 [id number] Deya Reed APRN [facility] [address] [address] [place] [address] 11/10/2023 10:44:33 11/10/2023 11:26:12 Peripheral neuropathy due to type 2 diabetes mellitus 6971463534 107 E11.42 chronicrafi reviewed and is appropriat e [id number] Deya Reed APRN [place] [address] [address] [place] [address] 11/14/2023 13:14:58 11/14/2023 13:58:01 Hyperglycemia due to type 2 diabetes mellitus 8748424201 34114 E11.65 chronic Essential hypertension 04757996 I10 chronic [id number] Deya Reed APRN [place] [address] [address] [place], [place] [address] 02/10/2024 11:12:24 02/10/2024 11:47:19 Peripheral neuropathy due to type 2 diabetes mellitus 7713753058 107 E11.42 chronicrafi reviewed and is appropriat e Body mass index 40+ - severely obese 602465900 Z68.43 Morbid obesity 292746849 E66.01 M ni re's disease 08827393 H81.01 chronic Lumbago with sciatica 20 6649182 M54.41 chronic Lump in lo wer outer quadrant of right breast 2255438180 55679 N63.13 [id number] Deya Reed APRN [place] [address] [address] [place], [place] [address] 03/05/2024 10:21:03 03/05/2024 10:51:33 Peripheral neuropathy due to type 2 diabetes mellitus 6406336340 107 E11.42 rafi hardin reviewed and is appropriat e [id number] Paris SimmonsJENSN [place] [address] [address] [place], [place] [address] 03/07/2024 10:33:28 03/07/2024 11:28:31 Pain of right temporomandibular joint 0269755099 4716210 M26.621 Follow up in 1 week if symptoms persist [id number] KERLINE [facility] [place] [address] [address] [place] [address] 03/23/2024 11:16:21 03/23/2024 11:41:37 Temporomandibular joint disorder 23154750 M26.609 Foot callus 206201895 L8 4 chronic Candidiasis of skin 4988 3006 B37.2 chronic Peripheral neuropathy due to type 2 diabetes mellitus 6625505600 107 E11.42 chronic, rafi reviewed and is appropriat e Allergic rhinitis 405234 04 J30.9 chronic Lumbar radiculopathy 128 338564 M54.16 chronic [id number] KERLINE [facility] [place] [address] [address] [place] [address] 05/14/2024 14:33:06 05/14/2024 15:24:04 General examination of patient 874915563 Z00.00 Screening mammography 24 476129 Z12.31 last mammogram 16 years ago ([place], [place]) Exercises education, guidance, and counseling 737340138 Z71.82 The patient was advised to continue a healthy diet and exercise regularly. Dietary ma nagement surveillance 377700014 Z71.3 Congestive heart failure 47554953 I50.9 chronic History of cerebrovascular accident 118277045 Z86.73 Peripheral neuropathy due to type 2 diabetes mellitus 6746378070 107 E11.42 chronic HIV screening 525112230 Z11.4 Hyperlipidemia 36895537 E78.5 chronic Vaccination declined 099 5237384 Z28.21 [id number] KERLINE [facility] [address] [address] 05/18/2024 09:36:37 05/18/2024 10:24:37 Exposure to mold 1463472032 0971047 Z77.120 Inadequate community resources to encourage healthy living 221594990 Z76.89 Depressive disorder 5224 9007 F32.A chronic, uncontroll ed [id number] KERLINE [facility] [place] [address] [place] [address] 06/04/2024 09:10:54 06/04/2024 09:55:08 Nausea 211955343 R11.0 Obstructiv e sleep apnea syndrome 32588987 G47.33 awaiting a new machine. [id number] KERLINE [facility] [address] MARTINFRANKLINKristine [place] [address] 08/24/2024 16:21:22 08/24/2024 17:02:36 Hyperglycemia due to type 2 diabetes mellitus 6179956800 50672 E11.65 chronic Body mass index 40+ - severely obese 363437112 Z68.43 Morbid obesity 099121046 E66.01 Obstructiv e sleep apnea syndrome 59763129 G47.33 would benefit from neck pillow, knee pillow and u pillow for proper body position while sleeping [id number] KERLINE [facility] [address] [place] [place] [address] 10/15/2024 13:15:15 10/15/2024 14:03:06 Health Concerns Section Related Observation LastModified by Organization Detai ls LastModified Time None Recorded Concern Status LastModified by Organization Details LastModified Time None Recorded Advance Directives Directive None Recorded Payers Insurance Date Sequence Insurance Name Policy Number Policy Gates Covered Member ID Gates Member ID Guarantor Name 10/15/2024 1 [place] FFS/TRADITIONA L Kami Mikes [id number] Kami Mikes 08/29/2023 1 [employer] [place]MED[place]AC[place] - HMO) Kami Corns [id number] Kami Corns 03/11/2020 1 UNSPECIFIED REMIT PAYOR Kami Mikes 10/15/2024 [place] [facility] WRAP BILLING (MEDICAID) Kami Mikes [id number] Kami Mikes OBGyn Episode No OBEpisode recorded.
--- OUTSIDE RECORDS SUMMARY | 2024-10-15 15:32 | XMS_ITS | Referral Summary ---
Author Organization [facility] ([place], [place], [place], [place]) Address [address] [place] [address] Care Team Providers Care Microsoft Net Developer Name Role Phone Deya Reed APRN Primary Care Provider [phone] Social History Tobacco Use Types Packs/Day Years [...] Info) Description 10/25/2024 11:00 AM EDT Evaluation [facility] [address] [place] [address] Fiona Bass, PT Care Teams Microsoft Net Developer Relationship Specialty Start Date End Date Deya Reed APRN [address] [place] [address] PCP - General Nurse Practitioner 09/17/24
--- OUTSIDE RECORDS SUMMARY | 2024-10-15 15:32 | XMS_ITS | Encounter Summary ---
Author Organization Healthcare Address [address] [place] [address] Care Team Providers Care Regional Psychiatric Director Name Role Phone Dina Glass KERLINE Primary Care Provider [phone] Chio Coombs FERMENTING CELLARS SUPERVISOR Primary Care Provider + Deya Reed FERMENTING CELLARS SUPERVISOR Primary Care Provider + Encounter Details Date Type Department Care Team (Late Contact Info) Description 06/17/2020 Orders Only External Location [address] [place] [address] Vicenta Sharp MD [address] [address] Social History Tobacco Use Types Packs/Day Years [...] Office Visit [facility] [address] [place] [address] Kathia Torres PA [address] [place] [address] 10/30/2024 11:40 AM EDT Office Visit [facility] Medicine Specialties [address] [place] [address] Reji Vera MD [address] [place] [address] 10/30/2024 1:15 PM EDT Office Visit [facility] Medicine Specialties [address] [place] [address] Lauren Montalvo APRN, VINNY [address] [place] [address] 12/14/2024 10:45 AM EDT Appointment [facility] [address] [place] [address] 12/17/2024 12:20 PM EDT Office Visit [facility] Endocrinology [address] [place] [address] Iram Mckay PA [address] [facility] [address] [place] [address] documented as of this encounter Procedures Procedure Name Priority Date/Time Associated Diagnosis Comments CT OUTSIDE IMAGES 06/17/2020 6:22 PM EDT documented in this encounter Results * CT OUTSIDE IMAGES (06/17/2020 6:22 PM EDT) Anatomical Region Laterality Modality Computed Tomogra phy 06/17/2020 6:22 PM EDT Vicenta Sharp MD IMG CT PROCEDURES Final Result documented in this encounter Visit [...] documented as of this encounter Care Teams Regional Psychiatric Director Relationship Specialty Start Date End Date Dina Glass APRN [address] [place] [address] PCP - General 08/01/20 06/09/21 Chio Coombs APRN [address] [place] [address] [place] [address] PCP - General Family Medicine 06/10/21 06/14/22 Deya Reed APRN [address] [place] [address] PCP - General 06/15/22 documented as of this encounter
--- OUTSIDE RECORDS SUMMARY | 2024-10-15 15:33 | XMS_ITS | Encounter Summary ---
Author Organization Healthcare Address [address] [place] [address] Care Team Providers Care Web Press Roll Tender Name Role Phone Deya Reed APRN Primary Care Provider + Encounter Details Date Type Department Care Team (Late st Contact Info) Description 08/28/2024 Telephone [facility] Endocrinology [address] [place] [address] Iram Mckay PA [address] [address] Social History Tobacco Use Types [...] encounter Miscellaneous Notes * Telephone Encounter - Ada Anaya, RD - 08/28/2024 1:28 PM EDT Returned patient's call. Inquired for clarification on patient's message because per last OV, patient should already be taking Humalog at meals+correction. Patient explained that she had only been taking if BG is over 200. States that overall BG had been controlled with estimated GMI on Dexcom of ~7%, but due to surgery and being in pain, BG is running higher. Advised patient to proceed with resuming regimen as instructed at last visit for BG control. Patient verbalized understanding. Reminded patient of f/u at our office in few weeks. * Telephone Encounter - Flor Monroe - 08/28/2024 8:40 AM EDT Patient Phone Message Reason for Call: Pt states since her carpal tunnel surgery her sugar has been going over 300 so sheis asking if she should take the Novalog. It has been jumping due to the pain from the surgery. Best contact number and optimal time of day to reach caller: [phone] Note: Please do not reply to this message. Follow-up communication and further actions as a result of this message need to be communicated with the patient directly, if the patient is not active onMyChart. If the patient is active on MyChart, they will receive notification of the communication/outcome via [employer] [facility]. documented in this encounter Plan of Treatment Upcoming Encounters Date Type Department Care Team (Late st Contact Info) Description 10/26/2024 10:10 AM EDT Office Visit Nery Lambert [address] [place] [address] Kathia Torres PA [address] [place] [address] 10/30/2024 11:40 AM EDT Office Visit [facility] Medicine Specialties [address] [place] [address] Reji Vera MD [address] [place] [address] 10/30/2024 1:15 PM EDT Office Visit [facility]ties [address], [address] [place] [address] Lauren Montalvo APRN, DNP [address] [place] [address] 12/14/2024 10:45 AM EDT Appointment [facility] Radiology [address] [place] [address] 12/17/2024 12:20 PM EDT Office Visit [facility] Wheeler Endocrinology [address] [place] [address] Iram Mckay PA [address] [facility] [address] [place] [address] documented as of this encounter [...] documented as of this encounter Care Teams Web Press Roll Tender Relationship Specialty Start Date End Date Deya Reed APRN [address] [place] [address] PCP - General 06/15/22 documented as of this encounter
--- OUTSIDE RECORDS SUMMARY | 2024-10-15 15:33 | XMS_ITS | Encounter Summary ---
Author Organization Healthcare Address [address] [place] [address] Care Team Providers Care Aircraft Communicator Name Role Phone Deya Reed APRN Primary Care Provider + Encounter Details Date Type Department Care Team (Late st Contact Info) Description 08/24/2024 Telephone [facility] [address] [place] [address] Shaniqua Tinajero MD [address] [address] Social History Tobacco Use Types Packs/Day Years [...] Risk Indicated 08/27/2024 8:20 AM EDT Liliana Callejas, RN * Question Answer Date of Assessment Author 1. Wish to be (Past 1 Month) No 025 8:20 AM EDT Liliana Callejas, RN 2. Non-Specific Active Suici angus Thoughts (Past 1 Month) No 08/27/2024 8:20 AM EDT Liliana Callejas, RN 6. Suicidal Behavior (Lifetime) No 8:20 AM EDT Liliana Callejas, RN documented as of this encounter Plan of Treatment Upcoming Encounters Date Type Department Care Team (Late st Contact Info) Description 10/26/2024 10:10 AM EDT Office Visit [facility] [address] [place] [address] Kathia Torres PA [address] [place] [address] 10/30/2024 11:40 AM EDT Office Visit [facility] Medicine Specialties [address] [place] [address] Reji Vera MD [address] [facility] [address] [place] [address] 10/30/2024 1:15 PM EDT Office Visit [facility] Medicine Specialties [address] [place] [address] Lauren Montalvo APRN, VINNY [address] [facility] [address] [place] [address] 12/14/2024 10:45 AM EDT Appointment [facility] [address] [place] [address] 12/17/2024 12:20 PM EDT [facility] [address] [place] [address] Iram Mckay PA [address] [place] [address] documented as of this encounter Visit Diagnoses [...] documented as of this encounter Care Teams Aircraft Communicator Relationship Specialty Start Date End Date Deya Reed APRN [address] [place] [address] PCP - General 06/15/22 documented as of this encounter
--- OUTSIDE RECORDS SUMMARY | 2024-10-15 15:33 | XMS_ITS | Encounter Summary ---
Author Organization Healthcare Address [address] [place] [address] Care Team Providers Care Field Cashier Name Role Phone Deya Reed APRN Primary Care Provider + Encounter Details Date Type Department Care Team (Latest Contact Info) Description 08/27/2024 Travel Social History Tobacco Use Types Packs/Day Years [...] EDT Office Visit Nery Lambert [address] [place] [address] Kathia Torres PA [address] [place] [address] 10/30/2024 11:40 AM EDT Office Visit [facility] Medicine Specialties [address] [place] [address] Reji Vera MD [address] [place] [address] 10/30/2024 1:15 PM EDT Office Visit [facility] Medicine Specialties [address] [place] [address] Lauren Montalvo APRN, VINNY [address] [place] [address] 12/14/2024 10:45 AM EDT Appointment [facility] [address] [place] [address] 12/17/2024 12:20 PM EDT Office Visit [facility] [address] [place] [address] Iram Mckay PA [address] [place] [address] documented as of this encounter Visit Diagnoses [...] documented as of this encounter Care Teams Field Cashier Relationship Specialty Start Date End Date Deya Reed APRN [address] [place] [address] PCP - General 06/15/22 documented as of this encounter
--- OUTSIDE RECORDS SUMMARY | 2024-10-15 15:33 | XMS_ITS | Encounter Summary ---
Author Organization Healthcare Address [address] [place] [address] Care Team Providers Care Director Of Design Name Role Phone Deya Reed APRN Primary Care Provider + Reason for Visit * Reason Onset Date Comments Med Refill 08/31/2024 Encounter Details Date Type Department Care Team (Late st Contact Info) Description 08/31/2024 Telephone [facility] [address] [place] [address] Shaniqua Tinajero MD [address] [address] Med Refill Social History Tobacco Use Types Packs/Day Years [...] Telephone Encounter - Nikki Person RN - 09/03/2024 12:15 PM EDT Called to follow up with pt. She said pain is doing better, still a little uncomfortable but manageable with tylenol and ibuprofen. She also asked if she was able to take dressing off or if she needed to keep it on until follow up. Instructed her to remove dressing and wash in shower/with running water, but to avoid scrubbing and avoid soaking it. Will see for scheduled f/u next week. * Telephone Encounter - Nikki Person RN - 08/31/2024 5:04 PM EDT LVM telling pt to take 1000mg tylenol and 600mg ibuprofen q6h, and that we could not comment on theLyrica as we are not the prescribers. Will follow up on Tuesday. documented in this encounter Plan of Treatment Upcoming Encounters Date Type Department Care Team (Late st Contact Info) Description 10/26/2024 10:10 AM EDT Office Visit Nery Lambert [address] [place] [address] Kathia Torres PA [address] [address] 10/30/2024 11:40 AM EDT Office Visit [facility] Medicine Specialties [address] [place] [address] Reji Vera MD [address] [place] [address] 10/30/2024 1:15 PM EDT Office Visit [facility] Medicine Specialties [address] [place] [address] Lauren Montalvo APRN, VINNY [address] [place] [address] 12/14/2024 10:45 AM EDT Appointment [facility] [address] [place] [address] 12/17/2024 12:20 PM EDT Office Visit [facility] Wheeler Endocrinology [address] [place] [address] Iram Mckay PA [address] [facility] [address] [place] [address] documented as of this encounter [...] documented as of this encounter Care Teams Director Of Design Relationship Specialty Start Date End Date Deya Reed, KERLINE [address] [place] [address] PCP - General 06/15/22 documented as of this encounter
--- OUTSIDE RECORDS SUMMARY | 2024-10-15 15:33 | XMS_ITS | Encounter Summary ---
Author Organization Healthcare Address [address] [place] [address] Care Team Providers Care Photo Journalist Name Role Phone Deya Reed APRN Primary Care Provider + Encounter Details Date Type Department Care Team (Latest Contact Info) Description 08/23/2024 Travel Social History Tobacco Use Types Packs/Day [...] Description 10/26/2024 10:10 AM EDT Office Visit [facility] [address] [place] [address] Kathia Torres PA [address] [phone] 10/30/2024 11:40 AM EDT [facility] [address], [address] [place] [address] Reji Vera MD [address] [place] [address] 10/30/2024 1:15 PM EDT Office [facility] [address], [address] [place] [address] Lauren Montalvo APRN, DNP [address] [place] [address] 12/14/2024 10:45 AM EDT Appointment [facility] [address] [place] [address] 12/17/2024 12:20 PM EDT Office Visit [facility] Endocrinology [address] [place] [address] Iram Mckay PA [address] [facility] [address] [place] [address] documented as of this encounter Visit Diagnoses [...] documented as of this encounter Care Teams Photo Journalist Relationship Specialty Start Date End Date Deya Reed APRN [address] [place] [address] PCP - General 06/15/22 documented as of this encounter
--- OUTSIDE RECORDS SUMMARY | 2024-10-15 15:33 | XMS_ITS | Encounter Summary ---
Author Organization Healthcare Address [address] [place] [address] Care Team Providers Care Manager Social Work Name Role Phone Deya Reed APRN Primary Care Provider + Reason for Visit * Reason Comments Med Refill Encounter Details Date Type Department Care Team (Late st Contact Info) Description 08/21/2024 Refill [facility] Endocrinology [address] [place] [address] Iram Mckay PA [address] [address] Social History Tobacco Use Types [...] encounter Miscellaneous Notes * Telephone Encounter - Naresh Robin, PharmD - 08/21/2024 10:04 AM EDT 1 medication(s) has been approved per protocol. documented in this encounter Plan of Treatment Upcoming Encounters Date Type Department Care Team (Late st Contact Info) Description 10/26/2024 10:10 AM EDT Office Visit [facility] [address] [place] [address] Kathia Torres PA [address] [place] [address] 10/30/2024 11:40 AM EDT Office Visit [facility] Medicine Specialties [address], [address] [place] [address] Reji Vera MD [address] [facility] [address] [place] [address] 10/30/2024 1:15 PM EDT Office Visit [facility] Medicine Specialties [address], [address] [place] [address] Lauren Montalvo APRN, VINNY [address] [facility] [address] [place] [address] 12/14/2024 10:45 AM EDT Appointment [facility] [address] [place] [address] 12/17/2024 12:20 PM EDT [facility] [address] [place] [address] Iram Mckay PA [address] [place] [address] documented as of this encounter [...] documented as of this encounter Care Teams Manager Social Work Relationship Specialty Start Date End Date Deya Reed APRN [address] [place] [address] PCP - General 06/15/22 documented as of this encounter
--- OUTSIDE RECORDS SUMMARY | 2024-10-15 15:33 | XMS_ITS | Continuity of Care Document ---
Author Organization [facility] Address [address] [place] [address] Care Team Providers Care Medical Planner Name Role Phone BALDEV GARRIDO Primary Care Provider [phone] ROSEMARIE DIANA Peat Shredder Tender Assessment No assessment recorded. Plan of Treatment Reminders Order Date Submit Date Provider Last Modified By Organization Details Last Modified Time Details Appointments SAME Day 2024 01:20P M Deya Reed APRN Not available Not available Not available Establish ed Patient 20 2024 11:00A M Deya Reed APRN Not available Not available Not available Lab None recorded. Referral None recorded. Procedures None recorded. Surgeries None recorded. Imaging None recorded. Medication Orders None recorded. Patient TargetsNo targets recorded. Patient Instructions Encounter Date Encounter Id Patient Instructions Last Modified By Organization Details Last Modified Time 08/24/2024 [id number] sleep apnea: car e instructions [email or web address] Not available 08/24/2024 16:55:07 body mass index: care instructions [email or web address] Not available 08/24/2024 16:55:07 learning about healthy weight [email or web address] Not available 08/24/2024 16:55:07 fu as needed or prn [email or web address] Not available 08/24/2024 17:09:03 Reason for Referral None Reported. Results Created Date Observation Date Name Description Value Unit Range Abnormal Flag Note LastModifiedBy Organization Detail LastModifiedTime 07/31/1907/30/2024 MAMMO , scree philomena, bilat eral No observ ation record ed. [email or web address] [facility] - Centralized Scheduling [address] [facility] [address] , [place], [address], 08/01/2024 14:14:32 07/31/19 25 07/30/2024 MAMMO , diagn ostic , digit al, bilat eral No observ ation record ed. [email or web address] [facility] (Central Scheduling) [address] [place], [address], 08/01/2024 14:24:43 09/06/19 25 08/22/2024 [place], matt esteban No observ ation record ed. [address], [place], [address], 09/06/2024 14:42:17 09/28/19 25 08/22/2024 USmatt No observ ation record ed. [address] (Med Record) [address], [place], [address], 10/01/2024 08:10:17 Result Notes None recorded. Problems Name Problem SNOMED Code Status Onset Date Resolution Date Notes Provider Name and Address Organization Details Recorded Time Congestive heart failure 58120058 Active Not Available [facility] 0 21:13:07 Hypertensi ve disorder 13440186 Active Not Available [facility] 0 21:13:07 Hyperchole sterolemia 35498401 Active Not Available [facility] 0 21:13:07 Gastric ulcer 878622104 Active Not Available [facility] 0 21:13:07 Chronic back pain 493491925 Active Not Available [facility] 0 21:13:07 Disorder of vitamin B12 721428298 Active Not Available [facility] 0 21:13:07 Vitamin D deficiency 58243728 Active 2019 Not Available [facility] 0 21:13:07 Obstructiv e sleep apnea syndrome 41290121 Active 2020 Diana Cordova MD [address], [place], [address] , [place] - [facility] 1 19:04:00 M ni re's disease 68691269 Active 2020 Diana Cordova MD [address], [place], [address] , [place] - [facility] 1 19:04:29 Mixed hyperlipid emia 363616673 Active 2020 Mariah Ellis, [employer] DRYING ROOM ATTENDANT [address], [place], [address] , [place] [facility] 1 08:13:48 Hyperglyce belinda due to type 2 diabetes mellitus 8640006912804 09 Active 2020 Mariah Ellis, [employer] AND [employer] DRYING ROOM ATTENDANT [address], [place], [address] , [place] [facility] 1 08:13:49 History of cerebrovas cular accident 867563829 Active 2020 Mariah Ellis, [employer] AND [employer] DRYING ROOM ATTENDANT [address], [place], [address] , [place] [facility] 1 08:13:53 Gastroesop hageal reflux disease without esophagiti s 590754709 Active 2020 Mariah Ellis, [employer]YING ROOM ATTENDANT [address], [place], [address] , [place] [facility] 1 08:14:00 Peripheral neuropathy due to type 2 diabetes mellitus 6697741698215 Active 2020 Mariah Ellis, H[employer] AND [employer] DRYING ROOM ATTENDANT [address], [place], [address] , [place] [facility] 1 08:14:01 Anxiety 64327105 Active 2020 Chio Coombs APRN [address], [place], [address] , [place] [facility] 1 11:28:07 Insomnia 603143196 Active 2020 Chio Coombs APRN [address], [place], [address] , [place] [facility] 1 12:05:36 Abnormal gait due to muscle weakness 573521411 Active 2020 Chio Coombs APRN [address], [place], [address] , [place] [facility] 1 15:28:24 Essential tremor 124917410 Active 2020 Chio Coombs [employer]YING ROOM ATTENDANT [address], [place], [address] , [place] [facility] 1 15:41:08 Irritable bowel syndrome with diarrhea 138355684 Active 2021 Chio Coombs H[employer] AND [employer] DRYING ROOM ATTENDANT [address], [place], [address] , [place] [facility] 2 18:42:23 Steatotic liver disease 401137739 Active 2021 Chio Coombs [employer] AND [employer] DRYING ROOM ATTENDANT [address], [place], [address] , [place] [facility] 2 12:54:04 Hepatosple nomegaly 41989726 Active 2021 Chio Coombs H[employer] DRYING ROOM ATTENDANT [address], [place], [address] , [place] [facility] 2 12:54:06 Edema of lower extremity 520241136 Active 2021 Chio Coombs H[employer] AND [employer]YING ROOM ATTENDANT [address], [place], [address] , [place] [facility] 2 10:37:10 Pain of right temporoman dibular joint 5776671097034 9107 Active 2023 Paris Simmons, H[employer] AND [employer] DRYING ROOM ATTENDANT [address], [place], [address] , [place] [facility] 4 11:23:14 Nausea 662605458 Active 2024 Sindi Sprague, H[employer] AND [employer] DRYING ROOM ATTENDANT [address], [place], [address] , [place] [facility] 5 09:49:56 Notes:Some problems listed i n Document: #[id number] could not be added to this patient's chart. Please review this document and add these problems to the patient's chart manually as needed. Problem Notes None recorded. Procedures Surgical History Date Name Laterality Status Provider Name and Address Organization Details Recorded Time 11/14/19 24 Medication Reconcilliation completed Marcelino [place] - [facility] 11/14/2023 13:23:39 05/02/20 24 Date of Last Colonoscopy completed Marcelino [place] - [facility] 08/03/2023 15:24:06 06/02/19 24 A1C level 8.0 to 9.0 completed Deya Reed, H[employer] AND [employer]YING ROOM ATTENDANT [address], [place], [address], [place] - [facility] 06/02/2023 11:28:18 02/09/20 23 Medication Reconcilliation completed Shara [place] - [facility] 02/08/2023 11:10:48 09/14/19 23 Carpal tunnel surgery completed Marcelino [place] - [facility] 10/14/2022 10:57:43 07/07/19 22 Medication Reconcilliation completed Chio Coombs APRN [address], [place], [address], [place] - [facility] 07/06/2021 18:37:24 06/05/19 21 [...] less than 130 mm Hg completed Kal Claued [place] - [facility] 02/27/2020 15:09:21 02/27/20 20 Diastolic B/P less than 80 mm Hg completed Kal Claude [place] [facility] 02/27/2020 15:09:15 01/14/20 20 Diastolic B/P 80-89 mm Hg completed Kal Claude [place] [facility] 01/14/2020 11:51:59 01/14/20 20 Systolic B/P 130-139 mm Hg completed Kal Claude [place] [facility] 01/14/2020 11:51:54 01/14/20 20 Positive Microalbumin completed Kal Arce [place] [facility] 01/14/2020 11:52:06 01/14/20 20 A1C level 7.0 to 7.9 completed Kal Arce [place] [facility] 01/14/2020 11:55:59 10/14/19 10 Hysterectomy, Total laparoscopic completed Lety [place] [facility] 05/01/2019 13:51:56 12/20/19 08 Breast Surgery completed Lety [place] [facility] 05/01/2019 13:51:03 03/21/18 99 Cholecystectomy, laparoscopic completed Lety [place] [facility] 05/01/2019 13:51:20 03/21/18 99 tonsilectomy/adenoi ds completed Lety [place] [facility] 05/01/2019 13:51:31 03/21/18 97 Unlisted px dentalvlr strux completed Lety [place] - [facility] 05/01/2019 13:52:57 12/27/18 92 Tubal Ligation completed Lety [place] - [facility] 05/01/2019 13:52:36 Colonoscopy completed Marcelino Pellet[place] - [facility] 08/03/2023 15:23:29 Imaging Results None recorded. Procedure Notes None recorded. Medical Equipment None Reported. Allergies Allergen ID Allergen Name Allergen Category Reaction Reaction Severity Criticality Documentation Date Start Date Code Code System Note Provider Name and Address Organization Details Recorded Time 352683 tramadol medicatio n Not available Not available Not available 05/01/2019 08045 RxNorm rash Kal Arce null, [place] - [facility] 0 11:37:20 638558 gabapenti n medicatio n vomiting Not available Not available 05/01/2019 94758 RxNorm Lety [place] null, [place] - [facility] 0 13:39:24 294344 atorvasta tin medicatio n Not available Not available Not available 01/15/2020 88075 RxNorm muscl e cramp s Kal Arce null, [place] - [facility] 0 14:45:14 253171 metformin medicatio n diarrhea Not available Not available 04/15/2020 6809 RxNorm Kal Arce null, [place] - [facility] 1 16:01:29 150599 Trulicity medicatio n nausea severe Not available 07/09/2020 34726 96 RxNorm 4.5 mg [facility] Sindi Manzanares null, [place] - [facility] 09:40:35 Medications Name Sig Start Date Stop Date Status Note LastModified by Organization Details LastModified Time freestyle lancets USE 3 TIMES DAILY 08/02 completed Not Available Not Available Not Available Prescript ion - Prior Authoriza tion Request active Not Available Not Available Not Available cyclobenz [...] Disconti nued on: 09/25/19 10 11:51AM; User: clifton pringle Not Available Not Available Not Available promethaz [...] User: kenya Jacobti on: Hyperten miranda - () Not Available Not Available Not Available clindamyc [...] Status: Recorded on: 06/26/19 10 1:24PM;U ser: granth Not Available Not Available Not Available propranol [...] Status: Recorded on: 11/26/19 10 11:31AM; User: [facility] Not Available Not Available Not Available dicyclomi [...] 50-650 mg;Recor ded Status: Recorded on: 12/27/19 12:11PM; Disconti nued Status: Disconti nued on: [...] Completi on: 09/27/19 10;Indic ation: Migraine - (3469 );Prin med: 09/25/19 10 Not Available Not Available [...] x 5/16 USE DIRECTED WITH INSULIN PEN. 2024 active Not Available Not Available Not [...] Not Available Not Available Not Available FreeStyle Kath [address] [place] USE DIRECTED . active Not Available Not Available No t Available Vitals Date Recorded Body height Body mass index (BMI) Body weight Body temperature Provider Name and Address Organization Details Last Updated DateTime 08/24/2024 152.4 cm 52.7 kg/m2 889609.94 g 98 [degF] Marcelino Pelletier [place] - [facility] 08/24/2024 16:34:35 Social History Question Answer Notes LastModified by Organizat ion Details LastModified Time Tobacco Smoking Status Current Every Day Smoker Lety [place] - [facility] 05/01/2019 13:48:31 Are You Blind Or Do You Have Difficulty Seeing? No [email or web address] Information not available 05/01/2019 Is Blood Transfusion Acceptable In An Emergency? Yes [email or web address] Information not available 05/01/2019 What Is Your Level Of Caffeine Consumption? Moderate [email or web address] Information not available 05/01/2019 How Much Tobacco Do You Chew? None [email or web address] Information not available 05/01/2019 Are You Deaf Or Do You Have Serious Difficulty Hearing? No [email or web address] Information not available 05/01/2019 What Type Of Diet Are You Following? REGULAR Information not available 05/01/2019 Which Illicit Or Recreational Drugs Have You Used? None [email or web address] Information not available 05/01/2019 What Is The Highest Grade Or Level Of School You Have Completed Or The Highest Degree You Have Received? TV67552-2 [email or web address] Information not available 05/01/2019 How Many Days Of Moderate To Strenuous Exercise, Like A Brisk Walk, Did You Do In The Last 7 Days? 1 [email or web address] Information not available 05/01/2019 On Those Days That You Engage In Moderate To Strenuous Exercise, How Many Minutes, On Average, Do You Exercise? 1 [email or web address] Information not available 05/01/2019 How Hard Is It For You To Pay For The Very Basics Like Food, Housing, Medical Care, And Heating? 1 [email or web address] Information not available 05/01/2019 What Was The Date Of Your Most Recent Tobacco Screening? 10/15/2024 [email or web address] Information not available 10/15/2024 How Many Children Do You Have? 2 [email or web address] Information not available 05/01/2019 Performs Monthly Self-breast Exam? Yes [email or web address] Information no t available 05/01/2019 What Is Your Relationship Status? [email or web address] Information not available 05/01/2019 Seat Belts Used Routinely Yes [email or web address] Information not available 05/01/2019 Are You Sexually Active? No [email or web address] Information not available 05/01/2019 How Much Tobacco Do You Smoke? 0.5 PPD [email or web address] Information not available 05/01/2019 Do You Use Sunscreen Routinely? Yes [email or web address] Information not available 05/01/2019 Has Tobacco Cessation Counseling Been Provided? No Information not available 08/26/2022 Do You Have Difficulty Walking Or Climbing Stairs? No [email or web address] Information not available 05/01/2019 Sex: Female Functional Status Question Answer Note LastModified by Organizat ion Details LastModified Time Do you or have you ever used any other forms of tobacco or nicotine? No [email or web address] Information not available 08/26/2022 What is your level of alcohol consumption? None [email or web address] Information not available 05/01/2019 Are you able to walk? YESWOREST [email or web address] Information not available 05/01/2019 Do you have difficulty doing errands alone? No Information not available 05/01/2019 Do you have difficulty dressing, bathing, grooming, or toileting? No Information not available 05/01/2019 Do you or have you ever used e-cigarettes or vape? Never used electronic cigarettes [email or web address] Information not available 02/27/2020 What is your exercise level? None [email or web address] Information not available 05/01/2019 Mental Status Question Answer Note LastModified by Organization D etails LastModified Time Do you feel stressed (tense, restless, nervous, or anxious, or unable to sleep at night)? 1 [email or web address] Information not available 05/01/2019 Do you have difficulty concentrating, remembering or making decisions? No [email or web address] Information no t available 05/01/2019 Family History Relationship Description Onset Age of this Age Resolved Age Notes LastModified by Organization Details LastModified Time Mother Hypertensive disorder Not available 2019 13:47:44 Mother Disorder of thyroid gland Not available 2019 13:47:48 Unspecified Relation Heart disease Patern al Not available 05/01/2019 13:47:57 Unspecified Relation Diabetes mellitus Matern al and ankit segundo [email or web address] Not available 05/01/2019 13:48:18 Maternal Grandmother Pancreatitis [email or web address] Not available 07/14/2020 11:39:31 Medical History Condition Response Pancreatitis N Other N Atrial Fibrillation N congenital heart disease N Blood Diseases N Hyperthyroidism N Rheumatoid arthritis N Blood Transfusion N Erectile Dysfunction N amputation N Skin Lesions N Depression N Pneumonia N Incontinence N Murmur N Edema N Alzheimer's Disease N Migraine Headaches N Tobacco Abuse N Anxiety Disorder N Hemorrhoids N Obesity N Vision or Eye Problems N Restless Leg Syndrome N Arthritis N Polyps N Infertility N Carpal Tunnel [...] Bladder or Kidney Problems N Fracture N Schizophrenia N Panic Disorder N Concussion N Spina Bifida N Osteoarthritis N Parkinson's Disease N Disc Protrusion N STI N Esophagitis N Angina N Thyroid Problems N GI Problems N ADD/ADHD N Anemia N Multiple Sclerosis N Abnormal PAP N Lumbago N Mental Illness N Psychiatric Illness N Ovarian Cancer N Diabetes N Degenerative Disc Disease N Seizures/Epilepsy N Syncope N Hyperlipidemia N Insomnia N Eczema N Abuse/Domestic Violence N Attention Deficient Disorder N Dementia N Ulcerative colitis N Cerebrovascular Disease N Depression N Guillain-[place] N Sleep Apnea N Aneurysm N Bronchitis N Heart Disease N Suicidal Ideation N Pre-Eclampsia N Hypertension Y Osteoporosis N Gynecological History Statement/Question Response Date [...] 05/14/19 25 cancelled patient objection Deya Reed, HAT AND [employer] DRYING ROOM ATTENDANT [address], [place], [address], [facility] - [facility] 05/14/2024 15:48:07 Tdap 05/14/19 25 cancelled patient objection Deya Reed, H[employer] AND [employer] DRYING ROOM ATTENDANT [address], [place], [address], [facility] 05/14/2024 15:48:07 Pneumococcal conjugate PCV20, polysaccharide PNV833 conjugate, adjuvant, PF 05/14/19 25 cancelled patient objection Deya Reed, H[employer] AND [employer] DRYING ROOM ATTENDANT [address], [place], [address], [facility] 05/14/2024 15:48:34 COVID-19 vaccine, vector-nr, rS-Ad26, PF, 0.5 mL 07/30/19 21 completed Marcelino Pelletier null, [facility] 02/04/2022 14:16:33 COVID-19, mRNA, LNP-S, PF, 30 mcg/0.3 mL dose, zurdo-sucrose 05/05/19 22 [facility] 14:16:33 Past Encounters Encounter ID Performer Location Encounter Start Date Encounter Closed Date Diagnosis/Indication Diagnosis SNOMED-CT Code Diagnosis ICD10 Code Diagnosis Note [id number] Deya OrdazKERLINE cedeño [facility] [address] [place] [address] 08/24/2024 16:21:22 08/24/2024 17:02:36 Hyperglycemia due to type 2 diabetes mellitus 2076853102 06764 E11.65 chronic Body mass index 40+ - severely obese 928083627 Z68.43 Morbid obesity 215563363 E66.01 Obstructiv e sleep apnea syndrome 38813420 G47.33 would benefit from neck pillow, knee pillow and u pillow for proper body position while sleeping Health Concerns Section Related Observation LastModified by Organization Detai ls LastModified Time None Recorded Concern Status LastModified by Organization Details LastModified Time None Recorded Payers Encounter Date Sequence Insurance Name Policy Number Policy Gates Covered Member ID Gates Member ID Guarantor Name 08/24/2024 1 [place] [employer] - FFS/TRADITIO VICTOR HUGO Khan [id number] Kami Khan OBGyn Episode No OBEpisode recorded.
--- OUTSIDE RECORDS SUMMARY | 2024-10-15 15:33 | XMS_ITS | Encounter Summary ---
Author Organization Healthcare Address [address] [place] [address] Care Team Providers Care Linux Systems Analyst Name Role Phone Deya Reed APRN Primary Care Provider + Reason for Visit * Reason Onset Date Comments Med Refill 10/04/2024 Encounter Details Date Type Department Care Team (Late st Contact Info) Description 10/04/2024 Refill [facility] [address] [place] [address] Iram Mckay PA 2[address] [facility] [address] [place] [address] Social History Tobacco Use Types Packs/Day [...] encounter Miscellaneous Notes * Telephone Encounter - Alaina Carr PharmD - 10/04/2024 2:16 PM EDT Refill request does not meet protocol. Sending to clinic for review. Additional info: Clarification required: Patient has not completed required labs in > 12 months.Please review. documented in this encounter Plan of Treatment Upcoming Encounters Date Type Department Care Team (Late st Contact Info) Description 10/26/2024 10:10 AM EDT Office Visit Nery [facility] [address] [place] [address] Kathia Torres PA [address] [address] 10/30/2024 11:40 AM EDT Office Visit [facility] Medicine Specialties [address], [address] [place] [address] Reji Vera MD [address] [facility] [address] [place] [address] 10/30/2024 1:15 PM EDT Office Visit [facility] Medicine Specialties [address], [address] [place] [address] Lauren Montalvo APRN, VINNY [address] [facility] [address] [place] [address] 12/14/2024 10:45 AM EDT Appointment [facility] [address] [place] [address] 12/17/2024 12:20 PM EDT Office Visit [facility] Endocr[facility]ology [address] [place] [address] Iram Mckay PA [address] [facility] [address] [place] [address] documented as of this encounter Visit Diagnoses [...] documented as of this encounter Care Teams Linux Systems Analyst Relationship Specialty Start Date End Date Deya Reed APRN [address] [place] [address] PCP - General 06/15/22 documented as of this encounter
--- OUTSIDE RECORDS SUMMARY | 2024-10-15 15:33 | XMS_ITS | Data Portability ---
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 Pulmonary nodules 3. History of CVA, DM, HTN, back pain, GERD, hyperlipidemia 4. BMI 51.4 *BMI counseling completed on 09/07/2023 5. Current smoker/vape user 1 ppd x 30 years (30 pack year history) Plan 1. Recommend resuming CPAP and CPAP Titration Study; Patient refuses to resume use or additional testing. I discussed in depth with patient the risk of untreated MONIKA including but not limited to . Patient voices understanding but declines CPAP therapy or titration study. Patient is agreeable to overnight pulse oximetry testing and using Oxygen in lieu of CPAP. I advised patient nocturnal Oxygen will not control her severe MONIKA and she voices understanding. 2. Order Overnight Pulse Oximetry testing (sent to [facility]) 3. Order LDCT Chest (sent to [facility]) 4. Recommend to follow up with PCP for dietary referral within the [facility] 5. Recommend dietary changes and increased physical activity even if sitting *Failed Aayush Torres due to adverse effects 6. Smoking/Vaping Cessation 7. RTO in [address] and Overnight Oxygen results, sooner if needed Total clinician time spent on date of this encounter is _ minutes including preparing to see the patient, educating patient, obtaining history, performing a medically necessary and appropriate examination, reviewing medical records, ordering unique testing and documenting clinical information in the EHR or other health record. Portions of this note may be dictated using voice recognition software and or use of a medical secretary. Variances in spelling and vocabulary are possible and unintentional. Not all errors are caught/corrected. Please notify the author if any discrepancies are noted or if the meaning of any statement is not clear. This is a summary discussion with the patient and in no way is intended to be a verbatum summation of everything discussed. We apologize for any inconvenience. Not available 09/07/2023 13:36:13 10/11/2023 10/11/2023 Assessment 1.MONIKA, Severe *HST (11/11/2023): severe MONIKA, AHI 36; ZI 75%, snoring * Overnight Pulse Oximetry (10/11/2023):lowe st spo2: 69%, highest: 97%, mean spo2: 87.18%, <88% 2 hours 35 minutes and 32 seconds 2. Asthma *PFT (10/11/2023): moderate restriction (FVC 55), +midflow obstruction, + ANIBAL response 3. Dyspnea *6MWT (10/11/2023): no desaturations 4. Pulmonary nodules *Chest CT (10/06/2023): several bilateral pulmonary nodules measuring 4 mm or less, Moderate coronary artery calcification's 5. History of CVA, DM, HTN, back pain, GERD, hyperlipidemia 6. BMI 51.4 *BMI counseling completed on 09/07/2023 7. Current smoker/vape user 1 ppd x 30 years (30 pack year history) Plan 1. Recommend resuming CPAP and CPAP Titration Study; Patient refuses to resume use or additional testing. I again discussed in depth with patient the risk of untreated MONIKA including but not limited to along with the pathogenesis of erythrocytosis. Patient voices understanding but declines CPAP therapy or titration study. 2. Order Oxygen 2 L n/c for nocturnal use 3. RX Symbicort 160 mcg 2 puffs BID; rinse mouth after each use; I personally demonstrated use of the inhaled device during todays visit 4. RX Albuterol HFA prn; discussed indications for use Repeat LDCT Chest in 1 year-next due 09/2024 5. Recommend to follow up with PCP for dietary referral within the [facility] 6. Recommend dietary changes and increased physical activity even if sitting *Failed Aayush Torres due to adverse effects 7. Smoking/Vaping Cessation 8. RTO as scheduled The patient underwent pulmonary function testing today to evaluate complaints of dyspnea. Results were discussed with the patient. Total clinician time spent on date of this encounter is 50 minutes including preparing to see the patient, educating patient, obtaining history, performing a medically necessary and appropriate examination, reviewing medical records, ordering unique testing and documenting clinical information in the EHR or other health record. Portions of this note may be dictated using voice recognition software and or use of a medical secretary. Variances in spelling and vocabulary are possible and unintentional. Not all errors are caught/corrected. Please notify the author if any discrepancies are noted or if the meaning of any statement is not clear. This is a summary discussion with the patient and in no way is intended to be a verbatum summation of everything discussed. We apologize for any inconvenience. Not available 10/11/2023 14:59:50 11/30/2023 11/30/2023 Assessment 1.MONIKA, Severe *HST (11/11/2023): severe MONIKA, AHI 36; ZI 75%, snoring * Overnight Pulse Oximetry (10/11/2023):lowe st spo2: 69%, highest: 97%, mean spo2: 87.18%, <88% 2 hours 35 minutes and 32 seconds 2. Asthma *PFT (10/11/2023): moderate restriction (FVC 55), +midflow obstruction, + ANIBAL response 3. Dyspnea *6MWT (10/11/2023): no desaturations 4. Pulmonary nodules *Chest CT (10/06/2023): several bilateral pulmonary nodules measuring 4 mm or less, Moderate coronary artery calcification's 5. History of CVA, DM, HTN, back pain, GERD, hyperlipidemia 6. BMI 51.4 *BMI counseling completed on 09/07/2023 7. Current smoker/vape user 1 ppd x 30 years (30 pack year history) Plan 1. After lengthy discussion of the severity of her MONIKA and history of erythrocytosis patient was agreeable to resume CPAP. Per patients DME she is required to now have an in lab CPAP Titration Study due to previous non compliance. *Patient refuses in lab titration study. I again discussed in depth with patient the risk of untreated MONIKA including but not limited to . 2. Continue Oxygen 2 L n/c nightly. May increase to 2.5 or 3 L n/c max, nightly 3. Continue Symbicort 160 mcg 2 puffs BID; rinse mouth after each use 4. Continue Albuterol HFA prn; discussed indications for use 5. LDCT Chest in 1 year-next due 09/2024 6. Recommend to follow up with PCP for dietary referral within the [facility] 7. Recommend dietary changes and increased physical activity even if sitting *Failed Aayush Torres due to adverse effects 8. Smoking/Vaping Cessation 9. F/U with Hematology 12/06/2023 as scheduled 10. RTO in 4 months, sooner if needed Portions of this note may be dictated using voice recognition software and or use of a medical secretary. Variances in spelling and vocabulary are possible and unintentional. Not all errors are caught/corrected. Please notify the author if any discrepancies are noted or if the meaning of any statement is not clear. This is a summary discussion with the patient and in no way is intended to be a verbatum summation of everything discussed. We apologize for any inconvenience. Not available 11/30/2023 20:41:03 04/24/2024 04/24/2024 Assessment 1.MONIKA, Severe *HST (11/11/2023): severe MONIKA, AHI 36; ZI 75%, snoring * Overnight Pulse Oximetry (10/11/2023):lowe st spo2: 69%, highest: 97%, mean spo2: 87.18%, <88% 2 hours 35 minutes and 32 seconds 2. Asthma *PFT (10/11/2023): moderate restriction (FVC 55), +midflow obstruction, + ANIBAL response *PFT (04/24/2024): + midflow obstruction, moderate restriction, DLCO/VA, +ANIBAL response 3. Dyspnea *6MWT (10/11/2023): no desaturations 4. Pulmonary nodules *Chest CT (10/06/2023): several bilateral pulmonary nodules measuring 4 mm or less, Moderate coronary artery calcification's 5. History of CVA, DM, HTN, back pain, GERD, hyperlipidemia 6. BMI 51.4 *BMI counseling completed on 09/07/2023 7. Current smoker/vape user 1 ppd x 30 years (30 pack year history) Plan 1. Order APAP 4-20 cm H20, machine and equipment (sent to [facility]) 2. Continue Oxygen 2 L n/c nightly. May increase to 2.5 or 3 L n/c max, nightly 3. Stop Symbicort; RX Trelegy 200 mcg 1 puff daily *Patient failed Symbicort 4. Continue Albuterol HFA prn; discussed indications for use 5. LDCT Chest in 1 year-next due 09/2024 6. Recommend to follow up with PCP for dietary referral within the [facility] 7. Recommend dietary changes and increased physical activity even if sitting *Failed Aayush Torres due to adverse effects 8. Smoking/Vaping Cessation 9. F/U with Hematology/PCP 10. RTO in 2 months for compliance check The patient underwent pulmonary function testing today to evaluate complaints of dyspnea. Results were discussed with the patient. Portions of this note may be dictated using voice recognition software and or use of a medical secretary. Variances in spelling and vocabulary are possible and unintentional. Not all errors are caught/corrected. Please notify the author if any discrepancies are noted or if the meaning of any statement is not clear. This is a summary discussion with the patient and in no way is intended to be a verbatum summation of everything discussed. We apologize for any inconvenience. Not available 04/24/2024 13:55:22 08/08/2024 08/08/2024 Assessment 1.MONIKA, Severe *HST (11/11/2023): severe MONIKA, AHI 36; ZI 75%, snoring * Overnight Pulse Oximetry (10/11/2023):lowe st spo2: 69%, highest: 97%, mean spo2: 87.18%, <88% 2 hours 35 minutes and 32 seconds 2. Asthma *PFT (10/11/2023): moderate restriction (FVC 55), +midflow obstruction, + ANIBAL response *PFT (04/24/2024): + midflow obstruction, moderate restriction, DLCO/VA, +ANIBAL response 3. Dyspnea *6MWT (10/11/2023): no desaturations 4. Pulmonary nodules *Chest CT (10/06/2023): several bilateral pulmonary nodules measuring 4 mm or less, Moderate coronary artery calcification's 5. History of CVA, DM, HTN, back pain, GERD, hyperlipidemia 6. BMI 51.4 *BMI counseling completed on 09/07/2023 7. Current smoker/vape user 1 ppd x 30 years (30 pack year history) Plan 1. Order APAP 4-20 cm H20, machine and equipment (sent to [facility] again) 2. Continue Oxygen 2 L n/c nightly. May increase to 2.5 or 3 L n/c max, nightly 3. Continue Trelegy 200 mcg 1 puff daily; encouraged daily compliance *Patient failed Symbicort 4. Continue Albuterol HFA prn; discussed indications for use 5. Order LDCT Chest next due 09/2024 (submitted to [facility]) 6. Recommend to follow up with PCP for dietary referral within the [facility] 7. Recommend dietary changes and increased physical activity even if sitting *Failed Aayush Torres due to adverse effects 8. Smoking/Vaping Cessation 9. F/U with Hematology/PCP 10. RTO as scheduled Portions of this note may be dictated using voice recognition software and or use of a medical secretary. Variances in spelling and vocabulary are possible and unintentional. Not all errors are caught/corrected. Please notify the author if any discrepancies are noted or if the meaning of any statement is not clear. This is a summary discussion with the patient and in no way is intended to be a verbatum summation of everything discussed. We apologize for any inconvenience. Not available 08/08/2024 21:15:20 Plan of Treatment Reminders Order Date Submit Date Provider Last Modified By Organization Details Last Modified Time Details Appointments None recorded. Lab None recorded. Referral None recorded. Procedures noninvasive ear or pulse oximetry by continuous overnight monitoring (PROC) 2023 024 [email or web address] 6 [facility], [address], [place], [address], 09:40:13 Surgeries None recorded. Imaging LDCT, chest, for lung cancer screening - No Auth required Please call to schedule Pt Imaging to be completed 10/05/2024 not before 2024 025 [email or web address] 6 [facility], [address] , [place], [address], 5 08:21:52 LDCT, chest, for lung cancer screening - no auth required 2023 024 [email or web address] 6 [facility], [address] [place], [address], 4 09:39:58 Medication Orders Trelegy Ellipta 200 mcg-62.5 mcg-25 mcg powder for inhalation 2024 025 [facility], [address] [place], [address], 5 12:00:36 albuterol sulfate HFA 90 mcg/actuati on aerosol inhaler 2023 024 [facility], [address] [place], [address], 5 11:59:01 Symbicort 160 mcg-4.5 mcg/actuati on HFA aerosol inhaler 2023 024 [facility], [address] [place], [address], 4 09:33:52 Patient TargetsNo targets recorded. Patient Instructions Encounter Date Encounter Id Patient Instructions Last Modified By Organization Details Last Modified Time 09/07/2023 [id number] weight managemen t education Not available 09/07/2023 13:37:56 Smoking cessatio n was discussed with the patient for less than 10 minutes. The detrimental effects to the patient's health of continued smoking was explained. Methods to quit smoking were also discussed to include nicotine replacement therapy and pharmacologic treatment. LDCT Shared Decision Making The patient was counselled regarding the low dose screening CT requirements. the benefits of screening were discussed to include the potential to reveal a lung malignancy in the early stages where it could possibly be better treated. Potential harms of screening were also discussed to include potential false positive results. It was stressed that they should continue annual screening for 10 years. They state they understand the potential benefits and risks and would like to proceed with screening. Not available 09/07/2023 13:37:54 10/11/2023 [id number] smoking cessatio n counseling, greater than 3 minutes up to 10 minutes* [email or web address] Not available 10/18/2023 09:07:37 weight managemen t education Not available 10/11/2023 11:53:07 11/30/2023 [id number] smoking cessatio n counseling, greater than 3 minutes up to 10 minutes* [email or web address] Not available 11/30/2023 20:42:29 weight managemen t education Not available 11/30/2023 20:42:07 Smoking cessatio n was discussed with the patient for less than 10 minutes. The detrimental effects to the patient's health of continued smoking was explained. Methods to quit smoking were also discussed to include nicotine replacement therapy and pharmacologic treatment. Not available 11/30/2023 20:41:09 04/24/2024 [id number] smoking cessatio n counseling, greater than 3 minutes up to 10 minutes* Not available 05/01/2024 08:52:20 08/08/2024 [id number] LDCT Shared Decision Making The patient was counselled regarding the low dose screening CT requirements. the benefits of screening were discussed to include the potential to reveal a lung malignancy in the early stages where it could possibly be better treated. Potential harms of screening were also discussed to include potential false positive results. It was stressed that they should continue annual screening for 10 years. They state they understand the potential benefits and risks and would like to proceed with screening. Not available 08/08/2024 21:17:38 Reason for Referral None Reported. Results Created Date Observation Date Name Description Value Unit Range Abnormal Flag Note LastModifiedBy Organization Detail LastModifiedTime 09/09/1911/10/2022 polys omnog angelia No observ ation record ed. [email or web address] Not Available 10/11 09:28:46 09/23/19 24 09/20/2023 nonin vasiv e ear or pulse oxime try by lalo nuous overn ight monit oring (PROC ) No observ ation record ed. [email or web address] [facility] [address], [place], [address], 10/12/2023 09:29:06 10/07/19 24 10/06/2023 LDCT, chest , for lung cance r scree philomena No observ ation record ed. [email or web address] [facility] [address], [place], [address], 10/12/2023 09:29:17 10/19/19 24 09/20/2023 nonin vasiv e ear or pulse oxime try by lalo nulisbeth overn ight monit oring (PROC ) No observ ation record ed. [email or web address] [facility] [address], [place], [address], 10/19/2023 14:12:03 10/19/19 24 10/11/2023 compl ete PFT w/ post [facility] hodil ator john metry * No observ ation record ed. [email or web address] Not Available 2023 12:40:54 10/19/19 24 10/11/2023 6 minut e walk test* No observ ation record ed. [email or web address] Not Available 2023 12:41:11 11/03/19 24 10/06/2023 LDCT, chest , for lung cance r scree philomena No observ ation record ed. [email or web address] [facility] [address], [place], [address], 11/03/2023 15:01:26 05/11/19 25 04/24/2024 compl ete PFT* No observ ation record ed. [email or web address] Not Available 2024 14:36:31 Result Notes None recorded. Problems Name Problem SNOMED Code Status Onset Date Resolution Date Notes Provider Name and Address Organization Details Recorded Time Vitamin deficiency 50204353 Active 2023 naomi tuel null, [place] - [facility] 4 09:45:04 Hypercholes terolemia 96595245 Active 2023 naomi tuel null, [place] - [facility] 4 09:45:19 Anxiety 67324777 Active 2023 naomi tuel null, [place] - [facility] 4 09:45:29 Insomnia 686434932 Active 2023 naomi tuel null, [place] - [facility] 4 09:45:38 Obstructive sleep apnea syndrome 77158109 Active 2023 naomi tuel null, [place] - [facility] 4 09:45:52 Hypertensiv e disorder 24694747 Active 2023 naomi tuel null, [place] - [facility] 4 09:46:13 Congestive heart failure 45408631 Active 2023 naomi tuel null, [place] - [facility] 4 09:46:33 Gastric ulcer 443164333 Active 2023 naomi tuel null, [place] - [facility] 4 09:46:48 Irritable bowel syndrome 68704106 Active 2023 naomi tuel null, [place] - [facility] 4 09:47:09 Steatotic liver disease 431676505 Active 2023 naomi tuel null, [place] - [facility] 4 09:47:27 Hepatosplen omegaly 37296252 Active 2023 naomi tuel null, [place] - [facility] 4 09:47:46 Chronic back pain 364256894 Active 2023 naomi tuel null, [place] - [facility] 4 09:47:59 Dizziness 468806468 Active 2023 naomi corral, [place] - [facility] 4 09:48:10 Snoring 61356157 Active 2023 naomi corral, [place] - [facility] 4 09:48:20 Multiple nodules of lung 498531435 Active 2023 Paris Gooden NP [address], [place], [address], [place] - [facility] 4 12:35:46 Heavy tobacco smoker 8451549078706 03 Active 2023 Paris Gooden NP [address], [place], [address], [place] [facility] 4 12:35:52 Body mass index 30+ - obesity 287546298 Active 2023 Paris Gooden NP [address], [place], [address], [place] [facility] 4 12:35:59 Asthma 412064143 Active 2023 Paris Gooden NP [address], [place], [address], [place] [facility] 4 11:46:12 Dyspnea 517672488 Active 2023 Paris Gooden NP [address], [place], [address], [place] [facility] 4 14:52:18 Erythrocyto sis 947102796 Active 2023 Paris Gooden NP [address], [place], [address], [place] [facility] 4 14:52:26 Hypoxia 115795372 Active 2023 Paris Gooden, HELEN [address], [place], [address], [place] [facility] 4 14:52:41 Moderate cigarette smoker 384066188 Active 2024 Paris Gooden, [employer] [address], [place], [address], [place] [facility] 5 21:15:43 Problem Notes None recorded. Procedures Surgical History Date Name Laterality Status Provider Name and Address Organization Details Recorded Time Hysterectomy completed tino horvath [place] - [facility] 09/07/2023 12:26:02 Cholecystectomy completed tino horvath [place] - [facility] 09/07/2023 12:26:07 Tonsillectomy completed tino horvath [place] - [facility] 09/07/2023 12:26:16 reconstruction of nose completed tino horvath [place] - [facility] 09/07/2023 12:26:22 Imaging Results None recorded. Procedure Notes None recorded. Medical Equipment None Reported. Allergies Allergen ID Allergen Name Allergen Category Reaction Reaction Severity Criticality Documentation Date Start Date Code Code System Note Provider Name and Address Organization Details Recorded Time 61893 atorvasta tin medicatio n Not available Not available Not available 09/05/2023 72115 RxNorm naomi tuel null, [place] - [facility] 4 09:27:38 45949 cat dander environme nt Not available Not available Not available 09/05/2023 63827 UNK naomi tuel null, [place] - [facility] 4 09:27:48 23387 gabapenti n medicatio n Not available Not available Not available 09/05/2023 27123 RxNorm naomi tuel null, [place] - [facility] 4 09:27:59 92502 metformin medicatio n Not available Not available Not available 09/05/2023 6809 RxNorm naomi tuel null, [place] - [facility] 4 09:28:09 24233 mold extract environme nt Not available Not available Not available 09/05/2023 90317 8 RxNorm naomi corral, [place] - [facility] 4 09:28:18 84122 tramadol medicatio n Not available Not available Not available 09/05/2023 56848 RxNorm naomi corral, [place] - [facility] 4 09:28:28 56259 Trulicity medicatio n Not available Not available Not available 09/05/2023 88149 96 RxNorm MATT [place] - [facility] 4 09:28:40 Medications Name Sig Start Date Stop Date Status Note LastModified by Organization Details LastModified Time furosemide 40 mg tablet TAKE 1 TABLET BY MOUTH EVERY MORNING. active Not Available Not Available No t Available acetic acid 2 % ear solution INSTILL 3 DROPS TO THE RIGHT EAR BY OTIC ROUTE EVERY 8 HOURS FOR 10 DAYS 09/06 completed Not Available Not Available Not Available ipratropium 0.5 mg-albutero l 3 mg (2.5 mg base)/3 mL nebulizatio n soln Inhale 3 mL 4 times a day by nebulizat ion route as needed. 09/06 completed Not Available Not Available Not Available ketoconazol e 2 % shampoo LATHER AND MASSAGE INTO SCALP 2-3 TIMES WEEKLY WHEN FLARED,LE T SIT 3-5 MINUTES BEFORE RINSING. 04/24 completed Not Available Not Available Not Available loratadine 5 mg/5 mL oral solution TAKE 5 MILLILITE RS BY MOUTH ONCE DAILY active Not Available Not Available No t Available divalproex 250 mg tablet,sherrill yed release Take 1 tablet twice a day by oral route. 09/06 completed Not Available Not Available Not Available loperamide 2 mg capsule Take by oral route as needed. 09/06 completed Not Available Not Available Not Available fluconazole 150 mg tablet TAKE 1 TABLET BY MOUTH ONCE FOR YEAST. MAY REPEAT IN 72 HOURS IF NEEDED. 04/24 completed Not Available Not Available Not Available hydrocodone 5 mg-acetamin ophen 325 mg tablet TAKE 1 TABLET BY MOUTH EVERY 6 HOURS NEEDED FOR PAIN. 09/06 completed Not Available Not Available Not Available Nystop 100,000 unit/gram topical powder APPLY TO THE AFFECTED AREA(S) BY TOPICAL ROUTE 2 TIMES PER DAY active Not Available Not Available No t Available urea 40 % topical cream APPLY A THIN LAYER TO THE LOWER LEGS ONCE DAILY AFTER SHOWERING . active Not Available Not Available No t Available fluconazole 200 mg tablet TAKE 2 TABLETS BY MOUTH NOW AND THEN TAKE ONE TAB ONCE WEEKLY FOR 3 WEEKS. 04/24 completed Not Available Not Available Not Available lisinopril 20 mg tablet TAKE 1 TABLET BY MOUTH ONCE A DAY. active Not Available Not Available No t Available prednisone 5 mg tablet TAKE 1 TABLET BY MOUTH ONCE A DAY. active Not Available Not Available No t Available meclizine 12.5 mg tablet TAKE (1) TABLET BY MOUTH TWICE A DAY NEEDED FOR 10 DAYS. 04/24 completed Not Available Not Available Not Available potassium chloride ER 10 mEq tablet,exte nded release TAKE 1 TABLET BY MOUTH ONCE A DAY. 09/06 completed Not Available Not Available Not Available metronidazo le 500 mg tablet TAKE (1) TABLET BY MOUTH EVERY EIGHT HOURS. 09/06 completed Not Available Not Available Not Available clopidogrel 75 mg tablet TAKE 1 TABLET BY MOUTH ONCE A DAY. active Not Available Not Available No t Available divalproex 500 mg tablet,sherrill yed release TAKE 1 TABLET BY MOUTH TWICE DAILY. active Not Available Not Available No t Available ciprofloxac in 500 mg tablet TAKE 1 TABLET BY MOUTH EVERY 12 HOURS 09/06 completed Not Available Not Available Not Available acetaminoph en 500 mg tablet TAKE (2) TABLETS EVERY SIX HOURS NEEDED. active Not Available Not Available No t Available triamterene 37.5 mg-hydrochl orothiazide 25 mg capsule Take 1 capsule every day by oral route. 09/06 completed Not Available Not Available Not Available ondansetron 8 mg disintegrat ing tablet DISSOLVE ONE TABLET BY MOUTH TWICE DAILY NEEDED active Not Available Not Available No t Available pantoprazol e 20 mg tablet,sherrill yed release TAKE 1 TABLET BY MOUTH ONCE A DAY. 04/24 completed Not Available Not Available Not Available cefadroxil 500 mg capsule TAKE (1) CAPSULE BY MOUTH TWICE DAILY FOR 10 DAYS active Not Available Not Available No t Available meloxicam 7.5 mg tablet Take 1 tablet every day by oral route. 09/06 completed Not Available Not Available Not Available oxycodone-a cetaminophe n 5 mg-325 mg tablet Take 1 tablet every 6 hours by oral route. 09/06 completed Not Available Not Available Not Available propranolol 40 mg tablet TAKE 1 TABLET BY MOUTH EVERY 12 HOURS. active Not Available Not Available No t Available dicyclomine 20 mg tablet Take 1 tablet 4 times a day by oral route. 09/06 completed Not Available Not Available Not Available meclizine 25 mg tablet TAKE (1) TABLET BY MOUTH TWICE A DAY NEEDED. active Not Available Not Available No t Available cephalexin 500 mg capsule TAKE (1) CAPSULE BY MOUTH EVERY SIX HOURS. 09/06 completed Not Available Not Available Not Available pantoprazol e 40 mg tablet,sherrill yed release TAKE 1 TABLET BY MOUTH ONCE DAILY BEFORE BREAKFAST . DO NOT CRUSH, CHEW OR SPLIT. active Not Available Not Available No t Available triamcinolo ne acetonide 0.1 % topical ointment APPLY A THIN FILM ON A Q-TIP TO THE OPENING OF BOTH EAR CANALS TWICE DAILY FOR 3-5 DAYS AT A TIME NEEDED FOR ITCHING. 09/06 completed Not Available Not Available Not Available ropinirole 0.5 mg tablet TAKE 1 TABLET BY MOUTH AT BEDTIME. active Not Available Not Available No t Available Gentle Laxative (bisacodyl) 5 mg tablet,sherrill yed release TAKE ALL 4 TABLETS BY MOUTH AT 9 AM 2 DAYS BEFORE COLONOSCO PY. 09/06 completed Not Available Not Available Not Available diphenhydra mine 12.5 mg/5 mL oral elixir Take 10 mL every day by oral route at bedtime. 09/06 completed Not Available Not Available Not Available divalproex ER 500 mg tablet,exte nded release 24 hr TAKE (1) TABLET BY MOUTH TWICE A DAY. 04/24 completed Not Available Not Available Not Available lidocaine 5 % topical patch APPLY 1 PATCH BY TOPICAL ROUTE ONCE DAILY (MAY WEAR UP TO 12 HOURS.) 04/24 completed Not Available Not Available Not Available promethazin e 25 mg tablet TAKE ONE TABLET EVERY 6 HOURS NEEDED. 09/06 completed Not Available Not Available Not Available triamterene 37.5 mg-hydrochl orothiazide 25 mg tablet TAKE 1 TABLET BY MOUTH ONCE DAILY. active Not Available Not Available No t Available diclofenac sodium 75 mg tablet,sherrill yed release TAKE (1) TABLET BY MOUTH TWICE A DAY. 09/06 completed Not Available Not Available Not Available ergocalcife rol (vitamin D2) 1,250 mcg (50,000 unit) capsule TAKE 1 CAPSULE A DAY EVERY MON {Q1W2} active Not Available Not Available No t Available clobetasol 0.05 % topical ointment APPLY A THIN LAYER WITH A QTIP TO BILATERAL EAR CANALS 2 TIMES DAILY NEEDED FOR ITCHING. active Not Available Not Available No t Available calcipotrie ne 0.005 % scalp solution APPLY TO THE SCALP DAILY. 04/24 completed Not Available Not Available Not Available polyethylen e glycol 3350 17 gram/dose oral powder AT 6 PM 2 DAYS PRIOR TO COLONOSCO PY, MIX 1/2 BOTTLE WITH 32 OZ OF GATORADE & DRINK. AT 9 AM ON DAY OF COLONOSCO PY, MIX 1/2 & 32 OZ GATORADE & DRINK 09/06 completed Not Available Not Available Not Available scopolamine 1 mg over 3 days transdermal patch APPLY ONE PATCH TO SKIN EVERY 72 HOURS FOR 10 DAYS. 04/24 completed Not Available Not Available Not Available methylpredn isolone 4 mg tablets in a dose pack TAKE 6 TABS ON DAY 1, TAKE 5 TABS ON DAY 2, TAKE 4 TABS ON DAY 3, TAKE 3 TABS ON DAY 4, TAKE 2 TABS ON DAY 5, TAKE 1 ON DAY 6. TAKE WITH FOOD. active Not Available Not Available No t Available Colestid 1 gram tablet Take 2 tablets twice a day by oral route. 09/06 completed Not Available Not Available Not Available clobetasol 0.05 % scalp solution APPLY TO THE SCALP AT BEDTIME FOR UP TO THREE WEEKS. STOP FOR ONE WEEK, MAY REPEAT NEEDED WHEN FLARED. 04/24 completed Not Available Not Available Not Available cefdinir 300 mg capsule TAKE 1 CAPSULE BY MOUTH EVERY 12 HOURS 09/06 completed Not Available Not Available Not Available loratadine 10 mg tablet TAKE 1 TABLET BY MOUTH AT BEDTIME. active Not Available Not Available No t Available naproxen 500 mg tablet TAKE (1) TABLET BY MOUTH TWICE A DAY FOR 7 DAYS. 04/24 completed Not Available Not Available Not Available mometasone 0.1 % topical cream APPLY A THIN LAYER TO BOTH EARS ONCE NIGHTLY FOR 14 DAYS THEN NEEDED FOR FLARE UPS 09/06 completed Not Available Not Available Not Available amoxicillin 875 mg-potassiu m clavulanate 125 mg tablet TAKE 1 TABLET BY MOUTH EVERY 12 HOURS 09/06 completed Not Available Not Available Not Available Ventolin HFA 90 mcg/actuati on aerosol inhaler INHALE 2 PUFFS BY MOUTH EVERY 4 HOURS NEEDED. active Not Available Not Available No t Available escitalopra m 10 mg tablet TAKE 1 TABLET BY MOUTH ONCE A DAY. active Not Available Not Available No t Available ciprofloxac in 0.3 %-dexametha sone 0.1 % ear drops,suspe nsion INSTILL 4 DROPS INTO AFFECTED EAR TWICE DAILY FOR 10 DAYS 09/06 completed Not Available Not Available Not Available rosuvastati n 5 mg tablet TAKE 1 TABLET BY MOUTH EACH NIGHT AT BEDTIME active Not Available Not Available No t Available escitalopra m 5 mg tablet TAKE 1 TABLET BY MOUTH ONCE DAILY. active Not Available Not Available No t Available duloxetine 60 mg capsule,del ayed release TAKE 1 CAPSULE BY MOUTH AT BEDTIME. active Not Available Not Available No t Available BD Ultra-Fine Mini Pen Needle 31 gauge x 3/16 USE TO INJECT 1-4 TIMES DAILY. active Not Available Not Available No t Available pregabalin 25 mg capsule TAKE 1 CAPSULE BY MOUTH THREE TIMES DAILY. active Not Available Not Available No t Available aspirin 09/06 completed Not Available Not Available Not Available fluticasone propionate 09/06 completed Not Available Not Available Not Available Vitamin D3 09/06 completed Not Available Not Available Not Available Novolog FlexPen U-100 Insulin 04/24 completed Not Available Not Available Not Available BD Ultra-Fine Short Pen Needle 31 gauge x 5/16 USE DIRECTED WITH INSULIN PEN. active Not Available Not Available No t [...] LEAVE HOME ON DAY OF COLONOSCO PY. 09/06 completed Not Available Not Available Not Available Lantus Solostar U-100 Insulin 100 unit/mL (3 mL) subcutaneou s pen INJECT 37 UNITS UNDER SKIN AT DINNER active Not Available Not Available No t Available Humalog KwikPen (U-100) Insulin 100 unit/mL subcutaneou s INJECT 7 UNITS UNDER SKIN AT BREAKFAST AND LUNCH, AND 9 UNITS AT SUPPER. active Not Available Not Available No t Available Amitiza 8 mcg capsule TAKE (1) CAPSULE BY MOUTH TWICE DAILY WITH MEALS 09/06 completed Not Available Not Available Not Available Vitamin D2 active Not Available Not Av ailable Not Available Linzess 145 mcg capsule TAKE (1) CAPSULE BY MOUTH ONCE A DAY. active Not Available Not Available No t Available Jardiance 25 mg tablet TAKE 1 TABLET BY MOUTH ONCE DAILY. active Not Available Not Available No t Available Trulicity 0.75 mg/0.5 mL subcutaneou s pen injector INJECT 0.75 MG UNDER THE SKIN ONCE WEEKLY. active Not Available Not Available No t Available Arnuity Ellipta 100 mcg/actuati on powder for inhalation Inhale 1 puff every day by inhalatio n route. 09/06 completed Not Available Not Available Not Available albuterol sulf 90 mcg/actuati on breath activated powder inhaler,sen sor Inhale 2 puffs every 4 hours by inhalatio n route. 09/06 completed Not Available Not Available Not Available Trelegy Ellipta 200 mcg-62.5 mcg-25 mcg powder for inhalation INHALE 1 PUFF ONCE DAILY active Not Available Not Available No t Available Dexcom G7 Sensor device USE DIRECTED. CHANGE EVERY 10 DAYS active Not Available Not Available No t Available Ozempic 0.25 mg or 0.5 mg (2 mg/3 mL) subcutaneou s pen injector INJECT 0.5 MG UNDER SKIN ONCE WEEKLY 09/06 completed Not Available Not Available Not Available FreeStyle Kath 3 Cordell USE DIRECTED. active Not Available Not Available No t Available Vitals Date Recorded Body height Body mass index (BMI) Body weight Oxygen saturation Oxygen saturation in Arterial blood by Pulse oximetry Heart rate Respiratory rate Body temperature Systolic And Diastolic Provider Name and Address Organization Details Last Updated DateTime 5 152.4 cm 55.5 kg/m2 752275. 23 g 73 % 73 % 73 /min 20 /min 97.9 [degF] 140/88 mm[Hg] tino horvath [facility] 5 10:40:31 Date Recorded Body height Body mass index (BMI) Body weight Oxygen saturation Oxygen saturation in Arterial blood by Pulse oximetry Heart rate Body temperature Systolic And Diastolic Provider Name and Address Organization Details Last Updated DateTime 5 152.4 cm 52.8 kg/m2 800830. 66 g 94 % 94 % 102 /min 97.7 [degF] 134/86 mm[Hg] lainey quinonez [facility] 5 13:23:13 Date Recorded Body weight Oxygen saturation Oxygen saturation in Arterial blood by Pulse oximetry Heart rate Respiratory rate Body temperature Body mass index (BMI) Body height Systolic And Diastolic Provider Name and Address Organization Details Last Updated DateTime 4 611076. 79 g 94 % 94 % 77 /min 22 /min 98 [degF] 51.4 kg/m2 152.4 cm 134/88 mm[Hg] tino horvath [facility] 4 11:22:04 Date Recorded Body height Body mass index (BMI) Body weight Oxygen saturation Oxygen saturation in Arterial blood by Pulse oximetry Heart rate Respiratory rate Body temperature Systolic And Diastolic Provider Name and Address Organization Details Last Updated DateTime 4 152.4 cm 51.8 kg/m2 699328. 98 g 90 % 90 % 58 /min 20 /min 96.9 [degF] 138/88 mm[Hg] tino horvath [facility] 4 11:07:21 Date Recorded Body height Body mass index (BMI) Body weight Oxygen saturation Oxygen saturation in Arterial blood by Pulse oximetry Heart rate Respiratory rate Body temperature Systolic And Diastolic Provider Name and Address Organization Details Last Updated DateTime 4 152.4 cm 51.8 kg/m2 459078. 98 g 92 % 92 % 91 /min 18 /min 98.2 [degF] 132/72 mm[Hg] naomi tian MA - [facility] 14:20:59 Social History Question Answer Notes LastModified by Organizat ion Details LastModified Time Tobacco Smoking Status Current Every Day Smoker [facility] 09/07/2023 11:26:15 Do You Have An Advance Directive? No [email or web address] Information not available 09/07/2023 Is Your Home Air Conditioned? Yes Information not available 09/07/2023 Where Do You Live? [place] [email or web address] Information not available 09/07/2023 Do You Have A Medical Power Of Well Point Pumping Supervisor? No [email or web address] Information not available 09/07/2023 What Was The Date Of Your Most Recent Tobacco Screening? 08/08/2024 [email or web address] Information not available 08/08/2024 What Is Your Current Pack Years? 30ormorepacky ears [email or web address] Information not available 09/07/2023 Do You Have Any Pets? Yes 1 Dog [email or web address] Information not available 09/07/2023 What Is Your Relationship Status? [email or web address] Information not available 09/07/2023 At What Age Did You Start Smoking Tobacco? 17 [email or web address] Information not available 09/07/2023 Are There Any Smokers In Your House? Yes [email or web address] Information not available 09/07/2023 How Much Tobacco Do You Smoke? 0.5 PPD [email or web address] Information not available 08/08/2024 Has Tobacco Cessation Counseling Been Provided? Yes [email or web address] Information not available 09/07/2023 On What Date Was Tobacco Cessation Counseling Provided? 08/08/2024 [email or web address] Information not available 08/08/2024 How Many Years Have You Smoked Tobacco? 40 [email or web address] Information not available 09/07/2023 Have You Recently Traveled Abroad? No Information not available 09/07/2023 Are You Currently In School? No [email or web address] Information not available 09/07/2023 Sex: Unknown Functional Status Question Answer Note LastModified by Organizat ion Details LastModified Time Do you or have you ever used any other forms of tobacco or nicotine? Yes [email or web address] Information not available 09/07/2023 Do you or have you ever used smokeless tobacco? Never used smokeless tobacco [email or web address] Information not available 09/07/2023 Are you currently employed? No Disabled Information not available 09/07/2023 Do you or have you ever used e-cigarettes or vape? Former user of electronic cigarettes [email or web address] Information not available 08/08/2024 Mental Status None recorded. Family History Relationship Description Onset Age of this Age Resolved Age Notes LastModified by Organization Details LastModified Time Paternal Grandfather Neoplasm of pancreas Not available 09/06 11:47:35 Paternal Grandfather Heart disease [email or web address] Not available 09/06 12:25:52 Mother Asthma Not available 09/07/2023 12:06:05 Mother Heart disease [email or web address] Not available 09/06 12:25:52 Maternal Grandmother Malignant neoplastic disease [email or web address] Not available 09/06 12:25:18 Father Heart disease [email or web address] Not available 09/06 12:25:52 Maternal Grandfather Heart disease [email or web address] Not available 09/06 12:25:52 Paternal Grandmother Heart disease [email or web address] Not available 09/06 12:25:52 Medical History Condition Response Acid Reflux (GERD) Y High Cholesterol Y Diabetes Y Diverticulitis Y Sleep Apnea Y Hypertension Y Gynecological HistoryNo gynecological history recorded. Obstetrics History GPAL:G 0 P 0 0 0 0 Past Encounters Encounter ID Performer Location Encounter Start Date Encounter Closed Date Diagnosis/Indication Diagnosis SNOMED-CT Code Diagnosis ICD10 Code Diagnosis Note [id number] Paris Gooden NP [facility] [address] [place] [address] [address] [place] [phone] 09/07/2023 10:44:40 09/08/2023 11:24:03 Body mass index 30+ - obesity 315182427 Z68.43 Heavy tobacco smoker 418 5817824 24103 Z72.0 Obstructiv e sleep apnea syndrome 09760717 G47.33 [id number] Monroe Stewart DO [facility] [address] [place] [address] [address] [place] [address] 10/11/2023 10:54:49 10/11/2023 12:48:08 Body mass index 30+ - obesity 863217721 Z68.43 Heavy tobacco smoker 874 5332871 94161 Z72.0 Obstructiv e sleep apnea syndrome 12002225 G47.33 Asthma 909652268 J45.90 9 Dyspnea 737921961 R06.00 Hypoxia 328873629 R09.02 [id number] Monroe Stewart [facility] [address] [place] [address] [address] [place] [address] 11/30/2023 14:04:40 11/30/2023 14:47:43 Obstructive sleep apnea syndrome 74026555 G47.33 Asthma 395477941 J45.90 9 Body mass index 30+ - obesity 055030382 Z68.43 Heavy tobacco smoker 096 6115887 71586 Z72.0 Dyspnea 759116822 R06.00 Hypoxia 642290041 R09.02 [id number] Monroe Stewart [facility] [address] [place] [address] [address] [place] [address] 04/24/2024 10:28:02 04/24/2024 11:55:10 Hypoxia 947645638 R09.02 Obstructiv e sleep apnea syndrome 52798787 G47.33 Asthma 899228525 J45.90 9 Body mass index 30+ - obesity 979063710 Z68.43 Heavy tobacco smoker 003 9602358 98131 Z72.0 Dyspnea 458837958 R06.00 [id number] Monroe Stewart [facility] [address] [place] [address] [address] [place] [address] 08/08/2024 13:04:39 08/08/2024 15:07:03 Hypoxia 649896967 R09.02 Dyspnea 063784822 R06.00 Asthma 416432327 J45.90 9 Heavy tobacco smoker 424 2700111 63829 Z72.0 Body mass index 30+ - obesity 097412419 Z68.43 Obstructiv e sleep apnea syndrome 70230998 G47.33 Moderate c igarette smoker 421158448 F17.210 Health Concerns Section Related Observation LastModified by Organization Detai ls LastModified Time None Recorded Concern Status LastModified by Organization Details LastModified Time None Recorded Advance Directives Directive N: Payers Insurance Date Sequence Insurance Name Policy Number Policy Gates Covered Member ID Gates Member ID Guarantor Name 10/07/2024 1 [place] [employer] [place] FFS/TRADITIO NAL Kami Khan [id number] Kami Khan OBGyn Episode No OBEpisode recorded.
[2024-10-15 15:34] VITALS: BP 104/76; PULSE 73; RESP 16; TEMP 36.9; O2SAT 92; BMI 52.1
--- OUTSIDE RECORDS SUMMARY | 2024-10-15 15:34 | XMS_ITS | Encounter Summary ---
Author Organization Healthcare Address [address] [place] [address] Care Team Providers Care Special Education Teacher Name Role Phone Deya Reed APRN Primary Care Provider + Encounter Details Date Type Department Care Team (Late st Contact Info) Description 09/07[facility]2024 [facility] [address] [place] [address] Iram Mckay PA [address] [address] Social History Tobacco Use Types [...] Miscellaneous Notes * Telephone Encounter - Alaina Carr, PharmD - 09/07/2024 3:22 PM EDT Resent prescription(s) to requested pharmacy due to: Patient requested to switch pharmacies. Confirmed script(s) is cancelled at original pharmacy. documented in this encounter Plan of Treatment Upcoming Encounters Date Type Department Care Team (Late st Contact Info) Description 10/26/2024 10:10 AM EDT Office Visit [facility] [address] [place] [phone] Kathia Torres PA [address] [phone] 10/30/2024 11:40 AM EDT Office Visit [facility] Medicine Specialties [address] [place] [address] Reji Vera MD [address] [facility] [address] [place] [address] 10/30/2024 1:15 PM EDT Office Visit [facility] Medicine Specialties [address] [place] [address] Lauren Montalvo APRN, VINNY [address] [facility] [address] [place] [phone] 12/14/2024 10:45 AM EDT Appointment [facility] [address] [place] [address] 12/17/2024 12:20 PM EDT Office Visit [facility] Endocrinology [address] [place] [phone] Iram Mckay PA [address] [facility] [address] [place] [phone] documented as of this encounter Visit Diagnoses Diagnosis Type 2 diabetes mellitus with hyperglycemia, without long-term current use of insulin ([facility]) documented in this encounter Additional Health Concerns Assessment Noted Time PHQ-9 Depression Total Score: 0 05/15/19 8:16 AM EST A fall risk assessment has been complete d for the patient 05/15/2024 8:16 AM EST A Body Mass Index follow-up plan has been documented for the patient 06/07/2024 3:12 PM EDT documented as of this encounter Care Teams Special Education Teacher Relationship Specialty Start Date End Date Deya Reed APRN [address] [place] [address] PCP - General 06/15/22 documented as of this encounter
--- OUTSIDE RECORDS SUMMARY | 2024-10-15 15:34 | XMS_ITS | Encounter Summary ---
Author Organization Healthcare Address [address] [place] [address] Care Team Providers Care Shrub Grower Name Role Phone Deya Reed APRN Primary Care Provider + Reason for Visit * Reason Onset Date Comments Med Refill 09/07/2024 Encounter Details Date Type Department Care Team (Late st Contact Info) Description 09/07/2024 Refill [facility] Endocrinology [address] [place] [address] Iram Mckay PA [address] [facility] [address] [place] [address] Social History Tobacco Use Types [...] Telephone Encounter - Alaina Carr PharmD - 09/07/2024 3:22 PM EDT Refill request does not meet protocol. Sending to clinic for review. Additional info: Medication not on protocol. documented in this encounter Plan of Treatment Upcoming Encounters Date Type Department Care Team (Late st Contact Info) Description 10/26/2024 10:10 AM EDT Office Visit N[facility] [address] [place] [phone] Kathia Torres PA [address] [place] [phone] 10/30/2024 11:40 AM EDT Office Visit [facility] Medicine Specialties [address] [place] [address] Reji Vera MD [address] [facility] [address] [place] [address] 10/30/2024 1:15 PM EDT Office Visit [facility] Medicine Specialties [address] [place] [phone] Lauren Montalvo APRN, VINNY [address] [facility] [address] [place] [phone] 12/14/2024 10:45 AM EDT Appointment [facility] [address] [place] [address] 12/17/2024 12:20 PM EDT [facility] [address] [place] [phone] Iram Mckay PA [address] [place] [phone] documented as of this encounter Visit Diagnoses Not on filedocumented in this encounter Additional Health Concerns Assessment Noted Time PHQ-9 Depression Total Score: 0 02/25/20 25 8:16 AM EST A fall risk assessment has been complete d for the patient 05/15/2024 8:16 AM EST A Body Mass Index follow-up plan has been documented for the patient 06/07/2024 3:12 PM EDT documented as of this encounter Care Teams Shrub Grower Relationship Specialty Start Date End Date Deya Reed APRN [address] [place] [address] PCP - General 06/15/22 documented as of this encounter
--- OUTSIDE RECORDS SUMMARY | 2024-10-15 15:34 | XMS_ITS | Encounter Summary ---
Author Organization Healthcare Address [address] [place] [address] Care Team Providers Care Stained Glass Glazier Helper Name Role Phone Deya Reed APRN Primary Care Provider + Encounter Details Date Type Department Care Team (Latest Contact Info) Description 09/12/2024 Travel Social History Tobacco Use Types Packs/Day [...] EDT Office Visit [facility] [address] [place] [phone] Kathia Torres PA [address] [phone] 10/30/2024 11:40 AM EDT Office Visit [facility] [address] [place] [phone] Reji Vera MD [address] [facility] [address] [place] [phone] 10/30/2024 1:15 PM EDT Office Visit [facility] [address] [place] [address] Lauren Montalvo APRN, DNP [address] [place] [address] 12/14/2024 10:45 AM EDT Appointment [facility] [address] [place] [address] 12/17/2024 12:20 PM EDT Office Visit [facility] Endocrinology [address] [place] [phone] Iram Mckay PA [address] [facility] [address] [place] [phone] documented as of this encounter Visit Diagnoses [...] documented as of this encounter Care Teams Stained Glass Glazier Helper Relationship Specialty Start Date End Date Deya Reed APRN [address] [place] [address] PCP - General 06/15/22 documented as of this encounter
--- OUTSIDE RECORDS SUMMARY | 2024-10-15 15:34 | XMS_ITS | Encounter Summary ---
Author Organization Healthcare Address [address] [place] [address] Care Team Providers Care Property Underwriter Name Role Phone Deya Reed APRN Primary Care Provider + Encounter Details Date Type Department Care Team (Latest Contact Info) Description 09/27/2024 Travel Social History Tobacco Use Types Packs/Day [...] EDT Office Visit [facility] [address] [place] [address] Kathia Torres PA [address] [address] 10/30/2024 11:40 AM EDT Office Visit [facility] [address], [address] [place] [address] Reji Vera MD [address] [place] [address] 10/30/2024 1:15 PM EDT Office Visit [facility] [address], [address] [place] [address] Lauren Montalvo APRN, DNP [address] [place] [address] 12/14/2024 10:45 AM EDT Appointment [facility] [address] [place] [address] 12/17/2024 12:20 PM EDT Office Visit [facility] Endocrinology [address] [place] [address] Iram Mckay PA 2195 [facility] [address] [place] [address] documented as of this encounter Visit Diagnoses [...] documented as of this encounter Care Teams Property Underwriter Relationship Specialty Start Date End Date Deya Reed APRN [address] [place] [address] PCP - General 06/15/22 documented as of this encounter
--- OUTSIDE RECORDS SUMMARY | 2024-10-15 15:34 | XMS_ITS | Encounter Summary ---
Author Organization Healthcare Address [address] [place] [address] Care Team Providers Care Histopath Tech Name Role Phone Deya Reed KERLINE Primary Care Provider + Reason for Visit * Reason Onset Date Comments HCN Clinical Concern/Question 09/13/2024 Encounter Details Date Type Department Care Team (Late st Contact Info) Description 09/13/2024 Telephone [facility] [address] [place] [address] Shaniqua Tinajero MD 2195 [facility] 2nd [place] [address] HCN Clinical Concern/Question Social History Tobacco Use Types Packs/Day Years [...] encounter Miscellaneous Notes * Telephone Encounter - Alessia Steele RN - 09/13/2024 11:12 AM EDT Photos were discussed with Dr. O'Shaughenssy, we will continue with the antibiotics and have her start doing once daily wet to dry dressings. I have offered her a nurse visit for this, but she does not want to come in at this time. I have advised her to hand picker gauze, and saline from her local pharmacy. Advised to place moist gauze in the wound and only in the wound, place a dry gauze over this and wrap with bandage. We have requested she send some photos on Tuesday to review. She will call backwith any other questions or concerns. * Telephone Encounter - Alessia Steele RN - 09/13/2024 9:14 AM EDT Called patient back, she will send us some photos and we will get back to her. * Telephone Encounter - Nicky Hancock - 09/13/2024 8:42 AM EDT Clinical Concern/Question Reason for Call: patient is requesting a call back regarding her surgery site. She states the skin around it is not allowing the steri strips to stay in place Best contact number: [phone] (mobile) Optimal time of day to reach caller: ANYTIME Additional comments/information from caller: None Note: Please do not reply to this message. Follow-up communication and further actions as a result of this message need to be communicated with the patient directly, if the patient is not active onMyChart. If the patient is active on MyChart, they will receive notification of the communication/outcome via MyCEcrebot. documented in this encounter Plan of Treatment Upcoming Encounters Date Type Department Care Team (Late st Contact Info) Description 10/26/2024 10:10 AM EDT Office Visit [facility] [address] [place] [address] Kathia Torres PA [address] [address] 10/30/2024 11:40 AM EDT Office Visit [facility] Medicine Specialties [address] [place] [address] Reji Vera MD [address] [place] [address] 10/30/2024 1:15 PM EDT Office Visit [facility] [address], [address] [place] [address] Lauren Montalvo APRN, VINNY [address] [place] [address] 12/14/2024 10:45 AM EDT Appointment [facility] [address] [place] [address] 12/17/2024 12:20 PM EDT Office Visit [facility] Endocrinology [address] [place] [address] Iram Mckay PA 2195 [facility] [address] [place] [address] documented as of this encounter Visit Diagnoses [...] documented as of this encounter Care Teams Histopath Tech Relationship Specialty Start Date End Date Deya Reed APRN [address] [place] [address] PCP - General 06/15/22 documented as of this encounter
--- OUTSIDE RECORDS SUMMARY | 2024-10-15 15:34 | XMS_ITS | Encounter Summary ---
Author Organization Healthcare Address [address] [place] [address] Care Team Providers Care Social Insurance Analyst Name Role Phone Deya Reed KERLINE Primary Care Provider + Reason for Visit * Reason Onset Date Comments HCN - Patient Message 09/05/2024 Encounter Details Date Type Department Care Team (Late st Contact Info) Description 09/05/2024 Telephone [facility] [address] [place] [address] Shaniqua Tinajero MD [address] [address] HCN - Patient Message Social [...] Telephone Encounter - Nikki Person RN - 09/05/2024 3:58 PM EDT Called and spoke with pt, let her know that everything looks normal. Instructed her to elevate and ice, lower salt intake, take ibuprofen if possible (she said she can't), and to let us know if things get worse. * Telephone Encounter - Nikki Person RN - 09/05/2024 3:52 PM EDT Images from the original note were not included. * Telephone Encounter - Nikki Person RN - 09/05/2024 2:35 PM EDT Called and spoke to pt. She is going to email in pictures. * Telephone Encounter - Yana Winkler - 09/05/2024 1:55 PM EDT Clinical Concern/Question Reason for Call: Pt is requesting call back left hand pain and swelling please call to advise Best contact number: [phone] (mobile) Optimal time of day to reach caller: ANYTIME Additional comments/information from caller: None Note: Please do not reply to this message. Follow-up communication and further actions as a result of this message need to be communicated with the patient directly, if the patient is not active onMyChart. If the patient is active on MyChart, they will receive notification of the communication/outcome via SimpleOrdert. documented in this encounter Plan of Treatment Upcoming Encounters Date Type Department Care Team (Late st Contact Info) Description 10/26/2024 10:10 AM EDT Office Visit [facility] [address] [place] [address] Kathia Torres PA [address] [address] 10/30/2024 11:40 AM EDT Office Visit [facility] Medicine Specialties [address], [address] [place] [address] Reji Vera MD [address] [facility] [address] [place] [address] 10/30/2024 1:15 PM EDT Office Visit [facility] Medicine Specialties [address], [address] [place] [address] Lauren Montalvo APRN, VINNY [address] [facility] [address] [place] [address] 12/14/2024 10:45 AM EDT Appointment [facility] [address] [place] [address] 12/17/2024 12:20 PM EDT Office Visit [facility] Endocrinology [address] [place] [address] Iram Mckay, PA 2195 [facility] 125 [place] [address] documented as of this encounter [...] documented as of this encounter Care Teams Social Insurance Analyst Relationship Specialty Start Date End Date Deya Reed APRN [address] [place] [address] PCP - General 06/15/22 documented as of this encounter
[2024-10-15 15:35] VITALS: BP 104/76; PULSE 70; O2SAT 91
--- NOTE | 2024-10-15 15:35 | CT_ITS ---
PROCEDURE INFORMATION: Exam: CT Head Without Contrast Exam date and time: 10/15/2024 5:04 PM Age: 58 years old Clinical indication: Dizziness; Additional info: 5 months of persistent dizziness TECHNIQUE: Imaging protocol: Computed tomography of the head without contrast. Radiation optimization: All CT scans at this facility use at least one of these dose optimization techniques: automated exposure control; mA and/or kV adjustment per patient size (includes targeted exams where dose is matched to clinical indication); or iterative reconstruction. COMPARISON: CT HEAD/BRAIN WO CON 10/15/2024 5:04 PM FINDINGS: Brain: Normal. No hemorrhage. Unremarkable white matter. No mass effect. Cerebral ventricles: No ventriculomegaly. Paranasal sinuses: Visualized sinuses are unremarkable. No fluid levels. Mastoid air cells: Visualized mastoid air cells are well aerated. Bones: Unremarkable. No acute fracture. Soft tissues: Unremarkable. IMPRESSION: No acute intracranial abnormality.
--- NOTE | 2024-10-15 15:35 | CT_ITS ---
PROCEDURE INFORMATION: Exam: CTA Head With Contrast, Arteriography Exam date and time: 10/15/2024 5:06 PM Age: 58 years old Clinical indication: Dizziness and giddiness; Additional info: 5 months of persistent dizziness TECHNIQUE: Imaging protocol: Computed tomographic angiography of the head with contrast. Exam focused on the arteries. 3D rendering (Not supervised by radiologist): MIP and/or 3D reconstructed images were created by the technologist. Radiation optimization: All CT scans at this facility use at least one of these dose optimization techniques: automated exposure control; mA and/or kV adjustment per patient size (includes targeted exams where dose is matched to clinical indication); or iterative reconstruction. Contrast material: ISOUVE 370; Contrast volume: 80 ml; Contrast route: INTRAVENOUS (IV); COMPARISON: CT HEAD/BRAIN WO CON 10/15/2024 5:04 PM FINDINGS: ANTERIOR CIRCULATION: Right internal carotid artery: Intracranial segment is patent with no significant stenosis. No aneurysm. Right middle cerebral artery: No occlusion or significant stenosis. No aneurysm. Right anterior cerebral artery: No occlusion or significant stenosis. No aneurysm. Left internal carotid artery: Intracranial segment is patent with no significant stenosis. No aneurysm. Left middle cerebral artery: No occlusion or significant stenosis. No aneurysm. Left anterior cerebral artery: No occlusion or significant stenosis. No aneurysm. POSTERIOR CIRCULATION: Right vertebral artery: No occlusion or significant stenosis. No aneurysm. Left vertebral artery: No occlusion or significant stenosis. No aneurysm. Basilar artery: No occlusion or significant stenosis. No aneurysm. Right posterior cerebral artery: No occlusion or significant stenosis. No aneurysm. Left posterior cerebral artery: No occlusion or significant stenosis. No aneurysm. Brain: No definite mass, mass effect, or midline shift. Cerebral ventricles: No ventriculomegaly. Bones/joints: Unremarkable. No acute fracture. Soft tissues: Unremarkable. IMPRESSION: No large vessel stenosis or occlusion. PROCEDURE INFORMATION: Exam: CTA Neck With Contrast Exam date and time: 10/15/2024 5:06 PM Age: 58 years old Clinical indication: Dizziness and giddiness; Additional info: 5 months of persistent dizziness TECHNIQUE: Imaging protocol: Computed tomographic angiography of the neck with contrast. Exam focused on the cervical segments of the vasculature. 3D rendering (Not supervised by radiologist): MIP and/or 3D reconstructed images were created by the technologist. Radiation optimization: All CT scans at this facility use at least one of these dose optimization techniques: automated exposure control; mA and/or kV adjustment per patient size (includes targeted exams where dose is matched to clinical indication); or iterative reconstruction. Contrast material: ISOVUE 370; Contrast volume: 80 ml; Contrast route: INTRAVENOUS (IV); COMPARISON: CT HEAD/BRAIN WO CON 10/15/2024 5:04 PM FINDINGS: Right common carotid artery: No stenosis. No dissection or occlusion. Right internal carotid artery: Mild focal stenosis of the proximal cervical segment. No dissection or occlusion. Right external carotid artery: No occlusion or stenosis of the origin. Left common carotid artery: No stenosis. No dissection or occlusion. Left internal carotid artery: Mild focal stenosis of the proximal cervical segment. No dissection or occlusion. Left external carotid artery: No occlusion or stenosis of the origin. Right vertebral artery: No stenosis. No dissection or occlusion. Left vertebral artery: No stenosis. No dissection or occlusion. Soft tissues: Normal. No significant soft tissue swelling. Bones/joints: No acute fracture. No dissection. Degenerative changes. IMPRESSION: Mild focal stenosis of the bilateral internal carotid artery proximal cervical segments. REFERENCES: NASCET CRITERIA. The degree of stenosis in the cervical segment of the internal carotid artery is based on NASCET criteria. Normal is no stenosis. Mild is less than 50% stenosis. Moderate is 50-69% stenosis. Severe is 70% to 99% stenosis. Total occlusion is no detectable patent lumen.
[2024-10-15] MEDS: ACETAMINOPHEN 500MG TAB 1000 MG PO (16:13)
[2024-10-15] MEDS: 0.9 % SODIUM CHLORIDE 1000ML 1,000 ML 999 ML IV (16:13)
[2024-10-15] MEDS: diazePAM 10MG/2ML SYRINGE 2.5 MG IV (16:18)
[2024-10-15 16:20] LABS: Hematocrit 51.5 % (37.0-47.0); Hemoglobin 17.1 g/dL (12.2-16.2); Immature Granulocytes % 0.8 %; Mean Corpuscular HGB Conc 33.2 g/dL (31.8-35.4); Mean Corpuscular Hemoglobin 29.7 pg (27.0-31.2); Mean Corpuscular Volume 89.6 fl (81-99); Nucleated Red Blood Cells % 0 %; Platelet Count 164 K/mm3 (142-424); Red Blood Count 5.75 M/mm3 (4.20-5.40); Red Cell Distribution Width-SD 49.7 fL; White Blood Count 10.8 K/mm3 (4.8-10.8)
[2024-10-15 16:29] LABS: Microscopic, Urine URINE MICROSCOPIC (MICROSCOPIC)
[2024-10-15 16:31] LABS: Albumin Level 4.5 g/dl (3.5-5.0); Albumin/Globulin Ratio 1.4 (1.1-1.8); Blood Urea Nitrogen 15 mg/dl (7-17); Carbon Dioxide 30 mmol/L (22.0-30.0); Creatinine Clearance Estimated 45 mL/min (50-200); Creatinine,Serum 1.00 mg/dl (0.52-1.04); Estimated Glomerular Filt Rate 57 ml/min (>60); GFR (African American) 69 ML/MIN (>60); Globulin 3.2 g/dL (1.3-3.2); Magnesium 2.2 mg/dl (1.6-2.3); Potassium 3.8 mmoL/L (3.5-5.1); Sodium 133 mmol/L (136-145); Total Protein,Serum 7.7 g/dl (6.3-8.2)
[2024-10-15 16:35] LABS: Alanine Aminotransferase 45 U/L (12-78); Alkaline Phosphatase 86 U/L (38-126); Anion Gap 10.8 mEq/L (5-15); Aspartate Amino Transferase 57 U/L (14-36); Bilirubin,Total 1.0 mg/dl (0.2-1.3); Calcium 9.8 mg/dl (8.4-10.2); Chloride 96 mmol/L (98-107); Glucose 131 mg/dl (74-100)
[2024-10-15 16:37] LABS: C-Reactive Protein 162.9 mg/L (0-4)
[2024-10-15 16:44] LABS: NT Pro Brain Natriuretic Pep. 138 pg/mL (0-125)
[2024-10-15 16:52] LABS: Procalcitonin 0.144 ng/mL (0.0-2.0)
[2024-10-15 16:56] LABS: Bilirubin,Urine Negative (Negative); Color,Urine YELLOW (Yellow); Glucose,Urine (UA) 3+ (Negative); Ketones,Urine TRACE (Negative); Leukocyte Esterase,Urine Negative (Negative); PH,Urine 6.0 (5.0-8.5); Protein,Urine Negative (Negative); Specific Gravity, Urine <= 1.005 (1.005-1.030); Urobilinogen,Urine 0.2 EU/dl (0.2)
[2024-10-15] MEDS: SODIUM CHLORIDE 0.9% 10ML SYR (RAD ONLY) 10 ML IV (17:03)
[2024-10-15] MEDS: IOPAMIDOL-370 (76%);100ML BOTTLE 80 ML IV (17:03)
[2024-10-15] MEDS: 0.9 % SODIUM CHLORIDE 50 ML VIAL IV (17:03)
[2024-10-15 17:27] LABS: RBC,Urine Occasional #/hpf (0-3); WBC,Urine Occasional #/hpf (0-3)
[2024-10-15 17:28] LABS: Bacteria,Urine Trace /lpf
[2024-10-15 17:30] VITALS: PULSE 67; O2SAT 88
[2024-10-15 18:00] VITALS: PULSE 67; O2SAT 92
[2024-10-15 18:54] LABS: INR 1.04 (0.9-1.1); Prothrombin Time 11.5 seconds (10.1-12.5)
[2024-10-15 19:04] VITALS: BP 104/76; PULSE 70; RESP 20; TEMP 36.9; O2SAT 92
== END 2024-10-15 19:14 | disposition home or self-care (01) ==
PROVIDERS: Physician Assistant; Emergency Provider Emergency Medicine; PCP Nurse Practitioner Family
DX: R42 Dizziness and giddiness (principal); F17.200 Nicotine dependence, unspecified, uncomplicated
CPT/HCPCS: 70450; 70496; 70498; 80053; 81001; 83735; 83880; 84145; 85025; 85610; 85651; 86140; 96361; 96374; 99285; J3360; J7030; Q9967

== ENCOUNTER 2024-10-29 13:41 | Outpatient (CLI) | payer MEDICAID, SELFPAY ==
--- NOTE | 2024-10-29 13:48 | MR_ITS ---
FINAL REPORT TECHNIQUE: Multiplanar and multisequence imaging of the brain was obtained without contrast. CLINICAL HISTORY: DAILY HEADACHES, DIZZY FINDINGS: Brain parenchymal: There is no mass effect or midline shift. There are mild bilateral periventricular white matter changes. Subcortical and cortical T2 abnormality is seen in the anterior left parietal lobe where there is focal encephalomalacia likely related to old infarct. Abnormal signal intensity is seen in the central anali. Posterior fossa is otherwise without acute abnormality.. Ventricles: The ventricles are symmetric in size and configuration without hydrocephalus. Extra-axial spaces: No extra-axial fluid collections. Diffusion imaging: No areas of restricted diffusion to suggest acute infarct. Flow voids: Flow voids within the major intracranial vessels are preserved. Soft tissues: Soft tissues are without acute abnormality. IMPRESSION: No acute intracranial abnormality. 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 Abnormal signal intensity in the central anali which is nonspecific, somewhat greater than expected with small vessel ischemic change. Consider follow-up with contrast if indicated. Reviewed, Interpreted and Dictated by Selena Vázquez MD Transcribed by Jennie Weinstein Authenticated and [facility]
== END 2024-10-29 23:59 | disposition home or self-care (01) ==
LOC: RAD 13:42
PROVIDERS: PCP Nurse Practitioner Family; Visit Provider Nurse Practitioner Family
DX: G44.52 New daily persistent headache (NDPH) (principal); I67.82 Cerebral ischemia
CPT/HCPCS: 70551

== ENCOUNTER 2024-11-07 14:09 | Outpatient (CLI) | payer MEDICAID, SELFPAY ==
--- OUTSIDE RECORDS SUMMARY | 2024-09-12 11:10 | XMS_ITS | Encounter Summary ---
Author Organization [facility] Address [address] [place] [address] Care Team Providers Care Pulp Grinder Feeder Name Role Phone Derek Deya Fuchs KERLINE Primary Care Provider + Reason for Referral * Consultation (Routine) - Authorized Specialty Diagnoses / Procedures Referred By Christophe esteban Referred To Contact Occupational Therapy Diagnoses Carpal tunnel syndrome, bilateral Trigger finger, left middle finger Ja Hastings PA [address] [facility] [address] [place] [address] Phone: tel: fax: Provider, External Referral ID Status Reason Start Date Expiration Date Visits Requested Visits Authorized [id number] Authorized Specialty Services Required 09/12/2024 03/14/2026 1 1 Reason for Visit * Reason Comments Follow-up Follow-up Encounter Details Date Type Department Care Team (Late st Contact Info) Description 09/12/2024 11:10 AM EDT Office Visit [facility] [address] [place] [address] Ja Hastings PA [address] [facility] [address] [place] [address] Carpal tunnel syndrome, bilateral (Primary Dx); Trigger finger, left middle finger Social History Tobacco Use Types Packs/Day Years [...] Sign Reading Time Taken Comments Blood Pressure 103/53 09/12/2024 11:21 AM EDT Pulse 83 09/12/2024 11:21 AM EDT Temperature - - Respiratory Rate - - Oxygen Saturation 92% 09/12/2024 11:21 AM EDT Inhaled Oxygen Concentration - - Weight 121 kg (267 lb) 09/12/2024 11:21 AM EDT Height 152.4 cm (5') 09/12/2024 11:21 AM EDT Body Mass Index 52.14 09/12/2024 11:21 AM EDT documented in this encounter Miscellaneous Notes * Clinician Note - Theresa Mercado - 09/12/2024 11:10 AM EDTAssociated Order(s): Suture Removal Patient ID: Kami Khan is a 58 y.o. female. Encounter Diagnoses Name Primary? Carpal tunnel syndrome, bilateral Yes ??? Trigger finger, left middle finger Suture Removal Performed by: Theresa Mercado Authorized by: Ja Hastings PA Consent: Consent obtained: Verbal [place] protocol: Patient identity confirmed: Verbally with patient Location: Location: Upper extremity Upper extremity location: Wrist Wrist location: L wrist Procedure details: Wound appearance: No signs of infection Post-procedure details: Post-removal: Steri-Strips applied Procedure completion: Tolerated well, no immediate complications * Progress Notes - Ja Hastings PA - 09/12/2024 11:10 AM EDT Procedure performed: Left carpal tunnel release Left index finger trigger release Right ring finger A1 caterina corticosteroid injection Attending: Dr. Tinajero DOS: 08/27/2024 History of Present Illness: Kami Khan is a 58 y.o. female who is over 2 weeks status post the above procedures. She reports continued pain in the left hand as well and has a drainage from the carpal tunnel release incision over the past few days. She reports 3-4 days of benefit from the right ring finger corticosteroid injection but this has since worn off. PMH/FMH/SH:I have reviewed the patient's medical history, surgical history, social history, and family history. This is located in the patient's note and/or in their intake form that has been scannedinto their medical record at today's visit. Physical Exam: BMI is There is no height or weight on file to calculate BMI. General: Patient is pleasant and cooperative. The patient is well-developed and well-nourished. Patient is in no apparent distress. Vitals: as documented in the chart for today???s visit BMI is There is no height or weight on file to calculate BMI. HEENT: Head: Normocephalic; Atraumatic Eyes: PERRLA; EOMI Ears: Normal external auditory canals and tympanic membranes Lungs/thorax: Normal respiratory effort with symmetric chest rise and fall Cardiovascular: skin well-perfused. see capillary refill below Skin: Visualized skin with no acute or worrisome lesions or masses Musculoskeletal: Patient ambulating in a wheelchair today's visit LUE Fully closed incision over the index finger A1 caterina with nylon suture intact No signs of dehiscence or infection. Minimal dehiscence of the carpal tunnel release incision with nylon suture intact. Minimal expressible purulence on palpation soft compartments, no pain with passive stretch, Tenderness to palpation over the A1 caterina release incision and carpal tunnel release incision Motor: 5/5 Bic, 5/5 Tri, 5/5 WF, 5/5 WE, 5/5 FF, 5/5 FE, 5/5 Fabd, 5/5 EPL, 5/5 FPL Sensory: Median nerve dist: Normal, Ulnar Nerve dist: Normal, Radial nerve dist: normal Vascular: 2+ radial pulse, cap refill <2 sec, digits WWP ROM: Flexion and extension intact to all digits. Index finger 4 cm off distal palmar crease. Full extension of all digits Neurologic: Cranial nerves II-XII intact Psychiatric: Mental status: Patient is oriented to person, place, and time. Patient displays appropriate affect and demeanor Imaging: My independent interpretation of radiographic testing shows: No new studies today Assessment/Plan: Procedure performed: Left carpal tunnel release Left index finger trigger release Right ring finger A1 caterina corticosteroid injection Attending: Dr. Tinajero DOS: 08/27/2024 Kami Khan is a 58 y.o. female who is over 2 weeks status post the above procedures. She reportscontinued pain in the left hand as well and has a drainage from the carpal tunnel release incision over the past few days. She reports 3-4 days of benefit from the right ring finger corticosteroid injection but this has since worn off. On physical exam, the left index finger A1 caterina release incision looks well with nylon suture intact. She does have minimal dehiscence of the carpal tunnel release incision with minimal expressible purulence. We will have the sutures removed today. We will place Steri-Strips over the carpal tunnel release incision to maintain skin approximation. We will provide an order for oral antibiotics as well as an order for her to begin range of motion therapy for the left hand. We will see her back in 1-2 weeks for a iolak-ol-qnmbzy and wound check. No x-rays needed at that time The patient had the opportunity to ask questions, all of which were answered to their satisfaction. Kind Regards, Ja Hastings PA-C, [facility] Department of Orthopedic Surgery [facility] documented in this encounter Plan of Treatment Upcoming Encounters Date Type Department Care Team (Late st Contact Info) Description 12/14/2024 10:45 AM EDT Appointment [facility] [address] [place] [address] 12/17/2024 12:20 PM EDT Office Visit [facility] [address] [place] [address] Iram Mckay PA [address] [place] [address] 03/12/2025 11:40 AM EST Office Visit [facility] Medicine Specialties [address] [place] [address] Reji Vera MD [address] [place] [address] Scheduled Referrals Name Type Priority Associated Diagnoses Orde r Schedule Hand Therapy Outpatient Referral Routine Carpal tunnel syndrome, bilateral Trigger finger, left middle finger Expected: 09/12/2024 (Approximate), Expires: 03/16/2026 documented as of this encounter Procedures Procedure Name Priority Date/Time Associated Diagnosis Comments SUTURE REMOVAL Routine 09/12/2024 11:10 AM EDT Carpal tunnel syndrome, bilateral Trigger finger, left middle finger documented in this encounter Results * SUTURE REMOVAL (09/12/2024 11:10 AM EDT) Narrative Theresa Mercado - 09/12/2024 11:10 AM EDT Theresa Mercado 09/12/2024 11:42 AM Suture Removal Performed by: Theresa Mercado Authorized by: Ja Hastings PA Consent: Consent obtained: Verbal [place] protocol: Patient identity confirmed: Verbally with patient Location: Location: Upper extremity Upper extremity location: Wrist Wrist location: L wrist Procedure details: Wound appearance: No signs of infection Post-procedure details: Post-removal: Steri-Strips applied Procedure completion: Tolerated well, no immediate complications us Ja ROSE IN CLINIC/BEDSIDE ORDERABLES F inal Result documented in this encounter Visit Diagnoses Diagnosis Carpal tunnel syndrome, bilateral- Primary Carpal tunnel syndrome Trigger finger, left middle finger documented in this encounter Additional Health Concerns Assessment Noted Time PHQ-9 Depression Total Score: 0 05/15/19 8:16 AM EST A fall risk assessment has been complete d for the patient 05/15/2024 8:16 AM EST A Body Mass Index follow-up plan has been documented for the patient 09/12/2024 11:39 AM EDT documented as of this encounter Care Teams Pulp Grinder Feeder Relationship Specialty Start Date End Date Deya Reed APRN [address] [place] [address] PCP - General 06/15/22 documented as of this encounter
--- OUTSIDE RECORDS SUMMARY | 2024-09-27 11:20 | XMS_ITS | Encounter Summary ---
Author Organization [facility] Address [address] [place] [address] Care Team Providers Care Bookkeeping Machine Mechanic Name Role Phone Deya Reed KERLINE Primary Care Provider + Reason for Visit * Reason Comments Follow-up Follow-up Encounter Details Date Type Department Care Team (Late st Contact Info) Description 09/27/2024 11:20 AM EDT Office Visit [facility] [address] [place] [address] Shaniqua Tinajero MD [address] [facility] [address] [place] [address] Carpal tunnel syndrome, bilateral (Primary Dx) Social [...] incision well healed. Hasn't done pt in [place] yet - full until October but reports she will call to get in H/[facility]/SH:I have reviewed the patient's medical history, surgical [...] release incision Motor: 07/23 Bic, 07/23 Tri, 5/5 WF, 5/5 WE, 5/5 FF, [...] EDT Appointment [facility] [address] [place] [address] 12/17/2024 12:20 PM EDT Office Visit [facility] Endocrinology [address] [place] [address] Iram Mckay PA [address] [place] [address] 03/12/2025 11:40 AM EST Office Visit [facility] [address] [place] [address] Reji Vera MD [address] [place] [address] documented as of this encounter Visit Diagnoses [...] documented as of this encounter Care Teams Bookkeeping Machine Mechanic Relationship Specialty Start Date End Date Deya Reed APRN [address] [place] [address] PCP - General 06/15/22 documented as of this encounter
--- OUTSIDE RECORDS SUMMARY | 2024-11-07 14:17 | XMS_ITS | Encounter Summary ---
Author Organization [facility] Address [address] [place] [address] Care Team Providers Care Drilling Contractor Name Role Phone Maria LuisaDina lala Nena CHURCHILL Primary Care Provider [phone] Chio Coombs APRN Primary Care Provider + Deya Reed APRN Primary Care Provider + Reason for Referral * Consultation (Routine) - Closed Specialty Diagnoses / Procedures Referred By Christophe t Referred To Contact Neurosurgery Diagnoses Chronic back pain, unspecified back location, unspecified back pain laterality Chio Coombs, COMPLEX MANAGER [address] [place] [place] [address] Phone: tel: fax: Referral ID Status Reason Start Date Expiration Date V isits Requested Visits Authorized [id number] Closed Specialty Services Required 11/19/2020 05/18/2021 1 1 Encounter Details Date Type Department Care Team (Late st Contact Info) Description 11/19/2020 Community [facility] [address] [place] [address] Chio Coombs, COMPLEX MANAGER [address] [place] [address] Chronic back pain, unspecified back location, [...] EDT Appointment [facility] [address] [place] [address] 12/17/2024 12:20 PM EDT Office Visit [facility] Endocrinology [address] [place] [address] Iram Mckay PA [address] [place] [address] 03/12/2025 11:40 AM EST [facility] [address], [address]nd [place] [address] Reji Vera MD [address] [place] [address] Scheduled Referrals Name Type Priority Associated Diagnoses [...] documented as of this encounter Care Teams Drilling Contractor Relationship Specialty Start Date End Date Dina Glass APRN [address] [place] [address] PCP - General 08/01/20 06/09/21 Chio Coombs APRN [address] [place] [address] [place] [address] PCP - General Family Medicine 06/10/21 06/14/22 Deya Reed APRN [address] [place] [address] PCP - General 06/15/22 documented as of this encounter
--- OUTSIDE RECORDS SUMMARY | 2024-11-07 14:17 | XMS_ITS | Encounter Summary ---
Author Organization Healthcare Address [address] [place] [address] Care Team Providers Care Substance Abuse Technician Name Role Phone Deya Reed KERLINE Primary Care Provider + Encounter Details Date Type Department Care Team (Late st Contact Info) Description 08/24/2024 Telephone [facility] [address] [place] [address] Shaniqua Tinajero MD [address] [address] Social History Tobacco Use Types [...] Behavior (Lifetime) No 8:20 AM EDT Liliana Caleljas, RN documented as of this encounter Plan of Treatment Upcoming Encounters Date Type Department Care Team (Late st Contact Info) Description 12/14/2024 10:45 AM EDT Appointment [facility] [address] [place] [address] 12/17/2024 12:20 PM EDT Office Visit [facility] [place] Endocrin[facility] [address] [place] [address] Iram Mckay PA [address] [place] [address] 03/12/2025 11:40 AM EST [facility] Visit [facility] [address], [address] [place] [address] Reji Vera MD [address] [facility] [address] [place] [address] documented as of this encounter Visit Diagnoses [...] documented as of this encounter Care Teams Substance Abuse Technician Relationship Specialty Start Date End Date Deya Reed APRN [address] [place] [address] PCP - General 06/15/22 documented as of this encounter
--- OUTSIDE RECORDS SUMMARY | 2024-11-07 14:17 | XMS_ITS | Encounter Summary ---
Author Organization [facility] Address [address] [place] [address] Care Team Providers Care Dial Brusher Name Role Phone Deya Reed APRN Primary Care Provider + Reason for Visit * Reason Onset Date Comments Med Refill 10/24/2024 Encounter Details Date Type Department Care Team (Late Contact Info) Description [facility]20[facility] Endocrinology [address] [place] [address] Roselia Pete Social History Tobacco Use Types Packs/Day Years [...] Department Care Team (Late Contact Info) Description 12/14/2024 10:45 AM EDT Appointment [facility] [address] [place] [address] 12/17/2024 12:20 PM EDT Office Visit [facility] Endocrinology [address] [place] [address] Iram Mckay PA [address] [place] [address] 03/12/2025 11:40 AM EST [facility] [address], [address] [place] [address] Reji Vera MD [address] [place] [address] documented as of this encounter Visit Diagnoses [...] documented as of this encounter Care Teams Dial Brusher Relationship Specialty Start Date End Date Deya Reed APRN [address] [place] [address] PCP - General 06/15/22 documented as of this encounter
--- OUTSIDE RECORDS SUMMARY | 2024-11-07 14:17 | XMS_ITS | Encounter Summary ---
Author Organization Healthcare Address [address] [place] [address] Care Team Providers Care Skin Care Therapist Name Role Phone Deya Reed KERLINE Primary Care Provider + Encounter Details Date Type Department Care Team (Late st Contact Info) Description 08/28/[address] [facility] [place] [facility]ocr[facility]ology [address] [place] [address] Iram Mckay PA 2195 [facility] [address] [place] [address] Social History Tobacco Use Types [...] optimal time of day to reach caller: [phone] Note: Please do not reply to this message. Follow-up communication and further actions as a result of this message need to be communicated with the patient directly, if the patient is not active onMyChart. If the patient is active on MyChart, they will receive notification of the communication/outcome via Socialbombt. documented in this encounter Plan of Treatment Upcoming Encounters Date Type Department Care Team (Late st Contact Info) Description 12/14/2024 10:45 AM EDT Appointment [facility] [address] [place] [address] 12/17/2024 12:20 PM EDT Office Visit [facility] Endocrinology [address] [place] [address] Iram Mckay PA [address] [place] [address] 03/12/2025 11:40 AM EST [facility] [address], [address] [place] [address] Reji Vera MD [address] [place] [address] documented as of this encounter [...] documented as of this encounter Care Teams Skin Care Therapist Relationship Specialty Start Date End Date Deya Reed APRN [address] [place], [place] [id number] PCP - General 06/15/22 documented as of this encounter
--- OUTSIDE RECORDS SUMMARY | 2024-11-07 14:17 | XMS_ITS | Encounter Summary ---
Author Organization Healthcare Address [address] [place] [address] Care Team Providers Care Director Compensation Name Role Phone Maria LuisaDina castillo Nena SHREDDED FILLER CIGAR MAKER MACHINE Primary Care Provider Chio Coombs SHREDDED FILLER CIGAR MAKER MACHINE Primary Care Provider + Deya Reed SHREDDED FILLER CIGAR MAKER MACHINE Primary Care Provider + Encounter Details Date Type Department Care Team (Late st Contact Info) Description 02/20/2021 Orders Only External Location [address] [place] [address] Provider, External Social History Tobacco Use Types [...] EDT Appointment [facility] [address] [place] [address] 12/17/2024 12:20 PM EDT Office Visit [facility] [place] Endocrinology [address] [place] [address] Iram Mckay PA [address] [facility] 125 [place] [address] 03/12/2025 11:40 AM EST Office Visit [facility] [address] [place] [address] Reji Vera MD [address] [place] [address] documented as of this encounter Procedures Procedure [...] as of this encounter Care Teams Director Compensation Relationship Specialty Start Date End Date Dina Glass APRN [address] [place], [place] [id number] PCP - General 08/01/20 06/09/21 Chio Coombs APRN [address] [place] [address] [place] [address] PCP - General Family Medicine 06/10/21 06/14/22 Deya Reed APRN [address] [place] [address] PCP - General 06/15/22 documented as of this encounter
--- OUTSIDE RECORDS SUMMARY | 2024-11-07 14:17 | XMS_ITS | Encounter Summary ---
Author Organization Healthcare Address [address] [place] [address] Care Team Providers Care Set Up Mechanic Coating Machines Name Role Phone Deya Reed FOOD SALES CLERK Primary Care Provider + Encounter Details Date [...] EDT Appointment [facility] [address] [place] [address] 12/17/2024 12:20 PM EDT Office Visit [facility] [place] Endocrinology [address] [place] [address] Iram Mckay PA [address] [facility] [address] [place] [address] 03/12/2025 11:40 AM EST Office Visit [facility] [address], [address] [place] [address] Reji Vera MD [address] [place] [address] documented as of this encounter [...] documented as of this encounter Care Teams Set Up Mechanic Coating Machines Relationship Specialty Start Date End Date Deya Reed APRN [address] [place] [address] PCP - General 06/15/22 documented as of this encounter
--- OUTSIDE RECORDS SUMMARY | 2024-11-07 14:17 | XMS_ITS | Encounter Summary ---
Author Organization Healthcare Address [address] [place] [address] Care Team Providers Care Receiving Teller Name Role Phone Dina Glass Nena ROD GREASER Primary Care Provider Chio Coombs ROD GREASER Primary Care Provider + Deya Reed ROD GREASER Primary Care Provider + Encounter Details Date Type Department Care Team (Late st Contact Info) Description 03/25/2020 Orders Only External Location [address] [place] [address] Provider, External Social History Tobacco Use Types [...] EDT Appointment [facility] [address] [place] [address] 12/17/2024 12:20 PM EDT Office Visit [facility] [address] [place] [address] Iram Mckay PA [address] [facility] [address] [place] [phone] 03/12/2025 11:40 AM EST Office Visit [facility] [address], [address] [place] [address] Reji Vera MD [address] [place] [address] documented as of this encounter [...] documented as of this encounter Care Teams Receiving Teller Relationship Specialty Start Date End Date Dina Glass APRN 2 [place] [address] PCP - General 08/01/20 06/09/21 Chio Coombs APRN [address] [place] [address] [place] [address] PCP - General Family Medicine 06/10/21 06/14/22 Deya Reed APRN [address] [place] [address] PCP - General 06/15/22 documented as of this encounter
--- OUTSIDE RECORDS SUMMARY | 2024-11-07 14:17 | XMS_ITS | Encounter Summary ---
Author Organization Healthcare Address [address] [place] [address] Care Team Providers Care Nerve Specialist Name Role Phone Deya Reed KERLINE Primary Care Provider + Reason for Visit * Reason Onset Date Comments HCN - Patient Message 11/06/2024 Encounter Details Date Type Department Care Team (Late st Contact Info) Description 11/06/2024 Telephone [facility] [address] [place] [address] Reji Vera MD [address] [place] [address] HCN - Patient Message Social History Tobacco [...] encounter Miscellaneous Notes * Telephone Encounter - Jenifer Tracy - 11/06/2024 11:13 AM EDT Clinical Concern/Question Reason for Call: Patient calling to r/s her appointment to see Dr. Vera after her MRI in November. Requesting to be seen in December or January. No openings until February. Best contact number: [phone] (mobile) Optimal time of day to reach caller: ANYTIME Additional comments/information from caller: Note: Please do not reply to this message. Follow-up communication and further actions as a result of this message need to be communicated with the patient directly, if the patient is not active onMyChart. If the patient is active on MyChart, they will receive notification of the communication/outcome via [employer]. documented in this encounter Plan of Treatment Upcoming Encounters Date Type Department Care Team (Late st Contact Info) Description 12/14/2024 10:45 AM EDT Appointment [facility] Radiology [address] [place] [address] 12/17/2024 12:20 PM EDT [facility] [address] [place] [address] Iram Mckay PA 2[address] [facility] [address] [place] [address] 03/12/2025 11:40 AM EST Office [facility] [address] [place] [address] Reji Vera MD [address] [place] [address] documented as of this encounter Visit Diagnoses [...] documented as of this encounter Care Teams Nerve Specialist Relationship Specialty Start Date End Date Deya Reed APRN [address] [place] [address] PCP - General 06/15/22 documented as of this encounter
--- OUTSIDE RECORDS SUMMARY | 2024-11-07 14:17 | XMS_ITS | Encounter Summary ---
Author Organization [facility] Address [address] [place] [address] Care Team Providers Care Automotive Service Writer Name Role Phone Deya Reed KERLINE Primary Care Provider + Reason for Visit * Reason Onset Date Comments HCN - Patient Message 10/11/2024 Encounter Details Date Type Department Care Team (Late st Contact Info) Description 10/11/2024 Telephone [facility] [address] [place] [address] Shaniqua Tinajero MD [address] [address] HCN - Patient Message Social [...] Please call to advise. Best contact number: [phone] Optimal time of day to reach caller: ANYTIME Additional comments/information from caller: None Note: Please do not reply to this message. Follow-up communication and further actions as a result of this message need to be communicated with the patient directly, if the patient is not active onMyChart. If the patient is active on MyChart, they will receive notification of the communication/outcome via [employer]. documented in this encounter Plan of Treatment Upcoming Encounters Date Type Department Care Team (Late st Contact Info) Description 12/14/2024 10:45 AM EDT Appointment [facility] [address] [place] [address] 12/17/2024 12:20 PM EDT [facility] [address] [place] [address] Iram Mckay PA [address] [place] [address] 03/12/2025 11:40 AM EST Office Visit [place] [facility] [address], [address] [place] [address] Reji Vera MD [address] [place] [address] documented as of this encounter Visit Diagnoses [...] documented as of this encounter Care Teams Automotive Service Writer Relationship Specialty Start Date End Date Deya Reed APRN [address] [place] [address] PCP - General 06/15/22 documented as of this encounter
--- OUTSIDE RECORDS SUMMARY | 2024-11-07 14:17 | XMS_ITS | Encounter Summary ---
Author Organization Healthcare Address [address] [place] [address] Care Team Providers Care Health Workers Name Role Phone Maria LuisaDina castillo Nena BOAT ENGINE MECHANIC Primary Care Provider [phone] Chio Coombs BOAT ENGINE MECHANIC Primary Care Provider + Deya Reed BOAT ENGINE MECHANIC Primary Care Provider + Encounter Details Date Type Department Care Team (Late st Contact Info) Description 02/20/2021 Orders Only External Location [address] [place] [address] Provider, External Social History Tobacco Use Types [...] EDT Appointment [facility] [address] [place] [address] 12/17/2024 12:20 PM EDT Office Visit [facility] [address] [place] [address] Iram Mckay PA [address] [facility] 125 [place] [address] 03/12/2025 11:40 AM EST Office Visit [place] [facility] [address], [address] [place] [address] Reji Vera MD [address] [place] [address] documented as of this encounter [...] documented as of this encounter Care Teams Health Workers Relationship Specialty Start Date End Date Dina Glass APRN [address] [place], [place] [id number] PCP - General 08/01/20 06/09/21 Chio Coombs APRN [address] [place] [address] [place] [address] PCP - General Family Medicine 06/10/21 06/14/22 Deya Reed APRN [address] [place] [address] PCP - General 06/15/22 documented as of this encounter
--- OUTSIDE RECORDS SUMMARY | 2024-11-07 14:17 | XMS_ITS | Encounter Summary ---
Author Organization Healthcare Address [address] [place] [address] Care Team Providers Care Dumpster Operator Name Role Phone Deya Reed [employer]MC STORAGE ARCHITECT Primary Care Provider + Encounter Details Date Type Department Care Team (Late Contact Info) Description 05/27/2023 Orders Only External Location [address] [place] [address] Provider, External Social History Tobacco Use Types [...] EDT Appointment [facility] [address] [place] [address] 12/17/2024 12:20 PM EDT Office Visit [facility] [address] [place] [address] Iram Mckay PA [address] [facility] 125 [place] [address] 03/12/2025 11:40 AM EST Office Visit [place] [facility] [address], [address] [place] [address] Reji Vera MD [address] [place] [address] documented as of this encounter [...] documented as of this encounter Care Teams Dumpster Operator Relationship Specialty Start Date End Date Deya Reed APRN [address] [place] [address] PCP - General 06/15/22 documented as of this encounter
--- OUTSIDE RECORDS SUMMARY | 2024-11-07 14:17 | XMS_ITS | Clinical Summary ---
Author Organization [facility] Address [address] [place] [address] Care Team Providers Care Softlines Supervisor Name Role Phone Deya Reed KERLINE Primary [...] 1 tablet 2 times a day. 04/22/19 22 Active triamterene-hydroC HLOROthiazide (Dyazide) 37.5-25 MG capsule Take 1 capsule by mouth daily. 05/21/19 22 Active rosuvastatin (Crestor) 5 MG tablet Take 1 tablet by mouth daily. 04/23/19 23 Active furosemide (Lasix) 40 MG tablet Take 1 tablet by mouth daily. 04/23/19 23 Active ergocalciferol 1.25 MG (17204 UT) capsule Take 1 capsule by mouth [...] tablets by mouth daily. 05/21/19 23 Active ciprofloxacin-dexa methasone (CiproDEX) otic suspension 05/18/19 24 Active acetic acid-hydrocortison e (Vosol-HC) otic solution Active loratadine (Claritin) 10 MG tablet Take 1 tablet by mouth nightly. 06/13/19 24 Active neomycin-polymyxin -hydrocortisone (Cortisporin) 3.5-22094-1 otic suspension instill FOUR drops into affected [...] directed for 7 days. Active nystatin (Nystop) 328545 UNIT/GM powder APPLY TO THE AFFECTED AREA(S) [...] AREA EVERY 12 HOURS. Active Jardiance 25 MGIndications:Type 2 diabetes mellitus with [...] mouth every 6 hours as needed. Active HYDROcodone-acetam inophen (Covelo) 5-325 MG tablet Take 1 tablet by mouth every 8 hours as needed for severe pain. 10 tablet 08/28/19 25 Active pen needle, diabetic (B-D UF III MINI PEN NEEDLES) 31G X 5 MM miscIndications:Ty pe 2 diabetes mellitus with hyperglycemia, without long-term current use of insulin (CMS/HCC) Inject 1-4x daily 200 each 11 09/08/19 25 Active insulin glargine (Lantus SoloStar) 100 UNIT/ML injection pen INJECT 37 UNITS UNDER SKIN AT DINNER Active Continuous Glucose Sensor (Dexcom G7 Sensor) misc CHANGE SENSOR EVERY 10 DAYS 9 each 10/05/19 25 Active Transparent Dressings (Tegaderm Film 2-3/8 x2-3/4 ) miscIndications:Ty pe 2 diabetes mellitus with hyperglycemia, without long-term current use of insulin (CMS/HCC) Use one every 10 days with dexcom sensors 20 each 5 10/06/19 25 Active dulaglutide (Trulicity) 0.75 MG/0.5ML solution auto-injector Inject 0.75 mg under the skin 1 time per week. Takes on tuesday 2 mL 1 10/24/19 25 Active insulin lispro (Admelog, HumaLOG) 100 UNIT/ML injection pen Inject up to 10 units three times daily before meals, MDD 30 units 15 mL 5 10/25/19 25 Active HumaLOG KWIKPEN 100 UNIT/ML injection penIndications:Typ e 2 diabetes mellitus with hyperglycemia, without long-term current use of insulin (CMS/HCC) Inject up to 10 units three times daily before meals, MDD 30 units 15 mL 5 09/08/19 25 025 Discontin ued(Formu dayron change) dulaglutide (Trulicity) 0.75 MG/0.5ML solution auto-injector Inject 0.75 mg under the skin 1 time per week. Takes on tuesday 2 mL 10/05/19 25 025 Discontin ued(Reord er) insulin lispro (Admelog, HumaLOG) 100 UNIT/ML injection pen Inject up to 10 units three times daily before meals, MDD 30 units 15 mL 5 10/25/19 25 025 Discontin ued(Reord er) Active Problems Problem Noted Date Diagnosed Date Carpal tunnel syndrome, left 06/07/2024 Class 3 severe obesity with serious comorbidity and body mass index (BMI) of 50.0 to 59.9 in adult 06/07/2024 Hepatic fibrosis 06/07/2024 Bilateral hand pain 06/15/2023 Trigger finger, left middle finger 09/29/2022 Carpal tunnel syndrome, bilateral 07/15/2022 Overview (07/15/2022): Added automatically from request for surgery [id number] Atrial fibrillation 06/15/2022 Personal history of other [...] Encounters Date Type Department Care Team Description 11/06/2024 Telephone [facility] [address], [address] [place] [address] Reji Vera MD HCN - Patient Message 10/24/2024 Refill [facility] [address] [place] [address] Roselia Pete 10/24/2024 Refill [facility] [address] [place] [phone] Roselia Pete 10/23/2024 Telephone [facility] [address] [place] [address] Jonas Rocha, [facility] 10/22/2024 Refill [facility] End[facility]ology [address] [place] [address] Iram Mckay PA 10/11/2024 Telephone [facility] [address] [place] [address] Shaniqua Tinajero MD HCN - Patient Message 10/05/2024 Telephone [facility] End[facility]ology [address] [place] [address] Iram Mckay PA 10/04/2024 Refill [facility] Endocr[facility]ology [address] [place] [phone] Iram Mckay PA 09/27/2024 11:20 AM EDT Office Visit [facility] [address] [place] [address] Shaniqua Tinajero MD Carpal tunnel syndrome, bilateral (Primary Dx) 09/27/2024 Travel 09/13/2024 Telephone [facility] [address] [place] [address] Shaniqua Tinajero MD HCN Clinical Concern/Question 09/12/2024 11:10 AM EDT Office Visit [facility] [address] [place] [address] Ja Hastings, PA Carpal tunnel syndrome, bilateral (Primary Dx); Trigger finger, left middle finger 09/12/2024 Travel 09/07/2024 Refill [facility] Endocrinology [address] [place] [address] Iram Mckay PA 09/07/2024 Telephone [facility] Endocrinology [address] [place] [phone] Iram Mckay PA 09/05/2024 Telephone [facility] [address] [place] [address] Shaniqua Tinajero MD HCN - Patient Message 08/31/2024 Telephone [facility] [address] [place] [phone] Shaniqua Tinajero MD Med Refill 08/28/2024 Telephone [facility] Endocrinology [address] [place] [address] Iram Mckay PA 08/27/2024 10:30 AM EDT - 08/27/2024 12:00 PM EDT Surgery [facility] S Operating Room [address] [place] [address] Shaniqua Tinajero MD left carpal tunnel release; left index finger trigger release [15593 (CPT ) +1 more] 08/27/2024 10:06 AM EDT Anesthesia Event [facility] S Operating Room [address] [place] [address] Dima Carty, Roselia Escobedo PA 08/27/2024 7:52 AM EDT - 08/27/2024 12:14 PM EDT Hospital Encounter [facility] Operating Room [address] [place] [address] Shaniqua Tinajero MD Discharge Disposition: Home or Self Care 08/27/2024 7:37 AM EDT - 08/27/2024 7:44 AM EDT Emergency [facility] Emergency Department [address] [place] [address] Discharge Disposition: ED Reg Error 08/27/2024 Travel 08/24/2024 Telephone [facility] [address] [place] [address] Shaniqua Tinajero MD 08/23/2024 2:00 PM EDT Pre-Admission Testing [facility] S Anesthesia [address] [place] [address] 08/23/2024 Travel 08/21/2024 Refill [facility] Endocrinology [address] [place] [address] Iram Mckay PA from Last 3 Months Immunizations Immunization Administration Dates Next Due [employer] COVID-19 Vaccine (Blue Cap) 18+ 05 21 [employer] COVID-19 Vac cine (Pickett Cap) 12+ years [...] EDT Appointment [facility] [address] [place] [address] 12/17/2024 12:20 PM EDT Office Visit [facility] Endocrinology [address] [place] [address] Iram Mckay PA [address] [place] [address] 03/12/2025 11:40 AM EST Office Visit [place] [facility] [address] [place] [address] Reji Vera MD [address] [place] [address] Health Maintenance Due Date Last Done Comments [...] 12/11/2011 Sigmoidoscopy 12/11/2011 [facility]-Breast Cancer Screening 2016 [id number] Vaccine ( season) 2023 05/05/2021, 07/29/2020 [facility]-Diabetes: Hemoglobin A1C [...] ANESTHESIA PLACEHOLDER Routine 08/27/2024 10:19 AM EDT MI AN ELECTIVE SUPRAGLOTTIC AIRWAY Routine 08/27/2024 10:19 AM EDT MI INCISE FINGER TENDON SHEATH 08/27/2024 9:56 AM EDT Carpal tunnel syndrome, left MI INCISE FINGER TENDON SHEATH 08/27/2024 9:56 AM EDT Carpal tunnel syndrome, left MI REVISE MEDIAN N/CARPAL TUNNEL SURG 08/27/2024 9:56 [...] Ja Hastings PA Consent: Consent obtained: Verbal [place] protocol: Patient identity confirmed: Verbally with patient [...] Comment 08/27/2024 11:09 AM EDT [facility] Office Technologist ID Magda Ojeda [id number] 11:09 AM EDT [facility] Device ID [id number] 08/27/2024 11:09 AM EDT [facility] Specimen Type POC Capillary 08/27/2024 11:09 AM EDT [facility]ARE [facility] Blood Capillary blood specimen / Unknown 08/27/2024 11:07 AM EDT 08/27/2024 11:09 AM EDT us Shaniqua Tinajero MD LAB POINT OF CARE TEST DOCKED DEVICE UNSOLICITED RESULTS Final Result [facility] [address] [place] [address] * MI AN ELECTIVE SUPRAGLOTTIC AIRWAY, PB ANESTHESIA PLACEHOLDER (08/27/2024 10:19 AM EDT) Narrative Saige Damon CRNA - 08/27/2024 10:19 AM EDT Saige Damon CRNA 08/27/2024 10:20 AM Airway Date/Time: 08/27/2024 10:19 AM Reason: elective Airway not difficult General Information and Staff Patient location during procedure: OR FIREPROOF DOOR ASSEMBLER: Saige Damon CRNA Performed: MORA Patient Condition Indications for airway management: anesthesia Patient position: sniffing Planned trial extubation Final Airway Details Final airway type: LMALMA Size: 4 LMA Type: normal us Dima Carty DO ANESTHESIA ORDERABLES Final Result * (ABNORMAL) Hemoglobin A1c (06/07/2024 12:11 PM EDT) Hemoglobin A1c 8.6(H) <5.7 % 06/07/2024 2:41 PM EDT [facility] Blood Venous blood specimen / Unknown Venipuncture / Unknown 06/07/2024 12:11 PM EDT 06/07/2024 12:12 PM EDT Narrative [facility] - 06/07/2024 2:41 PM EDT HA1C Interpretive Data: Diagnosis of Diabetes: Diabetic > or = 6.5% Pre-diabetic 5.7 to 6.4% Non-diabetic < or = 5.6% Glycemic Targets for Type I and Type II Diabetics: Non- Adults <7.0% Adults <6.0% Children and Adolescents <7.5% Source: [place] [employer]. Standards of medical care in diabetes,2017. Diabetes Care.2017:40 (suppl 1):S1-S135. HbA1c assay performed by an ion-exchange chromatography method that is certified traceable to the DCCT. us Shaniqua Tinajero MD LAB BLOOD ORDERABLES Final Result [facility] [address] [place] [address] * Colonoscopy (07/21/2023 11:58 AM EDT) Anatomical [...] Staff Role Sabrina Martin, TANI Student Nurse Pool Finisher Sally Madera CRNA, Mirta Bautista CRNA, RN Endo Nurse John Adam Endo Cleaning Crew Member Chase Smith MD Proceduralist Ramon Hunter MBBS [...] of bowel preparation was evaluated using the Sasabe Bowel Preparation Scale with scores of: right [...] Antibody Negative Negative 10/18/2022 4:59 PM EDT [facility] Blood Venous blood specimen / Unknown Venipuncture / Unknown 10/18/2022 3:02 PM EDT 10/18/2022 3:03 PM EDT Valente Mcdowell MD LAB BLOOD ORDERABLES Megan hernandez Result [facility] [address] [place] [address] from Last 3 Months or Most Recently Relevant to Health Maintenance Insurance [place] Care Teams Softlines Supervisor Relationship Specialty Start Date End Date Deya Reed APRN [address] [place] [address] PCP - General 06/15/22
--- OUTSIDE RECORDS SUMMARY | 2024-11-07 14:17 | XMS_ITS | Encounter Summary ---
Author Organization Healthcare Address [address] [place] [address] Care Team Providers Care Silver Miner Name Role Phone Deya Reed KERLINE Primary Care Provider + Encounter Details Date Type Department Care Team (Late st Contact Info) Description 10/05/2024 [facility]phone [facility] [address] [place] [address] Iram Mckay PA [address] [facility] [address] [place] [address] Social History Tobacco Use Types [...] Miscellaneous Notes * Telephone Encounter - Gerri Mullins CDE, RD - 10/05/2024 3:02 PM EDT Called [...] appropriate, please send a new rx to [facility] so that we may get them outto the pt. Thank You! documented in this encounter Plan of Treatment Upcoming Encounters Date Type Department Care Team (Late st Contact Info) Description 12/14/2024 10:45 AM EDT Appointment [facility] [address] [place] [address] 12/17/2024 12:20 PM EDT Office Visit [facility] Endocrinology [address] [place] [address] Iram Mckay PA 2[address] [facility] [address] [place] [address] 03/12/2025 11:40 AM EST Office Visit [facility] [address] [place] [address] Reji Vera MD [address] [place] [address] documented as of this encounter Visit Diagnoses Diagnosis Type 2 diabetes mellitus with hyperglycemia, without long-term current use of insulin ([facility])- Primary documented in this encounter Additional Health Concerns Assessment Noted Time PHQ-9 Depression Total Score: 0 05/15/19 25 8:16 AM EST A fall risk assessment has been complete d for the patient 09/27/2024 10:56 AM EDT A Body Mass Index follow-up plan has been documented for the patient 09/27/2024 12:07 PM EDT documented as of this encounter Care Teams Silver Miner Relationship Specialty Start Date End Date Deya Reed APRN [address] [place] [address] PCP - General 06/15/22 documented as of this encounter
--- OUTSIDE RECORDS SUMMARY | 2024-11-07 14:17 | XMS_ITS | Encounter Summary ---
Author Organization Healthcare Address [address] [place] [address] Care Team Providers Care Sorting And Folding Supervisor Name Role Phone Deya Reed FELT CUTTER Primary Care Provider + Encounter Details [...] EDT Appointment [facility] [address] [place] [address] 12/17/2024 12:20 PM EDT Office Visit [facility] [address] [place] [address] Iram Mckay PA [address] [facility] [address] [place] [address] 03/12/2025 11:40 AM EST Office Visit [place] [facility] [address] [place] [address] Reji Vera MD [address] [place] [address] documented as of this encounter [...] documented as of this encounter Care Teams Sorting And Folding Supervisor Relationship Specialty Start Date End Date Deya Reed APRN [address] [place] [address] PCP - General 06/15/22 documented as of this encounter
--- OUTSIDE RECORDS SUMMARY | 2024-11-07 14:17 | XMS_ITS | Encounter Summary ---
Author Organization Healthcare Address [address] [place] [address] Care Team Providers Care Communications Specialist Name Role Phone Deya Reed KERLINE Primary Care Provider + Encounter Details Date Type Department Care Team (Late st Contact Info) Description 10/23/2024 Telephone [facility] [address] [place] [address] Jonas Rocha, [facility] Social History Tobacco Use Types Packs/Day Years [...] encounter Miscellaneous Notes * Telephone Encounter - Roselia Pete - 10/24/2024 1:25 PM EDT Called pt to relay message about insurance change and generic Lispro insulin. Pt verbalized understanding. Lispro sent to pt's preferred pharmacy. documented in this encounter Plan of Treatment Upcoming Encounters Date Type Department Care Team (Late st Contact Info) Description 12/14/2024 10:45 AM EDT Appointment [facility] [address] [place] [address] 12/17/2024 12:20 PM EDT Office Visit [facility] [address] [place] [address] Iram Mckay PA [address] [place] [address] 03/12/2025 11:40 AM EST Office Visit [facility] [address], [address] [place] [address] Reji Vera MD [address] [place] [address] documented as of this encounter [...] documented as of this encounter Care Teams Communications Specialist Relationship Specialty Start Date End Date Deya Reed APRN [address] [place] [address] PCP - General 06/15/22 documented as of this encounter
--- OUTSIDE RECORDS SUMMARY | 2024-11-07 14:17 | XMS_ITS | Encounter Summary ---
Author Organization Healthcare Address [address] [place] [address] Care Team Providers Care Area Mechanic Name Role Phone Dina Glass Nena RUBBER GOODS INSPECTOR TESTER Primary Care Provider Chio Coombs RUBBER GOODS INSPECTOR TESTER Primary Care Provider + Deya Reed RUBBER GOODS INSPECTOR TESTER Primary Care Provider + Encounter Details Date Type Department Care Team (Late st Contact Info) Description 06/17/2020 Orders Only External Location [address] [place] [address] Vicenta Sharp MD [address] [address] Social History Tobacco Use Types [...] EDT Appointment [facility] [address] [place] [address] 12/17/2024 12:20 PM EDT [facility] [address] [place] [address] RoachIram Carroll PA [address] [place] [address] 03/12/2025 11:40 AM EST Office Visit [place] [facility] [address], [address] [place] [address] Reji Vera MD [address] [place] [address] documented as of this encounter [...] documented as of this encounter Care Teams Area Mechanic Relationship Specialty Start Date End Date Dina Glass APRN [address] [place] [address] PCP - General 08/01/20 06/09/21 Chio Coombs APRN [address] [place] [address] [place] [address] PCP - General Family Medicine 06/10/21 06/14/22 Deya Reed APRN [address] [place] [address] PCP - General 06/15/22 documented as of this encounter
--- OUTSIDE RECORDS SUMMARY | 2024-11-07 14:17 | XMS_ITS | Encounter Summary ---
Author Organization [facility] Address [address] [place] [address] Care Team Providers Care Watershed Coordinator Name Role Phone Deya Reed MARKING CLERK Primary Care Provider + Reason for Visit * Reason Onset Date Comments Med Refill 10/22/2024 The pended medic ations have been requested for refill. Please send to Specialty Pharmacy. Encounter Details Date Type Department Care Team (Late st Contact Info) Description 10/22/2024 Refill [facility] End[facility] [address] [place] [address] Iram Mckay PA [address] [address] Social History Tobacco Use Types [...] encounter Miscellaneous Notes * Telephone Encounter - Jordyn Francisco, PharmD - 10/23/2024 11:23 AM EDT 1 medication(s) has been approved per protocol. documented in this encounter Plan of Treatment Upcoming Encounters Date Type Department Care Team (Late st Contact Info) Description 12/14/2024 10:45 AM EDT Appointment [facility] [address] [place] [address] 12/17/2024 12:20 PM EDT Office Visit [facility] End[facility] [address] [place] [address] Iram Mckay PA [address] [place] [address] 03/12/2025 11:40 AM EST Office Visit [place] [facility] [address], 2[address] [place] [address] Reji Vear MD [address] [place] [address] documented as of this encounter Visit Diagnoses [...] documented as of this encounter Care Teams Watershed Coordinator Relationship Specialty Start Date End Date Deya Reed APRN [address] [place] [address] PCP - General 06/15/22 documented as of this encounter
--- OUTSIDE RECORDS SUMMARY | 2024-11-07 14:17 | XMS_ITS | Encounter Summary ---
Author Organization [facility] Address [address] [place] [address] Care Team Providers Care Middleware Architect Name Role Phone Deya Reed APRN Primary Care Provider + Reason for Visit * Reason Onset Date Comments Med Refill 10/24/2024 Encounter Details Date Type Department Care Team (Late Contact Info) Description 10/24/2024 [facility] End[facility]ology [address] [place] [address] Roselia Pete Social History Tobacco Use Types [...] EDT Appointment [facility] [address] [place] [address] 12/17/2024 12:20 PM EDT Office Visit [facility] Endocrinology [address] [place] [address] Iram Mckay PA [address] [place] [address] 03/12/2025 11:40 AM EST Office [facility] [place] [facility] [address], 2[address] [place] [address] Reji Vera MD [address] [place] [address] documented as of this encounter [...] documented as of this encounter Care Teams Middleware Architect Relationship Specialty Start Date End Date Deya Reed APRN [address] [place] [address] PCP - General 06/15/22 documented as of this encounter
--- OUTSIDE RECORDS SUMMARY | 2024-11-07 14:17 | XMS_ITS | Encounter Summary ---
Author Organization [facility] Address [address] [place] [address] Care Team Providers Care Program Manager Name Role Phone Deya Reed KERLINE Primary Care Provider + Reason for Visit * Reason Onset Date Comments Med Refill 10/04/2024 Encounter Details Date Type Department Care Team (Late st Contact Info) Description 10/04/2024 [facility] [address] [place] [address] Iram Mckay PA [address] [address] Social History Tobacco Use Types [...] EDT Appointment [facility] [address] [place] [address] 12/17/2024 12:20 PM EDT Office Visit [facility] Endocr[facility]ology [address] [place] [address] Iram Mckay PA [address] [place] [address] 03/12/2025 11:40 AM EST Office Visit [facility] Medicine Specialties [address], 2[address] [place] [address] Reji Vera MD [address] [place] [address] documented as of this encounter Visit Diagnoses [...] documented as of this encounter Care Teams Program Manager Relationship Specialty Start Date End Date Deya Reed APRN [address] [place] [address] PCP - General 06/15/22 documented as of this encounter
--- OUTSIDE RECORDS SUMMARY | 2024-11-07 14:17 | XMS_ITS | Encounter Summary ---
Author Organization [facility] Address [address] [place] [address] Care Team Providers Care General Maintenance Technician Name Role Phone Deya Reed KERLINE Primary Care Provider + Reason for Visit * Reason Onset Date Comments HCN Clinical Concern/Question 09/13/2024 Encounter Details Date Type Department Care Team (Late st Contact Info) Description 09/13/2024 Telephone [facility] [address] [place] [address] Shaniqua Tinajero MD [address] [address] HCN Clinical Concern/Question Social History Tobacco [...] AM EDT Photos were discussed with Dr. Hewitt, we will continue with the antibiotics and have her start doing once daily wet to dry dressings. I have offered her a nurse visit for this, but she does not want to come in at this time. I have advised her to steel pickler gauze, and saline from her local pharmacy. [...] to stay in place Best contact number: [phone] (mobile) Optimal time of day to reach caller: ANYTIME Additional comments/information from caller: None Note: Please do not reply to this message. Follow-up communication and further actions as a result of this message need to be communicated with the patient directly, if the patient is not active onMyChart. If the patient is active on MyChart, they will receive notification of the communication/outcome via [employer]. documented in this encounter Plan of Treatment Upcoming Encounters Date Type Department Care Team (Late st Contact Info) Description 12/14/2024 10:45 AM EDT Appointment [facility] Radiology [facility] [place] [address] 12/17/2024 12:20 PM EDT Office Visit Nery Simmons [facility] Endocrinology [address] [place] [address] Iram Mckay PA [address] [place] [address] 03/12/2025 11:40 AM EST Office Visit [facility] [address], 2nd [place] [address] Reji Vera MD [address] [place] [address] documented as of this encounter [...] documented as of this encounter Care Teams General Maintenance Technician Relationship Specialty Start Date End Date Deya Reed APRN [address] [place], [place] [id number] PCP - General 06/15/22 documented as of this encounter
[2024-11-07 16:52] LABS: Free Thyroxine Index 3.0 ug/dL (5.93-13.13); T4 (Thyroxine) 10.8 ug/dl (5.53-11.0); Triiodothryronine (T3) Uptake 28 % (23.5-40.5)
[2024-11-07 17:06] LABS: Thyroid Stimulating Hormone 0.34 uIU/mL (0.465-4.68)
== END 2024-11-07 23:59 | disposition home or self-care (01) ==
LOC: LAB 14:10
PROVIDERS: PCP Nurse Practitioner Family; Visit Provider Physician Assistant
DX: I49.1 Atrial premature depolarization (principal); I47.19 Other supraventricular tachycardia; G25.9 Extrapyramidal and movement disorder, unspecified; G43.809 Other migraine, not intractable, without status migrainosus; G47.33 Obstructive sleep apnea (adult) (pediatric); E11.9 Type 2 diabetes mellitus without complications; Z79.4 Long term (current) use of insulin; Z86.73 Personal history of transient ischemic attack (TIA), and cerebral infarction without residual deficits
CPT/HCPCS: 36415; 84436; 84443; 84479; 93270

== ENCOUNTER 2024-11-14 15:11 | Outpatient (CLI) | payer MEDICAID, SELFPAY ==
--- OUTSIDE RECORDS SUMMARY | 2024-09-27 11:20 | XMS_ITS | Encounter Summary ---
Author Organization [facility] Address [address] [place] [address] Care Team Providers Care County Administrator Name Role Phone Deya Reed KERLINE Primary Care Provider + Reason for Visit * Reason Comments Follow-up Follow-up Encounter Details Date Type Department Care Team (Late st Contact Info) Description 09/27/2024 11:20 AM EDT Office Visit [facility] [address] [place] [address] Shaniqua Tinajero MD [address] [facility] [address] [place] [address] Carpal tunnel syndrome, bilateral (Primary [...] injection DOS: 08/27/2024 History of Present Illness: Kmai Khan is a 58 y.o. female who is over status post the above procedures. At last visit, wound opened superficially after suture removal. Has been doing wound care. Today, carpal tunnel wound is fully healed. Has hypertrophic tissue. Index incision well healed. Hasn't done pt in [place] yet - full until October but reports she will call to get in H/[facility]/SH:I have reviewed the patient's medical history, [...] EDT Appointment [facility] [address] [place] [address] 12/17/2024 12:20 PM EDT Office Visit [facility] Endocrinology [address] [place] [address] Iram Mckay PA [address] [place] [address] 03/12/2025 11:40 AM EST Office Visit [facility] [address] [place] [address] Reji Vera MD [address] [place] [address] documented as of this encounter Visit Diagnoses [...] documented as of this encounter Care Teams County Administrator Relationship Specialty Start Date End Date Deya Reed APRN [address] [place] [address] PCP - General 06/15/22 documented as of this encounter
--- OUTSIDE RECORDS SUMMARY | 2024-11-14 15:13 | XMS_ITS | Clinical Summary ---
Author Organization [facility] Address [address] [place] [address] Care Team Providers Care Book Packer Name Role Phone Deya Reed KERLINE Primary [...] ONE TABLET BY MOUTH EVERY EVENING 04/22/19 Active lisinopril 20 MG tablet TAKE ONE [...] daily. 04/23/19 23 Active ergocalciferol 1.25 MG (86146 UT) capsule Take 1 capsule by mouth [...] nightly. 06/13/19 24 Active neomycin-polymyxin -hydrocortisone (Cortisporin) 3.5-45060-0 otic suspension instill FOUR drops into affected [...] directed for 7 days. Active nystatin (Nystop) 300662 UNIT/GM powder APPLY TO THE AFFECTED AREA(S) [...] 6 hours as needed. Active HYDROcodone-acetam inophen ([place]) 5-325 MG tablet Take 1 tablet by [...] (07/15/2022): Added automatically from request for surgery [id number] Atrial fibrillation 06/15/2022 Personal history of other [...] Type Department Care Team Description 11/06/2024 Telephone [facility] Medicine Specialties [address], [address] [place] [address] Reji Vera MD HCN - Patient Message 10/24/2024 Refill [facility] Endocrinology [address] [place] [address] Roselia Pete 10/24/2024 Refill [facility] [address] [place] [address] Roselia Pete 10/23/2024 Telephone [facility] [address] [place] [address] Jonas Rocha, [facility] 10/22/2024 Refill [facility] End[facility] [address] [place] [address] Iram Mckay PA 10/11/2024 Telephone [facility] [address] [place] [address] Shaniqua Tinajero MD HCN - Patient Message 10/05/2024 Telephone [facility] End[facility] [address] [place] [address] Iram Mckay PA 10/04/2024 Refill [facility] Endocrinology [address] [place] [phone] Iram Mckay PA 09/27/2024 11:20 AM EDT Office Visit [facility] [address] [place] [address] Shaniqua Tinajero MD Carpal tunnel syndrome, bilateral (Primary Dx) 09/27/2024 Travel 09/13/2024 Telephone [facility] [address] [place] [address] Shaniqua Tinajero MD HCN Clinical Concern/Question 09/12/2024 11:10 AM EDT Office Visit [facility] [address] [place] [address] Ja Hastings, PA Carpal tunnel syndrome, bilateral (Primary Dx); Trigger finger, left middle finger 09/12/2024 Travel 09/07/2024 Refill [facility] Endocrinology [address] [place] [address] Iram Mckay PA 09/07/2024 Telephone [facility] Endocr[facility]ology [address] [place] [phone] Iram Mckay PA 09/05/2024 Telephone [facility] [address] [place] [address] Shaniqua Tinajero MD HCN - Patient Message 08/31/2024 Telephone [facility] [address] [place] [phone] Shaniqua Tinajero MD Med Refill 08/28/2024 Telephone [facility] Endocrinology [address] [place] [address] Iram Mckay PA 08/27/2024 10:30 AM EDT - 08/27/2024 12:00 PM EDT Surgery [facility] Operating Room [address] [place] [address] Shaniqua Tinajero MD left carpal tunnel release; left index finger trigger release [14376 (CPT ) +1 more] 08/27/2024 10:06 AM EDT Anesthesia Event [facility] Room [address] [place] [address] Dima Carty, Roselia Escobedo PA 08/27/2024 7:52 AM EDT - 08/27/2024 12:14 PM EDT Hospital Encounter [facility] Operating Room [address] [place] [address] Shaniqua Tinajero MD Discharge Disposition: Home or Self Care 08/27/2024 7:37 AM EDT - 08/27/2024 7:44 AM EDT Emergency [facility] Emergency Department [address] [place] [address] Discharge Disposition: ED Reg Error 08/27/2024 Travel 08/24/2024 Telephone [facility] [address] [place] [address] Shaniqua Tinajero MD 08/23/2024 2:00 PM EDT Pre-Admission Testing [facility] An[facility] [address] [place] [address] 08/23/2024 Travel 08/21/2024 Refill [facility] Endocrinology [address] [place] [address] Iram Mckay PA from Last 3 Months Immunizations Immunization Administration Dates Next Due Teepix COVID-19 Vaccine (Blue Cap) 18+ 05 21 [id number] COVID-19 Vac cine (Pickett Cap) 12+ years [...] EDT Appointment [facility] [address] [place] [address] 12/17/2024 12:20 PM EDT Office Visit [facility] Endocrinology [address] [place] [address] Iram Mckay PA [address] [place] [address] 03/12/2025 11:40 AM EST [facility] [address], [address] [place] [address] Reji Vera MD [address] [place] [address] Health Maintenance Due Date Last [...] 12/11/2011 Sigmoidoscopy 12/11/2011 [facility]-Breast Cancer Screening 2016 [id number]-70 Vaccine ( season) 2023 05/05/2021, 07/29/2020 [facility]-Diabetes: [...] ANESTHESIA PLACEHOLDER Routine 08/27/2024 10:19 AM EDT NM AN ELECTIVE SUPRAGLOTTIC AIRWAY Routine 08/27/2024 10:19 AM EDT NM INCISE FINGER TENDON SHEATH 08/27/2024 9:56 AM EDT Carpal tunnel syndrome, left NM INCISE FINGER TENDON SHEATH 08/27/2024 9:56 AM EDT Carpal tunnel syndrome, left NM REVISE MEDIAN N/CARPAL TUNNEL SURG 08/27/2024 9:56 [...] Ja Hastings PA Consent: Consent obtained: Verbal [employer] protocol: Patient identity confirmed: Verbally with patient [...] Comment 08/27/2024 11:09 AM EDT [facility]ALTH[facility]ARE LAB Rn Camp ID Magda Ojeda 025 11:09 AM EDT [facility] Device ID [id number] 08/27/2024 11:09 AM EDT [facility] Specimen Type POC Capillary 08/27/2024 11:09 AM EDT [facility]ALTH[facility]ARE [facility] Blood Capillary blood specimen / Unknown 08/27/2024 11:07 AM EDT 08/27/2024 11:09 AM EDT us Shaniqua Tinajero MD LAB POINT OF CARE TEST DOCKED DEVICE UNSOLICITED RESULTS Final Result [facility] [address] [place] [address] * NM AN ELECTIVE SUPRAGLOTTIC AIRWAY, PB ANESTHESIA PLACEHOLDER (08/27/2024 10:19 AM EDT) Narrative Saige Damon CRNA - 08/27/2024 10:19 AM EDT Saige Damon CRNA 08/27/2024 10:20 AM Airway Date/Time: 08/27/2024 10:19 AM Reason: elective Airway not difficult General Information and Staff Patient location during procedure: OR FLOWERS SALESPERSON: Saige Damon CRNA Performed: MORA Patient Condition [...] Adults <6.0% Children and Adolescents <7.5% Source: [place] [employer]. Standards of medical care in diabetes,2017. Diabetes Care.2017:40 (suppl 1):S1-S135. HbA1c assay performed by an ion-exchange chromatography method that is certified traceable to the DCCT. us Shaniqua Tinajero MD LAB BLOOD ORDERABLES Final Result [facility] [address] [place] [address] * Colonoscopy (07/21/2023 11:58 AM EDT) Anatomical [...] Staff Role Sabrina Martin, TANI Student Nurse Carpenter And Joiner Sally Madera CRNA, Mirta Bautista CRNA, RN Endo Nurse John Adam Endo Safety Advisor Chase Smith MD Proceduralist Ramon Hunter MBBS [...] of bowel preparation was evaluated using the Sunset Bowel Preparation Scale with scores of: right [...] Antibody Negative Negative 10/18/2022 4:59 PM EDT [facility] Blood Venous blood specimen / Unknown Venipuncture / Unknown 10/18/2022 3:02 PM EDT 10/18/2022 3:03 PM EDT Valente Mcdowell MD LAB BLOOD ORDERABLES Megan hernandez Result [facility] [address] [place] [address] from Last 3 Months or Most Recently Relevant to Health Maintenance Insurance [place] Care Teams Book Packer Relationship Specialty Start Date End Date Deya Reed APRN [address] [place] [address] PCP - General 06/15/22
--- OUTSIDE RECORDS SUMMARY | 2024-11-14 15:13 | XMS_ITS | Encounter Summary ---
Author Organization [facility] Address [address] [place] [address] Care Team Providers Care Letterset Press Set Up Operator Name Role Phone Deya Reed KERLINE Primary Care Provider + Reason for Visit * Reason Onset Date Comments HCN - Patient Message 10/11/2024 Encounter Details Date Type Department Care Team (Late st Contact Info) Description 10/11/2024 Telephone [facility] [address] [place] [address] Shaniqua Tinajero MD [address] [address] HCN - Patient Message Social [...] Please call to advise. Best contact number: [phone] Optimal time of day to reach caller: ANYTIME Additional comments/information from caller: None Note: Please do not reply to this message. Follow-up communication and further actions as a result of this message need to be communicated with the patient directly, if the patient is not active onMyChart. If the patient is active on MyChart, they will receive notification of the communication/outcome via [employer]. documented in this encounter Plan of Treatment Upcoming Encounters Date Type Department Care Team (Late st Contact Info) Description 12/14/2024 10:45 AM EDT Appointment [facility] [address] [place] [address] 12/17/2024 12:20 PM EDT [facility] [address] [place] [address] Iram Mckay PA [address] [place] [address] 03/12/2025 11:40 AM EST Office Visit [place] [facility] [address] [place] [address] Reji Vera MD [address] [place] [address] documented as of this encounter Visit Diagnoses [...] documented as of this encounter Care Teams Letterset Press Set Up Operator Relationship Specialty Start Date End Date Deya Reed APRN [address] [place] [address] PCP - General 06/15/22 documented as of this encounter
--- OUTSIDE RECORDS SUMMARY | 2024-11-14 15:13 | XMS_ITS | Encounter Summary ---
Author Organization Healthcare Address [address] [place] [address] Care Team Providers Care Mental Health Clinician Name Role Phone Deya Reed KERLINE Primary Care Provider + Encounter Details Date Type Department Care Team (Late st Contact Info) Description 10/05/[address] [facility] [facility] [address] [address] [place] [address] Iram Mckay PA 2[address] [facility] [address] [place] [address] Social History Tobacco Use Types [...] appropriate, please send a new rx to [facility] so that we may get them outto the pt. Thank You! documented in this encounter Plan of Treatment Upcoming Encounters Date Type Department Care Team (Late st Contact Info) Description 12/14/2024 10:45 AM EDT Appointment [facility] [address] [place] [address] 12/17/2024 12:20 PM EDT Office Visit [facility] Endocrinology [address] [place] [address] Iram Mckay PA 2[address] [facility] [address] [place] [address] 03/12/2025 11:40 AM EST Office Visit [place] [facility] [address], [address] [place] [address] Reji Vera MD [address] [place] [address] documented as of this encounter Visit Diagnoses Diagnosis Type 2 diabetes mellitus with hyperglycemia, without long-term current use of insulin ([facility])- Primary documented in this encounter Additional Health Concerns Assessment Noted Time PHQ-9 Depression Total Score: 0 05/15/19 25 8:16 AM EST A fall risk assessment has been complete d for the patient 09/27/2024 10:56 AM EDT A Body Mass Index follow-up plan has been documented for the patient 09/27/2024 12:07 PM EDT documented as of this encounter Care Teams Mental Health Clinician Relationship Specialty Start Date End Date Deya Reed APRN [address] [place] [address] PCP - General 06/15/22 documented as of this encounter
--- OUTSIDE RECORDS SUMMARY | 2024-11-14 15:13 | XMS_ITS | Encounter Summary ---
Author Organization Healthcare Address [address] [place] [address] Care Team Providers Care Die Mounter Name Role Phone Dina Glass Nena TELEPHONE INFORMATION SUPERVISOR Primary Care Provider Chio Coombs TELEPHONE INFORMATION SUPERVISOR Primary Care Provider + Deya Reed TELEPHONE INFORMATION SUPERVISOR Primary Care Provider + Encounter Details Date Type Department Care Team (Late st Contact Info) Description 03/25/2020 Orders Only External Location [address] [place] [address] Provider, External Social History Tobacco Use Types [...] EDT Appointment [facility] [address] [place] [address] 12/17/2024 12:20 PM EDT Office Visit [facility] [address] [place] [address] Iram Mckay PA [address] [facility] [address] [place] [address] 03/12/2025 11:40 AM EST Office Visit [place] [facility] [address], [address] [place] [address] Reji Vera MD [address] [place] [address] documented as of this encounter [...] documented as of this encounter Care Teams Die Mounter Relationship Specialty Start Date End Date Dina Glass APRN [address] [place] [address] PCP - General 08/01/20 06/09/21 Chio Coombs APRN [address] [place] [address] [place] [address] PCP - General Family Medicine 06/10/21 06/14/22 Deya Reed APRN [address] [place] [address] PCP - General 06/15/22 documented as of this encounter
--- OUTSIDE RECORDS SUMMARY | 2024-11-14 15:14 | XMS_ITS | Encounter Summary ---
Author Organization Healthcare Address [address] [place] [address] Care Team Providers Care Retail Team Leader Name Role Phone Maria LuisaDina castillo Nena SILK WASHING MACHINE OPERATOR Primary Care Provider Chio Coombs SILK WASHING MACHINE OPERATOR Primary Care Provider + Deya Reed SILK WASHING MACHINE OPERATOR Primary Care Provider + Encounter Details Date Type Department Care Team (Late st Contact Info) Description 02/20/2021 Orders Only External Location [address] [place] [address] Provider, External Social History Tobacco Use Types [...] EDT Appointment [facility] Radiology [address] [place] [address] 12/17/2024 12:20 PM EDT Office Visit [facility] [address] [place] [address] Iram Mckay PA 2[address] [facility] [address] [place] [address] 03/12/2025 11:40 AM EST Office Visit [facility] [address] [place] [address] Reji Vera MD [address] [place] [address] documented as of this encounter [...] documented as of this encounter Care Teams Retail Team Leader Relationship Specialty Start Date End Date Dina Glass APRN [address] [place], [place] [id number] PCP - General 08/01/20 06/09/21 Chio Coombs APRN [address] [place] [address] [place] [address] PCP - General Family Medicine 06/10/21 06/14/22 Deya Reed APRN [address] [place] [address] PCP - General 06/15/22 documented as of this encounter
--- OUTSIDE RECORDS SUMMARY | 2024-11-14 15:14 | XMS_ITS | Encounter Summary ---
Author Organization Healthcare Address [address] [place] [address] Care Team Providers Care Garment Fitter Name Role Phone Deya Reed KERLINE Primary Care Provider + Reason for Visit * Reason Onset Date Comments HCN - Patient Message 11/06/2024 Encounter Details Date Type Department Care Team (Late st Contact Info) Description 11/06/2024 Telephone [facility] [address], [address] [place] [address] Reji Vera MD [address] [place] [address] HCN - Patient Message Social [...] No openings until February. Best contact number: [phone] (mobile) Optimal time of day to reach caller: ANYTIME Additional comments/information from caller: Note: Please do not reply to this message. Follow-up communication and further actions as a result of this message need to be communicated with the patient directly, if the patient is not active onMyChart. If the patient is active on MyChart, they will receive notification of the communication/outcome via [employer]. documented in this encounter Plan of Treatment Upcoming Encounters Date Type Department Care Team (Late st Contact Info) Description 12/14/2024 10:45 AM EDT Appointment [facility] Radiology [address] [place] [address] 12/17/2024 12:20 PM EDT Office Visit [facility] End[facility]ology [address] [place] [address] Iram Mckay PA 2195 [facility] [address] [place] [address] 03/12/2025 11:40 AM EST Office Visit [facility] [address] [place] [address] Reji Vera MD [address] [place] [address] documented as of this encounter Visit Diagnoses [...] documented as of this encounter Care Teams Garment Fitter Relationship Specialty Start Date End Date Deya Reed APRN [address] [place] [address] PCP - General 06/15/22 documented as of this encounter
--- OUTSIDE RECORDS SUMMARY | 2024-11-14 15:14 | XMS_ITS | Encounter Summary ---
Author Organization [facility] Address [address] [place] [address] Care Team Providers Care Title Coordinator Name Role Phone Deya Reed APRN Primary Care Provider + Reason for Visit * Reason Onset Date Comments Med Refill 10/24/2024 Encounter Details Date Type Department Care Team (Late Contact Info) Description 10/24/[facility] Endocrinology [address] [place] [address] Roselia Pete Social History Tobacco Use Types [...] EDT Appointment [facility] Radiology [address] [place] [address] 12/17/2024 12:20 PM EDT Office Visit Gavinorbriana [facility] Endocrinology [address] [place] [address] Iram Mckay PA [address] [place] [address] 03/12/2025 11:40 AM EST Office Visit [place] [facility] [address], 2nd [place] [address] Reji Vera MD [address] [place] [address] documented as of this encounter [...] documented as of this encounter Care Teams Title Coordinator Relationship Specialty Start Date End Date Deya Reed APRN [address] [place] [address] PCP - General 06/15/22 documented as of this encounter
--- OUTSIDE RECORDS SUMMARY | 2024-11-14 15:14 | XMS_ITS | Encounter Summary ---
Author Organization Healthcare Address [address] [place] [address] Care Team Providers Care Institutional Asset Manager Name Role Phone Maria LuisaDina lala Nena CHURCHILL Primary Care Provider [phone] Chio Coombs APRN Primary Care Provider + Deya Reed APRN Primary Care Provider + Reason for Referral * Consultation (Routine) - Closed Specialty Diagnoses / Procedures Referred By Christophe t Referred To Contact Neurosurgery Diagnoses Chronic back pain, unspecified back location, unspecified back pain laterality Chio Coombs, PLATE CONDITIONER [address] [place] [address] Phone: tel: fax: Referral ID Status Reason Start Date Expiration Date V isits Requested Visits Authorized [id number] Closed Specialty Services Required 11/19/2020 05/18/2021 1 1 Encounter Details Date Type Department Care Team (Late st Contact Info) Description 11/19/2020 [facility] [address] [place] [address] Chio Coombs, PLATE CONDITIONER [address] [place] [address] Chronic back pain, unspecified back location, [...] EDT Appointment [facility] A Radiology [address] [place] [address] 12/17/2024 12:20 PM EDT Office Visit [facility] Endocrinology [address] [place] [address] Iram Mckay PA [address] [place] [address] 03/12/2025 11:40 AM EST Office Visit [place] [facility] [address], [address] [place] [address] Reji Vera MD [address] [place] [address] Scheduled Referrals Name Type Priority Associated Diagnoses [...] documented as of this encounter Care Teams Institutional Asset Manager Relationship Specialty Start Date End Date Dina Glass APRN [address] [place] [address] PCP - General 08/01/20 06/09/21 Chio Coombs APRN [address] [place] [address] [place] [address] PCP - General Family Medicine 06/10/21 06/14/22 Deya Reed APRN [address] [place] [address] PCP - General 06/15/22 documented as of this encounter
--- OUTSIDE RECORDS SUMMARY | 2024-11-14 15:14 | XMS_ITS | Encounter Summary ---
Author Organization Healthcare Address [address] [place] [address] Care Team Providers Care Experimental Aircraft Mechanic Name Role Phone Deya Reed RV PARTS AND SERVICE DIRECTOR Primary Care Provider + Encounter Details Date Type Department Care Team (Late Contact Info) Description 05/27/2023 Orders Only External Location [address] [place] [address] Provider, External Social History Tobacco Use Types [...] EDT Appointment [facility] Radiology [address] [place] [address] 12/17/2024 12:20 PM EDT Office Visit [facility] [address] [place] [address] Iram Mckay PA [address] [facility] 125 [place] [address] 03/12/2025 11:40 AM EST Office Visit [place] [facility] [address], [address] [place] [address] Reji Vera MD [address] [place] [address] documented as of this encounter [...] documented as of this encounter Care Teams Experimental Aircraft Mechanic Relationship Specialty Start Date End Date Deya Reed APRN [address] [place] [address] PCP - General 06/15/22 documented as of this encounter
--- OUTSIDE RECORDS SUMMARY | 2024-11-14 15:14 | XMS_ITS | Encounter Summary ---
Author Organization Healthcare Address [address] [place] [address] Care Team Providers Care Structural Engineering Technician Name Role Phone Deya Reed KERLINE Primary Care Provider + Encounter Details Date Type Department Care Team (Late st Contact Info) Description 08/24/2024 Telephone [facility] [address] [place] [address] Shaniqua Tinajero MD [address] [address] Social History Tobacco Use Types [...] EDT Appointment [facility] Radiology [address] [place] [address] 12/17/2024 12:20 PM EDT Office Visit [facility] [address] [place] [address] Iram Mckay PA [address] [place] [address] 03/12/2025 11:40 AM EST Office Visit [place] [facility] [address], [address]nd [place] [address] Reji Vera MD [address] [facility] [address] [place] [address] documented as of this encounter Visit Diagnoses [...] documented as of this encounter Care Teams Structural Engineering Technician Relationship Specialty Start Date End Date Deya Reed APRN [address] [place] [address] PCP - General 06/15/22 documented as of this encounter
--- OUTSIDE RECORDS SUMMARY | 2024-11-14 15:14 | XMS_ITS | Encounter Summary ---
Author Organization [facility] Address [address] [place] [address] Care Team Providers Care Master Automotive Technician Name Role Phone Deya Reed TEAM LEADER Primary Care Provider + Reason for Visit * Reason Onset Date Comments Med Refill 10/22/2024 The pended medic ations have been requested for refill. Please send to Specialty Pharmacy. Encounter Details Date Type Department Care Team (Late st Contact Info) Description 10/22/2024 Refill [facility] Endocrinology [address] [place] [address] Iram Mckay PA [address] [address] Social History Tobacco Use Types [...] EDT Appointment [facility] Radiology [address] [place] [address] 12/17/2024 12:20 PM EDT Office Visit [facility] Endocrinology [address] [place] [address] Iram Mckay PA [address] [place] [address] 03/12/2025 11:40 AM EST Office Visit [place] [facility] [address], [address] [place] [address] Reji Vera MD [address] [place] [address] documented as of this encounter Visit Diagnoses [...] documented as of this encounter Care Teams Master Automotive Technician Relationship Specialty Start Date End Date Deya Reed APRN [address] [place] [address] PCP - General 06/15/22 documented as of this encounter
--- OUTSIDE RECORDS SUMMARY | 2024-11-14 15:14 | XMS_ITS | Encounter Summary ---
Author Organization [facility] Address [address] [place] [address] Care Team Providers Care Flatbed Press Operator Name Role Phone Deya Reed KERLINE Primary Care Provider + Reason for Visit * Reason Onset Date Comments Med Refill 10/04/2024 Encounter Details Date Type Department Care Team (Late st Contact Info) Description 10/04/2024 [facility] [address] [place] [address] Iram Mckay PA [address] [address] Social History Tobacco Use Types [...] Appointment [facility] A Radiology [address] [place] [address] 12/17/2024 12:20 PM EDT Office Visit [facility] Endocrinology [address] [place] [address] Iram Mckay PA [address] [place] [address] 03/12/2025 11:40 AM EST Office Visit [facility] Medicine Specialties [address], [address]nd [place] [address] Reji Vera MD [address] [place] [address] documented as of this encounter Visit Diagnoses [...] documented as of this encounter Care Teams Flatbed Press Operator Relationship Specialty Start Date End Date Deya Reed APRN [address] [place] [address] PCP - General 06/15/22 documented as of this encounter
--- OUTSIDE RECORDS SUMMARY | 2024-11-14 15:14 | XMS_ITS | Encounter Summary ---
Author Organization Healthcare Address [address] [place] [address] Care Team Providers Care Frame Carver Spindle Name Role Phone Maria LuisaDina castillo Nena FLIGHT ENGINEER INSTRUCTOR Primary Care Provider Chio Coombs FLIGHT ENGINEER INSTRUCTOR Primary Care Provider + Deya Reed FLIGHT ENGINEER INSTRUCTOR Primary Care Provider + Encounter Details Date Type Department Care Team (Late st Contact Info) Description 02/20/2021 Orders Only External Location [address] [place] [address] Provider, External Social History Tobacco Use Types [...] EDT Appointment [facility] Radiology [address] [place] [address] 12/17/2024 12:20 PM EDT Office Visit [facility] [address] [place] [address] Iram Mckay PA [address] [facility] 125 [place] [address] 03/12/2025 11:40 AM EST Office Visit [place] [facility] [address], [address]nd [place] [address] Reji Vera MD [address] [place] [address] documented as of this encounter [...] documented as of this encounter Care Teams Frame Carver Spindle Relationship Specialty Start Date End Date Dina Glass APRN [address] [place], [place] [id number] PCP - General 08/01/20 06/09/21 Chio Coombs APRN [address] [place] [address] [place] [address] PCP - General Family Medicine 06/10/21 06/14/22 Deya Reed APRN [address] [place] [address] PCP - General 06/15/22 documented as of this encounter
--- OUTSIDE RECORDS SUMMARY | 2024-11-14 15:14 | XMS_ITS | Encounter Summary ---
Author Organization Healthcare Address [address] [place] [address] Care Team Providers Care Carbon Brush Maker Name Role Phone Deya Reed KERLINE Primary Care Provider + Encounter Details Date Type Department Care Team (Late st Contact Info) Description 10/23/2024 Telephone [facility] [address] [place] [address] Jonas Rocha, [facility] Social History Tobacco Use Types Packs/Day Years [...] EDT Appointment [facility] A Radiology [address] [place] [address] 12/17/2024 12:20 PM EDT Office Visit [facility] Robertokayla [facility] Endocrinology [address] [place] [address] Iram Mckay PA [address] [place] [address] 03/12/2025 11:40 AM EST Office Visit [place] [facility] [address], [address]nd [place] [address] Reji Vera MD [address] [place] [address] documented as of this encounter [...] documented as of this encounter Care Teams Carbon Brush Maker Relationship Specialty Start Date End Date Deya Reed APRN [address] [place] [address] PCP - General 06/15/22 documented as of this encounter
--- OUTSIDE RECORDS SUMMARY | 2024-11-14 15:14 | XMS_ITS | Encounter Summary ---
Author Organization Healthcare Address [address] [place] [address] Care Team Providers Care Mechanic Senior Name Role Phone Deya Reed FISHER TROLL LINE Primary Care Provider + Encounter Details Date [...] EDT Appointment [facility] A Radiology [address] [place] [address] 12/17/2024 12:20 PM EDT Office Visit [facility] [address] [place] [address] Iram Mckay PA [address] [facility] 125 [place] [address] 03/12/2025 11:40 AM EST Office Visit [place] [facility] [address], 2[address] [place] [address] Reji Vera MD [address] [place] [address] documented as of this encounter [...] documented as of this encounter Care Teams Mechanic Senior Relationship Specialty Start Date End Date Deya Reed APRN [address] [place] [address] PCP - General 06/15/22 documented as of this encounter
--- OUTSIDE RECORDS SUMMARY | 2024-11-14 15:14 | XMS_ITS | Encounter Summary ---
Author Organization [facility] Address [address] [place] [address] Care Team Providers Care Spring Salvage Worker Name Role Phone Deya Reed APRN Primary Care Provider + Reason for Visit * Reason Onset Date Comments Med Refill 10/24/2024 Encounter Details Date Type Department Care Team (Late Contact Info) Description 10/24/2024 [facility] Endocrinology [address] [place] [address] Roselia Pete Social History Tobacco Use Types [...] EDT Appointment [facility] A Radiology [address] [place] [address] 12/17/2024 12:20 PM EDT Office Visit Gavinorbriana [facility] Endocrinology [address] [place] [address] Iram Mckay PA [address] [place] [address] 03/12/2025 11:40 AM EST Office Visit [place] [facility] [address] 2[address] [place] [address] Reji Vera MD [address] [place] [address] documented as of this encounter [...] documented as of this encounter Care Teams Spring Salvage Worker Relationship Specialty Start Date End Date Deya Reed APRN [address] [place] [address] PCP - General 06/15/22 documented as of this encounter
--- OUTSIDE RECORDS SUMMARY | 2024-11-14 15:14 | XMS_ITS | Encounter Summary ---
Author Organization Healthcare Address [address] [place] [address] Care Team Providers Care Public Relations Senior Associate Name Role Phone Dina Glass Nena FRONT END SOFTWARE ENGINEER Primary Care Provider Chio Coombs FRONT END SOFTWARE ENGINEER Primary Care Provider + Deya Reed FRONT END SOFTWARE ENGINEER Primary Care Provider + Encounter Details Date Type Department Care Team (Late st Contact Info) Description 06/17/2020 Orders Only External Location [address] [place] [address] Vicenta Sharp MD [address] [address] Social History Tobacco Use Types [...] EDT Appointment [facility] A Radiology [address] [place] [address] 12/17/2024 12:20 PM EDT [facility] [address] [place] [address] RoachIram [place] PA [address] [place] [address] 03/12/2025 11:40 AM EST Office Visit [place] [facility] [address], 2nd [place] [address] Reji Vera MD [address] [place] [address] documented as of this encounter [...] documented as of this encounter Care Teams Public Relations Senior Associate Relationship Specialty Start Date End Date Dina Glass APRN [address] [place] [address] PCP - General 08/01/20 06/09/21 Chio Coombs APRN [address] [place] [address] [place] [address] PCP - General Family Medicine 06/10/21 06/14/22 Deya Reed APRN [address] [place] [address] PCP - General 06/15/22 documented as of this encounter
--- OUTSIDE RECORDS SUMMARY | 2024-11-14 15:14 | XMS_ITS | Encounter Summary ---
Author Organization Healthcare Address [address] [place] [address] Care Team Providers Care Pricing Lead Name Role Phone Deya Reed KERLINE Primary Care Provider + Encounter Details Date Type Department Care Team (Late st Contact Info) Description 08/28/2024 Telephone [facility]au[facility] Endocrinology [address] [place] [address] Iram Mckay PA 2195 [facility] 125 [place] [address] Social History Tobacco Use Types [...] optimal time of day to reach caller: [phone] Note: Please do not reply to this message. Follow-up communication and further actions as a result of this message need to be communicated with the patient directly, if the patient is not active onMyChart. If the patient is active on MyChart, they will receive notification of the communication/outcome via [employer]. documented in this encounter Plan of Treatment Upcoming Encounters Date Type Department Care Team (Late st Contact Info) Description 12/14/2024 10:45 AM EDT Appointment [facility] Radiology [address] [place] [address] 12/17/2024 12:20 PM EDT Office Visit [facility]ri[facility] Endocrinology [address] [place] [address] Iram Mckay PA [address] [place] [address] 03/12/2025 11:40 AM EST Office Visit [place] [facility] [address], [address] [place] [address] Reji Vera MD [address] [place] [address] documented as of this encounter [...] documented as of this encounter Care Teams Pricing Lead Relationship Specialty Start Date End Date Deya Reed APRN [address] [place], [place] [address] PCP - General 06/15/22 documented as of this encounter
--- NOTE | 2024-11-14 15:15 | CA_ITS ---
APPROVED REPORT EXAM: Comprehensive 2D, Doppler, and color-flow Echocardiogram Clinical Auditor: Sally Swanson RT(R) Ht: 5 ft 0 in Wt: 256lbs BSA: 2.07 BP: 102/65 mmHg Indications: abn EKG, AFIB, dizziness M-Mode Dimensions RVDd 1.60 cm (0.9-2.6) LA Diam 3.07 cm (1.9-4.0) LVDd 3.69 cm (3.5-5.7) LVDs 2.77 cm (3.5-5.7) IVSd 0.80 cm (0.6-1.1) PWd 0.88 cm (0.6-1.1) EF (Teich) 50.20% FS 24.90% EDV (Teich) 57.80 mL ESV (Teich) 28.80 mL LV Diastology E Decel Time 247 (160-240 msec) E/A Ratio 0.7 Mitral Valve MV E Max Phil. 59.0 (40-130 cm/s) MV A Velocity 82.0 (40-130 cm/s) E/A Ratio 0.72 MV PHT 72.0 ms Left Ventricle The left ventricle is normal size. Left ventricular systolic function is normal. The left ventricular ejection fraction is within the normal range. There is increased left ventricular wall thickness. There is normal LV segmental wall motion. Transmitral Doppler flow pattern suggests impaired LV relaxation. LVEF is 60%. Right Ventricle The right ventricle is normal size. The right ventricular systolic function is normal. Atria The left atrium size is normal. The right atrium size is normal. There is no color Doppler evidence of interatrial shunt. Aortic Valve The aortic valve is mildly thickened. There is no hemodynamically significant aortic valvular stenosis. No aortic regurgitation is present. Mitral Valve The mitral valve is normal in structure. No evidence of mitral valve stenosis. Trace mitral regurgitation is present. Tricuspid Valve The tricuspid valve leaflets are thin and pliable. Trace tricuspid regurgitation. There is insufficient TR jet to estimate RVSP. Pulmonic Valve The pulmonary valve is grossly normal in structure. Trace pulmonic valve regurgitation is present. Great Vessels The aortic root is normal in size. IVC is normal in size and collapses >50% with inspiration. Pericardium There is no pericardial effusion. Other Information Study Quality: Technically Difficult Conclusion Technically difficult study. Normal biventricular systolic function. No significant valvular stenosis or regurgitation. Electronically signed by : Makayla Coyne MD 11/16/2024 21:41:42
== END 2024-11-14 23:59 | disposition home or self-care (01) ==
LOC: RT 15:12
PROVIDERS: PCP Nurse Practitioner Family; Visit Provider Physician Assistant
DX: G25.9 Extrapyramidal and movement disorder, unspecified (principal); G43.809 Other migraine, not intractable, without status migrainosus; G47.33 Obstructive sleep apnea (adult) (pediatric); I48.91 Unspecified atrial fibrillation; R42 Dizziness and giddiness; R94.31 Abnormal electrocardiogram [ECG] [EKG]; Z86.73 Personal history of transient ischemic attack (TIA), and cerebral infarction without residual deficits
CPT/HCPCS: 93306

== ENCOUNTER 2024-11-27 12:10 | Outpatient (CLI) | payer MEDICAID, SELFPAY ==
--- OUTSIDE RECORDS SUMMARY | 2024-11-27 12:12 | XMS_ITS | Encounter Summary ---
Author Organization Healthcare Address [address] [place] [address] Care Team Providers Care Biofuels Operations Manager Name Role Phone Deya Reed ELIGIBILITY EXAMINER Primary Care Provider + Encounter Details Date Type Department Care Team (Late Contact Info) Description 05/27/2023 Orders Only External Location [address] [place] [address] Provider, External Social History Tobacco Use Types [...] EDT Appointment [facility] Radiology [address] [place] [address] 12/17/2024 12:20 PM EDT Office Visit [facility] Endocrinology [address] [place] [address] Iram Mckay PA [address] [facility] 125 [place] [address] 03/12/2025 11:40 AM EST Office Visit [place] [facility] [address], [address] [place] [address] Reji Vera MD [address] [place] [address] documented as of this encounter [...] documented as of this encounter Care Teams Biofuels Operations Manager Relationship Specialty Start Date End Date Deya Reed APRN [address] [place] [address] PCP - General 06/15/22 documented as of this encounter
--- OUTSIDE RECORDS SUMMARY | 2024-11-27 12:12 | XMS_ITS | Encounter Summary ---
Author Organization Healthcare Address [address] [place] [address] Care Team Providers Care Tear Down Man Name Role Phone Dina Glass Nena PHYSICIAN ALLERGIST IMMUNOLOGIST Primary Care Provider [phone] Chio Coombs PHYSICIAN ALLERGIST IMMUNOLOGIST Primary Care Provider + Deya Reed PHYSICIAN ALLERGIST IMMUNOLOGIST Primary Care Provider + Encounter Details Date Type Department Care Team (Late st Contact Info) Description 03/25/2020 Orders Only External Location [address] [place] [address] Provider, External Social History Tobacco Use Types [...] EDT Appointment [facility] Radiology [address] [place] [address] 12/17/2024 12:20 PM EDT Office Visit [facility] [address] [place] [address] Iram Mckay PA [address] [facility] 125 [place] [address] 03/12/2025 11:40 AM EST Office Visit [facility] [address] 2[address] [place] [address] Reji Vera MD [address] [place] [address] documented as of this encounter [...] documented as of this encounter Care Teams Tear Down Man Relationship Specialty Start Date End Date Dina Glass APRN [address] [place] [address] PCP - General 08/01/20 06/09/21 Chio Coombs APRN [address] [place] [address] [place] [address] PCP - General Family Medicine 06/10/21 06/14/22 Deya Reed APRN [address] [place] [address] PCP - General 06/15/22 documented as of this encounter"
--- OUTSIDE RECORDS SUMMARY | 2024-11-27 12:12 | XMS_ITS | Encounter Summary ---
Author Organization [facility] Address [address] [place] [address] Care Team Providers Care Biomechanical Engineer Name Role Phone Deya Reed KERLINE Primary Care Provider + Reason for Visit * Reason Onset Date Comments HCN - Patient Message 10/11/2024 Encounter Details Date Type Department Care Team (Late st Contact Info) Description 10/11/2024 Telephone [facility] [address] [place] [address] Shaniqua Tinajero MD [address] [address] HCN - Patient Message Social [...] Please call to advise. Best contact number: [phone] Optimal time of day to reach caller: ANYTIME Additional comments/information from caller: None Note: Please do not reply to this message. Follow-up communication and further actions as a result of this message need to be communicated with the patient directly, if the patient is not active onMyChart. If the patient is active on MyChart, they will receive notification of the communication/outcome via [employer]. documented in this encounter Plan of Treatment Upcoming Encounters Date Type Department Care Team (Late st Contact Info) Description 12/14/2024 10:45 AM EDT Appointment [facility] Radiology [address] [place] [address] 12/17/2024 12:20 PM EDT [facility] [address] [place] [address] Iram Mckay PA [address] [place] [address] 03/12/2025 11:40 AM EST Office Visit [place] [facility] [address], 2nd [place] [address] Reji Vera MD [address] [place] [address] documented as of this encounter Visit Diagnoses [...] documented as of this encounter Care Teams Biomechanical Engineer Relationship Specialty Start Date End Date Deya Reed APRN [address] [place] [address] PCP - General 06/15/22 documented as of this encounter
--- OUTSIDE RECORDS SUMMARY | 2024-11-27 12:12 | XMS_ITS | Encounter Summary ---
Author Organization Healthcare Address [address] [place] [address] Care Team Providers Care Sociology Teacher Name Role Phone Maria LuisaDina castillo Nena ACIDITY TESTER Primary Care Provider Chio Coombs ACIDITY TESTER Primary Care Provider + Deya Reed ACIDITY TESTER Primary Care Provider + Encounter Details Date Type Department Care Team (Late st Contact Info) Description 02/20/2021 Orders Only External Location [address] [place] [address] Provider, External Social History Tobacco Use Types [...] EDT Appointment [facility] Radiology [address] [place] [address] 12/17/2024 12:20 PM EDT Office Visit [facility] [address] [place] [address] Iram Mckay PA [address] [facility] 125 [place] [address] 03/12/2025 11:40 AM EST Office Visit [place] [facility] [address], 2nd [place] [address] Reji Vera MD [address] [place] [address] documented as of this encounter [...] documented as of this encounter Care Teams Sociology Teacher Relationship Specialty Start Date End Date Dina Glass APRN [address] [place], [place] [id number] PCP - General 08/01/20 06/09/21 Chio Coombs APRN [address] [place] [address] [place] [address] PCP - General Family Medicine 06/10/21 06/14/22 Deya Reed APRN [address] [place] [address] PCP - General 06/15/22 documented as of this encounter
--- OUTSIDE RECORDS SUMMARY | 2024-11-27 12:12 | XMS_ITS | Clinical Summary ---
Author Organization [facility] Address [address] [place] [address] Care Team Providers Care Metallurgist Process Name Role Phone Deya Reed KERLINE Primary [...] daily. 04/23/19 23 Active ergocalciferol 1.25 MG (57291 UT) capsule Take 1 capsule by mouth [...] nightly. 06/13/19 24 Active neomycin-polymyxin -hydrocortisone (Cortisporin) 3.5-43773-7 otic suspension instill FOUR drops into affected [...] directed for 7 days. Active nystatin (Nystop) 609959 UNIT/GM powder APPLY TO THE AFFECTED AREA(S) [...] units 15 mL 5 10/25/19 25 Active Active Problems Problem Noted Date Diagnosed Date Carpal tunnel syndrome, left 06/07/2024 Class 3 severe obesity with serious comorbidity and body mass index (BMI) of 50.0 to 59.9 in adult 06/07/2024 Hepatic fibrosis 06/07/2024 Bilateral hand pain 06/15/2023 Trigger finger, left middle finger 09/29/2022 Carpal tunnel syndrome, bilateral 07/15/2022 Overview (07/15/2022): Added automatically from request for surgery [id number] Atrial fibrillation 06/15/2022 Personal history of other medical treatment 05/19 Overview (05/28/2022): Congestive heart failure 05/28/2022 Disorder of vitamin B12 05/28/2022 Gastric ulcer 05/28/2022 Chronic back pain 05/28/2022 Hypercholesterolemia 05/28/2022 Edema of lower extremity 09/07/2021 Hepatosplenomegaly 07/10/2021 Steatosis of liver 07/10/2021 Irritable bowel syndrome with diarrhea Essential tremor 02/27/2021 Abnormal gait due to [...] Encounters Date Type Department Care Team Description 11/23/[address] [facility] Medicine Specialties [address], [address] [place] [address] Lauren Montalvo APRN, DNP 11/06/[address] [facility] Medicine Specialties [address], [address] [place] [address] Reji Vera MD HCN - Patient Message 10/24/[address] [facility] Endocrinology [address] [place] [address] Roselia Pete 10/24/[address] [facility] Endocrinology [address] [place] [address] Roselia Pete 10/23/2024 Telephone [facility] [address] [place] [address] Jonas Rocha, [facility] 10/22/[address] [facility] Endocrinology [address] [place] [address] Iram Mckay, PA 10/11/2024 Telephone [facility] [address] [place] [address] Shaniqua Tinajero MD HCN - Patient Message 10/05/[address] [facility] Endocrinology [address] [place] [address] Iram Mckay PA 10/04/[address] [facility] Endocrinology [address] [place] [address] Iram Mckay, PA 09/27/2024 11:20 AM EDT [facility] [address] [place] [address] Shaniqua Tinajero MD Carpal tunnel syndrome, bilateral (Primary Dx) 09/27/2024 Travel 09/13/2024 [facility]phone [facility] [address] [place] [address] Shaniqua Tinajero MD HCN Clinical Concern/Question 09/12/2024 11:10 AM EDT [facility] [address] [place] [address] Ja Hastings PA Carpal tunnel syndrome, bilateral (Primary Dx); Trigger finger, left middle finger 09/12/2024 Travel 09/07/2024 Refill [facility] Endocrinology [address] [place] [address] Iram Mckay PA 09/07/2024 Telephone [facility] Endocrinology [address] [place] [phone] Iram Mckay PA 09/05/2024 Telephone [facility] [address] [place] [address] Shaniqua Tinajero MD HCN - Patient Message 08/31/2024 Telephone [facility] [address] [place] [address] Shaniqua Tinajero MD Med Refill 08/28/2024 Telephone [facility] Endocrinology [address] [place] [address] Iram Mckay PA 08/27/2024 10:30 AM EDT - 08/27/2024 12:00 PM EDT Surgery [facility] Operating Room [address] [place] [address] Shaniqua Tinajero MD left carpal tunnel release; left index finger trigger release [15317 (CPT ) +1 more] 08/27/2024 10:06 AM EDT Anesthesia Event [facility] S Operating Room [address] [place] [address] Dima Carty DO Harward, Amy E, PA 08/27/2024 7:52 AM EDT - 08/27/2024 12:14 PM EDT Hospital Encounter [facility] Operating Room [address] [place] [phone] Shaniqua Tinajero MD Discharge Disposition: Home or Self Care 08/27/2024 7:37 AM EDT - 08/27/2024 7:44 AM EDT Emergency [facility] Emergency Department [address] [place] [address] Discharge Disposition: ED Reg Error 08/27/2024 Travel from Last 3 Months Immunizations Immunization Administration Dates Next Due [employer] COVID-19 Vaccine (Blue Cap) 18+ 07/30/19 21 [employer] COVID-19 Vac cine (Pickett Cap) 12+ years [...] EDT Appointment [facility] Radiology [address] [place] [address] 12/17/2024 12:20 PM EDT Office [facility] Endocrinology [address] [place] [address] Iram Mckay PA [address] [place] [address] 03/12/2025 11:40 AM EST Office Visit [place] [facility] [address], [address] [place] [address] Reji Vera MD [address] [place] [address] Health Maintenance Due Date Last Done Comments [...] 12/11/2011 Sigmoidoscopy 12/11/2011 [facility]-Breast Cancer Screening 2016 [facility]-Diabetes: Hemoglobin A1C 09/06/2024, 04/15/2020, 05/16/2018, Additional history exists [id number] Vaccine (2024- season) 2024 05/05/2021, 07/29/2020 [facility]-Influenza Vaccine (#1) 2024 [facility]-Depression Screening 05/15/2025 [...] Ja Hastings PA Consent: Consent obtained: Verbal [place] protocol: Patient identity confirmed: Verbally with patient [...] Comment 08/27/2024 11:09 AM EDT [facility] Plate Former ID Magda Ojeda 025 11:09 AM EDT HEALTHCARE LAB Device ID [id number] 08/27/2024 11:09 AM EDT HEALTHCARE LAB Specimen Type POC Capillary 08/27/2024 11:09 AM EDT [facility] Blood Capillary blood specimen / Unknown 08/27/2024 11:07 AM EDT 08/27/2024 11:09 AM EDT us Shaniqua Tinajero MD LAB POINT OF CARE TEST DOCKED DEVICE UNSOLICITED RESULTS Final Result Performing Organization Address City/State/[facility] Co de Phone Number HEALTHCARE LAB [address] [place] [address] * CO AN ELECTIVE SUPRAGLOTTIC AIRWAY, PB ANESTHESIA PLACEHOLDER (08/27/2024 10:19 AM EDT) Narrative Saige Damon CRNA - 08/27/2024 10:19 AM EDT Saige Damon CRNA 08/27/2024 10:20 AM Airway Date/Time: 08/27/2024 10:19 AM Reason: elective Airway not difficult General Information and Staff Patient location during procedure: OR EXHAUST EMISSIONS INSPECTOR: Saige Damon CRNA Performed: MORA Patient Condition Indications for airway management: anesthesia Patient position: sniffing Planned trial extubation Final Airway Details Final airway type: LMALMA Size: 4 LMA Type: normal us Dima Carty DO ANESTHESIA ORDERABLES Final Result * (ABNORMAL) Hemoglobin A1c (06/07/2024 12:11 PM EDT) Hemoglobin A1c 8.6(H) <5.7 % 06/07/2024 2:41 PM EDT [facility] Blood Venous blood specimen / Unknown Venipuncture / Unknown 06/07/2024 12:11 PM EDT 06/07/2024 12:12 PM EDT Narrative [facility] - 06/07/2024 2:41 PM EDT HA1C Interpretive Data: Diagnosis of Diabetes: Diabetic > or = 6.5% Pre-diabetic 5.7 to 6.4% Non-diabetic < or = 5.6% Glycemic Targets for Type I and Type II Diabetics: Non- Adults <7.0% Adults <6.0% Children and Adolescents <7.5% Source: [place] [employer]. Standards of medical care in diabetes,2017. Diabetes Care.2017:40 (suppl 1):S1-S135. HbA1c assay performed by an ion-exchange chromatography method that is certified traceable to the DCCT. us Shaniqua Tinajero MD LAB BLOOD ORDERABLES Final Result [facility] [address] [place] [address] * Colonoscopy (07/21/2023 11:58 AM EDT) Anatomical [...] Staff Role Sabrina Martin, TANI Student Nurse Butcher Fish Sally Madera CRNA, Mirta Bautista CRNA, RN Endo Nurse John Adam Endo Rubber Engraver Chase Smith MD Proceduralist Ramon Hunter MBBS [...] of bowel preparation was evaluated using the [place] Bowel Preparation Scale with scores of: right [...] Antibody Negative Negative 10/18/2022 4:59 PM EDT HEALTHCARE LAB Blood Venous blood specimen / Unknown Venipuncture / Unknown 10/18/2022 3:02 PM EDT 10/18/2022 3:03 PM EDT us Valente Mcdowell MD LAB BLOOD ORDERABLES Megan hernandez Result [facility] [address] [place] [address] from Last 3 Months or Most Recently Relevant to Health Maintenance Insurance [id number] [address] [place] Care Teams Metallurgist Process Relationship Specialty Start Date End Date Deya Reed APRN [address] [place] [address] PCP - General 06/15/22
--- OUTSIDE RECORDS SUMMARY | 2024-11-27 12:12 | XMS_ITS | Encounter Summary ---
Author Organization [facility] Address [address] [place] [address] Care Team Providers Care Log Turner Name Role Phone Deya Reed APRN Primary Care Provider + Reason for Visit * Reason Onset Date Comments Med Refill 10/24/2024 Encounter Details Date Type Department Care Team (Late Contact Info) Description 10/24/2024 [facility] Endocrinology [address] [place] [address] Roselia Pete Social History Tobacco Use Types [...] EDT Appointment [facility] [address] [place] [address] 12/17/2024 12:20 PM EDT Office Visit [facility] Endocrinology [address] [place] [address] Iram Mckay PA [address] [place] [address] 03/12/2025 11:40 AM EST Office Visit [place] [facility] [address], 2nd [place] [address] Reji Vera MD [address] [place] [address] documented as of this encounter [...] documented as of this encounter Care Teams Log Turner Relationship Specialty Start Date End Date Deya Reed APRN [address] [place] [address] PCP - General 06/15/22 documented as of this encounter
--- OUTSIDE RECORDS SUMMARY | 2024-11-27 12:12 | XMS_ITS | Encounter Summary ---
Author Organization Healthcare Address [address] [place] [address] Care Team Providers Care Batching Operator Name Role Phone Deya Reed KERLINE Primary Care Provider + Encounter Details Date Type Department Care Team (Late st Contact Info) Description 10/05/2024 [facility] [address] [place] [address] Iram Mckay PA 2195 [facility] 125 [place] [address] Social History Tobacco Use Types [...] appropriate, please send a new rx to [facility] so that we may get them outto the pt. Thank You! documented in this encounter Plan of Treatment Upcoming Encounters Date Type Department Care Team (Late st Contact Info) Description 12/14/2024 10:45 AM EDT Appointment [facility] [address] [place] [address] 12/17/2024 12:20 PM EDT Office Visit [facility] Endocrinology [address] [place] [address] Iram Mckay PA 2[address] [facility] [address] [place] [address] 03/12/2025 11:40 AM EST Office Visit [place] [facility] [address], [address] [place] [address] Reji Vera MD [address] [place] [address] documented as of this encounter Visit Diagnoses Diagnosis Type 2 diabetes mellitus with hyperglycemia, without long-term current use of insulin ([facility])- Primary documented in this encounter Additional Health Concerns Assessment Noted Time PHQ-9 Depression Total Score: 0 05/15/19 25 8:16 AM EST A fall risk assessment has been complete d for the patient 09/27/2024 10:56 AM EDT A Body Mass Index follow-up plan has been documented for the patient 09/27/2024 12:07 PM EDT documented as of this encounter Care Teams Batching Operator Relationship Specialty Start Date End Date Deya Reed APRN [address] [place] [address] PCP - General 06/15/22 documented as of this encounter
--- OUTSIDE RECORDS SUMMARY | 2024-11-27 12:12 | XMS_ITS | Encounter Summary ---
Author Organization Healthcare Address [address] [place] [address] Care Team Providers Care Psychology Assistant Name Role Phone Dina Glass Nena LOCATION AND MEASUREMENT TECHNICIAN Primary Care Provider Chio Coombs LOCATION AND MEASUREMENT TECHNICIAN Primary Care Provider + Deya Reed LOCATION AND MEASUREMENT TECHNICIAN Primary Care Provider + Encounter Details Date Type Department Care Team (Late st Contact Info) Description 06/17/2020 Orders Only External Location [address] [place] [address] Vicenta Sharp MD [address] [address] Social History Tobacco Use Types [...] EDT Appointment [facility] [address] [place] [address] 12/17/2024 12:20 PM EDT [facility] [address] [place] [address] RoachIram Carroll PA [address] [place] [address] 03/12/2025 11:40 AM EST Office Visit [facility] [address], [address] [place] [address] Reji Vera MD [address] [place] [address] documented as of this encounter [...] documented as of this encounter Care Teams Psychology Assistant Relationship Specialty Start Date End Date Dina Glass APRN [address] [place] [address] PCP - General 08/01/20 06/09/21 Chio Coombs APRN [address] [place] [address] [place] [address] PCP - General Family Medicine 06/10/21 06/14/22 Deya Reed APRN [address] [place] [address] PCP - General 06/15/22 documented as of this encounter
--- OUTSIDE RECORDS SUMMARY | 2024-11-27 12:12 | XMS_ITS | Encounter Summary ---
Author Organization Healthcare Address [address] [place] [address] Care Team Providers Care Hypercil Core Transformer Assembler Name Role Phone Maria LuisaDina lala Nena CHURCHILL Primary Care Provider [phone] Chio Coombs APRN Primary Care Provider + Deya Reed APRN Primary Care Provider + Reason for Referral * Consultation (Routine) - Closed Specialty Diagnoses / Procedures Referred By Christophe t Referred To Contact Neurosurgery Diagnoses Chronic back pain, unspecified back location, unspecified back pain laterality Chio Coombs, RACING CAR DRIVER [address] [place] [address] Phone: tel: fax: Referral ID Status Reason Start Date Expiration Date V isits Requested Visits Authorized [id number] Closed Specialty Services Required 11/19/2020 05/18/2021 1 1 Encounter Details Date Type Department Care Team (Late st Contact Info) Description 11/19/2020 [facility] [address] [place] [address] Chio Coombs, RACING CAR DRIVER [address] [place] [address] Chronic back pain, unspecified back location, [...] EDT Appointment [facility] [address] [place] [address] 12/17/2024 12:20 PM EDT Office Visit [facility] Endocrinology [address] [place] [address] Iram Mckay PA [address] [place] [address] 03/12/2025 11:40 AM EST Office Visit [place] [facility] [address] [place] [address] Reji Vera MD [address] [place] [address] Scheduled Referrals Name Type Priority Associated Diagnoses [...] documented as of this encounter Care Teams Hypercil Core Transformer Assembler Relationship Specialty Start Date End Date Dina Glass APRN [address] [place] [address] PCP - General 08/01/20 06/09/21 Chio Coombs APRN [address] [place] [address] [place] [address] PCP - General Family Medicine 06/10/21 06/14/22 Deya Reed APRN [address] [place] [address] PCP - General 06/15/22 documented as of this encounter
--- OUTSIDE RECORDS SUMMARY | 2024-11-27 12:12 | XMS_ITS | Encounter Summary ---
Author Organization Healthcare Address [address] [place] [address] Care Team Providers Care Braid Folder Name Role Phone Maria LuisaDina castillo Nena LOAN COORDINATOR Primary Care Provider Chio Coombs LOAN COORDINATOR Primary Care Provider + Deya Reed LOAN COORDINATOR Primary Care Provider + Encounter Details Date Type Department Care Team (Late st Contact Info) Description 02/20/2021 Orders Only External Location [address] [place] [address] Provider, External Social History Tobacco Use Types [...] EDT Appointment [facility] [address] [place] [address] 12/17/2024 12:20 PM EDT Office Visit [facility] Endocrinology [address] [place] [address] Iram Mckay PA [address] [email or web address] [address] [place] [address] 03/12/2025 11:40 AM EST Office Visit [place] [facility] [address], [address] [place] [address] Reji Vera MD [address] [place] [address] documented as of this encounter [...] documented as of this encounter Care Teams Braid Folder Relationship Specialty Start Date End Date Dina Glass APRN [address] [place], [place] [id number] PCP - General 08/01/20 06/09/21 Chio Coombs APRN [address] [place] [address] [place] [address] PCP - General Family Medicine 06/10/21 06/14/22 Deya Reed APRN [address] [place] [address] PCP - General 06/15/22 documented as of this encounter
--- OUTSIDE RECORDS SUMMARY | 2024-11-27 12:12 | XMS_ITS | Encounter Summary ---
Author Organization [facility] Address [address] [place] [address] Care Team Providers Care Fabricator Special Items Name Role Phone Deya Reed APRN Primary Care Provider + Reason for Visit * Reason Onset Date Comments Med Refill 10/24/2024 Encounter Details Date Type Department Care Team (Late Contact Info) Description 10/24/[address] [facility] Endocrinology [address] [place] [address] Roselia Pete Social History Tobacco Use Types [...] EDT Appointment [facility] Radiology [address] [place] [address] 12/17/2024 12:20 PM EDT Office Visit [facility] Endocrinology [address] [place] [address] Iram Mckay PA [address] [place] [address] 03/12/2025 11:40 AM EST Office Visit [place] [facility] Medicine [facility] [address] [place] [address] Reji Vera MD [address] [place] [address] documented as of this encounter [...] documented as of this encounter Care Teams Fabricator Special Items Relationship Specialty Start Date End Date Deya Reed APRN [address] [place] [address] PCP - General 06/15/22 documented as of this encounter
--- OUTSIDE RECORDS SUMMARY | 2024-11-27 12:12 | XMS_ITS | Encounter Summary ---
Author Organization Healthcare Address [address] [place] [address] Care Team Providers Care Media Relations Manager Name Role Phone Deya Reed KERLINE Primary Care Provider + Reason for Visit * Reason Onset Date Comments HCN - Patient Message 11/06/2024 Encounter Details Date Type Department Care Team (Late st Contact Info) Description 11/06/2024 Telephone [facility] [address], [address] [place] [address] Reji Vera MD [address] [place] [address] HCN - Patient Message Social [...] No openings until February. Best contact number: [phone] (mobile) Optimal time of day to reach caller: ANYTIME Additional comments/information from caller: Note: Please do not reply to this message. Follow-up communication and further actions as a result of this message need to be communicated with the patient directly, if the patient is not active onMyChart. If the patient is active on MyChart, they will receive notification of the communication/outcome via [employer]. documented in this encounter Plan of Treatment Upcoming Encounters Date Type Department Care Team (Late st Contact Info) Description 12/14/2024 10:45 AM EDT Appointment [facility] Radiology [address] [place] [address] 12/17/2024 12:20 PM EDT Office Visit [facility] Endocrinology [address] [place] [address] Iram Mckay PA [address] [facility] [address] [place] [address] 03/12/2025 11:40 AM EST Office Visit [facility] [address] [place] [address] Reji Vera MD [address] [place] [address] documented as of this encounter Visit Diagnoses [...] documented as of this encounter Care Teams Media Relations Manager Relationship Specialty Start Date End Date Deya Reed APRN [address] [place] [address] PCP - General 06/15/22 documented as of this encounter
--- OUTSIDE RECORDS SUMMARY | 2024-11-27 12:13 | XMS_ITS | Encounter Summary ---
Author Organization [facility] Address [address] [place] [address] Care Team Providers Care Package Handler Name Role Phone Deya Reed KERLINE Primary Care Provider + Reason for Visit * Reason Onset Date Comments Med Refill 10/04/2024 Encounter Details Date Type Department Care Team (Late st Contact Info) Description 10/04/2024 Refill [facility] Endocr[facility]ology [address] [place] [address] Iram Mckay PA [address] [address] Social History Tobacco Use Types [...] EDT Appointment [facility] Radiology [address] [place] [address] 12/17/2024 12:20 PM EDT Office Visit [facility] Endocrinology [address] [place] [address] Iram Mckay PA [address] [place] [address] 03/12/2025 11:40 AM EST Office Visit [facility] Medicine Specialties [address] [place] [phone] Reji Vera MD [address] [place] [phone] documented as of this encounter Visit Diagnoses [...] documented as of this encounter Care Teams Package Handler Relationship Specialty Start Date End Date Deya Reed APRN [address] [place] [address] PCP - General 06/15/22 documented as of this encounter
--- OUTSIDE RECORDS SUMMARY | 2024-11-27 12:13 | XMS_ITS | Encounter Summary ---
Author Organization Healthcare Address [address] [place] [address] Care Team Providers Care Diamond Sander Name Role Phone Deya Reed KERLINE Primary Care Provider + Encounter Details Date Type Department Care Team (Late st Contact Info) Description 10/23/2024 Telephone [facility] [address] [place] [address] Jonas Rocha, [facility] Social History Tobacco Use Types [...] EDT Appointment [facility] Radiology [address] [place] [address] 12/17/2024 12:20 PM EDT Office Visit [facility] [address] [place] [address] Iram Mckay PA [address] [place] [address] 03/12/2025 11:40 AM EST Office Visit [facility] [address] [place] [address] Reji Vera MD [address] [place] [address] documented as of this encounter [...] documented as of this encounter Care Teams Diamond Sander Relationship Specialty Start Date End Date Deya Reed APRN [address] [place] [address] PCP - General 06/15/22 documented as of this encounter
--- OUTSIDE RECORDS SUMMARY | 2024-11-27 12:13 | XMS_ITS | Encounter Summary ---
Author Organization [facility] Address [address] [place] [address] Care Team Providers Care Used Car Renovator Name Role Phone Deya Reed BINGO CASHIER Primary Care Provider + Reason for Visit * Reason Onset Date Comments Med Refill 10/22/2024 The pended medic ations have been requested for refill. Please send to Specialty Pharmacy. Encounter Details Date Type Department Care Team (Late st Contact Info) Description 10/22/2024 Refill [facility] Endocrinology [address] [place] [address] Iram Mckay PA [address] [address] Social History Tobacco Use Types [...] EDT Appointment [facility] Radiology [address] [place] [address] 12/17/2024 12:20 PM EDT Office Visit [facility] Endocrinology [address] [place] [address] Iram Mckay PA [address] [place] [address] 03/12/2025 11:40 AM EST [facility] [address] [place] [address] Reji Vera MD [address] [place] [address] documented as of this encounter Visit Diagnoses [...] documented as of this encounter Care Teams Used Car Renovator Relationship Specialty Start Date End Date Deya Reed APRN [address] [place] [address] PCP - General 06/15/22 documented as of this encounter
--- OUTSIDE RECORDS SUMMARY | 2024-11-27 12:13 | XMS_ITS | Encounter Summary ---
Author Organization Healthcare Address [address] [place] [address] Care Team Providers Care Aquaculturist Name Role Phone Derek Deya Fuchs APRN Primary Care Provider + Reason for Visit * Reason Comments Med Refill Encounter Details Date Type Department Care Team (Late st Contact Info) Description 11/23/2024 Refill [facility] [address] [place] [address] Lauren Montalvo APRN, DNP [address] [place] [address] Social History Tobacco Use Types Packs/Day Years [...] encounter Miscellaneous Notes * Telephone Encounter - Manjit Tay, PharmD - 11/23/2024 2:55 PM EDT Refill request does not meet protocol. Sending to clinic for review. Additional info: Appointment compliance - Patient has not followed up in clinic as requested. Please review for scheduling and if refills are appropriate. documented in this encounter Plan of Treatment Upcoming Encounters Date Type Department Care Team (Late st Contact Info) Description 12/14/2024 10:45 AM EDT Appointment [facility] [address] [place] [address] 12/17/2024 12:20 PM EDT Office Visit [facility] Endocrinology [address] [place] [address] Iram Mckay PA [address] [place] [address] 03/12/2025 11:40 AM EST Office Visit [facility] Medicine Specialties [address] [place] [address] Reji Vera MD [address] [place] [address] documented as of this encounter Visit Diagnoses [...] documented as of this encounter Care Teams Aquaculturist Relationship Specialty Start Date End Date Deya Reed APRN [address] [place] [address] PCP - General 06/15/22 documented as of this encounter
--- OUTSIDE RECORDS SUMMARY | 2024-11-27 12:13 | XMS_ITS | Encounter Summary ---
Author Organization Healthcare Address [address] [place] [address] Care Team Providers Care Rn Labor Delivery Name Role Phone Deya Reed KERLINE Primary Care Provider + Encounter Details Date Type Department Care Team (Late st Contact Info) Description 08/28/2024 Telephone [facility] [address] [place] [address] Iram Mckay PA [address] [facility] [address] [place] [address] Social History Tobacco Use Types [...] optimal time of day to reach caller: [phone] Note: Please do not reply to this message. Follow-up communication and further actions as a result of this message need to be communicated with the patient directly, if the patient is not active onMyChart. If the patient is active on MyChart, they will receive notification of the communication/outcome via [employer]. documented in this encounter Plan of Treatment Upcoming Encounters Date Type Department Care Team (Late st Contact Info) Description 12/14/2024 10:45 AM EDT Appointment [facility] Radiology [address] [place] [address] 12/17/2024 12:20 PM EDT Office Visit [facility] Endocrinology [address] [place] [address] Iram Mckay PA [address] [place] [address] 03/12/2025 11:40 AM EST Office Visit [facility] [address] [place] [address] Reji Vera MD [address] [place] [address] documented as of this encounter [...] documented as of this encounter Care Teams Rn Labor Delivery Relationship Specialty Start Date End Date Deya Reed APRN [address] [place], [place] [id number] PCP - General 06/15/22 documented as of this encounter
== END 2024-11-27 23:59 | disposition home or self-care (01) ==
LOC: RAD 12:10
PROVIDERS: PCP Nurse Practitioner Family; Visit Provider Physician Assistant
DX: G25.9 Extrapyramidal and movement disorder, unspecified (principal); G43.809 Other migraine, not intractable, without status migrainosus; G47.33 Obstructive sleep apnea (adult) (pediatric); E11.9 Type 2 diabetes mellitus without complications; Z79.4 Long term (current) use of insulin; R42 Dizziness and giddiness; Z86.73 Personal history of transient ischemic attack (TIA), and cerebral infarction without residual deficits

== ENCOUNTER 2025-01-16 11:36 | Outpatient (CLI) | payer MEDICAID, SELFPAY ==
--- NOTE | 2025-01-16 | CA_ITS ---
APPROVED REPORT Exam: Pharmacologic Technologist: Salina Wheeler Stress Nurse: Jory THACKER, RN Ht: 5 ft 0 in Wt: 260 lbs BSA: 2.09 m2 HR: 72 bpm BP: 112/76 mmHg Indications: Dizziness Stress Test Details Test: Lexiscan HR Resting HR: 72 bpm Max Heart Rate (APMHR): 162.410685 bpm Max HR Achieved: 91 bpm Target HR (85% APMHR): 137.672571 bpm % of APMHR: 56.17 Recovery HR: 88 bpm BP Resting BP: 112.0/76.0 mmHg Max BP: 149.0/75.0 mmHg Recovery BP: 136.0/83.0 mmHg ECG Stress ECG Conclusion Lungs clear to auscultation prior to start of test. Symptoms: Chest tightness Arrhythmias/Ectopy: None ST-T Changes: Less than 0.[address] segment changes. Conclusion: Nondiagnostic ECG/Lexiscan Electronically signed by : Makayla Coyne MD 01/20/2025 16:16:00
--- NOTE | 2025-01-16 11:30 | NM_ITS ---
APPROVED REPORT Exam: Nuclear Stress Test Indication: soa..fatigue Patient Location: Outpatient Stress Tech: Salina Wheeler HI Tech:Stephanie Bender MARBIELTracey, RT (R)(N) Ht: 5 ft 0 in Wt: 253 lbs Bra Size: 42c HR: 68 bpm BP: 112/76 mmHg BSA: 2.06 m2 TID: 1.05 History: soa..fatigue Procedure: Patient received 0.4 mg of intravenous Lexiscan, resting heart rate 68 bpm, resting blood pressure 112/76 mmHg, with Lexiscan maximum heart rate achieved was 91 bpm which is 85 % of the maximum predicted heart rate and blood pressure was 149/75 mmHg. With Lexiscan, patient denied any complaint of chest pain. Cardiac Stress and Resting SPECT Images: Cardiac Stress and Resting SPECT images were obtained using technetium 99m Myoview 30.6 mCi stress and 9.88 mCi at rest. Resting and stress imaging in supine and prone positions demonstrate no evidence of fixed or reversible perfusion defects. Gated imaging demonstrates normal global and regional LV systolic function. LVEF is calculated at 72%. Conclusion: No evidence of fixed or reversible perfusion defects. Gated imaging demonstrates normal global and regional LV systolic function. LVEF is calculated at 72%. Electronically signed by : Makayla Coyne MD 01/17/2025 13:11:45
[2025-01-16 13:25] VITALS: BP 112/76; PULSE 72; RESP 16
[2025-01-16] MEDS: ISOTOPE MYOVIEW (PER STUDY) 1 DOSE IV (13:40)
[2025-01-16] MEDS: SODIUM CHLORIDE 0.9% 10ML SYR (RAD ONLY) 10 ML IV ×2 (13:40→13:41)
== END 2025-01-16 23:59 | disposition home or self-care (01) ==
LOC: RAD 11:36
PROVIDERS: Visit Provider Physician Assistant
DX: R42 Dizziness and giddiness (principal); R06.02 Shortness of breath; R53.83 Other fatigue
CPT/HCPCS: 78452; 93017; 93018; A9502; J2785